=== PATIENT | female | born 1940 | race Caucasian/White ===

== ENCOUNTER 2019-12-12 08:33 | Outpatient (REF) | payer MEDICARE, SELFPAY ==
[2019-12-12 10:08] LABS: INTERNATIONAL NORM RATIO 1.1 (0.9-1.1); Prothrombin Time 13.2 SEC (10.8-13.0)
== END 2019-12-12 08:34 | disposition home or self-care (01) ==
LOC: HO.LABR 08:33
PROVIDERS: PCP Internal Medicine; Visit Provider Internal Medicine
DX: I48.92 Unspecified atrial flutter (principal); E66.9 Obesity, unspecified; M81.0 Age-related osteoporosis without current pathological fracture; I10 Essential (primary) hypertension; E11.65 Type 2 diabetes mellitus with hyperglycemia; E78.00 Pure hypercholesterolemia, unspecified; I49.5 Sick sinus syndrome; E03.9 Hypothyroidism, unspecified; K21.9 Gastro-esophageal reflux disease without esophagitis; Z95.0 Presence of cardiac pacemaker
CPT/HCPCS: 36415; 85610

== ENCOUNTER 2019-12-19 07:46 | Outpatient (REF) | payer MEDICARE, SELFPAY ==
[2019-12-19 08:52] LABS: INTERNATIONAL NORM RATIO 1.3 (0.9-1.1); Prothrombin Time 15.4 SEC (10.8-13.0)
== END 2019-12-19 07:47 | disposition home or self-care (01) ==
LOC: HO.LABR 07:46
PROVIDERS: PCP Internal Medicine; Visit Provider Internal Medicine
DX: M81.0 Age-related osteoporosis without current pathological fracture (principal); E66.9 Obesity, unspecified; I10 Essential (primary) hypertension; F41.9 Anxiety disorder, unspecified; E11.65 Type 2 diabetes mellitus with hyperglycemia; E78.00 Pure hypercholesterolemia, unspecified; I49.5 Sick sinus syndrome; E03.9 Hypothyroidism, unspecified; K21.9 Gastro-esophageal reflux disease without esophagitis; I48.92 Unspecified atrial flutter; Z95.0 Presence of cardiac pacemaker
CPT/HCPCS: 36415; 85610

== ENCOUNTER → 2019-12-20 09:07 | Outpatient (REF) | payer MEDICARE, SELFPAY ==
--- NOTE | 2019-12-20 09:30 | CA_ITS ---
Transthoracic Echocardiogram Patient (Last, First, Middle): Meredith Gomez T (Sophie) Gender: Female Date of : 1940 Age: 79 Procedure Date: 12/20/2019 Procedure Type: Transthoracic Echocardiogram Location: OP Height: 160.02 cm Weight: 78.93 kg BSA: 1.82 m2 Heart Rate: bpm BP: 140 / 60 mmHg Director Medical Economics: TANGELA Referring MD: Izzy Brandon WARP D[employer]ING [employer] TENDER-C Symptoms: 110. Hypertension, R00.1 Sinus bradycardia Study Quality: Fair ECG Rhythm: Sinus Conclusions: - The left ventricular systolic function is normal. The visually estimated ejection fraction is between 65-70%. - Evidence suggests grade II (moderate) diastolic dysfunction. - There is mild to moderate tricuspid valve regurgitation. - Mild pulmonary hypertension is present. Findings Left Ventricle Normal left ventricular cavity size. There is mildly increased left ventricular wall thickness. The left ventricular systolic function is normal. The visually estimated ejection fraction is between 65-70%. There is no evidence of regional wall motion abnormalities. E/E prime ratio is >15, consistent with elevated filling pressures. Evidence suggests grade II (moderate) diastolic dysfunction. Right Ventricle Normal right ventricular cavity size and systolic function. There is a pacemaker wire seen in the right ventricle. Atria The left atrium is normal in size. The right atrium is mildly dilated. Aortic Valve There is a normal trileaflet aortic valve. There is no aortic valve stenosis. There is trace (trivial) aortic valve regurgitation. Mitral Valve The mitral valve appears normal. There is trace mitral valve regurgitation. There is no mitral valve stenosis. Pulmonic Valve The pulmonic valve was not well visualized. Tricuspid Valve Normal tricuspid valve structure. There is mild to moderate tricuspid valve regurgitation. The right ventricular systolic pressure is 38 mmHg. Mild pulmonary hypertension is present. Great Vessels The aortic annulus, sinuses of valsalva, and asc aorta are normal in size. Venous The inferior vena cava is normal in size and collapses greater than 50% with inspiration. Pericardium/Pleural There is no evidence of pericardial effusion. Prior Study Comparison No significant change compared to prior study dated: 10/04/2018. Measurements 2D Linear Measurements IVSd: 1.36 0.6-0.9/0.6-1.0 cm LVIDd: 3.77 3.9-5.3/4.2-5.9 cm LVIDd Index: 2.07 2.4-3.2/2.2-3.1 cm/m2 LVIDs: 2.46 2.0-3.6 cm LVPWd: 1.01 0.7-1.1 cm Ao Root: 2.40 2.1-3.5 cm LA Diam: 3.20 2.7-3.8/3.0-4.0 cm LAIDs Index: 1.76 1.5-2.3 cm/m2 LV Mass: 185.01 67-162/88-224 g LV Mass Index: 101.65 43-95/49-115 g/m2 LVOT Diam: 1.90 3.0+(-)1.3 cm 2D Systolic Function EF 4C: 72.10 >55% Mitral Valve MV Pk E: 1.19 MV PK A: 0.47 MV Decel Time: 235.00 E/A: 2.50 E'Lateral: 8.80 E'Medial: 6.38 E/E' Med: 18.70 E/E' Lat: 13.50 PHT: 69.00 MVA PHT: 3.19 Decel Moore: 5.06 Aortic Valve AoV Pk Andriy: 1.45 AoV Pk Grad: 8.00 LVOT LVOT Pk Andriy: 1.07 LVOT Mn Andriy: 0.70 LVOT VTI: 0.25 LVOT Pk Grad: 5.00 LVOT Mn Grad: 2.00 LVOT Diam: 1.90 LVOT Area: 2.84 Diastolic Function MV Pk E: 1.19 MV Pk A: 0.47 E/A: 2.50 E'Medial: 6.38 E/E' Med: 18.70 E' Laterial: 8.80 E/E' Lat: 13.50 Tricuspid Valve TR Pk Andriy: 2.97 TR Pk Grad: 35.00 RA Press: 3.00 RVSP: 38.00 Great Vessels Aorta Ao Root-2D: 2.40 2.0-3.7 cm Ao Asc: 2.60 2.1-3.4 cm Updated in Other Vendor System with Status of Final Neptali Bell MD electronically signed on 12/22/2019 10:02:55 AM with status of Final
== END ==
LOC: HO.CARD 09:07
PROVIDERS: PCP Internal Medicine; Visit Provider Nurse Practitioner Family
DX: Z48.89 Encounter for other specified surgical aftercare (principal); I48.92 Unspecified atrial flutter; R00.1 Bradycardia, unspecified; I45.5 Other specified heart block; I10 Essential (primary) hypertension; Z95.0 Presence of cardiac pacemaker
CPT/HCPCS: 93306; 99212

== ENCOUNTER → 2019-12-24 10:07 | Outpatient (BNVA) | payer MEDICARE, SELFPAY | PROVIDERS: PCP Internal Medicine; Referring Provider Internal Medicine; Visit Provider Nurse Practitioner Family | DX: I48.92 Unspecified atrial flutter (principal); E66.9 Obesity, unspecified; R00.1 Bradycardia, unspecified; E78.5 Hyperlipidemia, unspecified; I10 Essential (primary) hypertension; Z79.899 Other long term (current) drug therapy; Z79.01 Long term (current) use of anticoagulants; Z95.0 Presence of cardiac pacemaker; Z68.32 Body mass index [BMI] 32.0-32.9, adult | CPT/HCPCS: 99214 ==

== ENCOUNTER 2019-12-27 08:20 | Outpatient (REF) | payer MEDICARE, SELFPAY ==
[2019-12-27 09:26] LABS: INTERNATIONAL NORM RATIO 1.3 (0.9-1.1); Prothrombin Time 15.8 SEC (10.8-13.0)
== END 2019-12-27 08:21 | disposition home or self-care (01) ==
LOC: HO.LABR 08:20
PROVIDERS: PCP Internal Medicine; Visit Provider Internal Medicine
DX: E66.9 Obesity, unspecified (principal); M81.0 Age-related osteoporosis without current pathological fracture; I10 Essential (primary) hypertension; F41.9 Anxiety disorder, unspecified; E11.65 Type 2 diabetes mellitus with hyperglycemia; E78.00 Pure hypercholesterolemia, unspecified; I49.5 Sick sinus syndrome; E03.9 Hypothyroidism, unspecified; K21.9 Gastro-esophageal reflux disease without esophagitis; I48.92 Unspecified atrial flutter
CPT/HCPCS: 36415; 85610

== ENCOUNTER 2020-01-01 08:22 | Outpatient (REF) | payer MEDICARE, SELFPAY ==
[2020-01-01 10:23] LABS: INTERNATIONAL NORM RATIO 1.3 (0.9-1.1); Prothrombin Time 15.7 SEC (10.8-13.0)
== END 2020-01-01 08:23 | disposition home or self-care (01) ==
LOC: HO.LABR 08:22
PROVIDERS: Nurse Practitioner Family; PCP Internal Medicine; Visit Provider Internal Medicine
DX: I48.92 Unspecified atrial flutter (principal); E66.9 Obesity, unspecified; M81.0 Age-related osteoporosis without current pathological fracture; I10 Essential (primary) hypertension; F41.9 Anxiety disorder, unspecified; E11.65 Type 2 diabetes mellitus with hyperglycemia; E78.00 Pure hypercholesterolemia, unspecified; I49.5 Sick sinus syndrome; E03.9 Hypothyroidism, unspecified; K21.9 Gastro-esophageal reflux disease without esophagitis; Z95.0 Presence of cardiac pacemaker
CPT/HCPCS: 36415; 85610

== ENCOUNTER → 2020-01-13 12:50 | Outpatient (BNVA) | payer MEDICARE, SELFPAY | PROVIDERS: PCP Internal Medicine; Referring Provider Internal Medicine; Visit Provider Nurse Practitioner Family | DX: I48.92 Unspecified atrial flutter (principal); E78.5 Hyperlipidemia, unspecified; I10 Essential (primary) hypertension; E66.9 Obesity, unspecified; Z68.31 Body mass index [BMI] 31.0-31.9, adult; Z86.79 Personal history of other diseases of the circulatory system; Z79.01 Long term (current) use of anticoagulants; Z79.899 Other long term (current) drug therapy; Z45.018 Encounter for adjustment and management of other part of cardiac pacemaker | CPT/HCPCS: 99212 ==

== ENCOUNTER 2020-01-28 09:01 | Outpatient (REF) | payer MEDICARE, SELFPAY ==
[2020-01-28 11:11] LABS: Free T4 (Free Thyroxine) 1.43 ng/dL (0.71-1.85); Thyroid Stimulating Hormone 1.39 uIU/mL (0.32-4.0)
[2020-02-02 04:52] LABS: Thyroglobulin Antibody <1 IU/mL (<=1); Thyroglobulin Level 2.6 ng/mL
== END 2020-01-28 09:02 | disposition home or self-care (01) ==
LOC: HO.LAB 09:01
PROVIDERS: PCP Internal Medicine; Visit Provider Internal Medicine Endocrinology, Diabetes & Metabolism
DX: C73 Malignant neoplasm of thyroid gland (principal)
CPT/HCPCS: 36415; 84432; 84439; 84443; 86800

== ENCOUNTER → 2020-01-31 10:31 | Outpatient (BNVA) | payer MEDICARE, SELFPAY | PROVIDERS: PCP Internal Medicine; Visit Provider Internal Medicine Endocrinology, Diabetes & Metabolism | DX: Z85.850 Personal history of malignant neoplasm of thyroid (principal); E89.0 Postprocedural hypothyroidism; E04.2 Nontoxic multinodular goiter; Z79.899 Other long term (current) drug therapy | CPT/HCPCS: 99212 ==

== ENCOUNTER 2020-04-01 09:50 | Outpatient (REF) | payer MEDICARE, SELFPAY ==
[2020-04-01 11:09] LABS: Anion Gap 12 (12-20); Blood Urea Nitrogen 15 mg/dL (9-16); Calcium 9.1 mg/dL (8.4-10.2); Carbon Dioxide 30 mmol/L (22-29); Chloride 99 mmol/L (96-108); Estimated Glomerular Filt Rate > 60; Phosphorus 3.2 mg/dL (2.7-4.5); Potassium 4.7 mmol/l (3.3-5.1); Sodium 136 mmol/L (135-145)
[2020-04-01 11:20] LABS: Renal w Reflex Lab Use Only Order verified
== END 2020-04-01 09:51 | disposition home or self-care (01) ==
LOC: HO.LAB 09:50
PROVIDERS: PCP Internal Medicine; Visit Provider Internal Medicine Nephrology
DX: I10 Essential (primary) hypertension (principal)
CPT/HCPCS: 36415; 80051; 82310; 82565; 84100; 84520

== ENCOUNTER 2020-04-15 | Outpatient (REF) | payer MEDICARE, SELFPAY | END 2020-04-15 00:01 | disposition home or self-care (01) | LOC: HO.VC | PROVIDERS: Visit Provider Internal Medicine | DX: Z23 Encounter for immunization (principal) | CPT/HCPCS: 0011A ==

== ENCOUNTER 2020-05-12 | Outpatient (REF) | payer MEDICARE, SELFPAY | END 2020-05-12 00:01 | disposition home or self-care (01) | LOC: HO.VC | PROVIDERS: Visit Provider Internal Medicine | DX: Z23 Encounter for immunization (principal) | CPT/HCPCS: 0012A ==

== ENCOUNTER 2020-06-16 08:26 | Outpatient (REF) | payer MEDICARE, SELFPAY ==
[2020-06-16 08:56] LABS: MANUAL DIFF FLAG NO
[2020-06-16 09:01] LABS: Basophils Absolute Auto 0.1 X10*3/uL (0.0-0.2); Basophils Percent Auto 0.6 % (0-2); Eosinophils Absolute Auto 0.1 X10*3/uL (0.0-0.4); Eosinophils Percent Auto 1.7 % (0-4); Hematocrit 39.5 % (37-47); Hemoglobin 12.8 g/dl (12.0-16.0); Imm Gran Abs Auto 0.05 X10*3/uL (0.00-0.03); Imm Gran Pct Auto 0.6 % (0.0-0.4); Lymphocytes Absolute Auto 2.4 X10*3/uL (1.2-4.9); Lymphocytes Percent Auto 28.8 % (20-40); Mean Corpuscular HGB Conc 32.4 g/dl (31.0-35.0); Mean Corpuscular Volume 92.5 fL (80-98); Mean Platelet Volume 8.9 fL (9.4-12.3); Monocytes Absolute Auto 0.6 X10*3/uL (0.1-1.2); Monocytes Percent Auto 7.5 % (2-11); Neutrophils Absolute Auto 5.1 X10*3/uL (2.0-8.3); Neutrophils Percent Auto 60.8 % (45-73); Platelet Count 375 X10*3/uL (160-400); Red Blood Count 4.27 X10*6/uL (4.20-5.50); Red Cell Distribution Width 13.5 % (11.0-16.0); White Blood Count 8.4 X10*3/uL (4.8-10.8)
[2020-06-16 09:08] LABS: Estimated Average Glucose 117 mg/dL; Hemoglobin A1c % 5.7 %
[2020-06-16 09:20] LABS: INTERNATIONAL NORM RATIO 1.2 (0.9-1.1); Prothrombin Time 14.1 SEC (10.8-13.0)
[2020-06-16 09:23] LABS: Alanine Aminotransferase 12 U/L (0-31); Albumin Level 4.1 g/dL (3.5-5.0); Alkaline Phosphatase 68 U/L (39-117); Anion Gap 10 (12-20); Aspartate Amino Transferase 13 U/L (5-31); Bilirubin Total 0.5 mg/dL (0.0-1.0); Blood Urea Nitrogen 19 mg/dL (9-16); Calcium 9.2 mg/dL (8.4-10.2); Carbon Dioxide 31 mmol/L (22-29); Chloride 100 mmol/L (96-108); Cholesterol 164 mg/dL; Estimated Glomerular Filt Rate > 60; Glucose Random 120 mg/dL (60-115); HDL Cholesterol 63 mg/dL; LDL Cholesterol Calculated 84 mg/dl; Potassium 5.1 mmol/L (3.3-5.1); Sodium 136 mmol/L (135-145); Total Protein 6.7 g/dL (6.5-8.0); Triglycerides 87 mg/dL
[2020-06-16 09:46] LABS: Free T4 (Free Thyroxine) 1.24 ng/dL (0.71-1.85); Thyroid Stimulating Hormone 1.51 uIU/mL (0.32-4.0); Vitamin D 25-OH Total 44.5 ng/mL (>30)
[2020-06-16 10:16] LABS: Folate 11.8 ng/mL (> or = 4.0); Vitamin B12 380 pg/mL (200-900)
== END 2020-06-16 08:27 | disposition home or self-care (01) ==
LOC: HO.LABR 08:26
PROVIDERS: PCP Internal Medicine; Visit Provider Internal Medicine
DX: E66.9 Obesity, unspecified (principal); M81.0 Age-related osteoporosis without current pathological fracture; I10 Essential (primary) hypertension; F41.9 Anxiety disorder, unspecified; E11.65 Type 2 diabetes mellitus with hyperglycemia; E78.00 Pure hypercholesterolemia, unspecified; I49.5 Sick sinus syndrome; Z95.0 Presence of cardiac pacemaker; E03.9 Hypothyroidism, unspecified; K21.9 Gastro-esophageal reflux disease without esophagitis; I48.92 Unspecified atrial flutter; E89.0 Postprocedural hypothyroidism
CPT/HCPCS: 36415; 80053; 80061; 82306; 82607; 82746; 83036; 84439; 84443; 85025; 85610

== ENCOUNTER 2020-07-08 10:43 | Outpatient (REF) | payer MEDICARE, SELFPAY ==
--- NOTE | ~2020-07-08 | MM_ITS ---
EXAMINATION: MM SCREENING DIGITAL BREAST TOMOSYNTHESIS, BILATERAL CLINICAL INFORMATION: Screening. Asymptomatic. The lifetime risk of breast cancer based on the Tyrer-Cuzick Model is 2%. COMPARISON: Outside mammography: 05/03/2019, 04/12/2018, 03/14/2017 ([facility]). TECHNIQUE: Digital breast tomosynthesis is performed in both the craniocaudal and mediolateral oblique views along with computer-aided detection (CAD). Synthesized 2D images are generated from the tomosynthesis. Additional right MLO view is provided. FINDINGS: There are scattered areas of fibroglandular density (ACR BI-RADS breast composition Category b). Breast tissue composition borders on predominantly fatty. There are stable background stromal and small fibronodular parenchymal densities similar to the outside studies. There is no developing density or interval mass or architectural abnormality. There are scattered punctate and vascular calcifications again seen. The axilla are unremarkable. No significant changes. MM/MM tomosynthesis screening BI IMPRESSION: No significant changes from prior outside exams. ASSESSMENT: BI-RADS 2: Benign RECOMMENDATION: Routine annual mammography screening. This patient's information was entered into a reminder system with a target due date for their next mammogram.
== END 2020-07-08 10:44 | disposition home or self-care (01) ==
LOC: HO.MAMMO 10:43
PROVIDERS: PCP Internal Medicine; Visit Provider Internal Medicine
DX: Z12.31 Encounter for screening mammogram for malignant neoplasm of breast (principal)
CPT/HCPCS: 77063; 77067

== ENCOUNTER → 2020-07-21 13:48 | Outpatient (BNVA) | payer MEDICARE, SELFPAY | PROVIDERS: PCP Internal Medicine; Referring Provider Internal Medicine; Visit Provider Internal Medicine Cardiovascular Disease | DX: Z45.018 Encounter for adjustment and management of other part of cardiac pacemaker (principal); I48.92 Unspecified atrial flutter; I10 Essential (primary) hypertension | CPT/HCPCS: 99212 ==

== ENCOUNTER 2020-07-27 13:31 | Outpatient (REF) | payer MEDICARE, SELFPAY ==
--- NOTE | ~2020-07-27 | US_ITS ---
EXAMINATION: US THYROID CLINICAL INFORMATION: Malignant neoplasm of thyroid gland. COMPARISON: Ultrasound soft tissue head/neck thyroid dated 09/19/2018 and 12/07/2016. TECHNIQUE: Linear transducer grayscale and color Doppler examination with attention to the region of the thyroid. FINDINGS: SIZE: Measurements of the solitary left thyroid lobe and nodules are given in sagittal, anteroposterior and transverse dimensions respectively. Right Thyroid Lobe: Surgically absent. Left Thyroid Lobe: 2.3 x 1.2 x 1.5 cm, volume 2.2 mL. Previously 2.6 x 1.1 x 1.5 cm, volume 2.2 mL. Parenchyma: The gland echotexture is homogeneous. Thyroid vascularity is normal. Isthmus: 0.33 cm in maximum AP dimension. Previously 0.60 cm. Estimated total number of nodules greater than or equal to 1 cm: 0. Customer Engineering Specialist nodules are described as follows: 1. Location: Left mid. Size: 0.31 x 0.26 x 0.31 cm, volume 0.13 mL. Previously 0.30 x 0.30 x 0.2 cm, volume 0.009 mL. Nodule characteristics: Composition: Cystic(0). ACR TI-RADS total points: 0 Previous: n/a ACR TI-RADS category: 1 Previous: n/a Significant change in size (>/= 20% in 2 dimensions and minimal increase of 2 mm or 50% or greater increase in volume): Change in features: Change in ACR TI-RADS risk category: n/a 2. Location: Left inferior. Size: 0.61 x 0.55 x 0.65 cm, volume 0.11 mL. Previously 0.40 x 0.50 x 0.70 cm, volume 0.07 mL. Nodule characteristics: Composition: Solid (2). Echogenicity: Hyperechoic (1). Shape: Not taller than wide (0). Margins: Smooth (0). Echogenic Foci: None (0). ACR TI-RADS total points: 3 Previous: n/a ACR TI-RADS category: 3 Previous: n/a Significant change in size (>/= 20% in 2 dimensions and minimal increase of 2 mm or 50% or greater increase in volume): Yes Change in features: No Change in ACR TI-RADS risk category: n/a NODES: No lymphadenopathy is seen in the tissue surrounding the thyroid gland. US/US thyroid IMPRESSION: Post right thyroidectomy. Interval increase in size in solid hyperechoic nodule in the left lobe. Newly appreciated small cystic nodule in the left lobe. ACR TI-RADS RECOMMENDATION REFERENCE: Ultrasound-guided fine-needle aspiration, followup ultrasound, no further follow up. * TR1 (0 point) and TR 2 (2 points): No FNA or follow up * TR3 (3 points): FNA if more than or equal to 2.5 cm in maximum dimension, followup ultrasound in 1, 3 and 5 years if 1.5 to 2.4 cm in maximum dimension. * TR4 (4-6 points): FNA if more than or equal to 1.5 cm in maximum dimension, followup ultrasound in 1, 2, 3 and 5 years if 1 to 1.4 cm in maximum dimension. * TR5 (more than or equal to 7 points): FNA if more than or equal to 1 cm in maximum dimension, followup ultrasound every year for 5 years if 0.5 to 0.9 cm in maximum dimension. * TR3, TR4 or TR5 nodules that are below the size threshold for follow up receive no follow up.
== END 2020-07-27 13:32 | disposition home or self-care (01) ==
LOC: HO.HMGCX 13:31
PROVIDERS: Visit Provider Internal Medicine Endocrinology, Diabetes & Metabolism
DX: C73 Malignant neoplasm of thyroid gland (principal); E04.2 Nontoxic multinodular goiter
CPT/HCPCS: 76536

== ENCOUNTER → 2020-07-31 10:23 | Outpatient (BNVA) | payer MEDICARE, SELFPAY | PROVIDERS: PCP Internal Medicine; Visit Provider Internal Medicine Endocrinology, Diabetes & Metabolism | DX: C73 Malignant neoplasm of thyroid gland (principal); E04.2 Nontoxic multinodular goiter; E89.0 Postprocedural hypothyroidism | CPT/HCPCS: 99212 ==

== ENCOUNTER → 2020-09-24 08:10 | Outpatient (REF) | payer MEDICARE, SELFPAY ==
--- NOTE | ~2020-09-24 | NM_ITS ---
Myocardial perfusion study Indication: Nonsustained ventricular tachycardia to evaluate for myocardial ischemia Technique: The patient was brought in for a Lexiscan perfusion study on 09/24/2020. Patient performed low-level exercise and was injected 0.4 mg of Lexiscan intravenously. Within a minute of injection, 25 mCi of sestamibi was given intravenously. Images were obtained using the SPECT gamma camera interlaced with the gating device. Images were obtained in supine position. Resting perfusion study was performed on 09/25/2020. Patient was administered 25 mCi of sestamibi intravenously at rest. Images were then obtained in supine position. Images obtained with and without CT attenuation. Total DLP 146 mGy-cm. Images were processed with the software and compared side to side in short axis, horizontal long axis and vertical long axis views. Findings: The stress perfusion study showed nonattenuated images show minimally reduced uptake in the apex of the LV myocardium. Attenuation corrected images show mildly reduced uptake in the apex of the LV myocardium.. The gated study shows normal LV systolic function with calculated LVEF of 70%. LV cavity is normal in size. The gated study shows normal systolic wall thickening and contraction of segments. Resting study shows no clear change in perfusion pattern on attenuation corrected images.. Gating at rest reveals normal systolic wall motion with ejection fraction at 66%. The findings are consistent with likely normal myocardial perfusion. NM/NM audra perf SPECT rest & str Impression: 1. Myocardial perfusion imaging study shows likely normal myocardial perfusion 2. Gated LVEF is 70% 3. Transient ischemic dilatation not present EKG is nondiagnostic for ischemia
--- NOTE | 2020-09-24 08:13 | CA_ITS ---
Acquisition Time: 2020-09-24 08:13:29 Total Exercise Time: 00:02:00 Test Indications: Screening for CAD Medications: FOSAMAX AMLODIPINE ELIQUIS ATORVASTATIN CITALOPRAM HYDRALAZINE LEVOTHYROXINE METOPROLOL LISINOPRIL Protocol: LEXISCAN Max HR: 061 BPM 43% of Pred: 140 BPM Max BP: 118/044 mmHG Max Work Load: 1.0 METS Pharmacological stress test using Lexiscan while sitting. Pt tolerated well, however given Aminophyline for sx of dizziness. Denies any anginal sx. EKG without arrhythmias, non-diagnostic for ischemia, nuclear images to follow. Normotensive response to test. Test reviewed with Dr. Choi. Referred By: Izzy Brandon Overread By: Salome Molina NP
== END ==
LOC: HO.CARD 08:10
PROVIDERS: Visit Provider Nurse Practitioner Family
DX: I47.2 Ventricular tachycardia (principal); Z88.1 Allergy status to other antibiotic agents
CPT/HCPCS: 78452; 93017; A9500; J0280; J2785

== ENCOUNTER 2020-09-30 07:52 | Outpatient (REF) | payer MEDICARE, SELFPAY ==
[2020-09-30 08:38] LABS: MANUAL DIFF FLAG NO
[2020-09-30 08:49] LABS: Basophils Absolute Auto 0.1 X10*3/uL (0.0-0.2); Basophils Percent Auto 0.7 % (0-2); Eosinophils Absolute Auto 0.1 X10*3/uL (0.0-0.4); Eosinophils Percent Auto 1.7 % (0-4); Hematocrit 38.5 % (37-47); Hemoglobin 12.7 g/dl (12.0-16.0); Imm Gran Abs Auto 0.02 X10*3/uL (0.00-0.03); Imm Gran Pct Auto 0.3 % (0.0-0.4); Lymphocytes Percent Auto 28.5 % (20-40); Monocytes Absolute Auto 0.6 X10*3/uL (0.1-1.2); Monocytes Percent Auto 8.7 % (2-11); Neutrophils Absolute Auto 4.2 X10*3/uL (2.0-8.3); Neutrophils Percent Auto 60.1 % (45-73); Platelet Count 360 X10*3/uL (160-400); Red Blood Count 4.23 X10*6/uL (4.20-5.50)
[2020-09-30 08:59] LABS: Estimated Average Glucose 117 mg/dL; Hemoglobin A1c % 5.7 %
[2020-09-30 09:15] LABS: Alanine Aminotransferase 10 U/L (0-31); Albumin Level 4.1 g/dL (3.5-5.0); Alkaline Phosphatase 73 U/L (39-117); Anion Gap 12 (12-20); Aspartate Amino Transferase 15 U/L (5-31); Bilirubin Total 0.7 mg/dL (0.0-1.0); Blood Urea Nitrogen 13 mg/dL (9-16); Calcium 9.1 mg/dL (8.4-10.2); Carbon Dioxide 26 mmol/L (22-29); Chloride 100 mmol/L (96-108); Estimated Glomerular Filt Rate > 60; Glucose Random 106 mg/dL (60-115); Sodium 133 mmol/L (135-145); Total Protein 6.7 g/dL (6.5-8.0)
[2020-09-30 09:33] LABS: Free T4 (Free Thyroxine) 1.28 ng/dL (0.71-1.85); Thyroid Stimulating Hormone 1.75 uIU/mL (0.32-4.0)
[2020-09-30 17:45] LABS: Folate 15.3 ng/mL (> or = 4.0); Vitamin B12 449 pg/mL (200-900)
[2020-10-04 04:07] LABS: Thyroglobulin Antibody <1 IU/mL (<=1); Thyroglobulin Level 3.2 ng/mL
== END 2020-09-30 07:53 | disposition home or self-care (01) ==
LOC: HO.LAB 07:52
PROVIDERS: Internal Medicine Endocrinology, Diabetes & Metabolism; PCP Internal Medicine; Visit Provider Internal Medicine
DX: I48.92 Unspecified atrial flutter (principal); E11.65 Type 2 diabetes mellitus with hyperglycemia; C73 Malignant neoplasm of thyroid gland; E04.2 Nontoxic multinodular goiter
CPT/HCPCS: 36415; 80053; 82607; 82746; 83036; 84432; 84439; 84443; 85025; 86800

== ENCOUNTER 2020-11-12 08:39 | Outpatient (REF) | payer MEDICARE, SELFPAY ==
--- NOTE | ~2020-11-12 | US_ITS ---
EXAMINATION: US ABDOMEN COMPLETE CLINICAL INFORMATION: Elevated LFTs. COMPARISON: Renal ultrasound 06/17/2012 and 01/19/2012. TECHNIQUE: Real-time imaging of the abdominal viscera. FINDINGS: PANCREAS: Normal. ABDOMINAL AORTA: The proximal, mid and distal segments are normal in caliber. There are mild atherosclerotic calcifications. INFERIOR VENA CAVA: Visualized portions are normal. LIVER: There is diffuse increased liver parenchymal echogenicity. No focal hepatic mass is seen. The liver is normal in size and contour. No biliary ductal dilatation. GALLBLADDER: Normal. The gallbladder is physiologically distended without evidence of stones, sludge, polyps, wall thickening or pericholecystic fluid. COMMON BILE DUCT: Normal in caliber measuring 0.4 cm in diameter. RIGHT KIDNEY: Normal. No hydronephrosis. No renal calculi or focal parenchymal lesions. The kidney measures 11.0 cm in maximum dimension. LEFT KIDNEY: Normal. No hydronephrosis. No renal calculi or focal parenchymal lesions. The kidney measures 10.9 cm in maximum dimension. SPLEEN: Normal. The spleen measures 8.2 cm in maximum dimension. FREE FLUID: None. US/US abdomen complete IMPRESSION: There is generalized increase in hepatic echotexture, consistent with fatty infiltration or hepatocellular disease. Please correlate clinically. No focal hepatic mass or intrahepatic biliary dilatation is seen.
== END 2020-11-12 08:40 | disposition home or self-care (01) ==
LOC: HO.HMGCX 08:39
PROVIDERS: PCP Internal Medicine; Visit Provider Internal Medicine
DX: R10.11 Right upper quadrant pain (principal); R79.89 Other specified abnormal findings of blood chemistry
CPT/HCPCS: 76700

== ENCOUNTER → 2020-12-10 09:51 | Outpatient (BNVA) | payer MEDICARE, SELFPAY | PROVIDERS: PCP Internal Medicine; Visit Provider Internal Medicine | DX: I48.92 Unspecified atrial flutter (principal); Z51.81 Encounter for therapeutic drug level monitoring; Z79.01 Long term (current) use of anticoagulants | CPT/HCPCS: 85610; 99202 ==

== ENCOUNTER → 2020-12-14 08:42 | Outpatient (BNVA) | payer MEDICARE, SELFPAY | PROVIDERS: PCP Internal Medicine; Visit Provider Internal Medicine | DX: I48.92 Unspecified atrial flutter (principal); Z51.81 Encounter for therapeutic drug level monitoring; Z79.01 Long term (current) use of anticoagulants | CPT/HCPCS: 85610; 99211 ==

== ENCOUNTER → 2020-12-18 09:03 | Outpatient (BNVA) | payer MEDICARE, SELFPAY | PROVIDERS: PCP Internal Medicine; Visit Provider Internal Medicine | DX: I48.92 Unspecified atrial flutter (principal); Z51.81 Encounter for therapeutic drug level monitoring; Z79.01 Long term (current) use of anticoagulants | CPT/HCPCS: 85610; 99211 ==

== ENCOUNTER → 2020-12-22 09:17 | Outpatient (BNVA) | payer MEDICARE, SELFPAY | PROVIDERS: PCP Internal Medicine; Visit Provider Internal Medicine | DX: I48.92 Unspecified atrial flutter (principal); Z51.81 Encounter for therapeutic drug level monitoring; Z79.01 Long term (current) use of anticoagulants | CPT/HCPCS: 85610; 99211 ==

== ENCOUNTER → 2020-12-28 13:02 | Outpatient (BNVA) | payer MEDICARE, SELFPAY | PROVIDERS: PCP Internal Medicine; Visit Provider Internal Medicine | DX: I48.92 Unspecified atrial flutter (principal); Z51.81 Encounter for therapeutic drug level monitoring; Z79.01 Long term (current) use of anticoagulants | CPT/HCPCS: 85610; 99211 ==

== ENCOUNTER → 2021-01-04 13:02 | Outpatient (BNVA) | payer MEDICARE, SELFPAY | PROVIDERS: PCP Internal Medicine; Visit Provider Internal Medicine | DX: I48.92 Unspecified atrial flutter (principal); Z51.81 Encounter for therapeutic drug level monitoring; Z79.01 Long term (current) use of anticoagulants | CPT/HCPCS: 85610; 99211 ==

== ENCOUNTER → 2021-01-14 09:32 | Outpatient (BNVA) | payer MEDICARE, SELFPAY | PROVIDERS: PCP Internal Medicine; Visit Provider Internal Medicine | DX: I48.92 Unspecified atrial flutter (principal); Z51.81 Encounter for therapeutic drug level monitoring; Z79.01 Long term (current) use of anticoagulants | CPT/HCPCS: 85610; 99211 ==

== ENCOUNTER → 2021-01-26 10:28 | Outpatient (BNVA) | payer MEDICARE, SELFPAY | PROVIDERS: PCP Internal Medicine; Referring Provider Internal Medicine; Visit Provider Internal Medicine Cardiovascular Disease | DX: Z45.018 Encounter for adjustment and management of other part of cardiac pacemaker (principal); I48.92 Unspecified atrial flutter; I10 Essential (primary) hypertension | CPT/HCPCS: 93005; 99212 ==

== ENCOUNTER → 2021-01-28 09:39 | Outpatient (BNVA) | payer MEDICARE, SELFPAY | PROVIDERS: PCP Internal Medicine; Visit Provider Internal Medicine | DX: I48.92 Unspecified atrial flutter (principal); Z51.81 Encounter for therapeutic drug level monitoring; Z79.01 Long term (current) use of anticoagulants | CPT/HCPCS: 85610; 99211 ==

== ENCOUNTER 2021-02-03 13:46 | Outpatient (REF) | payer MEDICARE, SELFPAY ==
--- NOTE | ~2021-02-03 | XR_ITS ---
EXAMINATION: XR THORACOLUMBAR SPINE CLINICAL INFORMATION: Pain COMPARISON: None TECHNIQUE: 3 views of the thoracic spine FINDINGS: Bone alignment is normal. No fracture or dislocation is seen. 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 Paraspinal soft tissues are unremarkable. Left subclavian dual chamber pacemaker and postsurgical changes to the right upper lobe are noted. XR/XR thoracic spine 2V IMPRESSION: Severe degenerative changes.
--- NOTE | ~2021-02-03 | XR_ITS ---
EXAMINATION: XR CHEST CLINICAL INFORMATION: Pain and dyspnea COMPARISON: Previous chest x-ray was recent November 2019 TECHNIQUE: 2 views of the chest were obtained. FINDINGS: The cardiac silhouette is slightly enlarged. There is a new left subclavian dual chamber pacemaker. Hilar and mediastinal contours are otherwise unremarkable. There are postsurgical changes to the right upper lobe with surgical trista and scarring. There is a 4 mm peripheral nodule at the left lung base that is stable. The lungs are otherwise clear. There is no pleural effusion or pneumothorax. There are degenerative changes of the spine. XR/XR chest 2V IMPRESSION: No evidence for acute disease in the chest.
== END 2021-02-03 13:47 | disposition home or self-care (01) ==
LOC: HO.XRAY 13:46
PROVIDERS: PCP Internal Medicine; Visit Provider Internal Medicine
DX: R49.0 Dysphonia (principal); M54.6 Pain in thoracic spine
CPT/HCPCS: 71046; 72070

== ENCOUNTER → 2021-02-11 10:23 | Outpatient (BNVA) | payer MEDICARE, SELFPAY | PROVIDERS: PCP Internal Medicine; Visit Provider Internal Medicine | DX: I48.92 Unspecified atrial flutter (principal); Z51.81 Encounter for therapeutic drug level monitoring; Z79.01 Long term (current) use of anticoagulants | CPT/HCPCS: 85610; 99211 ==

== ENCOUNTER → 2021-03-01 10:02 | Outpatient (BNVA) | payer MEDICARE, SELFPAY | PROVIDERS: PCP Internal Medicine; Visit Provider Internal Medicine | DX: I48.92 Unspecified atrial flutter (principal); Z51.81 Encounter for therapeutic drug level monitoring; Z79.01 Long term (current) use of anticoagulants | CPT/HCPCS: 85610; 99211 ==

== ENCOUNTER → 2021-03-11 08:47 | Outpatient (BNVA) | payer MEDICARE, SELFPAY | PROVIDERS: PCP Internal Medicine; Visit Provider Internal Medicine | CPT/HCPCS: Q3014 ==

== ENCOUNTER → 2021-03-22 13:01 | Outpatient (BNVA) | payer MEDICARE, SELFPAY | PROVIDERS: PCP Internal Medicine; Visit Provider Internal Medicine | DX: I48.92 Unspecified atrial flutter (principal); Z51.81 Encounter for therapeutic drug level monitoring; Z79.01 Long term (current) use of anticoagulants | CPT/HCPCS: 85610; 99211 ==

== ENCOUNTER → 2021-04-02 12:42 | Outpatient (REF) | payer MEDICARE, SELFPAY ==
--- NOTE | 2021-04-02 12:45 | CA_ITS ---
Transthoracic Echocardiogram Patient (Last, First, Middle): Meredith Gomez T (Sophie) Gender: Female Date of : 1940 Age: 81 Procedure Date: 04/02/2021 Procedure Type: Transthoracic Echocardiogram Location: OP Height: 127. cm Weight: 74.84 kg BSA: 1.51 m2 Heart Rate: bpm BP: 136 / 65 mmHg Procedure Analyst: ANNETTA Referring MD: Nikita Choi MD Symptoms: I48.92 - Unspecified atrial flutter Study Quality: Fair Conclusions: - Normal left ventricular size and systolic function. - E/E prime ratio is >15, consistent with elevated filling pressures. - Normal right ventricular cavity size and systolic function. - There is trace (trivial) aortic valve regurgitation. Findings Left Ventricle Normal left ventricular size and systolic function. There is mildly increased left ventricular wall thickness. The visually estimated ejection fraction is between 60-65%. There is no evidence of regional wall motion abnormalities. Abnormal diastolic function is noted. Spectral Doppler is indicative of a pseudonormal filling pattern. E/E prime ratio is >15, consistent with elevated filling pressures. Right Ventricle Normal right ventricular cavity size and systolic function. Atria The left atrium is mildly dilated. The right atrium is normal in size. Aortic Valve There is a normal trileaflet aortic valve. There is mild calcification of the aortic valve. There is mild thickening of the aortic valve. There is no aortic valve stenosis. There is trace (trivial) aortic valve regurgitation. Mitral Valve Normal mitral valve structure and function. There is no mitral valve regurgitation. There is no mitral valve stenosis. Pulmonic Valve The pulmonic valve is likely normal. Tricuspid Valve Normal tricuspid valve structure and function. There is trace tricuspid valve regurgitation. Tricuspid regurgitation envelope is inadequate for calculation of right ventricular systolic pressure. Normal right atrial pressure. Great Vessels All visible segments of the aorta are normal in size. The visualized portions of the pulmonary artery and branches are normal. Venous The inferior vena cava is normal in size and collapses greater than 50% with inspiration. Pericardium/Pleural There is no evidence of pericardial effusion. Prior Study Comparison No significant change compared to prior study dated: 12/20/2019. Measurements 2D Linear Measurements IVSd: 1.43 0.6-0.9/0.6-1.0 cm LVIDd: 3.70 3.9-5.3/4.2-5.9 cm LVIDd Index: 2.45 2.4-3.2/2.2-3.1 cm/m2 LVIDs: 2.40 2.0-3.6 cm LVPWd: 1.13 0.7-1.1 cm Ao Root: 3.20 2.1-3.5 cm LA Diam: 3.10 2.7-3.8/3.0-4.0 cm LAIDs Index: 2.05 1.5-2.3 cm/m2 LV Mass: 202.45 67-162/88-224 g LV Mass Index: 134.07 43-95/49-115 g/m2 LVOT Diam: 1.90 3.0+(-)1.3 cm 2D Systolic Function EF 4C: 65.80 >55% EF 2C: 68.60 >55% EF BiP: 67.20 >55% Mitral Valve MV Pk E: 1.07 MV PK A: 0.58 MV Decel Time: 250.00 E/A: 1.80 E'Lateral: 6.74 E'Medial: 5.11 E/E' Med: 20.90 E/E' Lat: 15.90 PHT: 73.00 MVA PHT: 3.01 Decel [place]: 4.28 Aortic Valve AoV Pk Andriy: 1.40 AoV Mn Andriy: 1.04 AoV VTI: 0.36 AoV Pk Grad: 8.00 Aov Mn Grad: 5.00 LANDON Cont.VTI: 1.85 LVOT LVOT Pk Andriy: 0.98 LVOT Mn Andriy: 0.67 LVOT VTI: 0.23 LVOT Pk Grad: 4.00 LVOT Mn Grad: 2.00 LVOT Diam: 1.90 LVOT Area: 2.84 Diastolic Function MV Pk E: 1.07 MV Pk A: 0.58 E/A: 1.80 E'Medial: 5.11 E/E' Med: 20.90 E' Laterial: 6.74 E/E' Lat: 15.90 Right Ventricle TAPSE (mm): 23.90 TVS' Andriy: 13.60 Tricuspid Valve TR Pk Andriy: 2.78 TR Pk Grad: 31.00 Great Vessels Aorta Ao Root-2D: 3.20 2.0-3.7 cm Ao Asc: 3.30 2.1-3.4 cm Updated in Other Vendor System with Status of Final Feliberto Sabillon MD electronically signed on 04/04/2021 9:22:47 PM with status of Final
== END ==
LOC: HO.CARD 12:42
PROVIDERS: PCP Internal Medicine; Visit Provider Internal Medicine Cardiovascular Disease
DX: I48.92 Unspecified atrial flutter (principal)
CPT/HCPCS: 93306

== ENCOUNTER 2021-04-05 09:04 | Outpatient (REF) | payer MEDICARE, SELFPAY ==
[2021-04-05 09:26] LABS: MANUAL DIFF FLAG NO
[2021-04-05 10:01] LABS: Basophils Percent Auto 0.5 % (0-2); Eosinophils Absolute Auto 0.1 X10*3/uL (0.0-0.4); Eosinophils Percent Auto 1.6 % (0-4); Hematocrit 40.1 % (37.0-47.0); Hemoglobin 13.5 g/dl (12.0-16.0); Imm Gran Abs Auto 0.03 X10*3/uL (0.00-0.03); Imm Gran Pct Auto 0.4 % (0.0-0.4); Lymphocytes Absolute Auto 2.2 X10*3/uL (1.2-4.9); Lymphocytes Percent Auto 29.3 % (20-40); Mean Corpuscular HGB Conc 33.7 g/dl (31.0-35.0); Mean Corpuscular Hemoglobin 31.5 pg (27.0-33.0); Mean Corpuscular Volume 93.5 fL (80.0-98.0); Monocytes Absolute Auto 0.6 X10*3/uL (0.1-1.2); Monocytes Percent Auto 7.9 % (2-11); Neutrophils Absolute Auto 4.5 x10*3/uL (2.0-8.3); Neutrophils Percent Auto 60.3 % (45-73); Platelet Count 296 X10*3/uL (160-400); Red Blood Count 4.29 X10*6/uL (4.20-5.50); Red Cell Distribution Width 13.6 % (11.0-16.0); White Blood Count 7.5 X10*3/uL (4.8-10.8)
[2021-04-05 10:26] LABS: Creatinine Urine 53.67 mg/dL; Microalbumin Urine < 5.0 mg/L
[2021-04-05 10:38] LABS: Alanine Aminotransferase 14 U/L (0-31); Alkaline Phosphatase 67 U/L (39-117); Anion Gap 10 (12-20); Aspartate Amino Transferase 16 U/L (5-31); Bilirubin Total 0.6 mg/dL (0.0-1.0); Blood Urea Nitrogen 13 mg/dL (9-16); Calcium 9.4 mg/dL (8.4-10.2); Carbon Dioxide 31 mmol/L (22-29); Chloride 98 mmol/L (96-108); Cholesterol 163 mg/dL; Estimated Glomerular Filt Rate > 60; Glucose Random 106 mg/dL (60-115); HDL Cholesterol 63 mg/dL; LDL Cholesterol Calculated 80 mg/dl; Potassium 5.1 mmol/L (3.3-5.1); Sodium 134 mmol/L (135-145); Total Protein 6.6 g/dL (6.5-8.0); Triglycerides 100 mg/dL
[2021-04-05 10:47] LABS: Free T4 (Free Thyroxine) 1.33 ng/dL (0.71-1.85); Thyroid Stimulating Hormone 1.28 uIU/mL (0.32-4.0); Vitamin D 25-OH Total 55.1 ng/mL (>30)
[2021-04-05 11:06] LABS: Folate 11.9 ng/mL (> or = 4.0); Vitamin B12 456 pg/mL (200-900)
[2021-04-07 06:51] LABS: Thyroglobulin 3.1 ng/mL; Thyroglobulin Antibodies <1 IU/mL (< or = 1)
== END 2021-04-05 09:05 | disposition home or self-care (01) ==
LOC: HO.LAB 09:04
PROVIDERS: Absent Provider Internal Medicine; PCP Internal Medicine; Visit Provider Internal Medicine
DX: C73 Malignant neoplasm of thyroid gland (principal); E04.2 Nontoxic multinodular goiter; E11.65 Type 2 diabetes mellitus with hyperglycemia; E78.00 Pure hypercholesterolemia, unspecified
CPT/HCPCS: 36415; 80053; 80061; 82043; 82306; 82607; 82746; 84432; 84439; 84443; 85025; 85610; 86800; 99211

== ENCOUNTER → 2021-04-21 08:56 | Outpatient (BNVA) | payer MEDICARE, SELFPAY | PROVIDERS: PCP Internal Medicine; Visit Provider Internal Medicine | DX: I48.92 Unspecified atrial flutter (principal); Z51.81 Encounter for therapeutic drug level monitoring; Z79.01 Long term (current) use of anticoagulants | CPT/HCPCS: 85610; 99211 ==

== ENCOUNTER → 2021-04-26 10:27 | Outpatient (BNVA) | payer MEDICARE, SELFPAY | PROVIDERS: PCP Internal Medicine; Visit Provider Internal Medicine | DX: C73 Malignant neoplasm of thyroid gland (principal); E04.2 Nontoxic multinodular goiter; E89.0 Postprocedural hypothyroidism | CPT/HCPCS: 99212 ==

== ENCOUNTER 2021-04-26 11:10 | Outpatient (REF) | payer MEDICARE, SELFPAY ==
[2021-04-26 14:20] LABS: Alanine Aminotransferase 12 U/L (0-31); Alkaline Phosphatase 65 U/L (39-117); Anion Gap 10 (12-20); Aspartate Amino Transferase 16 U/L (5-31); Bilirubin Total 0.5 mg/dL (0.0-1.0); Blood Urea Nitrogen 16 mg/dL (9-16); Calcium 9.6 mg/dL (8.4-10.2); Carbon Dioxide 31 mmol/L (22-29); Chloride 97 mmol/L (96-108); Estimated Glomerular Filt Rate > 60; Glucose Random 99 mg/dL (60-115); Phosphorus 3.6 mg/dL (2.7-4.5); Potassium 5.4 mmol/L (3.3-5.1); Sodium 133 mmol/L (135-145); Total Protein 6.7 g/dL (6.5-8.0)
[2021-04-26 14:43] LABS: Free T4 (Free Thyroxine) 1.31 ng/dL (0.71-1.85); Thyroid Stimulating Hormone 1.56 uIU/mL (0.32-4.0); Vitamin D 25-OH Total 54.8 ng/mL (>30)
[2021-04-27 12:07] LABS: Calcium (PTHI) 9.4 mg/dL (8.6-10.4); PTHI 26 pg/mL (14-64)
== END 2021-04-26 11:11 | disposition home or self-care (01) ==
LOC: HO.10HDL 11:10
PROVIDERS: Visit Provider Internal Medicine
DX: E04.2 Nontoxic multinodular goiter (principal); C73 Malignant neoplasm of thyroid gland
CPT/HCPCS: 36415; 80053; 82306; 83970; 84100; 84439; 84443

== ENCOUNTER 2021-04-27 09:24 | Outpatient (REF) | payer MEDICARE, SELFPAY ==
[2021-04-27 10:53] LABS: Creatinine Urine 55.91 mg/dL
[2021-04-27 11:00] LABS: Anion Gap 11 (12-20); Blood Urea Nitrogen 15 mg/dL (9-16); Calcium 9.7 mg/dL (8.4-10.2); Carbon Dioxide 29 mmol/L (22-29); Chloride 98 mmol/L (96-108); Estimated Glomerular Filt Rate > 60; Glucose Random 98 mg/dL (60-115); Potassium 5.2 mmol/L (3.3-5.1); Sodium 133 mmol/L (135-145)
[2021-04-27 11:11] LABS: Free T4 (Free Thyroxine) 1.51 ng/dL (0.71-1.85)
== END 2021-04-27 09:25 | disposition home or self-care (01) ==
LOC: HO.LAB 09:24
PROVIDERS: PCP Internal Medicine; Visit Provider Internal Medicine
DX: E11.65 Type 2 diabetes mellitus with hyperglycemia (principal); C73 Malignant neoplasm of thyroid gland
CPT/HCPCS: 36415; 80048; 84439

== ENCOUNTER 2021-05-05 08:48 | Outpatient (REF) | payer MEDICARE, SELFPAY ==
[2021-05-05 10:49] LABS: Anion Gap 14 (12-20); Blood Urea Nitrogen 11 mg/dL (9-16); Calcium 9.7 mg/dL (8.4-10.2); Carbon Dioxide 27 mmol/L (22-29); Chloride 98 mmol/L (96-108); Estimated Glomerular Filt Rate > 60; Glucose Random 106 mg/dL (60-115); Potassium 5.2 mmol/L (3.3-5.1); Sodium 134 mmol/L (135-145)
== END 2021-05-05 08:49 | disposition home or self-care (01) ==
LOC: HO.LAB 08:48
PROVIDERS: PCP Internal Medicine; Visit Provider Internal Medicine
DX: E87.5 Hyperkalemia (principal)
CPT/HCPCS: 36415; 80048

== ENCOUNTER 2021-05-17 10:31 | Outpatient (REF) | payer MEDICARE, SELFPAY ==
--- NOTE | ~2021-05-17 | CT_ITS ---
EXAMINATION: CT SOFT TISSUE NECK WITHOUT CONTRAST CLINICAL INFORMATION: Malignant neoplasm of thyroid gland. COMPARISON: Thyroid ultrasound 07/27/2020. TECHNIQUE: Helical imaging was performed in the axial plane with generation of coronal and sagittal reformatted images. This CT examination was performed using dose optimization techniques as appropriate, variously including the following: *Automated exposure control *Adjustment of mA and/or kV according to patient size (this includes techniques or standardized protocols for targeted exams where dose is matched to indication/reason for exam; i.e. extremities or head) *Use of iterative reconstruction technique DLP: 333 mGy-cm FINDINGS: There are are postoperative findings related to resection of the right lobe of the thyroid gland. The left lobe is unremarkable. No suspicious perithyroidal nodules are seen. No cystic or calcified or otherwise suspicious cervical lymph nodes are seen within the neck. The pharyngeal contours appear normal. There are bilateral palatine tonsilloliths. The parotid and submandibular glands appear normal. A punctate sialolith is seen along the left floor of mouth. No definite dilatation of the left Philipp's duct. The laryngeal contours appear normal with symmetric vocal folds. No enlarged upper mediastinal lymph nodes are seen. Postsurgical changes are seen within the right upper lobe. There is mosaic attenuation within the upper lungs. A left chest wall pacemaker is partially visualized. The intracranial contents are unremarkable. There are bilateral lens replacements. Multilevel degenerative changes are seen within the spine. Significant degenerative changes are seen at the left TMJ. CT/CT soft tissue neck wo con IMPRESSION: Postoperative findings of resection of the right lobe of the thyroid gland. No gross abnormal soft tissue seen within the thyroidectomy bed. No enlarged cervical chain lymph nodes are seen. Incidentally noted punctate sialolith along the left floor of mouth likely within the Philipp's duct. No evidence of sialoadenitis.
== END 2021-05-17 10:32 | disposition home or self-care (01) ==
LOC: HO.CT 10:31
PROVIDERS: PCP Internal Medicine; Visit Provider Internal Medicine
DX: C73 Malignant neoplasm of thyroid gland (principal)
CPT/HCPCS: 70490

== ENCOUNTER 2021-05-20 08:42 | Outpatient (REF) | payer MEDICARE, SELFPAY ==
--- NOTE | ~2021-05-20 | FL_ITS ---
EXAMINATION: FL BARIUM SWALLOW CLINICAL INFORMATION: Dysphagia COMPARISON: Chest radiograph 02/03/2021 TECHNIQUE: Barium swallow examination is performed using fluoroscopic evaluation in addition to multiple fluoroscopic spot views. The patient is imaged both upright and prone and using both thick and thin sulfate along with effervescent granules. Fluoroscopy time: 3.1 minutes DAP: 10.507 Gycm2 Images: 69 FINDINGS: Scarring again noted within the right upper lung zone. The course of the esophagus is normal. Primary peristalsis is normal. At the middle to distal third of the esophagus there are 3 broad-based pulsion diverticula along the right lateral aspect of the esophagus. The most distal is the largest and measures 1.9 cm in length. There is short segment smoothly marginated concentric narrowing of the distal esophagus just proximal to the gastroesophageal junction over a length of approximately 1.5 cm which impedes the passage of the barium tablet there are possible linear erosions at this level. The remaining mucosa of the esophagus is unremarkable. Gastroesophageal junction opens normally. No gastroesophageal reflux was visualized over the course of the study. 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 Further evaluation with endoscopy is recommended. Incidental note of pulsion diverticula at the mid to distal third of the esophagus.
== END 2021-05-20 08:43 | disposition home or self-care (01) ==
LOC: HO.XRAY 08:42
PROVIDERS: PCP Internal Medicine; Visit Provider Otolaryngology
DX: R13.10 Dysphagia, unspecified (principal)
CPT/HCPCS: 74220

== ENCOUNTER 2021-06-22 08:11 | Outpatient (REF) | payer MEDICARE, SELFPAY ==
[2021-06-22 09:36] LABS: Blood Urea Nitrogen 13 mg/dL (9-16); Estimated Glomerular Filt Rate > 60
== END 2021-06-22 08:12 | disposition home or self-care (01) ==
LOC: HO.LAB 08:11
PROVIDERS: PCP Internal Medicine; Visit Provider Internal Medicine Endocrinology, Diabetes & Metabolism
DX: E11.65 Type 2 diabetes mellitus with hyperglycemia (principal)
CPT/HCPCS: 36415; 82565; 84520

== ENCOUNTER 2021-06-30 10:05 | Outpatient (REF) | payer MEDICARE, SELFPAY ==
--- NOTE | ~2021-06-30 | CT_ITS ---
EXAMINATION: CT CHEST WITH CONTRAST CLINICAL INFORMATION: Malignant neoplasm of thyroid gland. COMPARISON: CT of the chest done on 10/04/2017. TECHNIQUE: Multidetector volumetric CT imaging of the chest was obtained after the administration of 65 mL of Omnipaque 350 intravenous contrast without immediate adverse reactions. Axial MIP volume rendering provided. Sagittal and coronal reformatted images were obtained. This CT examination was performed using dose optimization techniques as appropriate, variously including the following: *Automated exposure control *Adjustment of mA and/or kV according to patient size (this includes techniques or standardized protocols for targeted exams where dose is matched to indication/reason for exam; i.e. extremities or head) *Use of iterative reconstruction technique DLP: 170 mGy-cm FINDINGS: ROLLER GOLD LEAF: Dual lead left subclavian pacer device is present with intact hardware. Postsurgical scar related changes are noted at right suprahilar region. LUNGS: Linear pleuroparenchymal airspace disease and adjacent multiple radiopaque sutures are present at right upper lobe posterolaterally superiorly, similar to prior study dated 10/04/2017. A few tiny punctate 2 to 3 mm bilateral lower lobar lung nodules are present (110, 125 and 152:8), appear unchanged since prior study dated 10/04/2017. In addition, there is a calcified sub-5 mm presumed granuloma identified within the left upper lobe laterally anterior to the left major fissure (122:8), unchanged as well. The tracheobronchial tree is patent. MEDIASTINUM: Postsurgical changes of right lobe and isthmus resection, unchanged. There are no pathologically enlarged lymphadenopathy identified around the thyroid bed or in the supraclavicular region on either side. There are no pathologically enlarged mediastinal or hilar lymphadenopathy present. Diffuse atherosclerotic disease of the aorta and is branches including coronary arterial calcifications are present. Dual-lead left subclavian pacer device is present, appear intact. There is mild cardiomegaly present involving all 4 cardiac chambers. PLEURA: There is no pleural effusion. No pleural mass or thickening. AXILLA: No lymphadenopathy. UPPER ABDOMEN: Unremarkable OSSEOUS STRUCTURES: The anterior part of the manubrium is deformed, likely represent old posttraumatic change. Multilevel degenerative spondylosis is present. No suspicious focal lesion. CT/CT chest w con IMPRESSION: 1. Previously documented bilateral 2-3 mm noncalcified lower lobar lung nodules appear stable since most recent prior study dated 10/04/2017. Solitary calcified sub-5 mm presumed granuloma within the left upper lobe of the lung laterally also appear unchanged. 2. Postsurgical changes of right lobe and isthmus resection without any CT evidence of lymphadenopathy within the visualized lower neck and within the mediastinum. 3. Diffuse atherosclerotic disease of the aorta and is branches including coronary artery calcifications. 4. Mild cardiomegaly involving all 4 cardiac chambers. 5. Deformity of the manubrium, likely represent old healed fracture. Fleischner guidelines were followed.
[2021-06-30] MEDS: iohexoL 350 MG/ML 100 ML INFUS..BTL 65 ML IV (11:11)
== END 2021-06-30 10:06 | disposition home or self-care (01) ==
LOC: HO.CT 10:05
PROVIDERS: PCP Internal Medicine; Visit Provider Internal Medicine
DX: C73 Malignant neoplasm of thyroid gland (principal)
CPT/HCPCS: 71260; Q9967

== ENCOUNTER 2021-07-16 09:39 | Day surgery (SDC) | payer MEDICARE, SELFPAY ==
[2021-07-12 16:08] VITALS: BMI 29.4
--- NOTE | 2021-07-15 10:19 | HO.ANESPROP2 ---
Documented by User: Fabiana Beebe NP 07/15/21 10:26 HPI - Anesthesia Eval Consult details Narrative: 81yo F for Upper Endoscopy with Balloon Dilitation Eliquis for aflutter Pacer in situ (SSS) Optimized per renal PMFSH Active Problems Active Problems: All Active Problems (Updated 06/17/21 @ 21:09 by Leah Geronimo CNP) Moderate recurrent major depression (Acute) Hyperkalemia (Acute) Vitamin D deficiency (Acute) Thyroid cancer (Acute) Generalized anxiety disorder (Acute) Impacted cerumen of both ears (Acute) Thoracic back pain (Acute) Chronic hoarseness (Acute) Current use of anticoagulant therapy (Acute) RUQ abdominal pain (Acute) NSVT (nonsustained ventricular tachycardia) (Acute) Paroxysmal atrial flutter (Acute) Impacted cerumen of both ears (Acute) Flank pain (Acute) Dizziness (Acute) Type 2 diabetes mellitus with hyperglycemia (Acute) GERD (gastroesophageal reflux disease) (Acute) MGUS (monoclonal gammopathy of unknown significance) (Acute) Osteoarthritis (Acute) Post-surgical hypothyroidism (Acute) Non-toxic multinodular goiter (Acute) Follicular carcinoma of thyroid gland (Acute) SSS (sick sinus syndrome) (Acute) Hyperlipidemia (Acute) Hypertension (Acute) Pacemaker (Acute ~11/2019) Past Medical History Medical History Atrial flutter (~11/2019) Bradycardia Carpal tunnel syndrome DDD (degenerative disc disease) Follicular carcinoma of thyroid gland GERD (gastroesophageal reflux disease) Hyperlipidemia Hypertension Impaired glucose tolerance Medicare annual wellness visit, initial MGUS (monoclonal gammopathy of unknown significance) Non-toxic multinodular goiter Obesity Osteoarthritis Pacemaker (~11/2019) Paroxysmal atrial flutter Peptic ulcer disease Post-surgical hypothyroidism SSS (sick sinus syndrome) Thyroid cancer Thyroid nodule Type 2 diabetes mellitus with hyperglycemia Vitamin D deficiency Vitamin D deficiency Family History Family History Father No problems noted. Mother CVD (cardiovascular disease) Heart disease Brother CVD (cardiovascular disease) Sudden cardiac Surgical History Surgical History History of back surgery History of bilateral knee replacement Hx of appendectomy Hx of arthroscopy of right knee Hx of carpal tunnel repair Hx of colonoscopy Hx of knee surgery (~09/2012) Hx of partial thyroidectomy Pulmonary nodule Social History Social History Housing: House Are you a primary primary care pediatrician to a significant other at home: No ( with dementia last year) Do you presently have visiting nurse or other home services: No Alcohol intake: never Patient Tobacco Use Status: Never used Tobacco e-Cigarette/Vaping Use: Never Used Second Hand Smoke Exposure: No Use of substances other than those prescribed or required for medical reasons: No Have you been hit, kicked, punched, or otherwise hurt by someone within the past year? If so, by whom?: No Are you DNR?: No Advance Directives: No Advance Directives Information Provided: Yes Advance Directives on File: No Recently lost weight without trying: Yes How much weight loss: 2-13 pounds Nutrition Risks: Difficulty chewing and Surgical patient >75years Patient : No : No Poor oral hygiene: Yes (ill fitting upper denture and lower partial) service: No Current occupational status: retired Cognitive needs: No Hearing needs: No Vision needs: No Meds Allergies Allergy/AdvReac Type Severity Reaction Status Date / Time No Known Allergies Allergy Verified 07/16/21 10:36 Home Medications Medication Instructions Recorded Confirmed Last Taken Type alendronate 70 mg tablet (Fosamax) 70 mg PO QWEEK 12/20/19 07/12/21 Unknown History calcium carbonate 500 mg calcium 500 mg PO DAILY 12/20/19 07/12/21 Unknown History (1,250 mg) chewable tablet magnesium 250 mg tablet 250 mg PO DAILY 12/20/19 07/12/21 Unknown History omega-3 fatty acids 1,000 mg 1,000 mg PO DAILY 12/20/19 07/12/21 07/09/21 History capsule (Fish Oil Concentrate) spironolactone 25 mg tablet 25 mg PO DAILY 12/20/19 07/12/21 Unknown History lorazepam 1 mg tablet 1 mg PO BEDTIME PRN 12/10/20 07/12/21 Unknown History cholecalciferol (vitamin D3) 25 25 mcg PO DAILY 07/12/21 07/12/21 07/09/21 History mcg (1,000 unit) capsule (Vitamin D3) citalopram 20 mg tablet 10 mg PO DAILY 07/12/21 07/12/21 07/16/21 08:00 History omeprazole 20 mg capsule,delayed 20 mg PO DAILY 07/12/21 07/12/21 07/16/21 08:00 History release Exam Exam Date and Time: July 15, 2021 1019 Height,Weight and Vital Signs: Height 5 ft 3 in Weight 75.296 kg Pertinent Lab Results Pertinent Lab Results: Laboratory Tests 04/05/21 05/05/21 06/22/21 09:22 09:09 08:27 WBC 7.5 Hgb 13.5 Hct 40.1 Plt Count 296 Sodium 134 L Potassium 5.2 H Chloride 98 Carbon Dioxide 27 BUN 13 Creatinine 0.75 Narrative Narrative: Pacer Interr 05/2021 DDDR-60 AP 75% 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 - E/E prime ratio is >15, consistent with elevated filling ? ? ? pressures. ? - Normal right ventricular cavity size and systolic function.? ? - There is trace (trivial) aortic valve regurgitation. ? Findings Left Ventricle Normal left ventricular size and systolic function. There is mildly increased left ventricular wall thickness.? The visually estimated ejection fraction is between 60-65%.? There is no evidence of regional wall motion abnormalities. Abnormal diastolic function is noted.? Spectral Doppler is indicative of a pseudonormal filling pattern.? E/E prime ratio is >15, consistent with elevated filling pressures. NM audra perf SPECT rest & str 09/2020 Impression: ? 1.? Myocardial perfusion imaging study shows likely normal myocardial perfusion 2.? Gated LVEF is 70% 3. Transient ischemic dilatation not present ? 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 Last dose of eliquis 07/14/21 RUQ abdominal pain (Acute) NSVT (nonsustained ventricular tachycardia) (Acute) Paroxysmal atrial flutter (Acute) Impacted cerumen of both ears (Acute) Flank pain (Acute) Dizziness (Acute) Type 2 diabetes mellitus with hyperglycemia (Acute) GERD (gastroesophageal reflux disease) (Acute) MGUS (monoclonal gammopathy of unknown significance) (Acute) Osteoarthritis (Acute) Post-surgical hypothyroidism (Acute) Non-toxic multinodular goiter (Acute) Follicular carcinoma of thyroid gland (Acute) SSS (sick sinus syndrome) (Acute) Hyperlipidemia (Acute) Hypertension (Acute) Pacemaker (Acute ~11/2019). Checked regularly. Last check 06/03/21-OK. Occasional dizziness with standing up fast Past Medical History Medical History Atrial flutter (~11/2019) Bradycardia Carpal tunnel syndrome DDD (degenerative disc disease) Follicular carcinoma of thyroid gland GERD (gastroesophageal reflux disease) Hyperlipidemia Hypertension Impaired glucose tolerance Medicare annual wellness visit, initial MGUS (monoclonal gammopathy of unknown significance) Non-toxic multinodular goiter Obesity Osteoarthritis Pacemaker (~11/2019) Paroxysmal atrial flutter Peptic ulcer disease Post-surgical hypothyroidism SSS (sick sinus syndrome) Thyroid cancer Thyroid nodule Type 2 diabetes mellitus with hyperglycemia Vitamin D deficiency Vitamin D deficiency Family History Family History Father No problems noted. Mother CVD (cardiovascular disease) Heart disease Brother CVD (cardiovascular disease) Sudden cardiac Family history of problems with anesthesia: No Surgical History Surgical History History of back surgery History of bilateral knee replacement Hx of appendectomy Hx of arthroscopy of right knee Hx of carpal tunnel repair Hx of colonoscopy Hx of knee surgery (~09/2012) Hx of partial thyroidectomy Pulmonary nodule History of Problems with Anesthesia: No Social History Social History Housing: House Are you a primary primary care pediatrician to a significant other at home: No ( with dementia last year) Do you presently have visiting nurse or other home services: No Alcohol intake: never Patient Tobacco Use Status: Never used Tobacco e-Cigarette/Vaping Use: Never Used Second Hand Smoke Exposure: No Use of substances other than those prescribed or required for medical reasons: No Have you been hit, kicked, punched, or otherwise hurt by someone within the past year? If so, by whom?: No Are you DNR?: No Advance Directives: No Advance Directives Information Provided: Yes Advance Directives on File: No Recently lost weight without trying: Yes How much weight loss: 2-13 pounds Nutrition Risks: Difficulty chewing and Surgical patient >75years Patient : No : No Poor oral hygiene: Yes (ill fitting upper denture and lower partial) service: No Current occupational status: retired Cognitive needs: No Hearing needs: No Vision needs: No Meds Allergies Allergy/AdvReac Type Severity Reaction Status Date / Time No Known Allergies Allergy Verified 07/16/21 10:36 Home Medications Medication Instructions Recorded Confirmed Last Taken Type alendronate 70 mg tablet (Fosamax) 70 mg PO QWEEK 12/20/19 07/12/21 Unknown History calcium carbonate 500 mg calcium 500 mg PO DAILY 12/20/19 07/12/21 Unknown History (1,250 mg) chewable tablet magnesium 250 mg tablet 250 mg PO DAILY 12/20/19 07/12/21 Unknown History omega-3 fatty acids 1,000 mg 1,000 mg PO DAILY 12/20/19 07/12/21 07/09/21 History capsule (Fish Oil Concentrate) spironolactone 25 mg tablet 25 mg PO DAILY 12/20/19 07/12/21 Unknown History lorazepam 1 mg tablet 1 mg PO BEDTIME PRN 12/10/20 07/12/21 Unknown History cholecalciferol (vitamin D3) 25 25 mcg PO DAILY 07/12/21 07/12/21 07/09/21 History mcg (1,000 unit) capsule (Vitamin D3) citalopram 20 mg tablet 10 mg PO DAILY 07/12/21 07/12/21 07/16/21 08:00 History omeprazole 20 mg capsule,delayed 20 mg PO DAILY 07/12/21 07/12/21 07/16/21 08:00 History release Exam Height,Weight and Vital Signs: Height 5 ft 3 in Weight 75.296 kg Vital Signs Temp Pulse Resp BP Pulse Ox 07/16/21 10:37 98.0 F 60 18 159/57 H 97 Pertinent Lab Results Pertinent Lab Results: Laboratory Tests 04/05/21 05/05/21 06/22/21 09:22 09:09 08:27 WBC 7.5 Hgb 13.5 Hct 40.1 Plt Count 296 Sodium 134 L Potassium 5.2 H Chloride 98 Carbon Dioxide 27 BUN 13 Creatinine 0.75 Lab Results 07/16/21 07/16/21 Range/Units 10:42 11:05 PT 12.9 (9.9-13.0) SEC INR 1.1 (0.9-1.1) POC Glucose 126 H (60-115) mg/dL Airway Mallampati Class: II TM Dist: >3cm Neck ROM: Limited (A little limitation with turning to right side) Denture: Upper Partial: Lower Heart: RRR Lungs: CTAB Assessment and Plan Assessment Anesthesia Assessment: Anesthesia Plan Discussed Final Anesthetic Review Family History of Problems with Anesthesia: No History of Problems with Anesthesia: No NPO: Yes ASA Class: III Final Preanesthetic Review: No Changes in Pt Med Stat, Meds/Allgs Chart Reviewed, Consent Obtained/Reviewed and Anes Risks/Benef Reviewed Patient Risk: Intermediate Procedure Risk: Low Assessment/Block/Sedation in SS: Assess/Block/Sedation-SS Anesthetic Plan Anesthetic Plan: MAC: Disposition: Standard PACU
[2021-07-16 10:37] VITALS: BP 159/57; PULSE 60; RESP 18; TEMP 36.7; O2SAT 97
[2021-07-16] MEDS: Lactated Ringers 1,000 ML 50 ML IVCONT (10:38)
[2021-07-16 10:49] LABS: Glucose, Whole Blood 126 mg/dL (60-115)
[2021-07-16 11:17] LABS: INTERNATIONAL NORM RATIO 1.1 (0.9-1.1); Prothrombin Time 12.9 SEC (9.9-13.0)
--- NOTE | 2021-07-16 11:41 | MHC.SHP ---
Pre-Procedural Eval Section A Date of Service: 07/16/21 The patient is an INPATIENT: No Changes since office visit: No Cold of Flu in the past 2 weeks, No New Medical Problems, No Changes in Medication and No Patient answered all questions The History & Physical has been completed within 30 days and I have reviewed it.: Yes Section B Chief Complaint: esophageal obstruction Allergies: Allergies Allergy/AdvReac Type Severity Reaction Status Date / Time No Known Allergies Allergy Verified 07/16/21 10:36 Plan I have reviewed the history and physical and performed a pertinent physical examination on my patient. No changes have occurred unless specified.
--- NOTE | 2021-07-16 11:41 | MHC.SHP ---
Pre-Procedural Eval Section A Date of Service: 07/16/21 The patient is an INPATIENT: No The History & Physical has been completed within 30 days and I have reviewed it.: Yes Section B Chief Complaint: esophageal obstruction Allergies: Allergies Allergy/AdvReac Type Severity Reaction Status Date / Time No Known Allergies Allergy Verified 07/16/21 10:36 Plan I have reviewed the history and physical and performed a pertinent physical examination on my patient. No changes have occurred unless specified.
[2021-07-16 12:10] VITALS: BP 126/46; PULSE 66; RESP 14; TEMP 37; O2SAT 98
[2021-07-16 12:25] VITALS: BP 129/54; PULSE 60; RESP 16; TEMP 36.2; O2SAT 95
[2021-07-16 12:40] VITALS: BP 109/61; PULSE 60; RESP 16; O2SAT 99
--- NOTE | 2021-07-26 12:45 | OP_ITS ---
SURGEON: Melo Betts MD INDICATIONS: Abnormal upper GI series and dysphagia. PREOPERATIVE DIAGNOSIS: POSTOPERATIVE DIAGNOSIS: PROCEDURE PERFORMED: Upper endoscopy with balloon dilation and biopsy. ESTIMATED BLOOD LOSS: COMPLICATIONS: ANESTHESIA: ASSISTANTS: SPECIMENS: DESCRIPTION OF PROCEDURE: History and physical were performed. The risks and benefits of the procedure were explained to the patient. Informed consent was obtained. The patient was placed in the left lateral decubitus position. The Olympus video gastroscope was introduced into the esophagus, stomach, and duodenum. Examination was performed. The scope was removed. She tolerated the procedure well and was taken to recovery area in stable condition. FINDINGS: Esophagus: The esophagus showed no definite stricture. There was irregularity to the mucosa at the EG junction, but no esophagitis. The scope easily passed through the esophagus into the stomach. Stomach: The stomach showed no evidence of masses, ulcers, or polyps. Duodenum: The bulb and second portion were normal. The EG junction was dilated with a balloon inflated to 20 mm at the recommended pressure for 60 seconds. Biopsies were obtained from the EG junction. IMPRESSION: Dysphagia. RECOMMENDATION: Follow up the biopsy results. MD AILEEN Burger/PABLITO / [id number] MTDD
== END 2021-07-16 13:30 | disposition home or self-care (01) ==
PROVIDERS: Anesthesiology; PCP Internal Medicine; Visit Provider Internal Medicine Gastroenterology
PROC: (CPT 43249; principal; 2021-07-16 11:10)
DX: K22.2 Esophageal obstruction (principal); R49.0 Dysphonia; I10 Essential (primary) hypertension; E11.65 Type 2 diabetes mellitus with hyperglycemia; E78.5 Hyperlipidemia, unspecified; I48.92 Unspecified atrial flutter; I49.5 Sick sinus syndrome; Z95.0 Presence of cardiac pacemaker; E55.9 Vitamin D deficiency, unspecified; F41.1 Generalized anxiety disorder; Z85.850 Personal history of malignant neoplasm of thyroid; E89.0 Postprocedural hypothyroidism; Z80.0 Family history of malignant neoplasm of digestive organs; Z79.01 Long term (current) use of anticoagulants; Z79.899 Other long term (current) drug therapy; Z88.1 Allergy status to other antibiotic agents; Z96.653 Presence of artificial knee joint, bilateral
CPT/HCPCS: 43249; 43239; 36415; 82947; 85610; 88305; C1726

== ENCOUNTER → 2021-08-03 10:26 | Outpatient (BNVA) | payer MEDICARE, SELFPAY | PROVIDERS: PCP Internal Medicine; Referring Provider Internal Medicine; Visit Provider Internal Medicine Cardiovascular Disease | DX: I48.92 Unspecified atrial flutter (principal); I10 Essential (primary) hypertension; I47.2 Ventricular tachycardia; Z45.018 Encounter for adjustment and management of other part of cardiac pacemaker; Z79.01 Long term (current) use of anticoagulants; Z79.899 Other long term (current) drug therapy | CPT/HCPCS: 93280; 99212 ==

== ENCOUNTER → 2021-08-05 09:52 | Outpatient (BNVA) | payer MEDICARE, SELFPAY | PROVIDERS: PCP Internal Medicine; Visit Provider Internal Medicine | DX: C73 Malignant neoplasm of thyroid gland (principal); E04.2 Nontoxic multinodular goiter; E89.0 Postprocedural hypothyroidism | CPT/HCPCS: Q3014 ==

== ENCOUNTER 2021-08-20 13:52 | Outpatient (REF) | payer MEDICARE, SELFPAY ==
--- NOTE | ~2021-08-20 | US_ITS ---
EXAMINATION: US THYROID CLINICAL INFORMATION: Malignant neoplasm of thyroid gland. COMPARISON: Ultrasound soft tissue head/neck thyroid dated 07/27/2020 and 09/19/2018. TECHNIQUE: Linear transducer grayscale and color Doppler examination with attention to the region of the thyroid. FINDINGS: SIZE: Measurements of the solitary left thyroid lobe and nodules are given in sagittal, anteroposterior and transverse dimensions respectively. Right Thyroid Lobe: Surgically absent. Left Thyroid Lobe: 3.29 x 1.77 x 1.35 cm, volume 4.1 mL. Previously 2.3 x 1.2 x 1.5 cm, volume 2.2 mL. Parenchyma: The gland echotexture is homogeneous. Thyroid vascularity is normal. Isthmus: 0.33 cm in maximum AP dimension. Previously 0.33 cm. Estimated total number of nodules greater than or equal to 1 cm: 0. Handbook Writer nodules are described as follows: 1. Location: Left superior. Size: 0.47 x 0.9 x 0.35 cm, volume 0.25 mL. Previously: 0.31 x 0.26 x 0.31 cm, volume 0.13 mL. Nodule characteristics: Composition: Cystic(0). ACR TI-RADS total points: 0 Previous: 0 ACR TI-RADS category: 1 Previous: 1 Significant change in size (>/= 20% in 2 dimensions and minimal increase of 2 mm or 50% or greater increase in volume): Change in features: Change in ACR TI-RADS risk category: 2. Location: Left superior. Size: 0.6 x 0.52 x 0.49 cm, volume 0.079 mL. Previously: 0.61 x 0.55 x 0.65 cm, volume 0.11 mL. Nodule characteristics: Composition: Solid (2). Echogenicity: Hyperechoic (1). Shape: Not taller than wide (0). Margins: Smooth (0). Echogenic Foci: None (0). ACR TI-RADS total points: 3 Previous: 3 ACR TI-RADS category: 3 Previous: 3 Significant change in size (>/= 20% in 2 dimensions and minimal increase of 2 mm or 50% or greater increase in volume): Change in features: Change in ACR TI-RADS risk category: NODES: No lymphadenopathy is seen in the tissue surrounding the thyroid gland. US/US thyroid IMPRESSION: No appreciable change in small left thyroid nodules. Post right thyroidectomy.. ACR TI-RADS RECOMMENDATION REFERENCE: Ultrasound-guided fine-needle aspiration, followup ultrasound, no further follow up. * TR1 (0 point) and TR 2 (2 points): No FNA or follow up * TR3 (3 points): FNA if more than or equal to 2.5 cm in maximum dimension, followup ultrasound in 1, 3 and 5 years if 1.5 to 2.4 cm in maximum dimension. * TR4 (4-6 points): FNA if more than or equal to 1.5 cm in maximum dimension, followup ultrasound in 1, 2, 3 and 5 years if 1 to 1.4 cm in maximum dimension. * TR5 (more than or equal to 7 points): FNA if more than or equal to 1 cm in maximum dimension, followup ultrasound every year for 5 years if 0.5 to 0.9 cm in maximum dimension. * TR3, TR4 or TR5 nodules that are below the size threshold for follow up receive no follow up.
== END 2021-08-20 13:53 | disposition home or self-care (01) ==
LOC: HO.HMGCX 13:52
PROVIDERS: Visit Provider Internal Medicine
DX: C73 Malignant neoplasm of thyroid gland (principal); E04.2 Nontoxic multinodular goiter
CPT/HCPCS: 76536

== ENCOUNTER → 2021-09-29 14:45 | Outpatient (BNVA) | payer MEDICARE, SELFPAY | PROVIDERS: PCP Internal Medicine; Visit Provider Internal Medicine | DX: C73 Malignant neoplasm of thyroid gland (principal); E04.2 Nontoxic multinodular goiter; E89.0 Postprocedural hypothyroidism; Z79.899 Other long term (current) drug therapy | CPT/HCPCS: 99212 ==

== ENCOUNTER 2021-11-18 07:53 | Outpatient (REF) | payer MEDICARE, SELFPAY ==
[2021-11-18 09:49] LABS: Anion Gap 15 (12-20); Blood Urea Nitrogen 11 mg/dL (9-16); Calcium 9.4 mg/dL (8.4-10.2); Carbon Dioxide 30 mmol/L (22-29); Chloride 95 mmol/L (96-108); Estimated Glomerular Filt Rate > 60; Potassium 4.9 mmol/L (3.3-5.1); Sodium 135 mmol/L (135-145)
== END 2021-11-18 07:54 | disposition home or self-care (01) ==
LOC: HO.LAB 07:53
PROVIDERS: Absent Provider Internal Medicine; PCP Internal Medicine; Visit Provider Internal Medicine Nephrology
DX: I10 Essential (primary) hypertension (principal)
CPT/HCPCS: 36415; 80051; 82310; 82565; 84520

== ENCOUNTER 2021-12-09 08:01 | Outpatient (REF) | payer MEDICARE, SELFPAY ==
[2021-12-09 08:19] LABS: MANUAL DIFF FLAG NO
[2021-12-09 08:27] LABS: Basophils Absolute Auto 0.1 X10*3/uL (0.0-0.2); Basophils Percent Auto 0.7 % (0-2); Eosinophils Absolute Auto 0.2 X10*3/uL (0.0-0.4); Hemoglobin 12.6 g/dl (12.0-16.0); Imm Gran Abs Auto 0.02 X10*3/uL (0.00-0.03); Imm Gran Pct Auto 0.3 % (0.0-0.4); Lymphocytes Absolute Auto 2.2 X10*3/uL (1.2-4.9); Lymphocytes Percent Auto 28.9 % (20-40); Mean Corpuscular HGB Conc 33.2 g/dl (31.0-35.0); Mean Corpuscular Hemoglobin 29.3 pg (27.0-33.0); Mean Corpuscular Volume 88.4 fL (80.0-98.0); Mean Platelet Volume 8.3 fL (9.4-12.3); Monocytes Absolute Auto 0.7 X10*3/uL (0.1-1.2); Neutrophils Absolute Auto 4.5 x10*3/uL (2.0-8.3); Neutrophils Percent Auto 59.1 % (45-73); Platelet Count 308 X10*3/uL (160-400); Red Cell Distribution Width 13.3 % (11.0-16.0); White Blood Count 7.6 X10*3/uL (4.8-10.8)
[2021-12-09 09:31] LABS: Estimated Average Glucose 117 mg/dL; Hemoglobin A1c % 5.7 %
[2021-12-09 09:36] LABS: Alanine Aminotransferase 12 U/L (0-31); Albumin Level 4.2 g/dL (3.5-5.0); Alkaline Phosphatase 83 U/L (39-117); Anion Gap 17 (12-20); Aspartate Amino Transferase 17 U/L (5-31); Bilirubin Total 0.6 mg/dL (0.0-1.0); Blood Urea Nitrogen 12 mg/dL (9-16); Calcium 9.4 mg/dL (8.4-10.2); Carbon Dioxide 27 mmol/L (22-29); Chloride 93 mmol/L (96-108); Cholesterol 155 mg/dL; Estimated Glomerular Filt Rate > 60; Glucose Random 100 mg/dL (60-115); HDL Cholesterol 64 mg/dL; LDL Cholesterol Calculated 79 mg/dl; Sodium 132 mmol/L (135-145); Total Protein 6.8 g/dL (6.5-8.0); Triglycerides 63 mg/dL
[2021-12-09 09:47] LABS: Appearance Urine Clear; Color Urine Yellow; Glucose Urine UA Negative (Negative); Leukocyte Esterase Urine Trace (Negative); Nitrite Urine Negative (Negative); UMIC TRIGGER UA YES; Urine Blood Negative (Negative); Urine Ketones Negative (Negative); Urine Protein Negative (Neg-Trace)
[2021-12-09 09:50] LABS: Bacteria Urine None Seen (None Seen); Hyaline Casts Urine 0-2 /LPF (0-2); Squamous Epithelial Cell Urine 0-2 /HPF (0-2); WBC Urine 0-5 /HPF (0-5)
[2021-12-09 09:59] LABS: Free T4 (Free Thyroxine) 1.44 ng/dL (0.71-1.85); Thyroid Stimulating Hormone 2.21 uIU/mL (0.32-4.0); Vitamin D 25-OH Total 54.4 ng/mL (>30)
[2021-12-09 10:08] LABS: Folate 16.3 ng/mL (> or = 4.0); Vitamin B12 833 pg/mL (200-900)
== END 2021-12-09 08:02 | disposition home or self-care (01) ==
LOC: HO.LAB 08:01
PROVIDERS: PCP Internal Medicine; Visit Provider Internal Medicine
DX: C73 Malignant neoplasm of thyroid gland (principal); E87.5 Hyperkalemia; E78.00 Pure hypercholesterolemia, unspecified; E11.65 Type 2 diabetes mellitus with hyperglycemia; F33.1 Major depressive disorder, recurrent, moderate
CPT/HCPCS: 36415; 80053; 80061; 81001; 82306; 82607; 82746; 83036; 84439; 84443; 85025

== ENCOUNTER → 2022-02-07 10:52 | Outpatient (BNVA) | payer MEDICARE, SELFPAY | PROVIDERS: PCP Internal Medicine; Referring Provider Internal Medicine; Visit Provider Internal Medicine Cardiovascular Disease | DX: Z45.018 Encounter for adjustment and management of other part of cardiac pacemaker (principal); I48.92 Unspecified atrial flutter; I10 Essential (primary) hypertension | CPT/HCPCS: 93005; 93280; 99212 ==

== ENCOUNTER 2022-06-27 10:13 | Outpatient (REF) | payer MEDICARE, SELFPAY ==
--- NOTE | ~2022-06-27 | XR_ITS ---
EXAMINATION: XR CHEST CLINICAL INFORMATION: J40 - Bronchitis, not specified as acute or chronic. History malignant neoplasm thyroid. COMPARISON: Chest radiographs 02/03/2021, 12/06/2019; CT chest 06/30/2021 TECHNIQUE: 2 views of the chest were obtained. FINDINGS: There is a bipolar pacemaker with atrial and ventricular leads. The heart is normal in size. The vascularity is normal. There are postsurgical changes again seen right hemithorax with findings change trista and linear scarring mid zone. There is interval coarsening bronchovascular markings right infrahilar region. No lobar or segmental airspace consolidation or air bronchograms. The costophrenic sulci are clear. The hilar and mediastinal contours and bony structures are stable. XR/XR chest 2V IMPRESSION: -Postsurgical changes right hemithorax. Interval coarsening bronchovascular markings right infrahilar region since prior exam 2021. -No lobar or segmental airspace consolidation or air bronchograms. No effusion.
== END 2022-06-27 10:14 | disposition home or self-care (01) ==
LOC: HO.XRAY 10:13
PROVIDERS: PCP Internal Medicine; Visit Provider Physician Assistant
DX: J40 Bronchitis, not specified as acute or chronic (principal)
CPT/HCPCS: 71046

== ENCOUNTER 2022-06-30 09:30 | Outpatient (REF) | payer MEDICARE, SELFPAY ==
[2022-06-30 09:42] LABS: MANUAL DIFF FLAG NO
[2022-06-30 09:57] LABS: Basophils Absolute Auto 0.1 X10*3/uL (0.0-0.2); Basophils Percent Auto 0.6 % (0-2); Eosinophils Absolute Auto 0.3 X10*3/uL (0.0-0.4); Eosinophils Percent Auto 1.4 % (0-4); Hematocrit 43.2 % (37.0-47.0); Hemoglobin 14.5 g/dl (12.0-16.0); Imm Gran Abs Auto 0.67 X10*3/uL (0.00-0.03); Imm Gran Pct Auto 3.7 % (0.0-0.4); Lymphocytes Absolute Auto 4.4 X10*3/uL (1.2-4.9); Lymphocytes Percent Auto 24.3 % (20-40); Mean Corpuscular HGB Conc 33.6 g/dl (31.0-35.0); Mean Corpuscular Hemoglobin 29.7 pg (27.0-33.0); Mean Corpuscular Volume 88.3 fL (80.0-98.0); Mean Platelet Volume 8.3 fL (9.4-12.3); Monocytes Absolute Auto 1.4 X10*3/uL (0.1-1.2); Neutrophils Absolute Auto 11.1 x10*3/uL (2.0-8.3); Platelet Count 464 X10*3/uL (160-400); Red Blood Count 4.89 X10*6/uL (4.20-5.50); Red Cell Distribution Width 13.1 % (11.0-16.0)
[2022-06-30 10:50] LABS: Alanine Aminotransferase 14 U/L (0-31); Albumin Level 4.1 g/dL (3.5-5.0); Alkaline Phosphatase 87 U/L (39-117); Anion Gap 14 (12-20); Aspartate Amino Transferase 15 U/L (5-31); Bilirubin Total 0.8 mg/dL (0.0-1.0); Blood Urea Nitrogen 15 mg/dL (9-16); Calcium 9.8 mg/dL (8.4-10.2); Carbon Dioxide 31 mmol/L (22-29); Chloride 91 mmol/L (96-108); Estimated Glomerular Filt Rate 58; Glucose Random 103 mg/dL (60-115); Potassium 5.5 mmol/L (3.3-5.1); Sodium 130 mmol/L (135-145); Total Protein 6.7 g/dL (6.5-8.0)
[2022-06-30 11:11] LABS: Thyroid Stimulating Hormone 1.95 uIU/mL (0.32-4.0)
== END 2022-06-30 09:31 | disposition home or self-care (01) ==
LOC: HO.LAB 09:30
PROVIDERS: PCP Internal Medicine; Visit Provider Internal Medicine
DX: N39.3 Stress incontinence (female) (male) (principal); E03.9 Hypothyroidism, unspecified
CPT/HCPCS: 36415; 80053; 84443; 85025

== ENCOUNTER 2022-07-07 09:28 | Outpatient (REF) | payer MEDICARE, SELFPAY | END 2022-07-07 09:29 | disposition home or self-care (01) | LOC: HO.SH 09:28 | PROVIDERS: Visit Provider Internal Medicine | DX: H91.91 Unspecified hearing loss, right ear (principal) | CPT/HCPCS: 92557; 92567 ==

== ENCOUNTER 2022-07-18 10:11 | Outpatient (REF) | payer MEDICARE, SELFPAY ==
[2022-07-18 12:45] LABS: Hematocrit 38.3 % (37.0-47.0); Hemoglobin 12.7 g/dl (12.0-16.0); Mean Corpuscular HGB Conc 33.2 g/dl (31.0-35.0); Mean Corpuscular Hemoglobin 29.6 pg (27.0-33.0); Mean Corpuscular Volume 89.3 fL (80.0-98.0); Mean Platelet Volume 8.9 fL (9.4-12.3); Platelet Count 412 X10*3/uL (160-400); Red Blood Count 4.29 X10*6/uL (4.20-5.50); Red Cell Distribution Width 13.6 % (11.0-16.0)
[2022-07-18 13:14] LABS: Anion Gap 9 (12-20); Blood Urea Nitrogen 11 mg/dL (9-16); Calcium 9.6 mg/dL (8.4-10.2); Carbon Dioxide 32 mmol/L (22-29); Chloride 94 mmol/L (96-108); Estimated Glomerular Filt Rate > 60; Glucose Random 86 mg/dL (60-115); Potassium 5.1 mmol/L (3.3-5.1); Sodium 130 mmol/L (135-145)
== END 2022-07-18 10:12 | disposition home or self-care (01) ==
LOC: HO.LAB 10:11
PROVIDERS: PCP Internal Medicine; Referring Provider Internal Medicine; Visit Provider Internal Medicine Cardiovascular Disease
DX: I48.92 Unspecified atrial flutter (principal); I10 Essential (primary) hypertension; Z45.018 Encounter for adjustment and management of other part of cardiac pacemaker; Z79.899 Other long term (current) drug therapy
CPT/HCPCS: 36415; 80048; 85027; 93280; 99212

== ENCOUNTER 2022-07-25 08:11 | Outpatient (REF) | payer MEDICARE, SELFPAY ==
[2022-07-25 09:36] LABS: Anion Gap 11 (12-20); Blood Urea Nitrogen 6 mg/dL (9-16); Calcium 9.7 mg/dL (8.4-10.2); Carbon Dioxide 29 mmol/L (22-29); Chloride 93 mmol/L (96-108); Estimated Glomerular Filt Rate > 60; Glucose Random 109 mg/dL (60-115); Potassium 4.6 mmol/L (3.3-5.1); Sodium 128 mmol/L (135-145)
[2022-07-25 09:44] LABS: Free T4 (Free Thyroxine) 1.42 ng/dL (0.71-1.85)
[2022-07-25 09:55] LABS: Thyroid Stimulating Hormone 2.16 uIU/mL (0.32-4.0)
[2022-07-26 10:18] LABS: Thyroglobulin Antibodies <1 IU/mL (< or = 1)
[2022-07-29 06:09] LABS: Thyroglobulin Antibody <1 IU/mL (<=1); Thyroglobulin Level 6.6 ng/mL
== END 2022-07-25 08:12 | disposition home or self-care (01) ==
LOC: HO.LAB 08:11
PROVIDERS: Internal Medicine; PCP Physician Assistant; Visit Provider Physician Assistant
DX: C73 Malignant neoplasm of thyroid gland (principal); E87.5 Hyperkalemia
CPT/HCPCS: 36415; 80048; 84432; 84439; 84443; 86800

== ENCOUNTER 2022-08-04 11:16 | Outpatient (REF) | payer MEDICARE, SELFPAY ==
--- NOTE | ~2022-08-04 | US_ITS ---
EXAMINATION: US THYROID CLINICAL INFORMATION: Malignant neoplasm of thyroid gland, cervical lymph node mapping. COMPARISON: Ultrasound soft tissue head/neck thyroid dated 08/20/2021 and 07/27/2020. CT soft tissue neck 05/17/2021. TECHNIQUE: Linear transducer grayscale and color Doppler examination with attention to the region of the thyroid. FINDINGS: SIZE: Measurements of the solitary left thyroid lobe and nodules are given in sagittal, anteroposterior and transverse dimensions respectively. Right Thyroid Lobe: Surgically absent. Left Thyroid Lobe: 3.8 x 2.1 x 1.6 cm, volume 6.7 mL. Previously 3.3 x 1.8 x 1.4 cm, volume 4.1 mL. Parenchyma: The gland echotexture is homogeneous. Thyroid vascularity is normal. Isthmus: 0.5 cm in maximum AP dimension. Previously 0.3 cm. Estimated total number of nodules greater than or equal to 1 cm: 0. Roller Pneumatic nodules are described as follows: 1. Location: Left superior. Size: 0.4 x 0.3 x 0.3 cm, volume 0.02 mL. Previously: 0.5 x 0.3 x 0.4 cm, volume 0.03 mL. Nodule characteristics: Composition: Cystic(0). ACR TI-RADS total points: 0 Previous: 0 ACR TI-RADS category: 1 Previous: 1 Significant change in size (>/= 20% in 2 dimensions and minimal increase of 2 mm or 50% or greater increase in volume): No Change in features: No Change in ACR TI-RADS risk category: No 2. Location: Left inferior. Size: 0.6 x 0.6 x 0.6 cm, volume 0.12 mL. Previously: 0.6 x 0.5 x 0.5 cm, volume 0.11 mL. Nodule characteristics: Composition: Solid (2). Echogenicity: Hyperechoic (1). Shape: Not taller than wide (0). Margins: Smooth (0). Echogenic Foci: None (0). ACR TI-RADS total points: 3 Previous: 3 ACR TI-RADS category: 3 Previous: 3 Significant change in size (>/= 20% in 2 dimensions and minimal increase of 2 mm or 50% or greater increase in volume): No Change in features: No Change in ACR TI-RADS risk category: No NODES: At right cervical level II, 1.0 x 0.5 x 1.3 cm and 0.6 x 0.3 x 0.4 cm reniform lymph nodes are seen. At the right cervical level V A, a 0.7 x 0.3 x 0.7 cm reniform lymph node is seen. These show good corticomedullary differentiation and no focal cortical thickening. At the left cervical level IB, a 0.6 x 0.3 x 0.7 cm reniform lymph node is seen. At left cervical level IV, a 1.3 x 0.6 x 0.9 cm reniform lymph node is seen. These show good corticomedullary differentiation and no focal cortical thickening. US/US thyroid IMPRESSION: 1. Small left thyroid lobe nodules are noted, as detailed. 2. The right thyroid lobe is surgically absent. No abnormal mass or fluid collection is seen within the former right thyroid bed 3. There are bilateral cervical lymph nodes, one at right level II mildly enlarged. These should be managed on a clinical basis. If relevant to patient management, consider follow-up imaging in 3-6 months to ensure stability/regression. ACR TI-RADS RECOMMENDATION REFERENCE: Ultrasound-guided fine-needle aspiration, followup ultrasound, no further follow up. * TR1 (0 point) and TR2 (2 points): No FNA or follow up * TR3 (3 points): FNA if more than or equal to 2.5 cm in maximum dimension, followup ultrasound in 1, 3 and 5 years if 1.5 to 2.4 cm in maximum dimension. * TR4 (4-6 points): FNA if more than or equal to 1.5 cm in maximum dimension, followup ultrasound in 1, 2, 3 and 5 years if 1 to 1.4 cm in maximum dimension. * TR5 (more than or equal to 7 points): FNA if more than or equal to 1 cm in maximum dimension, followup ultrasound every year for 5 years if 0.5 to 0.9 cm in maximum dimension. * TR3, TR4 or TR5 nodules that are below the size threshold for follow up receive no follow up.
== END 2022-08-04 11:17 | disposition home or self-care (01) ==
LOC: HO.HMGCX 11:16
PROVIDERS: PCP Physician Assistant; Visit Provider Internal Medicine
DX: C73 Malignant neoplasm of thyroid gland (principal)
CPT/HCPCS: 76536

== ENCOUNTER 2022-08-17 14:26 | Outpatient (REF) | payer MEDICARE, SELFPAY ==
[2022-08-17 15:41] LABS: Anion Gap 13 (12-20); Blood Urea Nitrogen 10 mg/dL (9-16); Calcium 9.8 mg/dL (8.4-10.2); Carbon Dioxide 26 mmol/L (22-29); Chloride 96 mmol/L (96-108); Estimated Glomerular Filt Rate > 60; Glucose Random 100 mg/dL (60-115); Potassium 4.7 mmol/L (3.3-5.1); Sodium 130 mmol/L (135-145)
== END 2022-08-17 14:27 | disposition home or self-care (01) ==
LOC: HO.LAB 14:26
PROVIDERS: PCP Internal Medicine; Visit Provider Internal Medicine
DX: E87.1 Hypo-osmolality and hyponatremia (principal)
CPT/HCPCS: 36415; 80048

== ENCOUNTER 2022-08-29 15:14 | Outpatient (REF) | payer MEDICARE, SELFPAY ==
[2022-08-29 17:31] LABS: Free T4 (Free Thyroxine) 1.15 ng/dL (0.71-1.85); Thyroid Stimulating Hormone 1.87 uIU/mL (0.32-4.0)
[2022-09-01 04:28] LABS: Thyroglobulin Antibody <1 IU/mL (<=1); Thyroglobulin Level 3.9 ng/mL
== END 2022-08-29 15:15 | disposition home or self-care (01) ==
LOC: HO.LAB 15:14
PROVIDERS: PCP Internal Medicine; Visit Provider Internal Medicine
DX: C73 Malignant neoplasm of thyroid gland (principal); E04.2 Nontoxic multinodular goiter
CPT/HCPCS: 36415; 84432; 84439; 84443; 86800; 99212

== ENCOUNTER 2022-09-14 09:19 | Outpatient (REF) | payer MEDICARE, SELFPAY | END 2022-09-14 09:20 | disposition home or self-care (01) | LOC: HO.CT 09:19 | PROVIDERS: PCP Internal Medicine; Visit Provider Internal Medicine | DX: S09.90XA Unspecified injury of head, initial encounter (principal) | CPT/HCPCS: 70450 ==

== ENCOUNTER 2022-10-14 10:14 | Outpatient (REF) | payer MEDICARE, SELFPAY ==
--- NOTE | ~2022-10-14 | FL_ITS ---
EXAMINATION: XR BARIUM SWALLOW CLINICAL INFORMATION: Dysphagia. COMPARISON: None available. TECHNIQUE: Routine modified barium swallow was performed and lateral fluoroscopy with patient sitting in presence of a speech therapist. FINDINGS: Following oral administration of various consistencies of thin, thick and solid food by speech therapist under lateral fluoroscopy, there is normal propagation of food from the oral cavity through the pharynx into the esophagus. On oral administration of barium tablet as well there is normal propagation from oral cavity through the pharynx into the distal esophagus. No laryngeal penetration or aspiration is seen. FLUOROSCOPY TIME: 2.3 minutes. DOSE AREA PRODUCT: 3.589 uGy-m2 (microgray-meter squared). FL/FL barium swallow modified IMPRESSION: 1. Unremarkable modified barium swallow exam. 2. Correlate with speech therapy results.
--- NOTE | 2022-10-14 12:21 | MHC.SL.IMP ---
Date of Plan of Treatment: 10/14/22 Onset of Symptoms/Illness: 08/03/22 Date Treatment Started: 10/14/22 Admitting Diagnosis: Oropharyngeal Dysphagia Primary Speech & Language Diagnosis: R13.19 Other Dysphagia Secondary Speech & Language Diagnosis: Reason for Today's Visit: [id number] Modified Barium Swallow Study Comments: None. Pre-evaluation Dietary Consistencies: Chopped/Advanced (NDD3) Pre-evaluation Liquid Consistency: Thin Medical History: Orophayrngeal Dysphagia [facility] Fall Risk Assessment Score: Oral Motor Exam Facial Symmetry: Normal for Patient Symmetrical Facial Movement: Oral-Facial Facial Miscellaneous Observations: Is patient able to manage secretions?: Yes Is patient able to produce volitional cough?: Yes Food and Liquid Trials: Oral Impairment: Lip Closure: 1=Interlabial escape; no progression to anterior tip Oral Impairment: Tongue Control During Bolus Hold: 1=Escape to lateral buccal cavity/floor of mouth (FOM) Oral Impairment: Bolus Preparation/Mastication: 1=Slow prolonged chewing/mashing with complete re-collection Oral Impairment: Bolus Transport/Lingual Motion: 1= Delayed initiation of tongue motion Oral Impairment: Oral Residue: 2=Residue collection on oral structures Oral Impairment:Initiation of Pharyngeal Swallow: 2=Bolus head at posterior laryngeal surface of epiglottis Pharyngeal Impairment: Soft Palate Elevation: 0=No bolus between soft palate (SP)/pharyngeal wall (PW) Pharyngeal Impairment: Laryngeal Elevation: 1=Partial thyroid cartilage/arytenoids to epiglottic petiole movement Pharyngeal Impairment: Anterior Hyoid Excursion: 1=Partial anterior movement Pharyngeal Impairment: Epiglottic Movement: 1=Partial inversion Pharyngeal Impairment: Laryngeal Vestibular Closure:: 0=Complete: no air/contrast in laryngeal vestibule Pharyngeal Impairment: Pharyngeal Stripping Wave: 0=Present: complete Pharyngeal Impairment: Pharyngeal Contraction: Did not test Pharyngeal Impairment: Pharyngoesophageal Segment Openin=Partial distention/partial duration: partial obstruction of flow Pharyngeal Impairment: Tongue Base (TB) Retraction: 2=Narrow column of contrast/air between TB and posterior PW Pharyngeal Impairment: Pharyngeal Residue: 1=Trace residue within or on pharyngeal structures Pharyngeal Impairment: Esophageal Clearance Upright Position: Did not test Impressions and Recommendations Clinical Observations: Current (pre-evaluation) Intake/Diet: Pre-Study Functional Oral Intake Scale (FOIS): 6- Total oral intake with no special preparation, but must avoid specific foods or liquid items MBSImP ID: [id number] [facility] Results: Lip closure for intraoral bolus containment resulted in interlabial escape, without progression to the anterior lip. Tongue control during bolus hold allowed bolus escape to the lateral buccal cavity/floor of mouth. Bolus preparation and mastication resulted in slow, prolonged chewing/mashing but with complete re-collection. Bolus transport/lingual motion demonstrated delayed initiation of tongue motion. Oral residue was a collection on oral structures. Initiation of the pharyngeal swallow occurred as the bolus head was at the posterior laryngeal surface of the epiglottis. Soft palate elevation resulted in no bolus between the soft palate and the pharyngeal wall. Laryngeal elevation could not be assessed due to logistical reasons not related to physiologic impairment. Anterior hyoid excursion demonstrated partial anterior movement. Epiglottic movement could not be assessed due to logistical reasons not related to physiologic impairment. Laryngeal vestibular closure was complete, as indicated by no air or contrast within the laryngeal vestibule at the height of the swallow. Pharyngeal stripping wave was present and complete. Pharyngeal contraction could not be determined due to logistical reasons not related to physiologic impairment. Pharyngoesophageal segment opening demonstrated partial distension/partial duration, with partial obstruction of bolus flow. Tongue base retraction allowed a narrow column of contrast or air between the retracted tongue base and the posterior pharyngeal wall. Pharyngeal residue was a trace within or on pharyngeal structures. Esophageal clearance in the upright position could not be assessed due to logistical reasons not related to physiologic impairment. Oral Impairment Score: 7 Pharyngeal Impairment Score: 4 (absence of score, component 8component 10component 13) Esophageal Impairment Score: --- (absence of score, component 17) Laryngeal Penetration and Aspiration: Neither penetration nor aspiration was observed in today's study with Cookie, Pudding-thick, Thin. SUMMARY: Nicki?s demonstrated no penetration or aspiration during ?s study. Oral and pharyngeal residue was cleared with self-initiated secondary swallows. No contrast was present after the swallow. Oral preparation with Regular Solid, and Barium Pill (with Puree medium) were delayed. It is difficult to discern if this is physiological or psychological in nature from this study alone. Attending radiologist performed a scan of the distal esophagus with Regular Solids and with Barium pill showing no retention or retrograde flow of either trial. Liquid Intake Recommendation: Thin Liquid Intake Strategies: Small Sips Double Swallow Dietary Recommendations: Chopped/Advanced (NDD3) Medication Administration: Whole with Puree Please contact the pharmacy regarding appropriate crushable or liquid drug formulations that are available whenever modified delivery is recommended. Compensatory Strategies Recommended: Sitting Upright (90 deg) Small Bites and Sips Alternate Liquids/Solids Rate of Ingestion Change Supervision during eating and or drinking: Total Supervision (1:1) Recommended Treatments: Chewing Exercises Compens. Strategy Educat. Recommendation for Speech Therapy: Outpatient Speech Therapy PLAN: Intake Recommendations: Post-Study Functional Oral Intake Scale (FOIS): 6- Total oral intake with no special preparation, but must avoid specific foods or liquid items Diet: IDDSI Level 6 ? Soft & Bite-Sized Solids with Thin Liquids. After exit counseling with Pt and Niece present, it was determined that Sophie would benefit from further education and counseling on an outpatient basis to determine her safest, least restrictive diet and provide further resources for home use. It would be beneficial if her caregivers could also be present for these meetings. Referral requested for Swallow Evaluation from her PCP, Dr. Forrest CHAUHAN on 10/14/22. Speech and Hearing office will schedule upon receipt. Frequency/Duration: TBD Date Range for Service Requested: Timeline to reassess: PRN Special Ed Assistant Clinician/Clinical Fellow: No Supervisory Statement: N/A Speech Language Pathologist: Dipak Kwon M.A., CCC-AUTO DESIGN DETAILER
== END 2022-10-14 10:15 | disposition home or self-care (01) ==
LOC: HO.XRAY 10:14
PROVIDERS: PCP Internal Medicine; Visit Provider Internal Medicine
DX: R13.12 Dysphagia, oropharyngeal phase (principal)
CPT/HCPCS: 74230; 92611

== ENCOUNTER → 2022-10-14 10:15 | Outpatient (BNV) | payer MEDICARE, SELFPAY | PROVIDERS: PCP Internal Medicine; Visit Provider Radiology Diagnostic Radiology | DX: R13.10 Dysphagia, unspecified (principal) | CPT/HCPCS: 74230 ==

== ENCOUNTER 2022-11-07 13:59 | Outpatient (AMB) | payer MEDICARE, SELFPAY ==
[2022-11-07 14:07] VITALS: BP 148/82; PULSE 79; O2SAT 97; BMI 29.4
--- NOTE | 2022-11-07 14:07 | A.OFFPC_ITS ---
Vital Signs 11/07/22 14:07 Height 5 ft 3 in Weight 166 lb BMI 29.4 BP 148/82 H Blood Pressure Location Lt brachial Position Sitting Pulse 79 Pulse Source Pulse Oximeter Pulse Oximetry (%) 97 Oxygen Delivery Method Room Air Intake Visit Reasons: Fall and cut on head, dizziness Allergies No Known Allergies Allergy (Verified 11/07/22 14:07) Tobacco use date assessed: 08/17/22 Fall risk assessment: 2 + Falls in past year Last assessed Fall Risk: 11/07/22 Dental Screening Dental Screen Date: 11/07/22 Did you have a dental visit in the last 12 months?: Yes Did you have a dental problem in the last 6 months where you did not have access to dental care?: No Was dental information given to patient?: Patient has dentist HPI Fall and cut on head, dizziness HPI Details 82-year-old overweight female with Ruiz's esophagus generalized anxiety disorder atrial flutter on anticoagulation controlled diabetes mellitus GERD hypothyroidism postsurgical for follicular carcinoma thyroid gland hypercholesterolemia last seen in August 2022. Patient had fall and a CT scan of the brain was done blood work was requested also. Review of the notes had barium swallow done revealing negative results. Patient had mammogram done in [facility] September 2022 stable probably benign left breast microcalcifications left breast advised spot magnification CC and mL views in [address] scan done in September 29- PAtient has been falling a lot and he is with her today convincing to use the walker regularly to avoid falls. Patient had a recent fall had hematoma on the right shoulder and family saying that she is complaining about breathing deep with pain on the right chest. X-ray requested. Concern about the blood thinners but patient has a history of atrial flutter and so is on the blood thinner again has for recurrent falls. Advised to discussed with family on blood thinner management. And risk of strokes. Patient has a schedule with the ear nose and throat for fluid in the right ear [facility] Medical History (Updated 11/07/22 @ 14:46 by Forrest Garcia MD) Atrial flutter (~11/2019) Bradycardia Carpal tunnel syndrome DDD (degenerative disc disease) Dysphagia Follicular carcinoma of thyroid gland GERD (gastroesophageal reflux disease) Hyperlipidemia Hypertension Impaired glucose tolerance Medicare annual wellness visit, initial MGUS (monoclonal gammopathy of unknown significance) Non-toxic multinodular goiter Obesity Osteoarthritis Pacemaker (~11/2019) Paroxysmal atrial flutter Peptic ulcer disease Post-surgical hypothyroidism SSS (sick sinus syndrome) Thyroid cancer Thyroid nodule Type 2 diabetes mellitus with hyperglycemia Vitamin D deficiency Vitamin D deficiency Surgical History History of back surgery History of bilateral knee replacement Hx of appendectomy Hx of arthroscopy of right knee Hx of carpal tunnel repair Hx of colonoscopy Hx of endoscopy Hx of knee surgery (~09/2012) Hx of partial thyroidectomy Pulmonary nodule Family History Father No problems noted. Mother CVD (cardiovascular disease) Heart disease Brother CVD (cardiovascular disease) Sudden cardiac Social History Housing: House Are you a primary rn managed care to a significant other at home: No ( with dementia last year) Do you presently have visiting nurse or other home services: No Alcohol intake: never Patient Tobacco Use Status: Never used Tobacco e-Cigarette/Vaping Use: Never Used Second Hand Smoke Exposure: No service: No Current occupational status: retired Cognitive needs: No Hearing needs: No Vision needs: Yes Questionnaire PHQ-9 Over the last 2 weeks, how often have you been bothered by any of the following problems? 1. Little interest or pleasure in doing things: not at all 2. Feeling down, depressed, or hopeless: several days (pt states passed ) 3. Trouble falling or staying asleep, or sleeping too much: not at all 4. Feeling tired or having little energy: not at all 5. Poor appetite or overeating: not at all 6. Feeling bad about yourself - or that you are a failure or have let yourself or your family down: not at all 7. Trouble concentrating on things, such as reading the newspaper or watching t elevision: not at all 8. Moving or speaking so slowly that other people could have noticed. Or the opposite - being so fidgety or restless that you have been moving around a lot more than usual: not at all 9. Thoughts that you would be better off or of hurting yourself in some way: not at all Total score: 1 Depression Screening Interpretation: Negative Source: Developed by Drs. Gallo L. NereidaVannesa pride Kurt Kroenke and colleagues, with an educational yun from [employer]. Thrive Questionnaire Date Thrive assessed: 03/25/22 AUDIT C Alcohol Use Questionnaire (AUDIT-C) 1. How often do you have a drink containing alcohol?: Never 3. How often do you have six or more drinks on one occasion?: Never Total Score: 0 ALF-7 AMB Questionnaire ALF-7 Date ALF - 7 assessed: 03/25/22 Source: Developed by Drs. Gallo Padron, Demian Guallpa and colleagues, with an educational yun from [employer]. Physical exam (Primary Care) Vital Signs: Last Vital Signs Pulse 79 11/07/22 14:07 BP 148/82 H 11/07/22 14:07 Pulse Ox 97 11/07/22 14:07 Oxygen Delivery Method Room Air 11/07/22 14:07 BMI result Body Mass Index 29.4 Tobacco/Smoking Status: Tobacco use Status Tobacco use date assessed 08/17/22 11/07/22 14:08 Patient Tobacco Use Status Never used Tobacco 11/07/22 14:08 e-Cigarette/Vaping Use Never Used 11/07/22 14:08 PHQ-9: PHQ-9 Score PHQ-9: Total score 1 11/07/22 14:21 Depression Screening Interpretation: Negative Thrive Assessment: Date of Thrive Assessment Date Thrive assessed 03/25/22 11/07/22 14:08 Const General: alert; No acute distress Eyes Conjunctivae: conjunctivae normal Resp Auscultation: clear to auscultation bilaterally Cardio Rate: regular rate Rhythm: regular rhythm GI Inspection: Yes normal to inspection Extrem General: Yes normal to inspection and No edema Results AMB Hemoglobin A1c AMB Hemoglobin A1c 5.0 % Last Edit by Esther Beltre CMA on 11/07/22 14 :22 Results Reviewed Results Reviewed: Laboratory Last Values Hgb A1c (Clinic) 5.0 % (4.0-6.0) 11/07/22 14:08 Assessment and Plan Assessment & Plan (1) Hypertension: Code(s): I10 - Essential (primary) hypertension Qualifiers: Hypertension type: primary hypertension Qualified Code(s): I10 - Essential (primary) hypertension Plan: Continue with blood pressure medication. Decrease salt intake and exercise patient is on hydralazine 100 mg twice a day lisinopril 40 mg once a day spironolactone 25 mg once a day and metoprolol 25 mg once a day (2) Hyperlipidemia: Code(s): E78.5 - Hyperlipidemia, unspecified Qualifiers: Hyperlipidemia type: pure hypercholesterolemia Qualified Code(s): E78.00 - Pure hypercholesterolemia, unspecified Plan: Avoid fried foods, chicken skin, eggs, butter margarine, pastries and meat. Be it pork or beef they have a lot of cholesterol LDL goal of less than 100 and triglyceride of less than 150 patient is on atorvastatin 20 mg once a day (3) Follicular carcinoma of thyroid gland: Code(s): C73 - Malignant neoplasm of thyroid gland Plan: Patient follows up with endocrinology (4) Post-surgical hypothyroidism: Code(s): E89.0 - Postprocedural hypothyroidism Plan: Continue with thyroid medication patient follows up with endocrinology (5) SSS (sick sinus syndrome): Code(s): I49.5 - Sick sinus syndrome Plan: Patient follows up with Cardiology (6) MGUS (monoclonal gammopathy of unknown significance): Comment: IgG type July 2017 Dr. Bridges Code(s): D47.2 - Monoclonal gammopathy Plan: Patient follows up with hematology oncology (7) GERD (gastroesophageal reflux disease): Code(s): K21.9 - Gastro-esophageal reflux disease without esophagitis Qualifiers: Esophagitis presence: without esophagitis Qualified Code(s): K21.9 - Gastro-esophageal reflux disease without esophagitis Plan: Avoid the foods that causes that usually spicy foods, tomato products, juices, coffee, soda and foods that your sensitive to. After eating do not lie down, allow 3-4 hours before in lie down. And keep the head of bed above 30 degrees to avoid the acid from going up. (8) Type 2 diabetes mellitus with hyperglycemia: Comment: Fernie Lima Code(s): E11.65 - Type 2 diabetes mellitus with hyperglycemia Qualifiers: Diabetes mellitus watermelon inspector insulin use: without watermelon inspector use Qualified Code(s): E11.65 - Type 2 diabetes mellitus with hyperglycemia Plan: Decrease the amount of carbohydrate intake, pasta, bread, rice and potatoes are all sugar and that is aside from all the sweet stuff, remember that fruits are good but they are Sweet also. Hemoglobin A1c goal of less than 7.0 patient is diet controlled (9) Paroxysmal atrial flutter: Code(s): I48.92 - Unspecified atrial flutter Plan: Stable continue with anticoagulation (10) Generalized anxiety disorder: Code(s): F41.1 - Generalized anxiety disorder Plan: Continue with lorazepam as needed, fall precautions (11) Fall: Code(s): W19.XXXA - Unspecified fall, initial encounter Plan: Use of the walker emphasized (12) Right-sided chest pain: Code(s): R07.9 - Chest pain, unspecified Plan: Rib series requested Orders: Orders XR ribs RT min 3V w CXR1V Today R07.9 - Chest pain, unspecified AMB Hemoglobin A1c Today Z13.9 - Encounter for screening, unspecified Coding Level of Care Code Est Pt Level 4 (92486) Diagnoses Hypertension I10 Hypertension type: primary hypertension Hyperlipidemia E78.00 Hyperlipidemia type: pure hypercholesterolemia Follicular carcinoma of thyroid gland C73 Post-surgical hypothyroidism E89.0 SSS (sick sinus syndrome) I49.5 MGUS (monoclonal gammopathy of unknown significance) D47.2 GERD (gastroesophageal reflux disease) K21.9 Esophagitis presence: without esophagitis Type 2 diabetes mellitus with hyperglycemia E11.65 Diabetes mellitus fpc insulin use: without fpc use Paroxysmal atrial flutter I48.92 Generalized anxiety disorder F41.1 Fall W19.XXXA Right-sided chest pain R07.9
== END 2022-11-07 15:10 | disposition home or self-care (01) ==
PROVIDERS: PCP Internal Medicine; Visit Provider Internal Medicine
DX: E11.65 Type 2 diabetes mellitus with hyperglycemia (principal)
CPT/HCPCS: 83036; 99214

== ENCOUNTER 2022-11-08 12:18 | Outpatient (REF) | payer MEDICARE, SELFPAY ==
--- NOTE | ~2022-11-08 | XR_ITS ---
EXAMINATION: XR RIBS, RIGHT, with PA chest CLINICAL INFORMATION: Chest pain COMPARISON: 06/27/2022 TECHNIQUE: 3 views of the right ribs were obtained. Also, PA view of the chest is obtained. FINDINGS: Lungs are well expanded. Chronic linear opacity of scarring and small trista from right upper lung wedge resection. No acute pulmonary abnormality. No pneumothorax or pleural effusion. Cardiac silhouette has normal size and contour with dual-chamber pacemaker in place. There are small surgical clips within the lower neck. The right-sided ribs have an intact appearance. No evidence of an acute displaced rib fracture. The chondrocalcinosis of acromioclavicular, glenohumeral and sternoclavicular joints was more clearly seen on the chest CT of 06/30/2021. There are osteophytes at the degenerated acromioclavicular and glenohumeral joints of both shoulders. Foci of calcium deposition project over the region of the distal supraspinatus at the right shoulder. XR/XR ribs RT min 3V w CXR1V IMPRESSION: * No acute pulmonary disease. * No evidence of rib fracture. * The dual-chamber cardiac pacing leads are in stable, satisfactory position.
== END 2022-11-08 12:19 | disposition home or self-care (01) ==
LOC: HO.XRAY 12:18
PROVIDERS: PCP Internal Medicine; Visit Provider Internal Medicine
DX: R07.9 Chest pain, unspecified (principal)
CPT/HCPCS: 71101

== ENCOUNTER 2022-11-08 12:52 | Outpatient (RCR) | payer MEDICARE, SELFPAY | END 2023-03-08 15:57 | disposition home or self-care (01) | LOC: HO.SH 12:52 | PROVIDERS: Visit Provider Internal Medicine | DX: R13.10 Dysphagia, unspecified (principal) | CPT/HCPCS: 92526 ==

== ENCOUNTER 2022-11-24 08:48 | Outpatient (REF) | payer MEDICARE, SELFPAY ==
[2022-11-24 11:28] LABS: MANUAL DIFF FLAG NO
[2022-11-24 11:51] LABS: Basophils Absolute Auto 0.1 X10*3/uL (0.0-0.2); Basophils Percent Auto 0.8 % (0-2); Eosinophils Absolute Auto 0.1 X10*3/uL (0.0-0.4); Eosinophils Percent Auto 1.7 % (0-4); Hematocrit 39.2 % (37.0-47.0); Hemoglobin 13.3 g/dl (12.0-16.0); Imm Gran Abs Auto 0.02 X10*3/uL (0.00-0.03); Imm Gran Pct Auto 0.3 % (0.0-0.4); Lymphocytes Absolute Auto 1.6 X10*3/uL (1.2-4.9); Lymphocytes Percent Auto 27.7 % (20-40); Mean Corpuscular HGB Conc 33.9 g/dl (31.0-35.0); Mean Corpuscular Hemoglobin 30.3 pg (27.0-33.0); Mean Corpuscular Volume 89.3 fL (80.0-98.0); Mean Platelet Volume 8.9 fL (9.4-12.3); Monocytes Absolute Auto 0.6 X10*3/uL (0.1-1.2); Monocytes Percent Auto 10.3 % (2-11); Neutrophils Absolute Auto 3.5 x10*3/uL (2.0-8.3); Neutrophils Percent Auto 59.2 % (45-73); Platelet Count 384 X10*3/uL (160-400); Red Blood Count 4.39 X10*6/uL (4.20-5.50); Red Cell Distribution Width 13.1 % (11.0-16.0); White Blood Count 5.9 X10*3/uL (4.8-10.8)
[2022-11-24 12:15] LABS: Estimated Average Glucose 105 mg/dL; Hemoglobin A1c % 5.3 % (<6.0)
[2022-11-24 12:23] LABS: Alanine Aminotransferase 10 U/L (0-31); Albumin Level 4.3 g/dL (3.5-5.0); Alkaline Phosphatase 92 U/L (39-117); Anion Gap 11 (12-20); Aspartate Amino Transferase 17 U/L (5-31); Bilirubin Total 0.6 mg/dL (0.0-1.0); Blood Urea Nitrogen 9 mg/dL (9-16); Carbon Dioxide 29 mmol/L (22-29); Chloride 96 mmol/L (96-108); Cholesterol 150 mg/dL (<200); Estimated Glomerular Filt Rate > 60; Glucose Random 101 mg/dL (60-115); HDL Cholesterol 69 mg/dL (>40); LDL Cholesterol Calculated 69 mg/dL (<100); Potassium 5.2 mmol/L (3.3-5.1); Sodium 131 mmol/L (135-145); Total Protein 7.2 g/dL (6.5-8.0); Triglycerides 63 mg/dL (<150)
[2022-11-24 12:44] LABS: Free T4 (Free Thyroxine) 1.25 ng/dL (0.71-1.85)
[2022-11-24 12:48] LABS: Folate 14.4 ng/mL (> or = 4.0); Vitamin B12 667 pg/mL (200-900)
[2022-11-24 12:58] LABS: Creatinine Urine 41.55 mg/dL; Microalbumin Urine < 5.0 mg/L
== END 2022-11-24 08:49 | disposition home or self-care (01) ==
LOC: HO.HMGCLDS 08:48
PROVIDERS: PCP Internal Medicine; Visit Provider Internal Medicine
DX: E11.65 Type 2 diabetes mellitus with hyperglycemia (principal); E78.00 Pure hypercholesterolemia, unspecified
CPT/HCPCS: 36415; 80053; 80061; 82043; 82570; 82607; 82746; 83036; 84439; 84443; 85025

== ENCOUNTER 2022-11-29 13:56 | Outpatient (AMB) | payer MEDICARE, SELFPAY ==
[2022-11-29 13:58] VITALS: BP 146/62; PULSE 60; O2SAT 97; BMI 29.0
--- NOTE | 2022-11-29 13:58 | MHC.PC.OV ---
Vital Signs 11/29/22 13:58 Height 5 ft 3 in Weight 164 lb BMI 29.0 BP 146/62 H Blood Pressure Location Lt brachial Position Sitting Pulse 60 Pulse Source Pulse Oximeter Pulse Oximetry (%) 97 Oxygen Delivery Method Room Air Intake Visit Reasons: hyperlipidemia, DM, HTN Intake Note: Patient here for a follow up hyperlipidemia, dm, htn Advertising Operations Manager Required: No Accompanied by: niece Allergies No Known Allergies Allergy (Verified 11/29/22 13:59) Tobacco use date assessed: 08/17/22 Fall risk assessment: No Falls in past year Last assessed Fall Risk: 11/29/22 Dental Screening Dental Screen Date: 11/29/22 Did you have a dental visit in the last 12 months?: No Did you have a dental problem in the last 6 months where you did not have access to dental care?: No Was dental information given to patient?: Patient has dentist HPI hyperlipidemia, DM, HTN HPI Details 82-year-old overweight female with controlled diabetes mellitus hypercholesterolemia history of thyroid cancer presently hypothyroid sick sinus syndrome and has GERD paroxysmal atrial flutter/fibrillation and generalized anxiety disorder last seen in October 2022. Patient is here for follow-up.. Review of the notes patient was seen by the ear nose and throat in November 2022 with the mixed hearing loss consideration for eustachian tube dysfunction leading to middle ear infusion. Advised right-sided myringotomy tube [facility] Medical History (Updated 11/07/22 @ 14:46 by Forrest Garcia MD) Dysphagia Vitamin D deficiency Thyroid cancer Medicare annual wellness visit, initial Paroxysmal atrial flutter Type 2 diabetes mellitus with hyperglycemia GERD (gastroesophageal reflux disease) MGUS (monoclonal gammopathy of unknown significance) Osteoarthritis Vitamin D deficiency Post-surgical hypothyroidism Non-toxic multinodular goiter Follicular carcinoma of thyroid gland SSS (sick sinus syndrome) Atrial flutter (~11/2019) Carpal tunnel syndrome DDD (degenerative disc disease) Peptic ulcer disease Obesity Impaired glucose tolerance Hyperlipidemia Hypertension Bradycardia Thyroid nodule Pacemaker (~11/2019) Surgical History Hx of endoscopy History of bilateral knee replacement Hx of arthroscopy of right knee Pulmonary nodule Hx of partial thyroidectomy Hx of appendectomy Hx of carpal tunnel repair Hx of colonoscopy History of back surgery Hx of knee surgery (~09/2012) Family History Father No problems noted. Mother CVD (cardiovascular disease) Heart disease Brother CVD (cardiovascular disease) Sudden cardiac Social History Housing: House Are you a primary small animal caretaker to a significant other at home: No ( with dementia last year) Do you presently have visiting nurse or other home services: No Alcohol intake: never Patient Tobacco Use Status: Never used Tobacco e-Cigarette/Vaping Use: Never Used Second Hand Smoke Exposure: No service: No Current occupational status: retired Cognitive needs: No Hearing needs: No Vision needs: Yes Questionnaire Thrive Questionnaire Date Thrive assessed: 03/25/22 ALF-7 AMB Questionnaire ALF-7 Date ALF - 7 assessed: 03/25/22 Source: Developed by Drs. Gallo Padron, Vannesa Srinivasan, Demian Grady and colleagues, with an educational yun from [employer]. Physical exam (Primary Care) Vital Signs: Last Vital Signs Pulse 60 11/29/22 13:58 BP 146/62 H 11/29/22 13:58 Pulse Ox 97 11/29/22 13:58 Oxygen Delivery Method Room Air 11/29/22 13:58 BMI result Body Mass Index 29.0 Tobacco/Smoking Status: Tobacco use Status Tobacco use date assessed 08/17/22 11/29/22 14:01 Patient Tobacco Use Status Never used Tobacco 11/29/22 14:01 e-Cigarette/Vaping Use Never Used 11/29/22 14:01 Thrive Assessment: Date of Thrive Assessment Date Thrive assessed 03/25/22 11/29/22 14:01 Const General: alert; No acute distress HENMT Other: For with blue myringotomy tube in Eyes Conjunctivae: conjunctivae normal Resp Auscultation: clear to auscultation bilaterally Cardio Rate: regular rate Rhythm: regular rhythm GI Inspection: Yes normal to inspection Extrem General: Yes normal to inspection and No edema Assessment and Plan Assessment & Plan (1) Paroxysmal atrial flutter: Code(s): I48.92 - Unspecified atrial flutter Plan: Continue with anticoagulation with Eliquis (2) Type 2 diabetes mellitus with hyperglycemia: Comment: Fernie Lima Code(s): E11.65 - Type 2 diabetes mellitus with hyperglycemia Qualifiers: Diabetes mellitus fpc insulin use: without fpc use Qualified Code(s): E11.65 - Type 2 diabetes mellitus with hyperglycemia Plan: Decrease the amount of carbohydrate intake, pasta, bread, rice and potatoes are all sugar and that is aside from all the sweet stuff, remember that fruits are good but they are Sweet also. Patient is presently diet controlled (3) GERD (gastroesophageal reflux disease): Code(s): K21.9 - Gastro-esophageal reflux disease without esophagitis Qualifiers: Esophagitis presence: without esophagitis Qualified Code(s): K21.9 - Gastro-esophageal reflux disease without esophagitis Plan: Avoid the foods that causes that usually spicy foods, tomato products, juices, coffee, soda and foods that your sensitive to. After eating do not lie down, allow 3-4 hours before in lie down. And keep the head of bed above 30 degrees to avoid the acid from going up. (4) Hypertension: Code(s): I10 - Essential (primary) hypertension Qualifiers: Hypertension type: primary hypertension Qualified Code(s): I10 - Essential (primary) hypertension Plan: Continue with blood pressure medication. Decrease salt intake and exercise patient on lisinopril 40 mg once a day hydralazine 50 mg twice a day and been Toprol 25 mg once a day (5) Hyperlipidemia: Code(s): E78.5 - Hyperlipidemia, unspecified Qualifiers: Hyperlipidemia type: pure hypercholesterolemia Qualified Code(s): E78.00 - Pure hypercholesterolemia, unspecified Plan: Avoid fried foods, chicken skin, eggs, butter margarine, pastries and meat. Be it pork or beef they have a lot of cholesterol LDL goal of less than 70. Patient is on atorvastatin 20 mg once a day (6) Post-surgical hypothyroidism: Code(s): E89.0 - Postprocedural hypothyroidism Plan: Continue with thyroid medication 50 mcg once a day (7) Hearing loss in right ear: Code(s): H91.91 - Unspecified hearing loss, right ear Plan: Patient has met with the ear nose and throat and planned myringotomy tube Coding Level of Care Code Est Pt Level 4 (65988) Diagnoses Paroxysmal atrial flutter I48.92 Type 2 diabetes mellitus with hyperglycemia, without long-term current use of insulin E11.65 Diabetes mellitus fpc insulin use: without terminal gauger use Gastroesophageal reflux disease without esophagitis K21.9 Esophagitis presence: without esophagitis Primary hypertension I10 Hypertension type: primary hypertension Pure hypercholesterolemia E78.00 Hyperlipidemia type: pure hypercholesterolemia Post-surgical hypothyroidism E89.0 Hearing loss in right ear H91.91
== END 2022-11-29 14:28 | disposition home or self-care (01) ==
PROVIDERS: PCP Physician Assistant; Visit Provider Internal Medicine
DX: I48.92 Unspecified atrial flutter (principal); E11.65 Type 2 diabetes mellitus with hyperglycemia; K21.9 Gastro-esophageal reflux disease without esophagitis; I10 Essential (primary) hypertension; E78.00 Pure hypercholesterolemia, unspecified; E89.0 Postprocedural hypothyroidism; H91.91 Unspecified hearing loss, right ear
CPT/HCPCS: 99214

== ENCOUNTER → 2022-12-01 23:59 | Outpatient (BNV) | payer MEDICARE, SELFPAY ==
--- NOTE | 2022-12-05 10:40 | MHC.OFFVIS ---
Intake Intake Visit Reasons: Remote Device Check- [facility] Allergies No Known Allergies Allergy (Verified 11/29/22 13:59) [facility] Medical History (Updated 11/07/22 @ 14:46 by Forrest Garcia MD) Dysphagia Vitamin D deficiency Thyroid cancer Medicare annual wellness visit, initial Paroxysmal atrial flutter Type 2 diabetes mellitus with hyperglycemia GERD (gastroesophageal reflux disease) MGUS (monoclonal gammopathy of unknown significance) Osteoarthritis Vitamin D deficiency Post-surgical hypothyroidism Non-toxic multinodular goiter Follicular carcinoma of thyroid gland SSS (sick sinus syndrome) Atrial flutter (~11/2019) Carpal tunnel syndrome DDD (degenerative disc disease) Peptic ulcer disease Obesity Impaired glucose tolerance Hyperlipidemia Hypertension Bradycardia Thyroid nodule Pacemaker (~11/2019) Surgical History Hx of endoscopy History of bilateral knee replacement Hx of arthroscopy of right knee Pulmonary nodule Hx of partial thyroidectomy Hx of appendectomy Hx of carpal tunnel repair Hx of colonoscopy History of back surgery Hx of knee surgery (~09/2012) Family History Father No problems noted. Mother CVD (cardiovascular disease) Heart disease Brother CVD (cardiovascular disease) Sudden cardiac Social History Housing: House Are you a primary health care legal assistant to a significant other at home: No ( with dementia last year) Do you presently have visiting nurse or other home services: No Alcohol intake: never Patient Tobacco Use Status: Never used Tobacco e-Cigarette/Vaping Use: Never Used Second Hand Smoke Exposure: No service: No Current occupational status: retired Cognitive needs: No Hearing needs: No Vision needs: Yes Office Procedures Cardiac Device Check Cardiac Device Check Details: Remote pacemaker report generated 12/01/2022. Pacemaker function is adequate [id number] Cardiac Device Interrogation, pacemaker Procedure code (CPT) selection complete Coding Level of Care Code Procedure Only CPT Codes Cardiac Device Check - Cardiac Device 12: [id number] Cardiac Device Interrogation, pacemaker ([id number])
== END ==
PROVIDERS: PCP Internal Medicine; Visit Provider Internal Medicine Cardiovascular Disease
DX: I49.5 Sick sinus syndrome (principal); Z95.0 Presence of cardiac pacemaker
CPT/HCPCS: 93294

== ENCOUNTER 2023-01-03 07:49 | Outpatient (REF) | payer MEDICARE, SELFPAY ==
[2023-01-03 09:03] LABS: Anion Gap 13 (12-20); Blood Urea Nitrogen 12 mg/dL (9-16); Carbon Dioxide 29 mmol/L (22-29); Chloride 97 mmol/L (96-108); Estimated Glomerular Filt Rate > 60; Potassium 4.9 mmol/L (3.3-5.1); Sodium 134 mmol/L (135-145)
== END 2023-01-03 07:50 | disposition home or self-care (01) ==
LOC: HO.LAB 07:49
PROVIDERS: PCP Internal Medicine; Visit Provider Internal Medicine Nephrology
DX: I10 Essential (primary) hypertension (principal)
CPT/HCPCS: 36415; 80051; 82310; 82565; 84520

== ENCOUNTER 2023-01-13 11:50 | Outpatient (AMB) | payer MEDICARE, SELFPAY ==
--- NOTE | 2023-01-13 12:04 | HO.NEPHOV ---
Intake Vital Signs 01/13/23 12:05 Height 5 ft 3 in Weight 166 lb 4 oz BMI 29.4 BP 124/60 Blood Pressure Location Lt brachial Position Sitting Pulse 60 Pulse Source Pulse Oximeter Intake Visit Reasons: CKD - Confirmed Pierce And Shave Press Operator Required: No Accompanied by: Niece Allergies No Known Allergies Allergy (Verified 01/13/23 12:07) HPI HPI Comments History of Present Illness Details I had the privilege of seeing Ms Kwok in follow up for hypertension. Her niece was present throughout the patient encounter. She is known to have hypertension for a long time. She is on anticoagulation. She denies neuropathy, retinopathy, CAD, CVA, CHF, TEODORA , PAD or carotid stenosis. She has no H/O hepatitis but has H/O MGUS. He is on ACEI. She does not take NSAID's regularly. She denies any nausea, vomiting, diarrhea, SOB, edema, PND, orthopnea, hematuria, hearing deficits. She claims to be compliant with medications. She has no sinusitis, epistaxis, photosensitivity, bone pain, sore throat , hemoptysis, skin lesions or recent antibiotic intake. She denied any active complaints at the time of this office visit Assessment & Plan Assessment & Plan (1) Hyponatremia: Code(s): E87.1 - Hypo-osmolality and hyponatremia (2) Hypertension: Code(s): I10 - Essential (primary) hypertension Qualifiers: Hypertension type: primary hypertension Qualified Code(s): I10 - Essential (primary) hypertension Plan Serum sodium stable No weakness; Mentation at baseline Euvolemic; BP at goal; Renal function/ K OK No NSAID's; No medication changes made today All questions answered; F/U given; F/U labs ordered Time spent reviewing chart, encounter, documentation 34 minutes Orders: Orders Blood Urea Nitrogen 01/13/23 E87.1 - Hypo-osmolality and hyponatremia, I10 - Essential (primary) hypertension Electrolytes 01/13/23 E87.1 - Hypo-osmolality and hyponatremia, I10 - Essential (primary) hypertension Creatinine 01/13/23 E87.1 - Hypo-osmolality and hyponatremia, I10 - Essential (primary) hypertension Calcium 01/13/23 E87.1 - Hypo-osmolality and hyponatremia, I10 - Essential (primary) hypertension Coding Level of Care Code Est Pt Level 3 (41144) Diagnoses Hyponatremia E87.1 Primary hypertension I10 Hypertension type: primary hypertension [facility] Medical History (Updated 11/07/22 @ 14:46 by Forrest Garcia MD) Dysphagia Vitamin D deficiency Thyroid cancer Medicare annual wellness visit, initial Paroxysmal atrial flutter Type 2 diabetes mellitus with hyperglycemia GERD (gastroesophageal reflux disease) MGUS (monoclonal gammopathy of unknown significance) Osteoarthritis Vitamin D deficiency Post-surgical hypothyroidism Non-toxic multinodular goiter Follicular carcinoma of thyroid gland SSS (sick sinus syndrome) Atrial flutter (~11/2019) Carpal tunnel syndrome DDD (degenerative disc disease) Peptic ulcer disease Obesity Impaired glucose tolerance Hyperlipidemia Hypertension Bradycardia Thyroid nodule Pacemaker (~11/2019) Surgical History Hx of endoscopy History of bilateral knee replacement Hx of arthroscopy of right knee Pulmonary nodule Hx of partial thyroidectomy Hx of appendectomy Hx of carpal tunnel repair Hx of colonoscopy History of back surgery Hx of knee surgery (~09/2012) Family History Father No problems noted. Mother CVD (cardiovascular disease) Heart disease Brother CVD (cardiovascular disease) Sudden cardiac Social History Housing: House Are you a primary career coach to a significant other at home: No ( with dementia last year) Do you presently have visiting nurse or other home services: No Alcohol intake: never Patient Tobacco Use Status: Never used Tobacco e-Cigarette/Vaping Use: Never Used Second Hand Smoke Exposure: No service: No Current occupational status: retired Cognitive needs: No Hearing needs: No Vision needs: Yes
[2023-01-13 12:05] VITALS: BP 124/60; PULSE 60; BMI 29.4
== END 2023-01-13 13:18 | disposition home or self-care (01) ==
LOC: HO.HKA 11:50
PROVIDERS: PCP Internal Medicine; Visit Provider Internal Medicine Nephrology
DX: E87.1 Hypo-osmolality and hyponatremia (principal); I10 Essential (primary) hypertension
CPT/HCPCS: 99214

== ENCOUNTER → 2023-01-13 11:50 | Outpatient (BNVA) | payer MEDICARE, SELFPAY | PROVIDERS: PCP Internal Medicine; Visit Provider Internal Medicine Nephrology | DX: E87.1 Hypo-osmolality and hyponatremia (principal); I10 Essential (primary) hypertension | CPT/HCPCS: 99212 ==

== ENCOUNTER 2023-01-16 13:06 | Outpatient (AMB) | payer MEDICARE, SELFPAY ==
[2023-01-16 13:16] VITALS: BP 126/74; PULSE 60; BMI 28.9
--- NOTE | 2023-01-16 13:16 | A.OFFVIS_ITS ---
Intake Vital Signs 01/16/23 13:16 Height 5 ft 3 in Weight 163 lb 2.273 oz BMI 28.9 BP 126/74 Blood Pressure Location Lt brachial Position Sitting Pulse 60 Intake Visit Reasons: 6 month follow up with pacer check Office Mail Clerk: Office Mail Clerk Present Accompanied by: Family/Other Allergies No Known Allergies Allergy (Verified 01/13/23 12:07) Medication List - Last Reconciled 01/16/23 by Nikita Choi MD albuterol sulfate 90 mcg/actuation 0 mcg inhalation apixaban (Eliquis) 5 mg PO BID atorvastatin 20 mg PO DAILY citalopram 10 mg PO DAILY 90 days fluticasone propionate 50 mcg/actuation 1 spray intranasal DAILY hydralazine 50 mg PO BID levothyroxine 50 mcg PO DAILY 90 days lisinopril 40 mg PO DAILY 90 days lorazepam 1 mg PO BID PRN 90 days metoprolol succinate ER 25 mg PO DAILY omeprazole 20 mg PO DAILY spironolactone 25 mg PO DAILY HPI HPI Comments History of Present Illness Details Sophie comes for follow-up of her pacemaker in atrial flutter. Since I last saw her she had few falls with associated lightheadedness. Since then hydralazine was reduced to 50 mg b.i.d.. Since then she has not been lightheaded and has had no falls. She denies any prolonged palpitations. No shortness of breath, orthopnea, PND. No exertional chest pain. Since reduction in her medications she has recorded blood pressures at home and they have sometimes been systolic 160 range. Although these are not consistent. She is taking all her medications. Her niece who is now involved in her care has organized medications for her. She has no major bleeding issues or neurologic events. [facility] Medical History Dysphagia Vitamin D deficiency Thyroid cancer Medicare annual wellness visit, initial Paroxysmal atrial flutter Type 2 diabetes mellitus with hyperglycemia GERD (gastroesophageal reflux disease) MGUS (monoclonal gammopathy of unknown significance) Osteoarthritis Vitamin D deficiency Post-surgical hypothyroidism Non-toxic multinodular goiter Follicular carcinoma of thyroid gland SSS (sick sinus syndrome) Atrial flutter (~11/2019) Carpal tunnel syndrome DDD (degenerative disc disease) Peptic ulcer disease Obesity Impaired glucose tolerance Hyperlipidemia Hypertension Bradycardia Thyroid nodule Pacemaker (~11/2019) Surgical History Hx of endoscopy History of bilateral knee replacement Hx of arthroscopy of right knee Pulmonary nodule Hx of partial thyroidectomy Hx of appendectomy Hx of carpal tunnel repair Hx of colonoscopy History of back surgery Hx of knee surgery (~09/2012) Family History Father No problems noted. Mother CVD (cardiovascular disease) Heart disease Brother CVD (cardiovascular disease) Sudden cardiac Social History Housing: House Are you a primary career representative to a significant other at home: No ( with dementia last year) Do you presently have visiting nurse or other home services: No Alcohol intake: never Patient Tobacco Use Status: Never used Tobacco e-Cigarette/Vaping Use: Never Used Second Hand Smoke Exposure: No service: No Current occupational status: retired Cognitive needs: No Hearing needs: No Vision needs: Yes Review of Systems Const Denies chills, Denies fatigue, Denies fever(s), Denies frequent falls, Denies weakness, Denies weight gain and Denies weight loss ENT Denies dizziness Card Denies chest pain, Denies leg edema, Denies lightheadedness, Denies palpitations, Denies dyspnea, Denies dyspnea on exertion, Denies orthopnea and Denies other (loss of consciousness) Resp Denies cough, Denies dyspnea and Denies dyspnea on exertion GI Denies hematochezia and Denies change in stool character Musc Denies abnormal gait, Denies muscle weakness, Denies numbness, Denies radiating pain into limb and Denies tingling Neuro Denies abnormal gait, Denies dizziness, Denies frequent falls, Denies numbness, Denies tingling and Denies weakness Endo Denies fatigue and Denies palpitations Physical Exam Vital Signs: Last Vital Signs Pulse 60 01/16/23 13:16 BP 126/74 01/16/23 13:16 BMI result Body Mass Index 28.9 Const General: cooperative, comfortable, no acute distress, alert, awake and anxious Nutritional Appearance: overweight Orientation/consciousness: patient oriented x3 Limitations: no limitations Neck Neck: Yes trachea midline, Yes supple and Yes no JVD Resp Effort & Inspection: normal respiratory effort Auscultation: clear to auscultation bilaterally Cardio Jugular venous distension: no JVD Palpation: normal PMI Rate: regular rate Rhythm: regular rhythm Heart sounds: S1 normal heart sound present and S2 normal heart sound present GI Auscultation: normal bowel sounds Skin General skin exam: no rashes or lesions noted Neuro General: patient oriented x3 and no focal motor deficits Extrem General: Yes no clubbing, cyanosis or edema Psych Appearance: grossly normal Office Procedures Cardiac Device Check Cardiac Device Check Details: Dual-chamber [facility] pacemaker in place. Programmed in DDDR at 60 beats per minute. Atrial pacing 93% of the time. Atrial ventricular sensing is adequate. Atrial ventricular capture thresholds adequate. Pacing lead impedance is stable. Battery life is excellent at 10 years. No episodes of atrial fibrillation noted. Atrial pacing 93% of the time [id number] Cardiac Device Check, pacemaker dual lead Procedure code (CPT) selection complete EKG Details: EKG shows atrially paced, ventricularly sensed rhythm with nonspecific ST wave changes suggestive of repolarization abnormality [id number], Complete Assessment & Plan Assessment & Plan (1) Pacemaker: Onset Date: ~11/2019 Code(s): Z95.0 - Presence of cardiac pacemaker Plan: Patient with dual-chamber pacemaker working well for sick sinus syndrome. Patient is pacing 93% time in the atrium. Pacemaker is working well. Reprogrammed for adequate function. Will follow remotely in 3 months time. (2) Paroxysmal atrial flutter: Code(s): I48.92 - Unspecified atrial flutter Plan: Paroxysmal atrial flutter which has remained suppressed. She is doing well with her atrial flutter. No symptoms related to it. Continue metoprolol therapy. Continue full oral anticoagulation, currently on Eliquis 5 mg b.i.d.. Quarterly renal function test should be pursued. Avoidance of stimulants was discussed. (3) Labile blood pressure: Code(s): R09.89 - Other specified symptoms and signs involving the circulatory and res piratory systems Plan: Labile blood pressure with recent symptoms of falls and lightheadedness. This could be significant issues. Advised to monitor blood pressure at home maintain a log. Slowly adjust medications to achieve adequate blood pressure control. I would be okay with permissive hypertension up to systolic 150 in her case. Id as to avoid any significant low blood pressure and falls associated with it and injuries. Advised to maintain adequate hydration Will follow up in the clinic in 6 months time, sooner p.r.n.. Medications: Refilled apixaban (Eliquis) 5 mg PO BID 180 tabs 3RF Coding Level of Care Code Est Pt Level 4 (16801) Diagnoses Pacemaker Z95.0 Paroxysmal atrial flutter I48.92 Labile blood pressure R09.89 CPT Codes Cardiac Device Check - Cardiac Device 2: [id number] Cardiac Device Check, pacemaker dual lead ([id number]) EKG - CPT: 96539-[id number], Complete ([id number])
== END 2023-01-16 13:43 | disposition home or self-care (01) ==
PROVIDERS: Visit Provider Internal Medicine Cardiovascular Disease
DX: I48.92 Unspecified atrial flutter (principal); Z95.0 Presence of cardiac pacemaker; R09.89 Other specified symptoms and signs involving the circulatory and respiratory systems
CPT/HCPCS: 93280; 99214

== ENCOUNTER → 2023-01-16 13:06 | Outpatient (BNVA) | payer MEDICARE, SELFPAY | PROVIDERS: Visit Provider Internal Medicine Cardiovascular Disease | DX: I48.92 Unspecified atrial flutter (principal); R09.89 Other specified symptoms and signs involving the circulatory and respiratory systems; Z45.018 Encounter for adjustment and management of other part of cardiac pacemaker; Z79.899 Other long term (current) drug therapy | CPT/HCPCS: 93005; 93280; 99212 ==

== ENCOUNTER → 2023-03-02 23:59 | Outpatient (BNV) | payer MEDICARE, SELFPAY ==
--- NOTE | 2023-03-02 14:09 | A.OFFVIS_ITS ---
Intake Intake Visit Reasons: Remote Device Check- [facility] Allergies No Known Allergies Allergy (Verified 01/13/23 12:07) [facility] Medical History Dysphagia Vitamin D deficiency Thyroid cancer Medicare annual wellness visit, initial Paroxysmal atrial flutter Type 2 diabetes mellitus with hyperglycemia GERD (gastroesophageal reflux disease) MGUS (monoclonal gammopathy of unknown significance) Osteoarthritis Vitamin D deficiency Post-surgical hypothyroidism Non-toxic multinodular goiter Follicular carcinoma of thyroid gland SSS (sick sinus syndrome) Atrial flutter (~11/2019) Carpal tunnel syndrome DDD (degenerative disc disease) Peptic ulcer disease Obesity Impaired glucose tolerance Hyperlipidemia Hypertension Bradycardia Thyroid nodule Pacemaker (~11/2019) Surgical History Hx of endoscopy History of bilateral knee replacement Hx of arthroscopy of right knee Pulmonary nodule Hx of partial thyroidectomy Hx of appendectomy Hx of carpal tunnel repair Hx of colonoscopy History of back surgery Hx of knee surgery (~09/2012) Family History Father No problems noted. Mother CVD (cardiovascular disease) Heart disease Brother CVD (cardiovascular disease) Sudden cardiac Social History Housing: House Are you a primary care analyst to a significant other at home: No ( with dementia last year) Do you presently have visiting nurse or other home services: No Alcohol intake: never Patient Tobacco Use Status: Never used Tobacco e-Cigarette/Vaping Use: Never Used Second Hand Smoke Exposure: No service: No Current occupational status: retired Cognitive needs: No Hearing needs: No Vision needs: Yes Office Procedures Cardiac Device Check Cardiac Device Check Details: Remote pacemaker report generated 03/02/2023. Pacemaker function is adequate [id number] Cardiac Device Interrogation, pacemaker Procedure code (CPT) selection complete Assessment & Plan Assessment & Plan (1) Pacemaker: Onset Date: ~11/2019 Code(s): Z95.0 - Presence of cardiac pacemaker Plan: See above Coding Level of Care Code Procedure Only Diagnoses Pacemaker Z95.0 CPT Codes Cardiac Device Check - Cardiac Device 12: [id number] Cardiac Device In [facility], pacemaker ([id number])
== END ==
PROVIDERS: PCP Internal Medicine; Visit Provider Internal Medicine Cardiovascular Disease
DX: I49.5 Sick sinus syndrome (principal); Z95.0 Presence of cardiac pacemaker
CPT/HCPCS: 93294

== ENCOUNTER 2023-03-14 11:17 | Outpatient (REF) | payer MEDICARE, SELFPAY ==
[2023-03-14 13:55] LABS: Vitamin D 25-OH Total 53.1 ng/mL (>30)
[2023-03-14 14:26] LABS: Creatinine Urine 25.26 mg/dL
== END 2023-03-14 11:18 | disposition home or self-care (01) ==
LOC: HO.HMGCLDS 11:17
PROVIDERS: PCP Internal Medicine; Visit Provider Internal Medicine
DX: E11.65 Type 2 diabetes mellitus with hyperglycemia (principal)
CPT/HCPCS: 36415; 82306; 82570

== ENCOUNTER 2023-03-17 11:25 | Outpatient (AMB) | payer MEDICARE, SELFPAY ==
[2023-03-17 11:27] VITALS: BP 140/62; PULSE 61; O2SAT 97; BMI 28.9
--- NOTE | 2023-03-17 11:27 | MHC.PC.OV ---
Vital Signs 03/17/23 11:27 Height 5 ft 3 in Weight 163 lb 0.8 oz BMI 28.9 BP 140/62 H Blood Pressure Location Lt brachial Position Sitting Pulse 61 Pulse Source Pulse Oximeter Temp Source Skin Pulse Oximetry (%) 97 Oxygen Delivery Method Room Air Intake Visit Reasons: DM Allergies No Known Allergies Allergy (Verified 03/17/23 11:30) Tobacco use date assessed: 03/17/23 Fall risk assessment: No Falls in past year Last assessed Fall Risk: 03/17/23 HPI DM HPI Details 82-year-old overweight female with controlled diabetes mellitus atrial flutter GERD hypertension hypercholesterolemia history of thyroid cancer with postsurgical hypothyroidism coming in for follow-up. Last seen in November 2022. Patient continues to follow-up with cardiology pacer check has had falls due to lightheadedness since the hydralazine was introduced . Decreased does to 50 mg twice a day doing better. Patient also follows up with Nephrology for the chronic kidney disease [facility] Medical History Dysphagia Vitamin D deficiency Thyroid cancer Medicare annual wellness visit, initial Paroxysmal atrial flutter Type 2 diabetes mellitus with hyperglycemia GERD (gastroesophageal reflux disease) MGUS (monoclonal gammopathy of unknown significance) Osteoarthritis Vitamin D deficiency Post-surgical hypothyroidism Non-toxic multinodular goiter Follicular carcinoma of thyroid gland SSS (sick sinus syndrome) Atrial flutter (~11/2019) Carpal tunnel syndrome DDD (degenerative disc disease) Peptic ulcer disease Obesity Impaired glucose tolerance Hyperlipidemia Hypertension Bradycardia Thyroid nodule Pacemaker (~11/2019) Surgical History Hx of endoscopy History of bilateral knee replacement Hx of arthroscopy of right knee Pulmonary nodule Hx of partial thyroidectomy Hx of appendectomy Hx of carpal tunnel repair Hx of colonoscopy History of back surgery Hx of knee surgery (~09/2012) Family History Father No problems noted. Mother CVD (cardiovascular disease) Heart disease Brother CVD (cardiovascular disease) Sudden cardiac Social History Housing: House Are you a primary livestock caretaker to a significant other at home: No ( with dementia last year) Do you presently have visiting nurse or other home services: No Alcohol intake: never Patient Tobacco Use Status: Never used Tobacco e-Cigarette/Vaping Use: Never Used Second Hand Smoke Exposure: No service: No Current occupational status: retired Cognitive needs: No Hearing needs: No Vision needs: Yes Questionnaire PHQ-9 Over the last 2 weeks, how often have you been bothered by any of the following problems? 1. Little interest or pleasure in doing things: not at all 2. Feeling down, depressed, or hopeless: several days (pt states passed ) 3. Trouble falling or staying asleep, or sleeping too much: not at all 4. Feeling tired or having little energy: not at all 5. Poor appetite or overeating: not at all 6. Feeling bad about yourself - or that you are a failure or have let yourself or your family down: not at all 7. Trouble concentrating on things, such as reading the newspaper or watching television: not at all 8. Moving or speaking so slowly that other people could have noticed. Or the opposite - being so fidgety or restless that you have been moving around a lot more than usual: not at all 9. Thoughts that you would be better off or of hurting yourself in some way: not at all Total score: 1 Depression Screening Interpretation: Positive Depression Screening Follow-up: Existing condition and In treatment Depression Screening Done: Yes Source: Developed by Drs. Gallo Padron, Vannesa Srinivasan, Demian Grady and colleagues, with an educational yun from [employer]. Thrive Questionnaire Date Thrive assessed: 03/25/22 AUDIT C Alcohol Use Questionnaire (AUDIT-C) 1. How often do you have a drink containing alcohol?: Never 3. How often do you have six or more drinks on one occasion?: Never Total Score: 0 ALF-7 AMB Questionnaire ALF-7 Date ALF - 7 assessed: 03/17/23 Feeling nervous, anxious, or on edge: 0 = Not at all Not being able to stop or control worryin = Not at all Worrying too much about different things: 0 = Not at all Trouble relaxin = Not at all Being so restless that it is hard to sit still: 0 = Not at all Becoming easily annoyed or irritable: 0 = Not at all Feeling afraid as if something awful might happen: 0 = Not at all Total ALF-7 score (0-4 normal; 5-9 mild; 10-14 moderate; 15-21 severe): 0 Source: Developed by Drs. Gallo Padron, Vannesa Srinivasan, Demian Grady and colleagues, with an educational yun from [employer]. Physical exam (Primary Care) Vital Signs: Last Vital Signs Pulse 61 03/17/23 11:27 BP 140/62 H 03/17/23 11:27 Pulse Ox 97 03/17/23 11:27 Oxygen Delivery Method Room Air 03/17/23 11:27 BMI result Body Mass Index 28.9 Tobacco/Smoking Status: Tobacco use Status Tobacco use date assessed 03/17/23 03/17/23 11:32 Patient Tobacco Use Status Never used Tobacco 03/17/23 11:32 e-Cigarette/Vaping Use Never Used 03/17/23 11:32 PHQ-9: PHQ-9 Score PHQ-9: Total score 1 03/17/23 11:36 Depression Screening Interpretation: Positive Depression Screening Follow-up: Existing condition and In treatment Thrive Assessment: Date of Thrive Assessment Date Thrive assessed 03/25/22 03/17/23 11:32 Const General: alert; No acute distress Eyes Conjunctivae: conjunctivae normal Resp Auscultation: clear to auscultation bilaterally Cardio Rate: regular rate Rhythm: regular rhythm GI Inspection: Yes normal to inspection Extrem General: Yes normal to inspection and No edema Results AMB Hemoglobin A1c AMB Hemoglobin A1c 5.5 % Last Edit by SALOMÓN Ramey on 03/17/23 11:36 Results Reviewed Results Reviewed: Laboratory Last Values Hgb A1c (Clinic) 5.5 % (4.0-6.0) 03/17/23 10:16 Assessment and Plan Assessment & Plan (1) Type 2 diabetes mellitus with hyperglycemia: Comment: Fernie Lima Code(s): E11.65 - Type 2 diabetes mellitus with hyperglycemia Qualifiers: Diabetes mellitus watermelon harvesting supervisor insulin use: without watermelon harvesting supervisor use Qualified Code(s): E11.65 - Type 2 diabetes mellitus with hyperglycemia Plan: Decrease the amount of carbohydrate intake, pasta, bread, rice and potatoes are all sugar and that is aside from all the sweet stuff, remember that fruits are good but they are Sweet also. Hemoglobin A1c goal of less than 7.0 patient is on diet control (2) Hypertension: Code(s): I10 - Essential (primary) hypertension Qualifiers: Hypertension type: primary hypertension Qualified Code(s): I10 - Essential (primary) hypertension Plan: Continue with blood pressure medication. Decrease salt intake and exercise has labile blood pressure presently on hydralazine 50 twice a day lisinopril 40 mg once a day and metoprolol 25 mg once a day patient also has spironolactone 25 once a day (3) Hyperlipidemia: Code(s): E78.5 - Hyperlipidemia, unspecified Qualifiers: Hyperlipidemia type: pure hypercholesterolemia Qualified Code(s): E78.00 - Pure hypercholesterolemia, unspecified Plan: Avoid fried foods, chicken skin, eggs, butter margarine, pastries and meat. Be it pork or beef they have a lot of cholesterol LDL goal of less than 70 patient is on atorvastatin 20 mg once a day and blood work in November is at goal (4) SSS (sick sinus syndrome): Code(s): I49.5 - Sick sinus syndrome Plan: Pacemaker placed and monitored regularly cardiology (5) Post-surgical hypothyroidism: Code(s): E89.0 - Postprocedural hypothyroidism Plan: Continue with thyroid medication (6) GERD (gastroesophageal reflux disease): Code(s): K21.9 - Gastro-esophageal reflux disease without esophagitis Qualifiers: Esophagitis presence: without esophagitis Qualified Code(s): K21.9 - Gastro-esophageal reflux disease without esophagitis Plan: Avoid the foods that causes that usually spicy foods, tomato products, juices, coffee, soda and foods that your sensitive to. After eating do not lie down, allow 3-4 hours before in lie down. And keep the head of bed above 30 degrees to avoid the acid from going up. (7) Paroxysmal atrial flutter: Code(s): I48.92 - Unspecified atrial flutter Plan: Continue with anticoagulation with Eliquis and will continue to monitor for renal function (8) Ruiz's esophagus: Code(s): K22.70 - Ruiz's esophagus without dysplasia Plan: Avoid the foods that causes that usually spicy foods, tomato products, juices, coffee, soda and foods that your sensitive to. After eating do not lie down, allow 3-4 hours before in lie down. And keep the head of bed above 30 degrees to avoid the acid from going up. On omeprazole Orders: Orders AMB Hemoglobin A1c Today E11.65 - Type 2 diabetes mellitus with hyperglycemia Medications: Changed From citalopram 10 mg PO DAILY 90 days 90 tabs 3RF To citalopram 20 mg PO DAILY 90 days 90 tabs 3RF Coding Level of Care Code Est Pt Level 4 (28978) Diagnoses Type 2 diabetes mellitus with hyperglycemia, without long-term current use of insulin E11.65 Diabetes mellitus watermelon harvesting supervisor insulin use: without snf use Primary hypertension I10 Hypertension type: primary hypertension Pure hypercholesterolemia E78.00 Hyperlipidemia type: pure hypercholesterolemia SSS (sick sinus syndrome) I49.5 Post-surgical hypothyroidism E89.0 Gastroesophageal reflux disease without esophagitis K21.9 Esophagitis presence: without esophagitis Paroxysmal atrial flutter I48.92 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
== END 2023-03-17 12:07 | disposition home or self-care (01) ==
PROVIDERS: PCP Internal Medicine; Visit Provider Internal Medicine
DX: E11.65 Type 2 diabetes mellitus with hyperglycemia (principal); I10 Essential (primary) hypertension; I49.5 Sick sinus syndrome; I48.92 Unspecified atrial flutter; E78.00 Pure hypercholesterolemia, unspecified; E89.0 Postprocedural hypothyroidism; K21.9 Gastro-esophageal reflux disease without esophagitis; K22.70 Barrett's esophagus without dysplasia
CPT/HCPCS: 83036; 99214

== ENCOUNTER 2023-03-28 10:29 | Outpatient (AMB) | payer MEDICARE, SELFPAY ==
[2023-03-28 10:32] VITALS: BP 128/62; PULSE 70; BMI 29.7
--- NOTE | 2023-03-28 10:32 | A.OFFVIS_ITS ---
Intake Vital Signs 03/28/23 10:32 Height 5 ft 3 in Weight 167 lb 12.348 oz BMI 29.7 BP 128/62 Blood Pressure Location Lt brachial Position Sitting Pulse 70 Pulse Source Pulse Oximeter Intake Visit Reasons: f/u thyroid cancer-confirmed Intake Note: Patient present today for Thyroid cancer follow up visit. Medical Legal Investigator Required: No Accompanied by: Grand Child Allergies No Known Allergies Allergy (Verified 03/28/23 10:39) Medication List - Last Reconciled 03/28/23 by Gallo Crump MD albuterol sulfate 90 mcg/actuation 0 mcg inhalation apixaban (Eliquis) 5 mg PO BID atorvastatin 20 mg PO DAILY citalopram 20 mg PO DAILY 90 days fluticasone propionate 50 mcg/actuation 1 spray intranasal DAILY hydralazine 50 mg PO BID levothyroxine 50 mcg PO DAILY 90 days lisinopril 40 mg PO DAILY 90 days lorazepam 1 mg PO BID PRN 90 days metoprolol succinate ER 25 mg PO DAILY omeprazole 20 mg PO DAILY spironolactone 25 mg PO DAILY HPI HPI Comments History of Present Illness Details 83 YO Female who is seen in F/U for papillary thyroid cancer, 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 She underwent a R hemithyroidectomy 06/27/[address] Stern. 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 This was found to have two foci of angioinvasion, with perineural invasion, but no lymphatic invasion or extrathyroidal extension. Report did mention one foci of transcapsular invasion. This was diagnosed as cancer based on the 2 foci of angioinvasion and 1 area of trans-capsular invasion. Slides were sent [place] [facility] [place], and was read as papillary thyroid carcinoma, follicular variant, encapsulated, with tumor capsular invasion. Unfortunately there was some confusion, and she was told by her previous Production Team Advisor that this represented NIFT-P a benign lesion. She therefore did not undergo a completion thyroidectomy due to this. After her initial visit with me we discussed a completion thyroidectomy, and I did refer her to Dr. Stern. She discussed this extensively with Dr. Stern and was hesitant to have a completion thyroidectomy. She instead opted to check a CT of the lungs to assess for any concerning appearing nodules and also monitor TG levels. TG levels were very low, and her CT of the chest revealed just stable appearing nodules which were previously known. Decision was made to proceed with yearly surveillance. She remains on levothyroxine 50 mcg PO daily, and reports good compliance with this. She had an US of her neck and remaining L lobe in 08/2021 which was largely unchanged from prior. She reports feeling well and has no complaints today other than the occasional sensation of needing to clear her throat. CT Chest: 06/30/2021 FINDINGS: PUTTER IN: Dual lead left subclavian pacer device is present with intact hardware. Postsurgical scar related changes are noted at right suprahilar region. LUNGS: Linear pleuroparenchymal airspace disease and adjacent multiple radiopaque sutures are present at right upper lobe posterolaterally superiorly, similar to prior study dated 10/04/2017. A few tiny punctate 2 to 3 mm bilateral lower lobar lung nod ules are present (110, 125 and 152:8), appear unchanged since prior breanne dy dated 10/04/2017. In addition, there is a calcified sub-5 mm presumed granuloma identified within the left upper lobe laterally anterior to the left major fissure (122:8), unchanged as well. The tracheobronchial tree is patent. MEDIASTINUM: Postsurgical changes of right lobe and isthmus resection, unchanged. There are no pathologically enlarged lymphadenopathy identified around the thyroid bed or in the supraclavicular region on either side. There are no pathologically enlarged mediastinal or hilar lymphadenopathy present. Diffuse atherosclerotic disease of the aorta and is branches including coronary arterial calcifications are present. Dual-lead left subclavian pacer device is present, appear intact. There is mild cardiomegaly present involving all 4 cardiac chambers. PLEURA: There is no pleural effusion. No pleural mass or thickening.? AXILLA: No lymphadenopathy.? UPPER ABDOMEN: Unremarkable? OSSEOUS STRUCTURES: The anterior part of the manubrium is deformed, likely represent old posttraumatic change. Multilevel degenerative spondylosis is present. No suspicious focal lesion. CT/CT chest w con IMPRESSION: ? 1. Previously documented bilateral 2-3 m m noncalcified lower lobar lung nodules appear stable since most recent prior study dated 10/04/2017. Solitary calcified sub-5 mm presumed granuloma within the left upper lobe of the lung laterally also appear unchanged. 2. Postsurgical changes of right lobe an d isthmus resection without any CT evidence of lymphadenopathy within the visualized lower neck and within the mediastinum. 3. Diffuse atherosclerotic disease of th e aorta and is branches including coronary artery calcifications. 4. Mild cardiomegaly involving all 4 car diac chambers. 5. Deformity of the manubrium, likely re present old healed fracture. Thyroid US: 08/04/2022 Right Thyroid Lobe: Surgically absent. Left Thyroid Lobe: 3.8 x 2.1 x 1.6 cm, volume 6.7 mL. Previously 3.3 x 1.8 x 1.4 cm, volume 4.1 mL. Parenchyma: The gland echotexture is homogeneous. Thyroid vascularity is normal. Isthmus: 0.5 cm in maximum AP dimension. Previously 0.3 cm. Estimated total number of nodules greater than or equal to 1 cm: 0. Meat Boner nodules are described as follows: 1.? Location: Left superior. ?? ? Size: 0.4 x 0.3 x 0.3 cm, volume 0.02 mL. ?? ? Previously: 0.5 x 0.3 x 0.4 cm, volume 0.03 mL. ?? ? Nodule characteristics: ?? ? Composition: Cystic(0). ?? ? ACR TI-RADS total points: 0 Previous: 0 ?? ? ACR TI-RADS category: 1 Previous: 1 ? Significant change in size (>/= 20% in 2 dimensions and minimal increase of 2 mm or 50% or greater increase in volume): No ?? ? Change in features: No ?? ? Change in ACR TI-RADS risk category: No 2.? Location: Left inferior. ?? ? Size: 0.6 x 0.6 x 0.6 cm, volume 0.12 mL. ?? ? Previously: 0.6 x 0.5 x 0.5 cm, volume 0.11 mL. ?? ? Nodule characteristics: ?? ? Composition: Solid (2). ?? ? Echogenicity: Hyperechoic (1). ?? ? Shape: Not taller than wide (0). ?? ? Margins: Smooth (0). ?? ? Echogenic Foci: None (0).? ACR TI-RADS total points: 3 Previous: 3 ?? ? ACR TI-RADS category: 3 Previous: 3 ? Significant change in size (>/= 20% in 2 dimensions and minimal increase of 2 mm or 50% or greater increase in volume): No ?? ? Change in features: No ?? ? Change in ACR TI-RADS risk category: No NODES: At right cervical level II, 1.0 x 0.5 x 1.3 cm and 0.6 x 0.3 x 0.4 cm reniform lymph nodes are seen. At the right cervical level V A, a 0.7 x 0.3 x 0.7 cm reniform lymph node is seen. These show good corticomedullary differentiation and no focal cortical thickening. At the left cervical level IB, a 0.6 x 0.3 x 0.7 cm reniform lymph node is seen. At left cervical level IV, a 1.3 x 0.6 x 0.9 cm reniform lymph node is seen. These show good corticomedullary differentiation and no focal cortical thickening. Labs: Laboratory Tests 07/25/22 07/25/22 07/25/22 08:29 08:29 08:29 TSH 2.16 Free T4 1.42 Thyroglobulin 6.6 H [facility] Medical History Dysphagia Vitamin D deficiency Thyroid cancer Medicare annual wellness visit, initial Paroxysmal atrial flutter Type 2 diabetes mellitus with hyperglycemia GERD (gastroesophageal reflux disease) MGUS (monoclonal gammopathy of unknown significance) Osteoarthritis Vitamin D deficiency Post-surgical hypothyroidism Non-toxic multinodular goiter Follicular carcinoma of thyroid gland SSS (sick sinus syndrome) Atrial flutter (~11/2019) Carpal tunnel syndrome DDD (degenerative disc disease) Peptic ulcer disease Obesity Impaired glucose tolerance Hyperlipidemia Hypertension Bradycardia Thyroid nodule Pacemaker (~11/2019) Surgical History Hx of endoscopy History of bilateral knee replacement Hx of arthroscopy of right knee Pulmonary nodule Hx of partial thyroidectomy Hx of appendectomy Hx of carpal tunnel repair Hx of colonoscopy History of back surgery Hx of knee surgery (~09/2012) Family History Father No problems noted. Mother CVD (cardiovascular disease) Heart disease Brother CVD (cardiovascular disease) Sudden cardiac Social History Housing: House Are you a primary farm or ranch animal caretaker to a significant other at home: No ( with dementia last year) Do you presently have visiting nurse or other home services: No Alcohol intake: never Patient Tobacco Use Status: Never used Tobacco e-Cigarette/Vaping Use: Never Used Second Hand Smoke Exposure: No service: No Current occupational status: retired Cognitive needs: No Hearing needs: No Vision needs: Yes Physical Exam Vital Signs: Last Vital Signs Pulse 70 03/28/23 10:32 BP 128/62 03/28/23 10:32 BMI result Body Mass Index 29.7 Const Other: There is a healed scar status post right lobectomy. Left lobe was wrapped the presence of any palpable nodules . There is no cervical adenopathy Assessment & Plan Assessment & Plan (1) Follicular carcinoma of thyroid gland: Code(s): C73 - Malignant neoplasm of thyroid gland Plan: This 83-year-old white female with a history of 2.4 cm focus of papillary thyroid carcinoma, follicular variant, encapsulated, with tumor capsular invasion status post right hemithyroidectomy . Left lobe has subcentimeter nodules. She is currently on 50 mcg levothyroxine. She appears to be clinically euthyroid. Last TG level was stable neck ultrasound showed no changes Plan is to recheck TSH and free T4 along with Tg adjust levothyroxine. Will obtain repeat neck ultrasound in 1 year's time Coding Level of Care Code Est Pt Level 3 (02528) Diagnoses Follicular carcinoma of thyroid gland C73
== END 2023-03-28 11:23 | disposition home or self-care (01) ==
PROVIDERS: PCP Internal Medicine; Visit Provider Internal Medicine Endocrinology, Diabetes & Metabolism
DX: C73 Malignant neoplasm of thyroid gland (principal)
CPT/HCPCS: 99213

== ENCOUNTER → 2023-03-28 10:29 | Outpatient (BNVA) | payer MEDICARE, SELFPAY | PROVIDERS: PCP Internal Medicine; Visit Provider Internal Medicine Endocrinology, Diabetes & Metabolism | DX: C73 Malignant neoplasm of thyroid gland (principal); Z79.899 Other long term (current) drug therapy | CPT/HCPCS: 99212 ==

== ENCOUNTER 2023-04-11 10:55 | Outpatient (REF) | payer MEDICARE, SELFPAY ==
[2023-04-11 13:58] LABS: Anion Gap 9 (12-20); Blood Urea Nitrogen 12 mg/dL (9-16); Calcium 9.5 mg/dL (8.4-10.2); Carbon Dioxide 31 mmol/L (22-29); Chloride 95 mmol/L (96-108); Estimated Glomerular Filt Rate > 60; Potassium 4.5 mmol/L (3.3-5.1); Sodium 130 mmol/L (135-145)
[2023-04-11 14:14] LABS: Free T4 (Free Thyroxine) 1.22 ng/dL (0.71-1.85); Thyroid Stimulating Hormone 1.35 uIU/mL (0.32-4.0)
[2023-04-14 05:53] LABS: Thyroglobulin Antibody <1 IU/mL (<=1); Thyroglobulin Level 3.7 ng/mL
== END 2023-04-11 10:56 | disposition home or self-care (01) ==
LOC: HO.HMGCLDS 10:55
PROVIDERS: PCP Internal Medicine; Referring Provider Internal Medicine Nephrology; Visit Provider Internal Medicine Endocrinology, Diabetes & Metabolism
DX: C73 Malignant neoplasm of thyroid gland (principal); I10 Essential (primary) hypertension; E87.1 Hypo-osmolality and hyponatremia
CPT/HCPCS: 36415; 80051; 82310; 82565; 84432; 84439; 84443; 84520; 86800

== ENCOUNTER 2023-04-14 10:07 | Outpatient (AMB) | payer MEDICARE, SELFPAY ==
[2023-04-14 10:18] VITALS: BP 122/60; PULSE 60; O2SAT 98; BMI 29.1
--- NOTE | 2023-04-14 10:18 | HO.NEPHOV ---
HPI HPI Comments History of Present Illness Details I had the privilege of seeing Ms Kwok in follow up for hypertension. Her niece was present throughout the patient encounter. She is known to have hypertension for a long time. She is on anticoagulation. She denies neuropathy, retinopathy, CAD, CVA, CHF, TEODORA , PAD or carotid stenosis. She has no H/O hepatitis but has H/O MGUS. She is on ACEI. She does not take NSAID's regularly. She denies any nausea, vomiting, diarrhea, SOB, edema, PND, orthopnea, hematuria, hearing deficits. She claims to be compliant with medications. She has no sinusitis, epistaxis, photosensitivity, bone pain, sore throat , hemoptysis, skin lesions or recent antibiotic intake. She denied any active complaints at the time of this office visit [facility] Medical History Dysphagia Vitamin D deficiency Thyroid cancer Medicare annual wellness visit, initial Paroxysmal atrial flutter Type 2 diabetes mellitus with hyperglycemia GERD (gastroesophageal reflux disease) MGUS (monoclonal gammopathy of unknown significance) Osteoarthritis Vitamin D deficiency Post-surgical hypothyroidism Non-toxic multinodular goiter Follicular carcinoma of thyroid gland SSS (sick sinus syndrome) Atrial flutter (~11/2019) Carpal tunnel syndrome DDD (degenerative disc disease) Peptic ulcer disease Obesity Impaired glucose tolerance Hyperlipidemia Hypertension Bradycardia Thyroid nodule Pacemaker (~11/2019) Surgical History Hx of endoscopy History of bilateral knee replacement Hx of arthroscopy of right knee Pulmonary nodule Hx of partial thyroidectomy Hx of appendectomy Hx of carpal tunnel repair Hx of colonoscopy History of back surgery Hx of knee surgery (~09/2012) Family History Father No problems noted. Mother CVD (cardiovascular disease) Heart disease Brother CVD (cardiovascular disease) Sudden cardiac Social History Housing: House Are you a primary housekeeper child care to a significant other at home: No ( with dementia last year) Do you presently have visiting nurse or other home services: No Alcohol intake: never Patient Tobacco Use Status: Never used Tobacco e-Cigarette/Vaping Use: Never Used Second Hand Smoke Exposure: No service: No Current occupational status: retired Cognitive needs: No Hearing needs: No Vision needs: Yes Vital Signs 04/14/23 10:18 Height 5 ft 3 in Weight 164 lb 4 oz BMI 29.1 BP 122/60 Blood Pressure Location Rt brachial Position Sitting Pulse 60 Pulse Source Pulse Oximeter Pulse Oximetry (%) 98 Oxygen Delivery Method Room Air Physical Exam Vital Signs: Last Vital Signs Pulse 60 04/14/23 10:18 BP 122/60 04/14/23 10:18 Pulse Ox 98 04/14/23 10:18 Oxygen Delivery Method Room Air 04/14/23 10:18 BMI result Body Mass Index 29.1 Const General: comfortable and no acute distress Orientation/consciousness: patient oriented x3 HEENT Head: Yes normocephalic Mouth: Normal oral and palatal mucosa present Eyes EOM: EOMs intact bilaterally Neck Neck: Yes supple Resp Auscultation: clear to auscultation bilaterally Cardio Jugular venous distension: no JVD Rate: regular rate GI Palpation (GI): Soft to palpation Auscultation: normal bowel sounds General: Yes no CVA tenderness Back/Spine/Pelvis Back: no CVA tenderness Skin General skin exam: no rashes or lesions noted Neuro General: patient oriented x3 and moves all extremities Extrem General: Yes no pedal edema Assessment & Plan Assessment & Plan (1) Hyponatremia: Code(s): E87.1 - Hypo-osmolality and hyponatremia (2) Hypertension: Code(s): I10 - Essential (primary) hypertension Qualifiers: Hypertension type: primary hypertension Qualified Code(s): I10 - Essential (primary) hypertension Plan Serum sodium stable No weakness; Mentation at baseline Euvolemic; BP at goal; Renal function/ K OK No NSAID's; No new medications added today All questions answered; F/U given; F/U labs ordered Orders: Orders Blood Urea Nitrogen Today E87.1 - Hypo-osmolality and hyponatremia, I10 - Essential (primary) hypertension Creatinine Today E87.1 - Hypo-osmolality and hyponatremia, I10 - Essential (primary) hypertension Electrolytes Today E87.1 - Hypo-osmolality and hyponatremia, I10 - Essential (primary) hypertension Coding Level of Care Code Est Pt Level 3 (70388) Diagnoses Hyponatremia E87.1 Primary hypertension I10 Hypertension type: primary hypertension Results Reviewed Nephrology Results: Sodium 130 mmol/L (135-145) L 04/11/23 Potassium 4.5 mmol/L (3.3-5.1) 04/11/23 Chloride 95 mmol/L (96-108) L 04/11/23 Carbon Dioxide 31 mmol/L (22-29) H 04/11/23 BUN 12 mg/dL (9-16) 04/11/23 Creatinine 0.73 mg/dL (0.5-1.4) 04/11/23 Calcium 9.5 mg/dL (8.4-10.2) 04/11/23 Urine Creatinine 25.26 mg/dL 03/14/23
== END 2023-04-14 10:57 | disposition home or self-care (01) ==
PROVIDERS: PCP Internal Medicine; Visit Provider Internal Medicine Nephrology
DX: E87.1 Hypo-osmolality and hyponatremia (principal); I10 Essential (primary) hypertension
CPT/HCPCS: 99213

== ENCOUNTER → 2023-04-14 10:07 | Outpatient (BNVA) | payer MEDICARE, SELFPAY | PROVIDERS: PCP Internal Medicine; Visit Provider Internal Medicine Nephrology | DX: E78.1 Pure hyperglyceridemia (principal); I10 Essential (primary) hypertension | CPT/HCPCS: 99212 ==

== ENCOUNTER 2023-04-27 12:56 | Emergency (ER) | payer MEDICARE, SELFPAY ==
--- NOTE | ~2023-04-27 | CT_ITS ---
EXAMINATION: CT CERVICAL SPINE WITHOUT CONTRAST CLINICAL INFORMATION: History of fall on blood thinner. COMPARISON: CT neck from 05/17/2021. TECHNIQUE: Noncontrast multidetector CT imaging examination of the cervical spine is performed. Axial images and multiplanar reformatted images are reviewed. This CT examination was performed using dose optimization techniques as appropriate, variously including the following: *Automated exposure control *Adjustment of mA and/or kV according to patient size (this includes techniques or standardized protocols for targeted exams where dose is matched to indication/reason for exam; i.e. extremities or head) *Use of iterative reconstruction technique DLP: 955 mGy-cm FINDINGS: No acute abnormalities in the cervical spine compared to 05/17/2021. The craniocervical junction is normal. The dens is intact. There is chondrocalcinosis of the spine. Also, there is chronic mild calcium deposition (likely calcium pyrophosphate dihydrate crystal deposition) along the transverse ligament posterior to the dens. Chronic multilevel facet osteoarthritis and multilevel discovertebral degenerative changes are associated with loss of the lordotic curvature. The degenerative disc disease is chronically worst at C5-C6 and C6-C7. The posterior disc-osteophyte complexes cause mild spinal canal stenosis at C5-C6 and C6-C7. Findings include chronic mild grade 1 anterolisthesis at C2-C3, C3-C4, C4-C5 and C7-T1. No acute fractures in the anterior or posterior elements. No prevertebral edema or soft tissue hematoma. No acute abnormalities in the visualized lung apices. No pneumothorax. Surgical changes from partial thyroidectomy. CT/CT cervical spine wo IV con IMPRESSION: No acute traumatic pathology in the chronically degenerated cervical spine compared to 05/17/2021.
--- NOTE | ~2023-04-27 | CT_ITS ---
EXAMINATION: CT HEAD WITHOUT CONTRAST CLINICAL INFORMATION: History of fall on blood thinner. Poor historian. COMPARISON: Head CT from 09/14/2022. TECHNIQUE: Contiguous axial imaging was performed from the skull base to vertex without intravenous administration of contrast. This CT examination was performed using dose optimization techniques as appropriate, variously including the following: *Automated exposure control *Adjustment of mA and/or kV according to patient size (this includes techniques or standardized protocols for targeted exams where dose is matched to indication/reason for exam; i.e. extremities or head) *Use of iterative reconstruction technique DLP: 955 mGy-cm FINDINGS: Acute hyperdense subdural hemorrhage is present. The blood is tracking from [id number] along the falx and anteriorly measures up to 2.6 cm transverse. Also, small amount of hyperdense subdural blood overlies frontal lobes and left middle cranial fossa anterior left anterior temporal pole. There is trace amount of subarachnoid blood in sulci in the left parafalcine region as well. No intraparenchymal hemorrhage. There is no significant mass effect. No midline shift or other herniation pattern. The hong-white matter differentiation is maintained. No evidence of an acute major vascular territory infarction. No hydrocephalus. There is hyperostosis frontalis interna. No calvarial fracture. The paranasal sinuses are well aerated and without air-fluid levels. The mastoid air cells and middle ear cavities are clear. Chronic severe arthropathy with apparent old mechanical erosion of left mandibular condyle. Chondrocalcinosis of both TMJs and mild osteoarthrosis of the right TMJ. The orbits are unremarkable. CT/CT head/brain wo IV con IMPRESSION: There is acute hyperdense subdural hematoma along the falx. Also, small amount of subdural hemorrhage is seen over anterior frontal lobes and at the anterolateral left middle cranial fossa near the left temporal pole. The critical test result was discussed with Elena Sewell at 2:56 PM 9 04/27/2023 and it was ascertained that the content and the importance of the findings was understood at the time of the direct communication.
[2023-04-27 13:19] VITALS: BP 175/98; PULSE 65; O2SAT 98
--- NOTE | 2023-04-27 13:39 | ECG_ITS ---
Test Reason : FALL Blood Pressure : / mmHG Vent. Rate : 068 BPM Atrial Rate : 000 BPM P-R Int : 000 ms QRS Dur : 070 ms QT Int : 440 ms P-R-T Axes : 000 083 075 degrees QTc Int : 467 ms NSR with PACs ST & T wave abnormality, consider anterior ischemia Abnormal ECG When compared with ECG of 20-AUG-2018 15:27, Nonspecific T wave abnormality no longer evident in Inferior leads T wave inversion less evident in Anterolateral leads QT has lengthened Referred By: Elena Sewell Electronically Signed By:Feliberto Sabillon
--- NOTE | 2023-04-27 13:44 | ED_ITS ---
HPI - General Adult General Chief complaint: Fall Stated complaint: FALL,ON FLOOR UNTIL TODAY,+THIN,-LOC,-HS Time Seen by Provider: 04/27/23 13:05 Source: patient and EMS Mode of arrival: EMS Limitations: other History of Present Illness HPI narrative: patient comes to the emergency room by ambulance. According to EMS, the patient home around 20:00 after she returned from [employer]. according to EMS, the patient was found on the floor at 10 30 in the morning By her niece. Seems that patient was not able to get up. Unclear when patient fell. Patient complaining of a headache. Patient known to be on Eliquis for atrial flutter. Patient states that she does not remember anything, seems to Be confused. Patient complaining of a mild headache, no neck pain, no muscular skeletal pain. Related Data Home Medications Medication Instructions Recorded Confirmed spironolactone 25 mg tablet 25 mg PO DAILY 12/20/19 01/16/23 omeprazole 20 mg capsule,delayed 20 mg PO DAILY 07/12/21 01/16/23 release albuterol sulfate 90 mcg/actuation 0 mcg inhalation 06/22/22 01/16/23 aerosol inhaler fluticasone propionate 50 1 spray intranasal DAILY 06/22/22 01/16/23 mcg/actuation nasal spray,suspension Previous Rx's Medication Instructions Recorded atorvastatin 20 mg tablet 20 mg PO DAILY #90 tabs 06/22/22 levothyroxine 50 mcg tablet 50 mcg PO DAILY 90 days #90 tabs 10/03/22 hydralazine 50 mg tablet 50 mg PO BID #60 tabs 11/07/22 lorazepam 1 mg tablet 1 mg PO BID PRN Anxiety 90 days 03/04/23 #180 tabs citalopram 20 mg tablet 20 mg PO DAILY 90 days #90 tabs 03/17/23 apixaban 5 mg tablet (Eliquis) 5 mg PO BID 90 days #180 tabs 04/13/23 lisinopril 40 mg tablet 40 mg PO DAILY 90 days #90 tabs 04/24/23 metoprolol succinate 25 mg 25 mg PO DAILY #90 tabs 04/24/23 tablet,extended release 24 hr Allergies Allergy/AdvReac Type Severity Reaction Status Date / Time No Known Allergies Allergy Verified 04/14/23 10:23 Review of Systems 2 Review of Systems: Constitutional : No Weight loss, No Fever, No Chills, No Night Sweats, No Fatigue, No Malaise ENT/Mouth : No Hearing loss, No Ear Pain, No Nasal Congestion, No Sinus Pain, No Hoarseness, No sore throat, No Rhinorrhea, No Swallowing Difficulty Eyes: No Eye Pain, No Swelling, No Redness, No Foreign Body, No Discharge, No Vision Changes Cardiovascular : No Chest Pain, No SOB, No Dyspnea on Exertion, No Orthopnea, No Edema, No Palpitations Respiratory : No Cough, No Sputum, No Wheezing, No Smoke Exposure, No Dyspnea Gastrointestinal : No Nausea, No Vomiting, No Diarrhea, No Constipation, No abdominal Pain, No Hematochezia, No Melena Genitourinary : no irregular bleeding, No Dysuria, No Urinary Frequency, No Hematuria, No Urinary Incontinence, No Urgency, No Flank Pain, No Urinary Flow Changes, No Hesitancy Musculoskeletal : No joint pain, No Myalgias, No Joint Swelling Skin : No Skin Lesions, No rash Neuro : No Weakness, No Numbness, No Paresthesias, No Loss of Consciousness, No Dizziness, Complaining of mildHeadache Psych : No Anxiety/Panic, No Depression, No SI/HI/AH/VH, No Social Issues, Heme/Lymph: No Bruising, No Bleeding,No Lymphadenopathy Endocrine : No Polyuria, No Polydipsia, No Temperature Intolerance PMFSH Past Medical History Medical History Dysphagia Vitamin D deficiency Thyroid cancer Medicare annual wellness visit, initial Paroxysmal atrial flutter Type 2 diabetes mellitus with hyperglycemia GERD (gastroesophageal reflux disease) MGUS (monoclonal gammopathy of unknown significance) Osteoarthritis Vitamin D deficiency Post-surgical hypothyroidism Non-toxic multinodular goiter Follicular carcinoma of thyroid gland SSS (sick sinus syndrome) Atrial flutter (~11/2019) Carpal tunnel syndrome DDD (degenerative disc disease) Peptic ulcer disease Obesity Impaired glucose tolerance Hyperlipidemia Hypertension Bradycardia Thyroid nodule Pacemaker (~11/2019) Surgical History Hx of endoscopy History of bilateral knee replacement Hx of arthroscopy of right knee Pulmonary nodule Hx of partial thyroidectomy Hx of appendectomy Hx of carpal tunnel repair Hx of colonoscopy History of back surgery Hx of knee surgery (~09/2012) Family History Family History Father No problems noted. Mother CVD (cardiovascular disease) Heart disease Brother CVD (cardiovascular disease) Sudden cardiac Social History Social History Housing: House Are you a primary acute care surgeon to a significant other at home: No ( with dementia last year) Do you presently have visiting nurse or other home services: No Alcohol intake: never Patient Tobacco Use Status: Never used Tobacco Smoked in Last 30 Days: No e-Cigarette/Vaping Use: Never Used Second Hand Smoke Exposure: No Use of substances other than those prescribed or required for medical reasons: No service: No Current occupational status: retired Cognitive needs: No Hearing needs: No Vision needs: Yes Physical Exam ED Vital Signs: Vital Signs - 24 hr 04/27/23 13:49 04/27/23 14:35 Temperature 98.0 F Pulse Rate 63 65 Respiratory Rate 17 18 Blood Pressure 184/77 H 165/63 H Pulse Oximetry 94 Oxygen Delivery Method Room Air BMI result Body Mass Index 29.4 Const Other: Appearance: Alert. Oriented X3. No acute distress. Eyes: Pupils equal, round and reactive to light. ENT: Pharynx normal. Neck: Normal inspection. Neck supple. No lymph nodes noted. No crepitus CVS: Normal heart rate and rhythm. Pulses normal. Normal S1 and S2 Respiratory: No respiratory distress. Breath sounds normal. No Wheezing. No rales Abdomen: Soft and nontender. No rigidity. No distention. Skin: Skin warm and dry. Normal skin color. Normal skin turgor. no ecchymosis Extremities: No lower extremity edema. No Lacerations. No Rash Neuro: Oriented X 3. No motor deficit. No sensory deficit. Moving all extremities. No slurred speech. CN 2 through 12 grossly intact Psych: calm, cooperative, normal affect Course Course Course Narrative: - Patient's labs and CT scan pending. - Vitals stable, blood pressure 184/77, heart rate 63, oxygen saturation 94%, GCS 15 Medications Administered Generic Name Dose Route Start Last Admin Trade Name Freq PRN Reason Stop Dose Admin Sodium Chloride 1,000 mls @ 70 mls/hr 04/27/23 15:33 04/27/23 15:46 Ns IVCONT 04/28/23 05:50 70 mls/hr .[id number] ONE Administration Discontinued Medications Generic Name Dose Route Start Last Admin Trade Name Rosmery PRN Reason Stop Dose Admin Morphine Sulfate 1 mg 04/27/23 15:05 04/27/23 15:45 Morphine Sulfate 2 Mg/Ml Cartridge IVPUSH 04/27/23 15:06 1 mg ONCE ONE Administration Protocol Medical Decision Making Medical Decision Making MDM Narrative: - patient's family is here in the emergency room. - According to the patient's niece who is the patient's healthcare proxy, the in the morning when patient was found on the floor, patient told her niece that around 20:00 when she returned from [employer], patient was taking her shoes off and she fell forward and she was unable to get up. - By the time that the patient arrived in the emergency room, patient seemed more confused, did not know where she was or how she fell. According to the patient's family, patient at baseline is alert, oriented x3. patient complaining of a headache. Denies neck pain. - My interpretation of CT scan, subdural hematoma at the falx, does not seem to have a midline shift. My interpretation of CT scan of the neck: No obvious subluxation or fracture - I discussed the CT scan with radiology on-call, confirmed this is an acute subdural bleed at the falx and frontal lobe, there is trace right sub arachnoid bleed, no parenchymal bleed - at this time, other than the headache and confusion, patient is awake, GCS of 15, moves all extremities - per patient's healthcare proxy, patient is DNR DNI -Edith Diallo primary contact [phone] - my interpretation of labs, white blood cell count 16.3, likely reactive leukocytosis. Patient's sodium is 133, unclear if hyponatremia caused the patient to have a fall versus this being SIADH secondary to the brain bleed. CPK 2286, troponin 1471. Patient denies any chest pain, lightheadedness or shortness of breath. - My interpretation of EKG, atrial fibrillation, heart rate 68, ST segment depressions in V3 through V6, which were present in previous EKGs from August of 2018. No T-wave inversions - at this time, 16:00, patient awake, alert and oriented x3. States that the headache improved after 1 mg of IV morphine. Patient states that her last dose of Eliquis was yesterday morning, April 26. Patient states that after she got home, could not get up and did not take her evening medications. This morning, patient states that her daughter got her up from the floor, made her breakfast, took her pills including Eliquis but patient vomited - I discussed the patient with [facility] Neurosurgery on-call, at this time, we will not start Kcentra - patient remained stable, GCS 15, blood pressure 165/63, heart rate 65, respirations 18, oxygen saturation 94% on room air. Patient awake alert and talking, coherent - per neurology [facility], the images have bin uploaded to the Trauma been and neuro sciences bin Differential Diagnosis Differential Diagnoses: The differential diagnosis associated with the presentation includes ( subdural hematoma, epidural hematoma, contusion, concussion) Admission/Observation Consideration of admission/observation: Escalation of care including admission/observation considered Consult Healthcare Provider Management of the patient was discussed with: Computer Network Support Specialist Lab Data MDM Lab Attestation statement: I reviewed the patient's lab results. 04/27/23 14:36 04/27/23 14:36 Labs: Lab Results 04/27/23 Range/Units 14:36 WBC 16.3 H (4.8-10.8) X10*3/uL RBC 4.29 (4.20-5.50) X10*6/uL Hgb 13.1 (12.0-16.0) g/dl Hct 36.4 L (37.0-47.0) % MCV 84.8 (80.0-98.0) fL MCH 30.5 (27.0-33.0) pg MCHC 36.0 H (31.0-35.0) g/dl RDW 12.3 (11.0-16.0) % Plt Count 332 (160-400) X10*3/uL MPV 8.7 L (9.4-12.3) fL Immature Gran % (Auto) 0.6 H (0.0-0.4) % Neut % (Auto) 89.5 H (45-73) % Lymph % (Auto) 3.7 L (20-40) % [place] % (Auto) 5.9 (2-11) % Eos % (Auto) 0.2 (0-4) % Baso % (Auto) 0.1 (0-2) % Lymph # (Auto) 0.6 L (1.2-4.9) X10*3/uL [place] # (Auto) 1.0 (0.1-1.2) X10*3/uL Eos # (Auto) 0.0 (0.0-0.4) X10*3/uL Baso # (Auto) 0.0 (0.0-0.2) X10*3/uL Abs Immat Gran (auto) 0.09 H (0.00-0.03) X10*3/uL Absolute Neuts (auto) 14.6 H (2.0-8.3) x10*3/uL Absolute Nucleated RBC 0.000 (0.0-0.012) X10*3/uL Nucleated RBC % (auto) 0.0 (0.0-0.2) /100WBC Sodium 123 L (135-145) mmol/L Potassium 4.1 (3.3-5.1) mmol/L Chloride 90 L (96-108) mmol/L Carbon Dioxide 25 (22-29) mmol/L Anion Gap 12 (12-20) BUN 15 (9-16) mg/dL Creatinine 0.70 (0.5-1.4) mg/dL Estim Creat Clear Calc 59.2 Estimated GFR > 60 Random Glucose 147 H (60-115) mg/dL Calcium 9.5 (8.4-10.2) mg/dL Magnesium 1.8 (1.6-2.6) mg/dL Total Bilirubin 1.2 H (0.0-1.0) mg/dL Direct Bilirubin 0.5 (0.0-0.5) mg/dL AST 64 H (5-31) U/L ALT 20 (0-31) U/L Alkaline Phosphatase 91 (39-117) U/L Total Creatine Kinase 2286 H (26-140) U/L Troponin I High Sens 1471.1 H* (<3.5-17.0) ng/L Total Protein 7.5 (6.5-8.0) g/dL Albumin 4.4 (3.5-5.0) g/dL Ethyl Alcohol < 10 mg/dL COVID-19 (DAVIE) Negative (Negative) COVID-19 Clin Com See Note Influenza Type A (JAMES) Negative (Negative) Influenza Type B (JAMES) Negative (Negative) Influenza A & B Note See Note Blood Type O Positive Antibody Screen NEGATIVE Independent Interpretation I performed an independent interpretation of an: CT Scan Radiology Impression Discussion of test interpretation with radiology: I discussed test interpretation with the radiologist and I have reviewed the radiologist's reading. Radiologist Impression: FINDINGS: Acute hyperdense subdural hemorrhage is present. The blood is tracking from [id number] along the falx and anteriorly measures up to 2.6 cm transverse. Also, small amount of hyperdense subdural blood overlies frontal lobes and left middle cranial fossa anterior left anterior temporal pole. There is trace amount of subarachnoid blood in sulci in the left parafalcine region as well. No intraparenchymal hemorrhage. There is no significant mass effect. No midline shift or other herniation pattern. The hong-white matter differentiation is maintained. No evidence of an acute major vascular territory infarction. No hydrocephalus. There is hyperostosis frontalis interna. No calvarial fracture. The paranasal sinuses are well aerated and without air-fluid levels. The mastoid air cells and middle ear cavities are clear. Chronic severe arthropathy with apparent old mechanical erosion of left mandibular condyle. Chondrocalcinosis of both TMJs and mild osteoarthrosis of the right TMJ. The orbits are unremarkable. CT/CT head/brain wo IV con IMPRESSION: There is acute hyperdense subdural hematoma along the falx. Also, small amount of subdural hemorrhage is seen over anterior frontal lobes and at the anterolateral left middle cranial fossa near the left temporal pole. Critical Care Time Critical Care Time Critical Care Time: Yes Total Critical Care Time: 75 Attestation: I have personally provided critical care time. Time includes review of lab data, radiology results, discussion with consultants, and monitoring for potential decompensation. Intervention performed as documented. Discharge Plan Discharge Clinical Impression: Subdural hematoma, Acute hyponatremia, Elevated troponin, Rhabdomyolysis Patient Disposition: [facility] Transfer Details: [facility] ED to ED Prescriptions: No Action levothyroxine 50 mcg tablet 50 mcg PO DAILY 90 Days Qty: 90 11RF hydralazine 50 mg tablet 50 mg PO BID Qty: 60 3RF lorazepam 1 mg tablet 1 mg PO BID PRN (Reason: Anxiety) 90 Days Qty: 180 0RF Eliquis 5 mg tablet 5 mg PO BID 90 Days Qty: 180 3RF lisinopril 40 mg tablet 40 mg PO DAILY 90 Days Qty: 90 2RF metoprolol succinate 25 mg tablet extended release 24 hr 25 mg PO DAILY Qty: 90 3RF omeprazole 20 mg Capsule,Delayed Release(Dr/Ec) 20 mg PO DAILY albuterol sulfate 90 mcg/actuation HFA aerosol inhaler 0 mcg inhalation fluticasone propionate 50 mcg/actuation spray,suspension 1 spray intranasal DAILY atorvastatin 20 mg tablet 20 mg PO DAILY Qty: 90 2RF citalopram 20 mg tablet 20 mg PO DAILY 90 Days Qty: 90 3RF spironolactone 25 mg tablet 25 mg PO DAILY
[2023-04-27 13:49] VITALS: BP 184/77; PULSE 63; RESP 17; TEMP 36.7; O2SAT 94; BMI 29.4
--- NOTE | 2023-04-27 14:00 | PC.NURSE ---
PT SEEN BY DR. CALDWELL. PT AWARE OF PLAN OF CARE. PT IS AT CT SCAN.
[2023-04-27 14:35] VITALS: BP 165/63; PULSE 65; RESP 18
--- NOTE | 2023-04-27 14:41 | PC.NURSE ---
PT IS A/O X 4. PT TAKES ELIQUIS 5MG PO BID. PT IS A/O X 4. PT NIECE AND GRAND-NIECE IS AT BEDSIDE. PT/FAMILY AWARE OF PLAN OF CARE.
[2023-04-27 14:47] LABS: MANUAL DIFF FLAG NO
[2023-04-27 14:57] LABS: Basophils Percent Auto 0.1 % (0-2); Eosinophils Percent Auto 0.2 % (0-4); Hematocrit 36.4 % (37.0-47.0); Hemoglobin 13.1 g/dl (12.0-16.0); Imm Gran Abs Auto 0.09 X10*3/uL (0.00-0.03); Imm Gran Pct Auto 0.6 % (0.0-0.4); Lymphocytes Absolute Auto 0.6 X10*3/uL (1.2-4.9); Lymphocytes Percent Auto 3.7 % (20-40); Mean Corpuscular Hemoglobin 30.5 pg (27.0-33.0); Mean Corpuscular Volume 84.8 fL (80.0-98.0); Mean Platelet Volume 8.7 fL (9.4-12.3); Monocytes Percent Auto 5.9 % (2-11); Neutrophils Absolute Auto 14.6 x10*3/uL (2.0-8.3); Neutrophils Percent Auto 89.5 % (45-73); Platelet Count 332 X10*3/uL (160-400); Red Blood Count 4.29 X10*6/uL (4.20-5.50); Red Cell Distribution Width 12.3 % (11.0-16.0); White Blood Count 16.3 X10*3/uL (4.8-10.8)
[2023-04-27 15:05] LABS: Alanine Aminotransferase 20 U/L (0-31); Albumin Level 4.4 g/dL (3.5-5.0); Alkaline Phosphatase 91 U/L (39-117); Anion Gap 12 (12-20); Aspartate Amino Transferase 64 U/L (5-31); Bilirubin Direct 0.5 mg/dL (0.0-0.5); Bilirubin Total 1.2 mg/dL (0.0-1.0); Blood Urea Nitrogen 15 mg/dL (9-16); Calcium 9.5 mg/dL (8.4-10.2); Carbon Dioxide 25 mmol/L (22-29); Chloride 90 mmol/L (96-108); Creatinine Clr Calc Pharmacy 59.2; Estimated Glomerular Filt Rate > 60; Ethanol < 10 mg/dL; Glucose Random 147 mg/dL (60-115); Magnesium 1.8 mg/dL (1.6-2.6); Potassium 4.1 mmol/L (3.3-5.1); Sodium 123 mmol/L (135-145); Total Protein 7.5 g/dL (6.5-8.0)
[2023-04-27 15:07] LABS: COVID-19 Test Negative (Negative); IDNOW Serial# 08D9AD1C
[2023-04-27 15:10] LABS: IDNOW Serial# 152EDE1D; Influenza A Negative (Negative)
[2023-04-27 15:11] LABS: Influenza B2 Negative (Negative)
[2023-04-27 15:15] LABS: Troponin-I High Sensitivity 1471.1 ng/L (<3.5-17.0)
[2023-04-27] MEDS: Morphine Sulfate 2 MG/ML CARTRIDGE 1 MG IVPUSH (15:45)
[2023-04-27] MEDS: 0.9 % Sodium Chloride 1,000 ML 70 ML IVCONT (15:46)
== END 2023-04-27 16:59 | disposition short-term general hospital (02) ==
PROVIDERS: Emergency Provider Emergency Medicine; PCP Internal Medicine
DX: S06.5XAA Traumatic subdural hemorrhage with loss of consciousness status unknown, initial encounter (principal); W18.39XA Other fall on same level, initial encounter; E87.1 Hypo-osmolality and hyponatremia; M62.82 Rhabdomyolysis; R79.89 Other specified abnormal findings of blood chemistry; Z11.52 Encounter for screening for COVID-19; E11.9 Type 2 diabetes mellitus without complications; I10 Essential (primary) hypertension; E78.5 Hyperlipidemia, unspecified; I48.0 Paroxysmal atrial fibrillation; Z95.0 Presence of cardiac pacemaker; Z66 Do not resuscitate; Z79.01 Long term (current) use of anticoagulants; Z79.02 Long term (current) use of antithrombotics/antiplatelets; Z79.899 Other long term (current) drug therapy; Y93.89 Activity, other specified; Y92.019 Unspecified place in single-family (private) house as the place of occurrence of the external cause; Y99.9 Unspecified external cause status
CPT/HCPCS: 70450; 72125; 80048; 80076; 80307; 82550; 83735; 84484; 85025; 86850; 86900; 86901; 87502; 87635; 93005; 96374; 99285; J2270

== ENCOUNTER → 2023-04-27 13:39 | Outpatient (BNV) | payer MEDICARE, SELFPAY | PROVIDERS: Emergency Provider Emergency Medicine; PCP Internal Medicine; Visit Provider Internal Medicine Cardiovascular Disease | DX: I49.1 Atrial premature depolarization (principal); R94.31 Abnormal electrocardiogram [ECG] [EKG] | CPT/HCPCS: 93010 ==

== ENCOUNTER → 2023-06-06 23:59 | Outpatient (BNV) | payer MEDICARE, SELFPAY ==
--- NOTE | 2023-06-12 15:03 | A.OFFVIS_ITS ---
Intake Intake Visit Reasons: Remote Device Check- [facility] Allergies No Known Allergies Allergy (Verified 04/14/23 10:23) [facility] Medical History Dysphagia Vitamin D deficiency Thyroid cancer Medicare annual wellness visit, initial Paroxysmal atrial flutter Type 2 diabetes mellitus with hyperglycemia GERD (gastroesophageal reflux disease) MGUS (monoclonal gammopathy of unknown significance) Osteoarthritis Vitamin D deficiency Post-surgical hypothyroidism Non-toxic multinodular goiter Follicular carcinoma of thyroid gland SSS (sick sinus syndrome) Atrial flutter (~11/2019) Carpal tunnel syndrome DDD (degenerative disc disease) Peptic ulcer disease Obesity Impaired glucose tolerance Hyperlipidemia Hypertension Bradycardia Thyroid nodule Pacemaker (~11/2019) Surgical History Hx of endoscopy History of bilateral knee replacement Hx of arthroscopy of right knee Pulmonary nodule Hx of partial thyroidectomy Hx of appendectomy Hx of carpal tunnel repair Hx of colonoscopy History of back surgery Hx of knee surgery (~09/2012) Family History Father No problems noted. Mother CVD (cardiovascular disease) Heart disease Brother CVD (cardiovascular disease) Sudden cardiac Social History Housing: House Are you a primary patient care representative to a significant other at home: No ( with dementia last year) Do you presently have visiting nurse or other home services: No Alcohol intake: never Patient Tobacco Use Status: Never used Tobacco e-Cigarette/Vaping Use: Never Used Second Hand Smoke Exposure: No Advance Directives Date on File: 12/06/21 service: No Current occupational status: retired Cognitive needs: No Hearing needs: No Vision needs: Yes Office Procedures Cardiac Device Check Cardiac Device Check Details: Remote pacemaker report generated 06/06/2023. Pacemaker function is adequate. [id number] Cardiac Device Interrogation, pacemaker Procedure code (CPT) selection complete Assessment & Plan Assessment & Plan (1) Pacemaker: Onset Date: ~11/2019 Code(s): Z95.0 - Presence of cardiac pacemaker Plan: See above Coding Level of Care Code Procedure Only Diagnoses Pacemaker Z95.0 CPT Codes Cardiac Device Check - Cardiac Device 12: [id number] Cardiac Device Interrogation, pacemaker ([id number])
== END ==
PROVIDERS: PCP Internal Medicine; Visit Provider Internal Medicine Cardiovascular Disease
DX: Z95.0 Presence of cardiac pacemaker (principal)
CPT/HCPCS: 93294

== ENCOUNTER 2023-06-16 10:53 | Outpatient (AMB) | payer MEDICARE, SELFPAY ==
--- NOTE | 2023-06-16 11:08 | MHC.PC.OV ---
Vital Signs 06/16/23 11:09 Height 5 ft 3 in Weight 163 lb 9.328 oz BMI 29.0 BP 120/58 L Blood Pressure Location Lt brachial Position Sitting Pulse 60 Pulse Source Pulse Oximeter Pulse Oximetry (%) 97 Oxygen Delivery Method Room Air Intake Visit Reasons: Constance Lozoya, hemmorage,hematoma Intake Note: Patient is here for hospital discharge follow up. Patient was transferred from [facility] and admitted to [facility] L[facility] discharged on 06/09/23 Thread Grinder Tool Required: No Allergies No Known Allergies Allergy (Verified 06/16/23 11:09) Medication List - Last Reconciled 06/16/23 by Forrest Garcia MD albuterol sulfate 90 mcg/actuation 0 mcg inhalation amlodipine 10 mg PO DAILY atorvastatin 10 mg PO BEDTIME calcium carbonate-vitamin D3 500 mg-10 mcg (400 unit) (Oystercal-D) 1 tab PO DAILY coenzyme Q10 (Co Q-10) 50 mg PO DAILY divalproex (Depakote Sprinkles) 250 mg PO TID hydralazine 50 mg PO BID levothyroxine 50 mcg PO DAILY 90 days lisinopril 40 mg PO DAILY 90 days lorazepam 0.5 mg PO BEDTIME PRN magnesium oxide 250 mg PO DAILY metoprolol succinate ER 25 mg PO DAILY omeprazole 20 mg PO DAILY spironolactone 25 mg PO DAILY Tobacco use date assessed: 06/16/23 Fall risk assessment: 1 Fall in past year (04/26/2023 ) Last assessed Fall Risk: 06/16/23 Dental Screening Dental Screen Date: 11/29/22 HPI Constance Lozoya, hugojajatre,hematoma HPI Details 83-year-old overweight female with controlled diabetes mellitus hypertension hypercholesterolemia postsurgical hypothyroidism sick sinus syndrome GERD atrial flutter Barretts esophagus coming in for follow-up. Last seen in March 2023. Review of the notes patient had video EEG May 2023 question of seizures noted left epileptiform activity as well as excessive slowing nonspecific indicators of multifocal cerebral dysfunction and at risk for focal onset seizures under Dr. Rubalcava ER visit in 05/17/2023 traumatic subdural hemorrhage and subarachnoid hemorrhage recurrent falls came for aphasia, CVA noted CT head bilateral parafalcine and parietal subdural hematomas that have completely resolved placed on Depakote ER 750 mg once a day advised to stop Eliquis and aspirin advised to get watchman's device for AFib discontinue lorazepam. 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 07/02 Neurology [facility], [facility] Medical History Dysphagia Vitamin D deficiency Thyroid cancer Medicare annual wellness visit, initial Paroxysmal atrial flutter Type 2 diabetes mellitus with hyperglycemia GERD (gastroesophageal reflux disease) MGUS (monoclonal gammopathy of unknown significance) Osteoarthritis Vitamin D deficiency Post-surgical hypothyroidism Non-toxic multinodular goiter Follicular carcinoma of thyroid gland SSS (sick sinus syndrome) Atrial flutter (~11/2019) Carpal tunnel syndrome DDD (degenerative disc disease) Peptic ulcer disease Obesity Impaired glucose tolerance Hyperlipidemia Hypertension Bradycardia Thyroid nodule Pacemaker (~11/2019) Surgical History Hx of endoscopy History of bilateral knee replacement Hx of arthroscopy of right knee Pulmonary nodule Hx of partial thyroidectomy Hx of appendectomy Hx of carpal tunnel repair Hx of colonoscopy History of back surgery Hx of knee surgery (~09/2012) Family History Father No problems noted. Mother CVD (cardiovascular disease) Heart disease Brother CVD (cardiovascular disease) Sudden cardiac Social History Housing: House Are you a primary animal caregiver to a significant other at home: No ( with dementia last year) Do you presently have visiting nurse or other home services: No Alcohol intake: never Patient Tobacco Use Status: Never used Tobacco e-Cigarette/Vaping Use: Never Used Second Hand Smoke Exposure: No Advance Directives Date on File: 12/06/21 service: No Current occupational status: retired Cognitive needs: No Hearing needs: No Vision needs: Yes Questionnaire Thrive Questionnaire Date Thrive assessed: 03/25/22 AUDIT C Alcohol Use Questionnaire (AUDIT-C) 1. How often do you have a drink containing alcohol?: Never 3. How often do you have six or more drinks on one occasion?: Never Total Score: 0 ALF-7 AMB Questionnaire ALF-7 Date ALF - 7 assessed: 03/17/23 Source: Developed by DrsBryant Padron, Vannesa Srinivasan, Demian Grady and colleagues, with an educational yun from [employer]. Physical exam (Primary Care) Vital Signs: Last Vital Signs Pulse 60 06/16/23 11:09 BP 120/58 L 06/16/23 11:09 Pulse Ox 97 06/16/23 11:09 Oxygen Delivery Method Room Air 06/16/23 11:09 BMI result Body Mass Index 29.0 Tobacco/Smoking Status: Tobacco use Status Tobacco use date assessed 06/16/23 06/16/23 11:11 Patient Tobacco Use Status Never used Tobacco 06/16/23 11:09 e-Cigarette/Vaping Use Never Used 06/16/23 11:09 Thrive Assessment: Date of Thrive Assessment Date Thrive assessed 03/25/22 06/16/23 11:09 Const General: alert; No acute distress Eyes Conjunctivae: conjunctivae normal Resp Auscultation: clear to auscultation bilaterally Cardio Rate: regular rate Rhythm: regular rhythm GI Inspection: Yes normal to inspection Extrem General: Yes normal to inspection and No edema Assessment and Plan Assessment & Plan (1) Hyponatremia: Code(s): E87.1 - Hypo-osmolality and hyponatremia Plan: Patient is taking off the antidepressants and will continue to fluid restrict (2) Seizures: Code(s): R56.9 - Unspecified convulsions Plan: Patient is following up with Neurology has been placed on Depakote (3) Ruiz's esophagus: Code(s): K22.70 - Ruiz's esophagus without dysplasia Plan: Avoid the foods that causes that usually spicy foods, tomato products, juices, coffee, soda and foods that your sensitive to. After eating do not lie down, allow 3-4 hours before in lie down. And keep the head of bed above 30 degrees to avoid the acid from going up. (4) Moderate recurrent major depression: Code(s): F33.1 - Major depressive disorder, recurrent, moderate Plan: Advised to be taken of benzodiazepines and antidepressant (5) Paroxysmal atrial flutter: Code(s): I48.92 - Unspecified atrial flutter Plan: Due to the subarachnoid and subdural hemorrhage anticoagulation stopped and advised to be followed up by Cardiology for possible watchman's device (6) Post-surgical hypothyroidism: Code(s): E89.0 - Postprocedural hypothyroidism Plan: Continue to take the thyroid medication and follow-up with endocrinology (7) Follicular carcinoma of thyroid gland: Code(s): C73 - Malignant neoplasm of thyroid gland Plan: Patient is followed up by Endocrinology (8) SSS (sick sinus syndrome): Code(s): I49.5 - Sick sinus syndrome Plan: Scheduled pacemaker check (9) Hypertension: Code(s): I10 - Essential (primary) hypertension Qualifiers: Hypertension type: primary hypertension Qualified Code(s): I10 - Essential (primary) hypertension Plan: Continue with blood pressure medication. Decrease salt intake and exercise on hydralazine 50 mg twice a day metoprolol 25 mg once a day spironolactone 25 mg once a day amlodipine 10 mg once a day (10) Hyperlipidemia: Code(s): E78.5 - Hyperlipidemia, unspecified Qualifiers: Hyperlipidemia type: pure hypercholesterolemia Qualified Code(s): E78.00 - Pure hypercholesterolemia, unspecified Plan: Avoid fried foods, chicken skin, eggs, butter margarine, pastries and meat. Be it pork or beef they have a lot of cholesterol on atorvastatin 10 mg once a day Orders: Orders AMB Hemoglobin A1c Today E11.65 - Type 2 diabetes mellitus with hyperglycemia Valproate Today R56.9 - Unspecified convulsions Comprehensive Met. Panel Today R56.9 - Unspecified convulsions Complete Blood Count Auto Diff Today R56.9 - Unspecified convulsions Medications: New amlodipine 10 mg PO DAILY 90 tabs 1RF divalproex (Depakote Sprinkles) 250 mg (2 x 125 mg) PO TID 90 days 540 caps 0RF metoprolol tartrate 50 mg PO DAILY 90 tabs 1RF atorvastatin 10 mg PO BEDTIME 90 tabs 1RF omeprazole 20 mg PO DAILY 90 caps 2RF metoprolol tartrate 50 mg PO DAILY 90 tabs 1RF Discontinued metoprolol succinate ER Discontinued Reason: Doctor's Order 25 mg PO DAILY 90 tabs 3RF apixaban (Eliquis) Discontinued Reason: Doctor's Order 5 mg PO BID 90 days 180 tabs 3RF Coding Level of Care Code Est Pt Level 4 (67999) Diagnoses Hyponatremia E87.1 Seizures R56.9 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 Moderate recurrent major depression F33.1 Paroxysmal atrial flutter I48.92 Post-surgical hypothyroidism E89.0 Follicular carcinoma of thyroid gland C73 SSS (sick sinus syndrome) I49.5 Primary hypertension I10 Hypertension type: primary hypertension Pure hypercholesterolemia E78.00 Hyperlipidemia type: pure hypercholesterolemia
[2023-06-16 11:09] VITALS: BP 120/58; PULSE 60; O2SAT 97; BMI 29.0
== END 2023-06-16 12:17 | disposition home or self-care (01) ==
PROVIDERS: PCP Internal Medicine; Visit Provider Internal Medicine
DX: R56.9 Unspecified convulsions (principal); F33.1 Major depressive disorder, recurrent, moderate; I48.92 Unspecified atrial flutter; C73 Malignant neoplasm of thyroid gland; I49.5 Sick sinus syndrome; E87.1 Hypo-osmolality and hyponatremia; K22.70 Barrett's esophagus without dysplasia; E89.0 Postprocedural hypothyroidism; I10 Essential (primary) hypertension; E78.00 Pure hypercholesterolemia, unspecified
CPT/HCPCS: 99214

== ENCOUNTER 2023-07-13 11:11 | Outpatient (REF) | payer MEDICARE, SELFPAY ==
[2023-07-13 13:09] LABS: MANUAL DIFF FLAG NO
[2023-07-13 13:20] LABS: Basophils Percent Auto 0.3 % (0-2); Eosinophils Absolute Auto 0.1 X10*3/uL (0.0-0.4); Eosinophils Percent Auto 0.9 % (0-4); Hematocrit 35.1 % (37.0-47.0); Hemoglobin 12.4 g/dl (12.0-16.0); Imm Gran Abs Auto 0.15 X10*3/uL (0.00-0.03); Imm Gran Pct Auto 1.3 % (0.0-0.4); Lymphocytes Absolute Auto 2.4 X10*3/uL (1.2-4.9); Lymphocytes Percent Auto 21.2 % (20-40); Mean Corpuscular HGB Conc 35.3 g/dl (31.0-35.0); Mean Corpuscular Hemoglobin 30.8 pg (27.0-33.0); Mean Corpuscular Volume 87.3 fL (80.0-98.0); Mean Platelet Volume 9.6 fL (9.4-12.3); Monocytes Absolute Auto 1.1 X10*3/uL (0.1-1.2); Monocytes Percent Auto 9.5 % (2-11); Neutrophils Absolute Auto 7.5 x10*3/uL (2.0-8.3); Neutrophils Percent Auto 66.8 % (45-73); Platelet Count 384 X10*3/uL (160-400); Red Blood Count 4.02 X10*6/uL (4.20-5.50); Red Cell Distribution Width 13.2 % (11.0-16.0); White Blood Count 11.2 X10*3/uL (4.8-10.8)
[2023-07-13 13:57] LABS: Valproate 78.1 mcg/mL (50.0-100.0)
[2023-07-13 13:59] LABS: Alanine Aminotransferase 8 U/L (0-31); Albumin Level 3.7 g/dL (3.5-5.0); Alkaline Phosphatase 63 U/L (39-117); Anion Gap 15 (12-20); Aspartate Amino Transferase 14 U/L (5-31); Bilirubin Total 0.4 mg/dL (0.0-1.0); Blood Urea Nitrogen 13 mg/dL (9-16); Calcium 9.2 mg/dL (8.4-10.2); Carbon Dioxide 20 mmol/L (22-29); Chloride 91 mmol/L (96-108); Estimated Glomerular Filt Rate > 60; Glucose Random 107 mg/dL (60-115); Potassium 4.9 mmol/L (3.3-5.1); Sodium 121 mmol/L (135-145); Total Protein 6.6 g/dL (6.5-8.0)
== END 2023-07-13 11:12 | disposition home or self-care (01) ==
LOC: HO.HMGCLDS 11:11
PROVIDERS: Internal Medicine Nephrology; PCP Internal Medicine; Visit Provider Internal Medicine
DX: R56.9 Unspecified convulsions (principal); U07.1 COVID-19; Z79.899 Other long term (current) drug therapy
CPT/HCPCS: 36415; 80053; 80164; 85025

== ENCOUNTER 2023-07-18 10:37 | Outpatient (AMB) | payer MEDICARE, SELFPAY ==
[2023-07-18 10:38] VITALS: BP 124/78; PULSE 60; BMI 28.5
--- NOTE | 2023-07-18 10:38 | A.OFFVIS_ITS ---
Vital Signs 07/18/23 10:38 Height 5 ft 3 in Weight 160 lb 14.999 oz BMI 28.5 BP 124/78 Blood Pressure Location Lt brachial Position Sitting Pulse 60 Intake Visit Reasons: 6 mthf/up Intake Note: 6 month follow-up with ekg and [facility] check feeling ok Director Marketing Required: No B2B Outside Sales Representative: B2B Outside Sales Representative Present Accompanied by: niece Allergies No Known Allergies Allergy (Verified 06/16/23 11:09) Medication List - Last Reconciled 07/18/23 by Nikita Choi MD amlodipine 10 mg PO DAILY atorvastatin 10 mg PO BEDTIME calcium carbonate-vitamin D3 500 mg-10 mcg (400 unit) (Oystercal-D) 1 tab PO DAILY coenzyme Q10 (Co Q-10) 50 mg PO DAILY divalproex (Depakote Sprinkles) 250 mg (2 x 125 mg) PO TID 90 days hydralazine 50 mg PO BID levothyroxine 50 mcg PO DAILY 90 days lisinopril 40 mg PO DAILY 90 days lorazepam 0.5 mg PO BEDTIME PRN magnesium oxide 250 mg PO DAILY metoprolol tartrate 25 mg PO DAILY omeprazole 20 mg PO DAILY spironolactone 25 mg PO DAILY HPI Comments Details: Sophie comes for follow-up after multiple recent hospitalization to [facility]. She is accompanied by her grand niece who is very actively involved in her care and knows about her health condition. She said she would found Sophie on the floor on April 26 and at that time she was having some neurologic symptoms and started having vomiting and she got concerned and brought her to the emergency room at [facility] where she was found to have intracranial hemorrhage both subdural as well as subarachnoid. She subsequently was taken off Eliquis and treated conservatively. 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 She remains off Eliquis therapy. She continues to have poor balance and risk for fall however she is very hesitant and reluctant to use a walker. She then had a COVID infection and has had labile blood pressure at home. Last week she was having rapid heart rate with intermittent palpitations which we were able to check on pacer telemetry and as per the grand knees her blood pressure was very low. However since then today her heart rate is back in normal rhythm and her blood pressure is stabilized. She has significantly labile blood pressure which has been known from before. When she would low blood pressure in atrial fibrillation she was feeling weak. She had not had any syncopal episode. All her separate conditions complicate her risk of fall. Grand niece thinks that her intracranial hemorrhage or spontaneous as there was no clear externally injury after she would found her on the floor which she has had in the past. [facility] Medical History Dysphagia Vitamin D deficiency Thyroid cancer Medicare annual wellness visit, initial Paroxysmal atrial flutter Type 2 diabetes mellitus with hyperglycemia GERD (gastroesophageal reflux disease) MGUS (monoclonal gammopathy of unknown significance) Osteoarthritis Vitamin D deficiency Post-surgical hypothyroidism Non-toxic multinodular goiter Follicular carcinoma of thyroid gland SSS (sick sinus syndrome) Atrial flutter (~11/2019) Carpal tunnel syndrome DDD (degenerative disc disease) Peptic ulcer disease Obesity Impaired glucose tolerance Hyperlipidemia Hypertension Bradycardia Thyroid nodule Pacemaker (~11/2019) Surgical History Hx of endoscopy History of bilateral knee replacement Hx of arthroscopy of right knee Pulmonary nodule Hx of partial thyroidectomy Hx of appendectomy Hx of carpal tunnel repair Hx of colonoscopy History of back surgery Hx of knee surgery (~09/2012) Family History Father No problems noted. Mother CVD (cardiovascular disease) Heart disease Brother CVD (cardiovascular disease) Sudden cardiac Social History Housing: House Are you a primary day care aide to a significant other at home: No ( with dementia last year) Do you presently have visiting nurse or other home services: No Alcohol intake: never Patient Tobacco Use Status: Never used Tobacco e-Cigarette/Vaping Use: Never Used Second Hand Smoke Exposure: No Advance Directives Date on File: 12/06/21 service: No Current occupational status: retired Cognitive needs: No Hearing needs: No Vision needs: Yes Review of Systems Const Denies chills, Denies fatigue, Denies fever(s), Denies frequent falls, Denies weakness, Denies weight gain and Denies weight loss ENT Denies dizziness Card Denies chest pain, Denies leg edema, Denies lightheadedness, Denies palpitations, Denies dyspnea, Denies dyspnea on exertion, Denies orthopnea and Denies other (loss of consciousness) Resp Denies cough, Denies dyspnea and Denies dyspnea on exertion GI Denies hematochezia and Denies change in stool character Musc Denies abnormal gait, Denies muscle weakness, Denies numbness, Denies radiating pain into limb and Denies tingling Neuro Denies abnormal gait, Denies dizziness, Denies frequent falls, Denies numbness, Denies tingling and Denies weakness Endo Denies fatigue and Denies palpitations Physical Exam Vital Signs: Last Vital Signs Pulse 60 07/18/23 10:38 BP 124/78 07/18/23 10:38 BMI result Body Mass Index 28.5 Const General: cooperative, comfortable, no acute distress, alert, awake and anxious Nutritional Appearance: other (Frail elderly woman) Orientation/consciousness: patient oriented x3 Limitations: wheelchair Neck Neck: Yes trachea midline, Yes supple and Yes no JVD Resp Effort & Inspection: normal respiratory effort Auscultation: clear to auscultation bilaterally Cardio Jugular venous distension: no JVD Palpation: normal PMI Rate: regular rate Rhythm: regular rhythm Heart sounds: S1 normal heart sound present and S2 normal heart sound present GI Auscultation: normal bowel sounds Skin General skin exam: no rashes or lesions noted Neuro General: patient oriented x3 and no focal motor deficits Extrem General: Yes no clubbing, cyanosis or edema Psych Appearance: grossly normal Office Procedures Cardiac Device Check Cardiac Device Check Details: Dual-chamber [facility] pacemaker in place programmed in DDDR at 60 beats per minute. Episodes of atrial fibrillation noted last week consistent with fast heart rate noted by extended providers. Total burden of about 6.9%. Atrial capture thresholds adequate and in our capture mode. Ventricular pacing thresholds excellent. Atrial ventricular sensing is adequate. Pacing lead impedance is stable. Battery life is up to 6 and half years [id number] Cardiac Device Check, pacemaker dual lead Procedure code (CPT) selection complete Assessment & Plan Assessment & Plan (1) Labile blood pressure: Code(s): R09.89 - Other specified symptoms and signs involving the circulatory and respiratory systems Category: Medical Plan: Significantly labile blood pressure which is not a new problem for her but has had multiple reasons for it. She does not drink adequate amount of water. Encouraged to do so however this comes at risk she says with increased urination which has implication of probably increase fall risk. This is a difficult clinical situation. Currently with current blood pressure regimen a blood pressure is well optimized. A blood pressure today is well optimized. Advised to continue monitor blood pressure aggressively at home and maintain a log. When her blood pressure is low she is advised to not do much walking activity as this may increase her fall risk. Continue current complex regimen. She also has hypertension with atrial fibrillation will therefore try to control her rhythm so she does not have AFib related hypotension. Orthostatic precautions were discussed. (2) Pacemaker: Onset Date: ~11/2019 Code(s): Z95.0 - Presence of cardiac pacemaker Category: Medical Plan: Cardiac pacemaker in-situ, working well. Reprogrammed for adequate functioning. Will follow remotely but follow up in the clinic in 6 weeks time. (3) Paroxysmal atrial flutter: Code(s): I48.92 - Unspecified atrial flutter Category: Medical Plan: Paroxysmal atrial flutter with recent increased burden related to possible acute medical illness but she has had likelihood of having recurrent atrial flutter with concomitant drop in blood pressure as noted as well as symptoms of weakness which increase the risk of fall. At this point time will start on antiarrhythmic drug therapy with amiodarone 400 mg b.i.d. loading for 2 weeks followed by 200 mg daily. Need for this was discussed with granddaughter in detail to prevent recurrent atrial flutter and hospitalization and/fall and/hypotension. She understands agrees. Follow up in the clinic in 6 weeks with EKG and pacer check. She is currently on Eliquis therapy given her intracranial hemorrhage. This appears to be possibly spontaneous and therefore she would not be a good candidate for long-term oral anticoagulation therapy. Alternatives with Watchman device was discussed in details. Grand niece wants to discuss with the mother and patient in her [place] language and get back to me. Will follow up in the clinic in 6 weeks time. Greater than 40 minutes was spent in managing his complex care. Medications: New amiodarone 400 mg PO BID 28 tabs 0RF 14 days Nikita Choi MD amiodarone 200 mg PO DAILY 30 tabs 1RF Nikita Choi MD Changed From metoprolol tartrate 50 mg PO DAILY 90 tabs 1RF To metoprolol tartrate 25 mg PO DAILY Forrest Garcia MD Coding Level of Care Code Est Pt Level 5 (10538) Diagnoses Labile blood pressure R09.89 Pacemaker Z95.0 Paroxysmal atrial flutter I48.92 CPT Codes Cardiac Device Check - Cardiac Device 2: [id number] Cardiac Device Check, pacemaker dual lead ([id number])
== END 2023-07-18 11:31 | disposition home or self-care (01) ==
PROVIDERS: PCP Internal Medicine; Visit Provider Internal Medicine Cardiovascular Disease
DX: R03.0 Elevated blood-pressure reading, without diagnosis of hypertension (principal); I48.92 Unspecified atrial flutter; I48.91 Unspecified atrial fibrillation; Z95.0 Presence of cardiac pacemaker
CPT/HCPCS: 93010; 93280; 99215

== ENCOUNTER → 2023-07-18 10:37 | Outpatient (BNVA) | payer MEDICARE, SELFPAY | PROVIDERS: PCP Internal Medicine; Visit Provider Internal Medicine Cardiovascular Disease | DX: R09.89 Other specified symptoms and signs involving the circulatory and respiratory systems (principal); I48.92 Unspecified atrial flutter; Z79.899 Other long term (current) drug therapy; Z45.018 Encounter for adjustment and management of other part of cardiac pacemaker | CPT/HCPCS: 93005; 93280; 99212 ==

== ENCOUNTER 2023-08-16 10:32 | Outpatient (REF) | payer MEDICARE, SELFPAY ==
[2023-08-16 14:41] LABS: Blood Urea Nitrogen 14 mg/dL (9-16); Estimated Glomerular Filt Rate > 60
[2023-08-16 15:20] LABS: Anion Gap 16 (12-20); Carbon Dioxide 21 mmol/L (22-29); Chloride 88 mmol/L (96-108); Potassium 4.8 mmol/L (3.3-5.1)
[2023-08-17 07:13] LABS: Sodium 120 mmol/L (135-145)
== END 2023-08-16 10:33 | disposition home or self-care (01) ==
LOC: HO.HMGCLDS 10:32
PROVIDERS: PCP Internal Medicine; Referring Provider Internal Medicine Nephrology; Visit Provider Internal Medicine
DX: Z13.89 Encounter for screening for other disorder (principal)
CPT/HCPCS: 36415; 80051; 82565; 84520

== ENCOUNTER 2023-08-16 18:17 | Inpatient (IN) | payer MEDICARE, SELFPAY ==
--- NOTE | ~2023-08-16 | CT_ITS ---
EXAMINATION: CT HEAD WITHOUT CONTRAST CLINICAL INFORMATION: Poor coordination COMPARISON: CT head from 04/27/2023 TECHNIQUE: Contiguous axial imaging was performed from the skull base to vertex without intravenous administration of contrast. This CT examination was performed using dose optimization techniques as appropriate, variously including the following: *Automated exposure control *Adjustment of mA and/or kV according to patient size (this includes techniques or standardized protocols for targeted exams where dose is matched to indication/reason for exam; i.e. extremities or head) *Use of iterative reconstruction technique DLP: 659 mGy-cm FINDINGS: Resolution of previously identified subdural hemorrhage. There is no evidence of acute intracranial hemorrhage or territorial infarction. Chronic white matter small vessel ischemic changes. Cerebral atrophy with commensurate ventricular changes. No abnormal mass effect or midline shift is seen. [place] to white matter differentiation is well preserved. No extra-axial fluid collections are identified. The ventricles are normal in size. There is no abnormal attenuation within the brain parenchyma. Hyperostosis frontalis interna. The osseous structures and soft tissues are normal. The mastoid air cells and visualized portions of the paranasal sinuses are well aerated. CT/CT head/brain wo IV con IMPRESSION: 1. No acute intracranial pathology. 2. Chronic white matter small vessel ischemic changes.
[2023-08-16 18:19] VITALS: BP 121/67; PULSE 60; RESP 19; TEMP 36.6; O2SAT 98; BMI 29.9
--- NOTE | 2023-08-16 18:19 | ED.GENADULT ---
HPI - General Adult General Chief complaint: Recheck/Abnormal Lab/Rx Stated complaint: ref by interventional tech for critically low sodium Time Seen by Provider: 08/16/23 19:23 Source: patient, family (Patient's daughter) and RN notes reviewed Mode of arrival: ambulatory Limitations: no limitations History of Present Illness ED Provider: Shalini HPI narrative: 83-year-old female with past medical history significant for hyponatremia, previous subdural hematoma, GERD, Ruiz's esophagus, anxiety, a flutter not anticoagulated, diabetes, monoclonal gammopathy of unknown significance, hypothyroidism, sick sinus syndrome, hypertension, pacemaker implantation presents for evaluation of low sodium Patient was due to have a routine follow-up with Nephrology on Monday. She had screening labs done today and was found to have a sodium of 120 so she was referred to the ER by Dr. Allen Per the patient's daughter, the patient has been doing quite well at home, however she has noticed the patient has had decreased and coordination over the last 3 weeks The patient at baseline is able to ambulate independently with a walker Over last 3 weeks she has needed progressively more assistance while ambulating Otherwise, the patient did have 3 episodes of diarrhea last week She has not had any fevers, chills. The patient does not complain of any pain 2 days ago her rubber goods supervisor, Dr. Choi stopped her amiodarone due to palpitations There been no other recent medication changes The patient is on spironolactone as her only diuretic Per the patient's daughter, the patient drinks slightly more than 1 L of fluids daily Related Data Home Medications ?Medication ?Instructions ?Recorded ?Confirmed calcium carbonate 500 mg-vitamin 1 tab PO DAILY 06/16/23 07/18/23 D3 10 mcg (400 unit) tablet (Oystercal-D) coenzyme Q10 50 mg capsule (Co 50 mg PO DAILY 06/16/23 07/18/23 Q-10) lorazepam 0.5 mg tablet 0.5 mg PO BEDTIME PRN 06/16/23 07/18/23 magnesium oxide 250 mg PO DAILY 06/16/23 07/18/23 metoprolol tartrate 50 mg tablet 25 mg PO DAILY 07/18/23 07/18/23 Previous Rx's ?Medication ?Instructions ?Recorded hydralazine 50 mg tablet 50 mg PO BID #60 tabs 11/07/22 lisinopril 40 mg tablet 40 mg PO DAILY 90 days #90 tabs 04/24/23 amlodipine 10 mg tablet 10 mg PO DAILY #90 tabs 06/16/23 atorvastatin 10 mg tablet 10 mg PO BEDTIME #90 tabs 06/16/23 divalproex 125 mg capsule,delayed 250 mg (2 x 125 mg) PO TID 90 days 06/16/23 release sprinkle (Depakote #540 caps Sprinkles) omeprazole 20 mg capsule,delayed 20 mg PO DAILY #90 caps 06/16/23 release levothyroxine 50 mcg tablet 50 mcg PO DAILY 90 days #90 tabs 06/19/23 spironolactone 25 mg tablet 25 mg PO DAILY #90 tabs 07/17/23 amiodarone 200 mg tablet 200 mg PO DAILY 90 days #90 tabs 08/11/23 Allergies Allergy/AdvReac Type Severity Reaction Status Date / Time No Known Allergies Allergy Verified 08/16/23 18:22 Review of Systems Constitutional: Constitutional: Denies chills, Denies fever(s) and Denies headache(s) ENT: Reports dizziness and Denies headache(s) Cardiovascular: Cardiovascular: Denies chest pain Respiratory: Respiratory: Denies cough Gastrointestinal: Gastrointestinal: Denies abdominal pain, Reports diarrhea, Reports loose stools and Denies vomiting Genitourinary: Genitourinary: Denies dysuria Musculoskeletal: Musculoskeletal: Reports abnormal gait and Denies back pain Integumentary/Breasts: Skin/Breast: Denies rash Neurologic: Denies Neuro-related abnormal movements, Denies Abnormal speech present, Reports abnormal gait, Reports dizziness, Denies headache(s), Reports lack of coordination, Denies focal weakness and Denies seizure-like activity [facility] Past Medical History Medical History Dysphagia Vitamin D deficiency Thyroid cancer Medicare annual wellness visit, initial Paroxysmal atrial flutter Type 2 diabetes mellitus with hyperglycemia GERD (gastroesophageal reflux disease) MGUS (monoclonal gammopathy of unknown significance) Osteoarthritis Vitamin D deficiency Post-surgical hypothyroidism Non-toxic multinodular goiter Follicular carcinoma of thyroid gland SSS (sick sinus syndrome) Atrial flutter (~11/2019) Carpal tunnel syndrome DDD (degenerative disc disease) Peptic ulcer disease Obesity Impaired glucose tolerance Hyperlipidemia Hypertension Bradycardia Thyroid nodule Pacemaker (~11/2019) Surgical History Hx of endoscopy History of bilateral knee replacement Hx of arthroscopy of right knee Pulmonary nodule Hx of partial thyroidectomy Hx of appendectomy Hx of carpal tunnel repair Hx of colonoscopy History of back surgery Hx of knee surgery (~09/2012) Family History Family History Father No problems noted. Mother CVD (cardiovascular disease) Heart disease Brother CVD (cardiovascular disease) Sudden cardiac Social History Social History Housing: House Are you a primary career technical supervisor to a significant other at home: No ( with dementia last year) Do you presently have visiting nurse or other home services: No Alcohol intake: never Patient Tobacco Use Status: Never used Tobacco Smoked in Last 30 Days: No e-Cigarette/Vaping Use: Never Used Second Hand Smoke Exposure: No Use of substances other than those prescribed or required for medical reasons: No Advance Directives: Yes Advance Directives on File: Yes Advance Directives Date on File: 12/06/21 service: No Current occupational status: retired Cognitive needs: No Hearing needs: No Vision needs: Yes Physical Exam ED Vital Signs: Vital Signs - 24 hr 08/16/23 18:19 08/16/23 19:34 08/16/23 20:18 Temperature 98 F 97.8 F 98.4 F Pulse Rate 60 60 62 Respiratory Rate 19 18 16 Blood Pressure 121/67 125/52 L 122/55 L Pulse Oximetry 98 97 98 Oxygen Delivery Method Room Air Room Air Room Air 08/16/23 21:39 08/16/23 23:28 Temperature 97.4 F 97.6 F Pulse Rate 58 61 Respiratory Rate 16 16 Blood Pressure 124/44 L 130/56 L Pulse Oximetry 97 97 Oxygen Delivery Method Room Air Room Air BMI result Body Mass Index 29.9 Const General: healthy appearing, comfortable, no acute distress, alert and awake Nutritional Appearance: well nourished Orientation/consciousness: patient oriented x3 HENMT Head: Yes normocephalic and Yes atraumatic Eyes Eyelids: Yes eyelids normal Conjunctivae: conjunctivae normal Sclerae: sclerae normal Corneas: corneas normal Pupils: Equal, round and reactive pupils present EOM: EOMs intact bilaterally Neck Neck: Yes full ROM Resp Effort & Inspection: normal respiratory effort, able to speak in complete sentences, no audible wheezes and not labored Auscultation: clear to auscultation bilaterally Cardio Rate: regular rate Rhythm: regular rhythm GI Inspection: No distended Palpation (GI): Soft to palpation, not firm, nontender, no guarding and not rigid Skin General skin exam: no rashes or lesions noted and elasticity normal Neuro General: patient oriented x3 Cranial nerves: Yes CN's II-XII intact bilaterally, Yes Equal, round and reactive pupils present and Yes Bilaterally intact EOM present Cognition (Neuro): normal cognition Speech: No Abnormal speech present Coordination: No [id number] test normal (Patient had some difficulty with [id number] testing) Extrem Other: Moving all extremities well without any obvious deformities Course Course Course Narrative: This is a rapid medical exam performed by Ana Lilia Damon NP: Additional HPI, ROS, PE not included below will be deferred to primary provider. Patient is an 83-year-old female presenting to ED with daughter who reports patient had labs done with Dr. Allen this am, then received call later today that she had a critically low Na. Daughter reports unsteady gait, diarrhea past 3 days. Daughter states ongoing issues since stroke earlier this year. States has recently been tachycardic around 120s at rest. Plan: labs, UA Reevaluation(s) Reevaluation #1: Of note, the patient's last outpatient labs were on July 13, 2023. Her sodium at that time was 121 Time: 21:56 Reevaluation #2: Repeat sodium 120. I did touch base with Dr. Lynn again and he recommends continuing fluids as is at 60 cc/hour and rechecking sodium and 3 hours Time: 00:25 Medications Administered Generic Name Dose Route Start Last Admin Trade Name Freq PRN Reason Stop Dose Admin Sodium Chloride 1,000 mls @ 60 mls/hr 08/16/23 20:45 08/16/23 21:12 Ns IVCONT 60 mls/hr .[id number] [place]TON Administration Procedures Procedure Narrative Procedure Narrative: I was asked to assist with IV guidance. Using an ultrasound I placed a 20 gauge peripheral IV in the left upper arm. There was good blood return and the line flushed well. There were no complications Medical Decision Making Medical Decision Making [facility] Narrative: 83-year-old female with past medical history as documented above presents for evaluation of hyponatremia. Repeat labs in the ER today show a sodium of 118. She does appear to have a degree of chronicity to this. It is unclear the exact cause. 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 She is on spironolactone and had 3 episodes of diarrhea last week. Plan for urine creatinine, urine sodium, urine osmolality, and serum osmolality. I discussed with Nephrology, Dr. Quispe who recommends normal saline at 60 cc/hour and repeating chemistries 2 hours after this. Patient has no other focal neuro deficits. CT scan the brain does not show any acute intracranial pathology Differential Diagnosis Differential Diagnoses: The differential diagnosis associated with the presentation includes Hyponatremia SIADH Hypovolemia Dehydration Renal failure Admission/Observation Consideration of admission/observation: Escalation of care including admission/observation considered Patient will require admission for correction of sodium Lab Data [facility] Lab Attestation statement: I reviewed the patient's lab results. No leukocytosis or significant anemia. The patient's hematocrit is slightly low at 33.7 but her hemoglobin is normal at 12.1. MCV within normal limits. There is no left shift. Patient's sodium is critically low at 118, chloride is low at 85. Otherwise electrolytes and renal function within normal limits. 08/16/23 18:36 08/16/23 23:39 Labs: Lab Results 08/16/23 08/16/23 08/16/23 Range/Units 18:36 21:23 23:39 WBC 7.6 (4.8-10.8) X10*3/uL RBC 3.90 L (4.20-5.50) X10*6/uL Hgb 12.1 (12.0-16.0) g/dl Hct 33.7 L (37.0-47.0) % MCV 86.4 (80.0-98.0) fL MCH 31.0 (27.0-33.0) pg MCHC 35.9 H (31.0-35.0) g/dl RDW 14.0 (11.0-16.0) % Plt Count 289 (160-400) X10*3/uL MPV 8.8 L (9.4-12.3) fL Immature Gran % (Auto) 1.2 H (0.0-0.4) % Neut % (Auto) 55.3 (45-73) % Lymph % (Auto) 33.3 (20-40) % [place] % (Auto) 8.7 (2-11) % Eos % (Auto) 0.8 (0-4) % Baso % (Auto) 0.7 (0-2) % Lymph # (Auto) 2.5 (1.2-4.9) X10*3/uL [place] # (Auto) 0.7 (0.1-1.2) X10*3/uL Eos # (Auto) 0.1 (0.0-0.4) X10*3/uL Baso # (Auto) 0.1 (0.0-0.2) X10*3/uL Abs Immat Gran (auto) 0.09 H (0.00-0.03) X10*3/uL Absolute Neuts (auto) 4.2 (2.0-8.3) x10*3/uL Absolute Nucleated RBC 0.000 (0.0-0.012) X10*3/uL Nucleated RBC % (auto) 0.0 (0.0-0.2) /100WBC Sodium 118 L* 120 L* (135-145) mmol/L Potassium 5.1 4.7 (3.3-5.1) mmol/L Chloride 85 L 89 L (96-108) mmol/L Carbon Dioxide 24 22 (22-29) mmol/L Anion Gap 14 14 (12-20) BUN 15 13 (9-16) mg/dL Creatinine 0.86 0.77 (0.5-1.4) mg/dL Estim Creat Clear Calc 44.8 50.1 Estimated GFR > 60 > 60 Random Glucose 109 89 (60-115) mg/dL Osmolality 249 L (281-305) mosm/kg Calcium 9.1 8.7 (8.4-10.2) mg/dL Magnesium 1.7 (1.6-2.6) mg/dL Total Bilirubin 0.4 (0.0-1.0) mg/dL AST 13 (5-31) U/L ALT 8 (0-31) U/L Alkaline Phosphatase 55 (39-117) U/L Total Protein 6.5 (6.5-8.0) g/dL Albumin 3.9 (3.5-5.0) g/dL Urine Color Yellow Urine Appearance Clear Urine pH 7.5 (5.0-9.0) Ur Specific [place] 1.010 (1.005-1.025) Urine Protein Negative (Neg-Trace) mg/dL Urine Glucose (UA) Negative (Negative) mg/dL Urine Ketones Negative (Negative) mg/dL Urine Blood Negative (Negative) Urine Nitrite Negative (Negative) Ur Leukocyte Esterase Trace H (Negative) Urine RBC 0-2 (0-2) /HPF Urine WBC 0-5 (0-5) /HPF Ur Squamous Epith Cells 0-2 (0-2) /HPF Urine Bacteria None Seen (None Seen) Hyaline Casts 0-2 (0-2) /LPF Urine Osmolality 303 L (373-1093) mosm/kg Ur Random Sodium 52.0 mmol/L Urine Creatinine 51.08 mg/dL Discharge Plan Discharge Clinical Impression: Hyponatremia Prescriptions: No Action hydralazine 50 mg tablet 50 mg PO BID Qty: 60 3RF lisinopril 40 mg tablet 40 mg PO DAILY 90 Days Qty: 90 2RF levothyroxine 50 mcg tablet 50 mcg PO DAILY 90 Days Qty: 90 3RF spironolactone 25 mg tablet 25 mg PO DAILY Qty: 90 0RF amiodarone 200 mg tablet 200 mg PO DAILY 90 Days Qty: 90 1RF lorazepam 0.5 mg tablet 0.5 mg PO BEDTIME PRN calcium carbonate-vitamin D3 [Oystercal-D] 500 mg-10 mcg (400 unit) tablet 1 tab PO DAILY coenzyme Q10 [Co Q-10] 50 mg capsule 50 mg PO DAILY magnesium oxide 250 mg magnesium tablet 250 mg PO DAILY amlodipine 10 mg tablet 10 mg PO DAILY Qty: 90 1RF divalproex [Depakote Sprinkles] 125 mg capsule, delayed rel sprinkle 250 mg PO TID 90 Days Qty: 540 0RF atorvastatin 10 mg tablet 10 mg PO BEDTIME Qty: 90 1RF omeprazole 20 mg capsule,delayed release(DR/EC) 20 mg PO DAILY Qty: 90 2RF metoprolol tartrate 50 mg tablet 25 mg PO DAILY Print Language: Nepalese
--- NOTE | 2023-08-16 18:21 | ECG_ITS ---
Test Reason : ABNORMAL LABS Blood Pressure : / mmHG Vent. Rate : 068 BPM Atrial Rate : 068 BPM P-R Int : 236 ms QRS Dur : 084 ms QT Int : 404 ms P-R-T Axes : 090 081 051 degrees QTc Int : 429 ms Atrial-paced rhythm with prolonged AV conduction ST & T wave abnormality, consider anterior ischemia Abnormal ECG When compared with ECG of 27-APR-2023 14:10, Previous ECG has undetermined rhythm, needs review Nonspecific T wave abnormality now evident in Inferior leads T wave inversion more evident in Anterior leads Referred By: Yenny Damon Electronically Signed By:KATHERINE VILLEDA MD
[2023-08-16 18:40] LABS: MANUAL DIFF FLAG NO
[2023-08-16 18:41] LABS: Basophils Absolute Auto 0.1 X10*3/uL (0.0-0.2); Basophils Percent Auto 0.7 % (0-2); Eosinophils Absolute Auto 0.1 X10*3/uL (0.0-0.4); Eosinophils Percent Auto 0.8 % (0-4); Hematocrit 33.7 % (37.0-47.0); Hemoglobin 12.1 g/dl (12.0-16.0); Imm Gran Abs Auto 0.09 X10*3/uL (0.00-0.03); Imm Gran Pct Auto 1.2 % (0.0-0.4); Lymphocytes Absolute Auto 2.5 X10*3/uL (1.2-4.9); Lymphocytes Percent Auto 33.3 % (20-40); Mean Corpuscular HGB Conc 35.9 g/dl (31.0-35.0); Mean Corpuscular Volume 86.4 fL (80.0-98.0); Mean Platelet Volume 8.8 fL (9.4-12.3); Monocytes Absolute Auto 0.7 X10*3/uL (0.1-1.2); Monocytes Percent Auto 8.7 % (2-11); Neutrophils Absolute Auto 4.2 x10*3/uL (2.0-8.3); Neutrophils Percent Auto 55.3 % (45-73); Platelet Count 289 X10*3/uL (160-400); White Blood Count 7.6 X10*3/uL (4.8-10.8)
--- NOTE | 2023-08-16 18:56 | MHC.EDTECH ---
This pct just assumed care of Patient ,ekg taken and was read by Provider ,blood drawn and sent to lab ,Patient was change into hospital attire .Patient neice at bed side .
--- NOTE | 2023-08-16 19:21 | PC.NURSE ---
critical lab: sodium 118
[2023-08-16 19:22] LABS: Alanine Aminotransferase 8 U/L (0-31); Albumin Level 3.9 g/dL (3.5-5.0); Alkaline Phosphatase 55 U/L (39-117); Anion Gap 14 (12-20); Aspartate Amino Transferase 13 U/L (5-31); Bilirubin Total 0.4 mg/dL (0.0-1.0); Blood Urea Nitrogen 15 mg/dL (9-16); Calcium 9.1 mg/dL (8.4-10.2); Carbon Dioxide 24 mmol/L (22-29); Chloride 85 mmol/L (96-108); Creatinine Clr Calc Pharmacy 44.8; Estimated Glomerular Filt Rate > 60; Glucose Random 109 mg/dL (60-115); Magnesium 1.7 mg/dL (1.6-2.6); Potassium 5.1 mmol/L (3.3-5.1); Sodium 118 mmol/L (135-145); Total Protein 6.5 g/dL (6.5-8.0)
[2023-08-16 19:34] VITALS: BP 125/52; PULSE 60; RESP 18; TEMP 36.6; O2SAT 97
[2023-08-16 20:18] VITALS: BP 122/55; PULSE 62; RESP 16; TEMP 36.9; O2SAT 98
[2023-08-16] MEDS: 0.9 % Sodium Chloride 1,000 ML 60 ML IVCONT (21:12)
[2023-08-16 21:39] VITALS: BP 124/44; PULSE 58; RESP 16; TEMP 36.3; O2SAT 97
[2023-08-16 21:41] LABS: Appearance Urine Clear; Color Urine Yellow; Glucose Urine UA Negative (Negative); Leukocyte Esterase Urine Trace (Negative); Nitrite Urine Negative (Negative); PH 7.5 (5.0-9.0); UMIC TRIGGER UACC YES; Urine Blood Negative (Negative); Urine Ketones Negative (Negative); Urine Protein Negative (Neg-Trace)
[2023-08-16 21:54] LABS: Bacteria Urine None Seen (None Seen); Hyaline Casts Urine 0-2 /LPF (0-2); RBC Urine 0-2 /HPF (0-2); Squamous Epithelial Cell Urine 0-2 /HPF (0-2); WBC Urine 0-5 /HPF (0-5)
[2023-08-16 21:55] LABS: Creatinine Urine 51.08 mg/dL
[2023-08-16 22:12] LABS: Osmolality Urine 303 mosm/kg (373-1093)
[2023-08-16 23:28] VITALS: BP 130/56; PULSE 61; RESP 16; TEMP 36.4; O2SAT 97
--- NOTE | 2023-08-16 23:41 | MHC.EDTECH ---
Patient repeated labs drawn and sent to lab ,0000 rounding and vitals taken ,Patient awake ,snacked offer ,patient refused ,Patient niece went home ,Call hopson within Pt reach .
[2023-08-16 23:55] LABS: Osmolality, Serum 249 mosm/kg (281-305)
[2023-08-17 00:06] LABS: Anion Gap 14 (12-20); Blood Urea Nitrogen 13 mg/dL (9-16); Calcium 8.7 mg/dL (8.4-10.2); Carbon Dioxide 22 mmol/L (22-29); Chloride 89 mmol/L (96-108); Creatinine Clr Calc Pharmacy 50.1; Estimated Glomerular Filt Rate > 60; Glucose Random 89 mg/dL (60-115); Potassium 4.7 mmol/L (3.3-5.1); Sodium 120 mmol/L (135-145)
--- NOTE | 2023-08-17 00:33 | MHC.EDTECH ---
Patient was assisted unto bedside commode ,void and was assisted back to bed ,Patient had sips of [place] abdullahi to drink .
[2023-08-17 01:53] VITALS: BP 128/51; PULSE 60; RESP 16; TEMP 36.7; O2SAT 98
--- NOTE | 2023-08-17 02:03 | MHC.EDTECH ---
repeated bmp drawn and sent to lab ,vitals taken .warm blanket given .
[2023-08-17 02:20] LABS: Anion Gap 13 (12-20); Blood Urea Nitrogen 12 mg/dL (9-16); Calcium 9.1 mg/dL (8.4-10.2); Carbon Dioxide 23 mmol/L (22-29); Chloride 91 mmol/L (96-108); Creatinine Clr Calc Pharmacy 52.1; Estimated Glomerular Filt Rate > 60; Glucose Random 86 mg/dL (60-115); Potassium 4.6 mmol/L (3.3-5.1); Sodium 122 mmol/L (135-145)
--- NOTE | 2023-08-17 02:30 | PM.IMHP ---
History of Present Illness Date of Service: 08/17/23 Chief Complaint: Abnormal labs This is a 83-year-old female with pertinent history of mood disorder, hypothyroidism, hypertension, gastroesophageal reflux disease, atrial flutter not on anticoagulation, monoclonal gammopathy of unknown significance, sick sinus syndrome who presents to the emergency department for evaluation of abnormal labs. Patient is a poor historian but knows that she is in the hospital for low-sodium. Patient was scheduled for outpatient follow-up with Nephrology. Patient had labs done today and was found to have a sodium of 120 and was sent to the ER. Patient has no complaints at the time of my evaluation. As per ER provider, the daughter was present earlier at bedside and said that patient was getting progressively weaker and had intermittent diarrhea last week. Patient denies chest discomfort, fever, chills, shortness of breath, abdominal pain. In the emergency department, initial sodium 118 with repeat sodium 120. Nephrology was consulted and patient was deemed okay to be admitted on medicine floor. Review of Systems Constitutional: Constitutional: Reports fatigue and Reports weakness Cardiovascular: Cardiovascular: Reports no additional cardiovascular complaints Respiratory: Respiratory: Reports no additional respiratory complaints Gastrointestinal: Gastrointestinal: Reports no additional gastrointestinal complaints Genitourinary: Genitourinary: Reports no additional female genitourinary complaints Neurologic: Reports weakness Endocrine: Endocrine: Reports fatigue [facility] Medical History Dysphagia Vitamin D deficiency Thyroid cancer Medicare annual wellness visit, initial Paroxysmal atrial flutter Type 2 diabetes mellitus with hyperglycemia GERD (gastroesophageal reflux disease) MGUS (monoclonal gammopathy of unknown significance) Osteoarthritis Vitamin D deficiency Post-surgical hypothyroidism Non-toxic multinodular goiter Follicular carcinoma of thyroid gland SSS (sick sinus syndrome) Atrial flutter (~11/2019) Carpal tunnel syndrome DDD (degenerative disc disease) Peptic ulcer disease Obesity Impaired glucose tolerance Hyperlipidemia Hypertension Bradycardia Thyroid nodule Pacemaker (~11/2019) Family History Father No problems noted. Mother CVD (cardiovascular disease) Heart disease Brother CVD (cardiovascular disease) Sudden cardiac Surgical History Hx of endoscopy History of bilateral knee replacement Hx of arthroscopy of right knee Pulmonary nodule Hx of partial thyroidectomy Hx of appendectomy Hx of carpal tunnel repair Hx of colonoscopy History of back surgery Hx of knee surgery (~09/2012) Social History Housing: House Are you a primary career discovery teacher to a significant other at home: No ( with dementia last year) Do you presently have visiting nurse or other home services: No Alcohol intake: never Patient Tobacco Use Status: Never used Tobacco Smoked in Last 30 Days: No e-Cigarette/Vaping Use: Never Used Second Hand Smoke Exposure: No Use of substances other than those prescribed or required for medical reasons: No Advance Directives: Yes Advance Directives on File: Yes Advance Directives Date on File: 12/06/21 service: No Current occupational status: retired Cognitive needs: No Hearing needs: No Vision needs: Yes Meds Allergies Allergy/AdvReac Type Severity Reaction Status Date / Time No Known Allergies Allergy Verified 08/16/23 18:22 Active Medications: Current Medications Sodium Chloride (Ns) 1,000 mls @ 60 mls/hr IVCONT .[id number] [place] Last Admin: 08/16/23 21:12 Dose: 60 mls/hr Home Medications ?Medication ?Instructions ?Recorded ?Confirmed ?Last Taken ?Type calcium carbonate 500 mg-vitamin 1 tab PO DAILY 06/16/23 07/18/23 Unknown History D3 10 mcg (400 unit) tablet (Oystercal-D) coenzyme Q10 50 mg capsule (Co 50 mg PO DAILY 06/16/23 07/18/23 Unknown History Q-10) lorazepam 0.5 mg tablet 0.5 mg PO BEDTIME PRN 06/16/23 07/18/23 Unknown History magnesium oxide 250 mg PO DAILY 06/16/23 07/18/23 Unknown History metoprolol tartrate 50 mg tablet 25 mg PO DAILY 07/18/23 07/18/23 Unknown History Physical Exam Vital Signs and Narrative: Vital Signs: Last Vital Signs Temp 98.0 F 08/17/23 01:53 Pulse 60 08/17/23 01:53 Resp 16 08/17/23 01:53 BP 128/51 L 08/17/23 01:53 Pulse Ox 98 08/17/23 01:53 O2 Del Method Room Air 08/17/23 01:53 BMI result Body Mass Index 29.9 Elderly female lying in bed in no distress Neck supple, no JVD Regular rate and rhythm, S1-S2 heard Regular breath sounds bilaterally, no wheezing or crackles appreciated Abdomen soft nontender, no guarding, no rigidity Patient is awake, alert and oriented to self and place ; no focal motor deficit Psych: Normal mood No pedal edema Results Labs 08/16/23 18:36 08/17/23 01:59 Labs: Laboratory Results - last 24 hr 08/16/23 08/16/23 08/16/23 18:36 21:23 23:39 MCV 86.4 MCH 31.0 MCHC 35.9 H RDW 14.0 Plt Count 289 MPV 8.8 L Immature Gran % (Auto) 1.2 H Neut % (Auto) 55.3 Lymph % (Auto) 33.3 [place] % (Auto) 8.7 Eos % (Auto) 0.8 Baso % (Auto) 0.7 Lymph # (Auto) 2.5 [place] # (Auto) 0.7 Eos # (Auto) 0.1 Baso # (Auto) 0.1 Abs Immat Gran (auto) 0.09 H Absolute Neuts (auto) 4.2 Absolute Nucleated RBC 0.000 Nucleated RBC % (auto) 0.0 Anion Gap 14 14 Estim Creat Clear Calc 44.8 50.1 Estimated GFR > 60 > 60 Random Glucose 109 89 Osmolality 249 L Calcium 9.1 8.7 Magnesium 1.7 Total Bilirubin 0.4 AST 13 ALT 8 Alkaline Phosphatase 55 Total Protein 6.5 Albumin 3.9 Urine Color Yellow Urine Appearance Clear Urine pH 7.5 Ur Specific [place] 1.010 Urine Protein Negative Urine Glucose (UA) Negative Urine Ketones Negative Urine Blood Negative Urine Nitrite Negative Ur Leukocyte Esterase Trace H Urine RBC 0-2 Urine WBC 0-5 Ur Squamous Epith Cells 0-2 Urine Bacteria None Seen Hyaline Casts 0-2 Urine Osmolality 303 L Ur Random Sodium 52.0 Urine Creatinine 51.08 08/17/23 01:59 MCV MCH MCHC RDW Plt Count MPV Immature Gran % (Auto) Neut % (Auto) Lymph % (Auto) [place] % (Auto) Eos % (Auto) Baso % (Auto) Lymph # (Auto) [place] # (Auto) Eos # (Auto) Baso # (Auto) Abs Immat Gran (auto) Absolute Neuts (auto) Absolute Nucleated RBC Nucleated RBC % (auto) Anion Gap 13 Estim Creat Clear Calc 52.1 Estimated GFR > 60 Random Glucose 86 Osmolality Calcium 9.1 Magnesium Total Bilirubin AST ALT Alkaline Phosphatase Total Protein Albumin Urine Color Urine Appearance Urine pH Ur Specific [place] Urine Protein Urine Glucose (UA) Urine Ketones Urine Blood Urine Nitrite Ur Leukocyte Esterase Urine RBC Urine WBC Ur Squamous Epith Cells Urine Bacteria Hyaline Casts Urine Osmolality Ur Random Sodium Urine Creatinine Imaging Radiologist's Impressions: Impressions Head CT 08/16/23 20:18 IMPRESSION: 1. No acute intracranial pathology. 2. Chronic white matter small vessel ischemic changes. Assessment and Plan (1) Hyponatremia: Status: Acute Plan This is a 83-year-old female with pertinent history of mood disorder, hypothyroidism, hypertension, gastroesophageal reflux disease, atrial flutter not on anticoagulation, monoclonal gammopathy of unknown significance, sick sinus syndrome who presents to the emergency department for evaluation of abnormal labs. #. Hyponatremia due to SIADH: Sodium levels 118>120>122. Nephrology was consulted from the ER, appreciate assistance. Will place fluid restrictions. Patient possibly on multiple medications that can cause SIADH: SSRI, PPI, amiodarone and valproate. Patient does not remember her medications. Will wait for pharmacy med reconciliation. Obtaining TSH. Closely monitor serum sodium #. Hypothyroidism: On Synthroid #. Atrial flutter status post pacemaker: Previously on anticoagulation #. Hypertension: Continue home antihypertensives Med rec pending DVT prophylaxis: Lovenox Full code. Discussed with patient at bedside Admit as inpatient and will require two night minimum hospital stay for close monitoring of serum sodium (as above), which is not possible in a lesser acute setting. Specialist consult pending Quality Stroke Does the patient have a stroke diagnosis?: No VTE Prior VTE?: No VTE Risk Level:: Medical - moderate - high VTE Device Contraindication: Treatment Not Indicated VTE Drug Contraindication: N/A - Med Ordered
[2023-08-17 03:40] VITALS: BP 114/60; PULSE 60; RESP 16; TEMP 36.5; O2SAT 97
--- NOTE | 2023-08-17 03:41 | MHC.EDTECH ---
Patient awake ,rang to use bedside commode ,was assisted ,void care given back in bed ,vitals taken ,call [facility] within patient reach .
--- NOTE | 2023-08-17 04:48 | PC.NURSE ---
pt resting comfortably throughout the night. breathing even and unlabored, no apparent distress. call hopson w/in reach
[2023-08-17 05:11] LABS: MANUAL DIFF FLAG NO
[2023-08-17 05:13] LABS: Basophils Percent Auto 0.5 % (0-2); Eosinophils Absolute Auto 0.1 X10*3/uL (0.0-0.4); Eosinophils Percent Auto 1.1 % (0-4); Hematocrit 34.6 % (37.0-47.0); Hemoglobin 12.6 g/dl (12.0-16.0); Imm Gran Abs Auto 0.06 X10*3/uL (0.00-0.03); Imm Gran Pct Auto 0.7 % (0.0-0.4); Lymphocytes Absolute Auto 2.7 X10*3/uL (1.2-4.9); Lymphocytes Percent Auto 33.1 % (20-40); Mean Corpuscular HGB Conc 36.4 g/dl (31.0-35.0); Mean Corpuscular Volume 85.2 fL (80.0-98.0); Mean Platelet Volume 9.2 fL (9.4-12.3); Neutrophils Absolute Auto 4.3 x10*3/uL (2.0-8.3); Neutrophils Percent Auto 52.6 % (45-73); Platelet Count 285 X10*3/uL (160-400); Red Blood Count 4.06 X10*6/uL (4.20-5.50); Red Cell Distribution Width 13.8 % (11.0-16.0); White Blood Count 8.1 X10*3/uL (4.8-10.8)
[2023-08-17 05:33] LABS: Anion Gap 12 (12-20); Blood Urea Nitrogen 11 mg/dL (9-16); Calcium 9.2 mg/dL (8.4-10.2); Carbon Dioxide 25 mmol/L (22-29); Chloride 91 mmol/L (96-108); Creatinine Clr Calc Pharmacy 52.8; Estimated Glomerular Filt Rate > 60; Glucose Random 91 mg/dL (60-115); Potassium 4.6 mmol/L (3.3-5.1); Sodium 123 mmol/L (135-145)
[2023-08-17 05:51] LABS: Thyroid Stimulating Hormone 3.39 uIU/mL (0.32-4.0)
[2023-08-17 06:15] VITALS: BP 157/57; PULSE 65; RESP 16; TEMP 37.2; O2SAT 97
[2023-08-17 07:16] VITALS: BP 163/88; PULSE 60; RESP 12; TEMP 36; O2SAT 97
--- NOTE | 2023-08-17 08:42 | P.PNIM_ITS ---
Subjective Subjective Date of Service: 08/17/23 Interval History: weakness Physical Exam 2 Vital Signs: Vital Signs: Last Vital Signs Temp 96.8 F 08/17/23 07:16 Pulse 60 08/17/23 07:16 Resp 12 08/17/23 07:16 BP 163/88 H 08/17/23 07:16 Pulse Ox 97 08/17/23 07:16 O2 Del Method Room Air 08/17/23 07:16 BMI result Body Mass Index 29.9 General: AO X 3, no acute distress Resp: CTA bilateral, no accessory muscles used CVS: S1,S2,RRR GI: soft, non tender, non distended Neuro: motor grossly intact, alert Psych: appropriate affect, appropriate insight Objective Data Active Medications Acetaminophen (Acetaminophen 325 Mg Tablet) 650 mg PO Q6H PRN PRN Reason: Pain, Mild (Pain Scale 1-3) Enoxaparin Sodium (Enoxaparin Sodium 40 Mg/0.4 Ml Syringe) 40 mg SUBCUT Q24H [facility] Sodium Chloride (Ns) 1,000 mls @ 60 mls/hr IVCONT .[id number] [facility] Last Admin: 08/16/23 21:12 Dose: 60 mls/hr Documented By: DIOR Melatonin (Melatonin 3 Mg Tablet) 6 mg PO BEDTIME PRN PRN Reason: Insomnia Ondansetron HCl (Ondansetron Hcl 4 Mg/2 Ml Vial) 4 mg IVPUSH Q8H PRN PRN Reason: Nausea and Vomiting Sodium Chloride (0.9 % Sodium Chloride Flush 3 Ml Syringe) 3 ml IVFLUSH QSHIFT [facility] Last Admin: 08/17/23 07:23 Dose: Not Given Documented By: DMITRY Non-Admin Reason: IV Running Labs 08/17/23 04:33 08/17/23 04:33 Labs: Laboratory Results - last 24 hr 08/16/23 08/16/23 08/16/23 18:36 21:23 23:39 MCV 86.4 MCH 31.0 MCHC 35.9 H RDW 14.0 Plt Count 289 MPV 8.8 L Immature Gran % (Auto) 1.2 H Neut % (Auto) 55.3 Lymph % (Auto) 33.3 Person % (Auto) 8.7 Eos % (Auto) 0.8 Baso % (Auto) 0.7 Lymph # (Auto) 2.5 Person # (Auto) 0.7 Eos # (Auto) 0.1 Baso # (Auto) 0.1 Abs Immat Gran (auto) 0.09 H Absolute Neuts (auto) 4.2 Absolute Nucleated RBC 0.000 Nucleated RBC % (auto) 0.0 Anion Gap 14 14 Estim Creat Clear Calc 44.8 50.1 Estimated GFR > 60 > 60 Random Glucose 109 89 Osmolality 249 L Calcium 9.1 8.7 Magnesium 1.7 Total Bilirubin 0.4 AST 13 ALT 8 Alkaline Phosphatase 55 Total Protein 6.5 Albumin 3.9 TSH Urine Color Yellow Urine Appearance Clear Urine pH 7.5 Ur Specific [place] 1.010 Urine Protein Negative Urine Glucose (UA) Negative Urine Ketones Negative Urine Blood Negative Urine Nitrite Negative Ur Leukocyte Esterase Trace H Urine RBC 0-2 Urine WBC 0-5 Ur Squamous Epith Cells 0-2 Urine Bacteria None Seen Hyaline Casts 0-2 Urine Osmolality 303 L Ur Random Sodium 52.0 Urine Creatinine 51.08 08/17/23 08/17/23 01:59 04:33 MCV 85.2 MCH 31.0 MCHC 36.4 H RDW 13.8 Plt Count 285 MPV 9.2 L Immature Gran % (Auto) 0.7 H Neut % (Auto) 52.6 Lymph % (Auto) 33.1 Person % (Auto) 12.0 H Eos % (Auto) 1.1 Baso % (Auto) 0.5 Lymph # (Auto) 2.7 Person # (Auto) 1.0 Eos # (Auto) 0.1 Baso # (Auto) 0.0 Abs Immat Gran (auto) 0.06 H Absolute Neuts (auto) 4.3 Absolute Nucleated RBC 0.000 Nucleated RBC % (auto) 0.0 Anion Gap 13 12 Estim Creat Clear Calc 52.1 52.8 Estimated GFR > 60 > 60 Random Glucose 86 91 Osmolality Calcium 9.1 9.2 Magnesium Total Bilirubin AST ALT Alkaline Phosphatase Total Protein Albumin TSH 3.39 Urine Color Urine Appearance Urine pH Ur Specific [place] Urine Protein Urine Glucose (UA) Urine Ketones Urine Blood Urine Nitrite Ur Leukocyte Esterase Urine RBC Urine WBC Ur Squamous Epith Cells Urine Bacteria Hyaline Casts Urine Osmolality Ur Random Sodium Urine Creatinine Assessment and Plan (1) Hyponatremia: Status: Acute Plan 83F PMH SDH, chronic hyponatremia, hypothryoid, htn, gerd, paroxysmal aflutter, MGUS presented with hyponatremia and weakness acute on chronic hyponatremia 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 (?depakote) and solute deficiency improving at appropriate rate ns, nephro eval, monitor bmp, fluid restrict paroxysmal aflutter amio not on AC due to SDH HTN amlodipine, hydralazine, lisinopril dvt prophyalxis - lovenox full code reason for continued hospitalization:hyponatremia Quality Stroke Does the patient have a stroke diagnosis?: No VTE Prior VTE?: No VTE Risk Level:: Medical - moderate - high VTE Device Contraindication: Treatment Not Indicated VTE Drug Contraindication: N/A - Med Ordered
[2023-08-17] MEDS: Enoxaparin Sodium 40 MG/0.4 ML SYRINGE SUBCUT (09:24)
--- NOTE | 2023-08-17 10:28 | PM.CNNEP ---
History of Present Illness Reason for Consult Consult date: 08/17/23 Chief Complaint Chief complaint: abnormal labs History of Present Illness Narrative: 83-year-old female with pertinent history of mood disorder, hypothyroidism, hypertension, gastroesophageal reflux disease, atrial flutter not on anticoagulation, monoclonal gammopathy of unknown significance, sick sinus syndrome who presents to the emergency department for evaluation of abnormal labs. Patient is a poor historian but knows that she is in the hospital for low-sodium. She was sent to the ER because of hyponatremia She sees my associate Dr. Hastings. She is history of chronic hyponatremia. She was in [facility] and she was given urea powder. It is unclear if he has been taking urea at this time. Prior to his admission serum sodium was 118. She was started on IV normal saline sodium has gradually increased to 123. Rate of correction has been acceptable. [facility] Past Medical History Medical History Dysphagia Vitamin D deficiency Thyroid cancer Medicare annual wellness visit, initial Paroxysmal atrial flutter Type 2 diabetes mellitus with hyperglycemia GERD (gastroesophageal reflux disease) MGUS (monoclonal gammopathy of unknown significance) Osteoarthritis Vitamin D deficiency Post-surgical hypothyroidism Non-toxic multinodular goiter Follicular carcinoma of thyroid gland SSS (sick sinus syndrome) Atrial flutter (~11/2019) Carpal tunnel syndrome DDD (degenerative disc disease) Peptic ulcer disease Obesity Impaired glucose tolerance Hyperlipidemia Hypertension Bradycardia Thyroid nodule Pacemaker (~11/2019) Family History Family History Father No problems noted. Mother CVD (cardiovascular disease) Heart disease Brother CVD (cardiovascular disease) Sudden cardiac Surgical History Surgical History Hx of endoscopy History of bilateral knee replacement Hx of arthroscopy of right knee Pulmonary nodule Hx of partial thyroidectomy Hx of appendectomy Hx of carpal tunnel repair Hx of colonoscopy History of back surgery Hx of knee surgery (~09/2012) Social History Social History Household Members: Other Household Members Other:: niece Housing: House Are you a primary reproductive healthcare assistant to a significant other at home: No ( with dementia last year) Do you presently have visiting nurse or other home services: Yes Alcohol intake: never Patient Tobacco Use Status: Never used Tobacco e-Cigarette/Vaping Use: Never Used Second Hand Smoke Exposure: No Advance Directives Date on File: 12/06/21 service: No Current occupational status: retired Cognitive needs: No Hearing needs: No Vision needs: Yes Meds Allergies Allergy/AdvReac Type Severity Reaction Status Date / Time No Known Allergies Allergy Verified 08/16/23 18:22 Active Medications: Current Medications Acetaminophen (Acetaminophen 325 Mg Tablet) 650 mg PO Q6H PRN PRN Reason: Pain, Mild (Pain Scale 1-3) Enoxaparin Sodium (Enoxaparin Sodium 40 Mg/0.4 Ml Syringe) 40 mg SUBCUT Q24H [facility] Last Admin: 08/17/23 09:24 Dose: 40 mg Sodium Chloride (Ns) 1,000 mls @ 60 mls/hr IVCONT .[id number] [facility] Last Admin: 08/16/23 21:12 Dose: 60 mls/hr Melatonin (Melatonin 3 Mg Tablet) 6 mg PO BEDTIME PRN PRN Reason: Insomnia Ondansetron HCl (Ondansetron Hcl 4 Mg/2 Ml Vial) 4 mg IVPUSH Q8H PRN PRN Reason: Nausea and Vomiting Sodium Chloride (0.9 % Sodium Chloride Flush 3 Ml Syringe) 3 ml IVFLUSH QSHIFT [facility] Last Admin: 08/17/23 07:23 Dose: Not Given Home Medications ?Medication ?Instructions ?Recorded ?Confirmed ?Last Taken ?Type calcium carbonate 500 mg-vitamin 1 tab PO DAILY 06/16/23 07/18/23 Unknown History D3 10 mcg (400 unit) tablet (Oystercal-D) coenzyme Q10 50 mg capsule (Co 50 mg PO DAILY 06/16/23 07/18/23 Unknown History Q-10) lorazepam 0.5 mg tablet 0.5 mg PO BEDTIME PRN Anxiety 06/16/23 07/18/23 Unknown History magnesium oxide 250 mg PO DAILY 06/16/23 07/18/23 Unknown History metoprolol tartrate 50 mg tablet 25 mg PO DAILY 07/18/23 07/18/23 Unknown History apixaban 5 mg tablet (Eliquis) 5 mg PO BID 08/17/23 08/17/23 Unknown History omeprazole 20 mg capsule,delayed 20 mg PO DAILY@0630 08/17/23 Unknown History release Physical Exam Vital Signs: Last Vital Signs Temp 96.8 F 08/17/23 07:16 Pulse 60 08/17/23 07:16 Resp 12 08/17/23 07:16 BP 163/88 H 08/17/23 07:16 Pulse Ox 97 08/17/23 07:16 O2 Del Method Room Air 08/17/23 07:16 BMI result Body Mass Index 29.9 Const General: ill appearing Neck Neck: Yes supple Resp Auscultation: clear to auscultation bilaterally Cardio Palpation: no palpable S3 Heart sounds: no rubs GI Palpation (GI): Soft to palpation Auscultation: normal bowel sounds Neuro Motor exam (neuro): no asterixis Results Lab Results 08/17/23 04:33 08/17/23 04:33 Lab results: Chemistry 08/16/23 08/16/23 08/17/23 18:36 23:39 01:59 Sodium 118 L* 120 L* 122 L Potassium 5.1 4.7 4.6 Carbon Dioxide 24 22 23 BUN 15 13 12 Creatinine 0.86 0.77 0.74 Calcium 9.1 8.7 9.1 08/17/23 04:33 Sodium 123 L Potassium 4.6 Carbon Dioxide 25 BUN 11 Creatinine 0.73 Calcium 9.2 Hematology 08/16/23 08/17/23 18:36 04:33 WBC 7.6 8.1 Hgb 12.1 12.6 Plt Count 289 285 Urinalysis 08/16/23 21:23 Urine Color Yellow Urine Appearance Clear Urine pH 7.5 Ur Specific [place] 1.010 Urine Protein Negative Urine Glucose (UA) Negative Urine Ketones Negative Urine Blood Negative Urine Nitrite Negative Ur Leukocyte Esterase Trace H Urine RBC 0-2 Urine WBC 0-5 Ur Squamous Epith Cells 0-2 Hyaline Casts 0-2 Urine Studies 08/16/23 21:23 Urine Osmolality 303 L Urine Creatinine 51.08 Assessment and Plan (1) Hyponatremia: Status: Acute Plan Elderly woman with chronic hyponatremia presents with acute worsening of serum sodium. Based on the available data it appears she has hypotonic hyponatremia due to non osmotic ADH release. Contributing factors for ADH release would include subdural hematoma and use of Depakote. TSH is normal. At this time the goal is to correct serum sodium at a rate of 0.5-1 millimole per L/hr and not exceed more than 10 millimoles in 24 hours. Currently the rate of correction is acceptable. I will keep her on normal saline at 50 cc/hour x1 L and reassess serum sodium every 4-6 hours. Limit oral free water intake to 1 L per 24 hours. Given the history of chronic hyponatremia she will benefit from urea powder. I would recommend starting with 15 g p.o. b.i.d. She will follow along with the team. Procedures Date of Service Date of Service: 08/17/23
[2023-08-17 10:41] LABS: Sodium 123 mmol/L (135-145)
--- NOTE | 2023-08-17 12:00 | PHA.MEDREC ---
Addendum entered by Saida Pichardo RPh 08/17/23 12:17: REVIEWED BY [facility] Original Note: Pharmacy Consult ? Medication Reconciliation Pharmacy has completed the medication reconciliation. Confirmed med list with patients daughter. she stated patient is no longer on Amiodarone 200mg daily since 08-14-[address] gr. She also stated Eliquis was discontinued per md due to fall. Lorazepam discontinued because it caused dizziness.
[2023-08-17] MEDS: 0.9 % Sodium Chloride 1,000 ML 60 ML IVCONT (12:32)
[2023-08-17] MEDS: Divalproex Sodium Sprinkles 125 MG CAP.DR.SPR 250 MG PO ×2 (15:06→20:13)
[2023-08-17] MEDS: 0.9 % Sodium Chloride Flush 3 ML SYRINGE IVFLUSH (15:09)
[2023-08-17 15:17] VITALS: BP 143/74; PULSE 60; RESP 16; TEMP 36.2; O2SAT 97
[2023-08-17 18:28] LABS: Sodium 127 mmol/L (135-145)
[2023-08-17 19:17] VITALS: BP 158/65; PULSE 61; RESP 18; TEMP 36.2; O2SAT 98
[2023-08-17] MEDS: Melatonin 3 MG TABLET 6 MG PO (20:13)
[2023-08-17] MEDS: hydrALAZINE HCl 50 MG TABLET PO (20:13)
[2023-08-17] MEDS: Atorvastatin Calcium 10 MG TABLET PO (20:13)
[2023-08-17] MEDS: Acetaminophen 325 MG TABLET 650 MG PO (20:13)
[2023-08-18] VITALS (7 sets, daily range): BP systolic 138–160; BP diastolic 65–74; PULSE 60–74; RESP 16–20; TEMP 36–36.2; O2SAT 97–98
[2023-08-18] MEDS: 0.9 % Sodium Chloride 1,000 ML 60 ML IVCONT (04:45)
[2023-08-18 05:26] LABS: Hematocrit 34.7 % (37.0-47.0); Hemoglobin 12.4 g/dl (12.0-16.0); Mean Corpuscular HGB Conc 35.7 g/dl (31.0-35.0); Mean Corpuscular Hemoglobin 31.4 pg (27.0-33.0); Mean Corpuscular Volume 87.8 fL (80.0-98.0); Platelet Count 268 X10*3/uL (160-400); Red Blood Count 3.95 X10*6/uL (4.20-5.50); Red Cell Distribution Width 14.4 % (11.0-16.0); White Blood Count 6.5 X10*3/uL (4.8-10.8)
[2023-08-18] MEDS: Levothyroxine Sodium 50 MCG TABLET PO (05:52)
[2023-08-18] MEDS: Omeprazole 20 MG CAPSULE.DR PO (05:52)
[2023-08-18 05:54] LABS: Anion Gap 13 (12-20); Blood Urea Nitrogen 7 mg/dL (9-16); Calcium 9.3 mg/dL (8.4-10.2); Carbon Dioxide 23 mmol/L (22-29); Chloride 97 mmol/L (96-108); Creatinine Clr Calc Pharmacy 55.8; Estimated Glomerular Filt Rate > 60; Glucose Fasting 91 mg/dL (60-99); Potassium 4.9 mmol/L (3.3-5.1); Sodium 128 mmol/L (135-145)
[2023-08-18] MEDS: Enoxaparin Sodium 40 MG/0.4 ML SYRINGE SUBCUT (07:47)
[2023-08-18] MEDS: Urea 15 GM POWDER PO ×2 (07:47→20:16)
[2023-08-18] MEDS: Calcium + Vitamin D 250 MG TABLET PO (07:47)
[2023-08-18] MEDS: Spironolactone 25 MG TABLET PO (07:47)
[2023-08-18] MEDS: amLODIPine Besylate 10 MG TABLET PO (07:47)
[2023-08-18] MEDS: Divalproex Sodium Sprinkles 125 MG CAP.DR.SPR 250 MG PO ×3 (07:48→20:18)
[2023-08-18] MEDS: hydrALAZINE HCl 50 MG TABLET PO ×2 (07:48→20:17)
[2023-08-18] MEDS: lisinopriL 40 MG TABLET PO (07:48)
[2023-08-18] MEDS: Metoprolol Tartrate 25 MG TABLET PO (07:48)
[2023-08-18] MEDS: Magnesium Oxide 400 MG TABLET 200 MG PO (07:50)
--- NOTE | 2023-08-18 09:22 | P.PNIM_ITS ---
Subjective Subjective Date of Service: 08/18/23 Interval History: weakness Physical Exam 2 Vital Signs: Vital Signs: Last Vital Signs Temp 96.8 F 08/18/23 07:15 Pulse 60 08/18/23 07:48 Resp 16 08/18/23 07:15 BP 160/66 H 08/18/23 07:48 Pulse Ox 97 08/18/23 07:15 O2 Del Method Room Air 08/18/23 07:15 BMI result Body Mass Index 29.9 Const: General: ill appearing Neck: Neck: Yes supple Resp: Auscultation: clear to auscultation bilaterally Cardio: Palpation: no palpable S3 Heart sounds: no rubs GI: Palpation (GI): Soft to palpation Auscultation: normal bowel sounds Neuro: Motor exam (neuro): no asterixis Objective Data Active Medications Acetaminophen (Acetaminophen 325 Mg Tablet) 650 mg PO Q6H PRN PRN Reason: Pain, Mild (Pain Scale 1-3) Last Admin: 08/17/23 20:13 Dose: 650 mg Documented By: JASPER Amlodipine Besylate (Amlodipine Besylate 10 Mg Tablet) 10 mg PO DAILY [facility]; Protocol Last Admin: 08/18/23 07:47 Dose: 10 mg Documented By: DMITRY Atorvastatin Calcium (Atorvastatin Calcium 10 Mg Tablet) 10 mg PO BEDTIME [facility] Last Admin: 08/17/23 20:13 Dose: 10 mg Documented By: JASPER Calcium Carbonate/Cholecalciferol (Calcium + Vitamin D 250 Mg Tablet) 250 mg PO DAILY [facility] Last Admin: 08/18/23 07:47 Dose: 250 mg Documented By: DMITRY Divalproex Sodium (Divalproex Sodium Sprinkles 125 Mg ) 250 mg PO TID [facility] Last Admin: 08/18/23 07:48 Dose: 250 mg Documented By: DMITRY Enoxaparin Sodium (Enoxaparin Sodium 40 Mg/0.4 Ml Syringe) 40 mg SUBCUT Q24H [facility] Last Admin: 08/18/23 07:47 Dose: 40 mg Documented By: DMITRY Hydralazine HCl (Hydralazine Hcl 50 Mg Tablet) 50 mg PO BID [facility]; Protocol Last Admin: 08/18/23 07:48 Dose: 50 mg Documented By: DMITRY Sodium Chloride (Ns) 1,000 mls @ 60 mls/hr IVCONT .[id number] [facility] Last Admin: 08/18/23 04:45 Dose: 60 mls/hr Documented By: JASPER Levothyroxine Sodium (Levothyroxine Sodium 50 Mcg Tablet) 50 mcg PO DAILY@0600 [facility] Last Admin: 08/18/23 05:52 Dose: 50 mcg Documented By: JASPER Lisinopril (Lisinopril 40 Mg Tablet) 40 mg PO DAILY [facility]; Protocol Last Admin: 08/18/23 07:48 Dose: 40 mg Documented By: DMITRY Magnesium Oxide (Magnesium Oxide 400 Mg Tablet) 200 mg PO DAILY [facility] Last Admin: 08/18/23 07:50 Dose: 200 mg Documented By: DMITRY Melatonin (Melatonin 3 Mg Tablet) 6 mg PO BEDTIME PRN PRN Reason: Insomnia Last Admin: 08/17/23 20:13 Dose: 6 mg Documented By: JASPER Metoprolol Tartrate (Metoprolol Tartrate 25 Mg Tablet) 25 mg PO DAILY [facility]; Protocol Last Admin: 08/18/23 07:48 Dose: 25 mg Documented By: DMITRY Omeprazole (Omeprazole 20 Mg Capsule.Dr) 20 mg PO DAILY@0630 [facility] Last Admin: 08/18/23 05:52 Dose: 20 mg Documented By: JASPER Ondansetron HCl (Ondansetron Hcl 4 Mg/2 Ml Vial) 4 mg IVPUSH Q8H PRN PRN Reason: Nausea and Vomiting Sodium Chloride (0.9 % Sodium Chloride Flush 3 Ml Syringe) 3 ml IVFLUSH QSHIFT [facility] Last Admin: 08/18/23 06:59 Dose: Not Given Documented By: DMITRY Non-Admin Reason: IV Running Spironolactone (Spironolactone 25 Mg Tablet) 25 mg PO DAILY [facility]; Protocol Last Admin: 08/18/23 07:47 Dose: 25 mg Documented By: DMITRY Urea (Urea 15 Gm Powder) 15 gm PO Q12H [facility] Last Admin: 08/18/23 07:47 Dose: 15 gm Documented By: DMITRY Labs 08/18/23 05:23 08/18/23 05:23 Labs: Laboratory Results - last 24 hr 08/18/23 05:23 MCV 87.8 MCH 31.4 MCHC 35.7 H RDW 14.4 Plt Count 268 MPV 9.0 L Absolute Nucleated RBC 0.000 Nucleated RBC % (auto) 0.0 Anion Gap 13 Estim Creat Clear Calc 55.8 Estimated GFR > 60 Fasting Glucose 91 Calcium 9.3 Assessment and Plan (1) Hyponatremia: Status: Acute Plan 83F PMH SDH, chronic hyponatremia, hypothryoid, htn, gerd, paroxysmal aflutter, MGUS presented with hyponatremia and weakness acute on chronic hyponatremia 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 (?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) and solute deficiency improving at appropriate rate s/p 2 days of NS at 60cc/hr, nephro following, monitor bmp, fluid restrict, restarting urea paroxysmal aflutter amio not on AC due to SDH HTN amlodipine, hydralazine, lisinopril dvt prophyalxis - lovenox full code reason for continued hospitalization:hyponatremia Quality Stroke Does the patient have a stroke diagnosis?: No VTE Prior VTE?: No VTE Risk Level:: Medical - moderate - high VTE Device Contraindication: Treatment Not Indicated VTE Drug Contraindication: N/A - Med Ordered
--- NOTE | 2023-08-18 11:44 | P.PNNP_ITS ---
Subjective Subjective Date of Service: 08/18/23 Interval history: Still feel weak but better; Asking when she can go home Physical Exam 2 Vital Signs: Vital Signs: Last Vital Signs Temp 96.8 F 08/18/23 07:15 Pulse 60 08/18/23 07:48 Resp 16 08/18/23 07:15 BP 160/66 H 08/18/23 07:48 Pulse Ox 97 08/18/23 07:15 O2 Del Method Room Air 08/18/23 07:15 BMI result Body Mass Index 29.9 Const: General: no acute distress Neck: Neck: Yes supple Resp: Auscultation: diminished lung sounds Cardio: Rate: regular rate GI: Palpation (GI): Soft to palpation Neuro: General: moves all extremities Objective Data Labs 08/18/23 05:23 08/18/23 05:23 Labs: Laboratory Results - last 24 hr 08/17/23 08/18/23 18:17 05:23 WBC 6.5 RBC 3.95 L Hgb 12.4 Hct 34.7 L MCV 87.8 MCH 31.4 MCHC 35.7 H RDW 14.4 Plt Count 268 MPV 9.0 L Absolute Nucleated RBC 0.000 Nucleated RBC % (auto) 0.0 Sodium 127 L 128 L Potassium 4.9 Chloride 97 Carbon Dioxide 23 Anion Gap 13 BUN 7 L Creatinine 0.69 Estim Creat Clear Calc 55.8 Estimated GFR > 60 Fasting Glucose 91 Calcium 9.3 Procedures Date of Service Date of Service: 08/18/23 Assessment & Plan Assessment and plan (1) Hyponatremia: Status: Acute (2) Hypertension: Status: Acute Plan Hyponatremia due to excess ADH Serum sodium better; Subjectively weakness better D/Guero NS; C/W PO Urea 15 Gm bid Continue current anti hypertensive medications for now Needs electrolytes repeated and F/U with me in 2 weeks when D/Guero Progress Note: Quality Stroke Does the patient have a stroke diagnosis?: No
[2023-08-18] MEDS: 0.9 % Sodium Chloride Flush 3 ML SYRINGE IVFLUSH ×2 (14:41→20:25)
[2023-08-18] MEDS: Atorvastatin Calcium 10 MG TABLET PO (20:15)
[2023-08-19 03:15] VITALS: BP 158/70; PULSE 63; RESP 18; TEMP 36.2; O2SAT 98
[2023-08-19] MEDS: Levothyroxine Sodium 50 MCG TABLET PO (05:57)
[2023-08-19] MEDS: Omeprazole 20 MG CAPSULE.DR PO (05:57)
[2023-08-19 06:05] LABS: Anion Gap 15 (12-20); Blood Urea Nitrogen 24 mg/dL (9-16); Calcium 9.6 mg/dL (8.4-10.2); Carbon Dioxide 21 mmol/L (22-29); Chloride 94 mmol/L (96-108); Creatinine Clr Calc Pharmacy 52.8; Estimated Glomerular Filt Rate > 60; Glucose Fasting 83 mg/dL (60-99); Potassium 5.4 mmol/L (3.3-5.1); Sodium 125 mmol/L (135-145)
[2023-08-19 08:00] VITALS: BP 150/67; PULSE 57; RESP 18; TEMP 36.7; O2SAT 97
[2023-08-19] MEDS: Enoxaparin Sodium 40 MG/0.4 ML SYRINGE SUBCUT (08:28)
[2023-08-19] MEDS: amLODIPine Besylate 10 MG TABLET PO (08:28)
[2023-08-19] MEDS: Metoprolol Tartrate 25 MG TABLET PO (08:28)
[2023-08-19] MEDS: Magnesium Oxide 400 MG TABLET 200 MG PO (08:28)
[2023-08-19] MEDS: hydrALAZINE HCl 50 MG TABLET PO ×2 (08:28→19:59)
[2023-08-19] MEDS: lisinopriL 40 MG TABLET PO (08:28)
[2023-08-19] MEDS: Urea 15 GM POWDER 30 GM PO ×2 (08:28→20:02)
[2023-08-19] MEDS: Divalproex Sodium Sprinkles 125 MG CAP.DR.SPR 250 MG PO ×3 (08:28→19:59)
[2023-08-19] MEDS: Spironolactone 25 MG TABLET PO (08:28)
[2023-08-19] MEDS: 0.9 % Sodium Chloride Flush 3 ML SYRINGE IVFLUSH ×3 (08:29→20:02)
[2023-08-19] MEDS: Calcium + Vitamin D 250 MG TABLET PO (08:29)
[2023-08-19 09:36] LABS: Cortisol Random 13.7 ug/dL
--- NOTE | 2023-08-19 10:16 | HO.PM.IMPN ---
Subjective Subjective Date of Service: 08/19/23 Interval History: eager to go home Physical Exam Vital Signs: Vital Signs: Last Vital Signs Temp 98.1 F 08/19/23 08:00 Pulse 57 08/19/23 08:00 Resp 18 08/19/23 08:00 BP 150/67 H 08/19/23 08:00 Pulse Ox 97 08/19/23 08:00 O2 Del Method Room Air 08/19/23 08:00 BMI result Body Mass Index 29.9 Const: General: no acute distress Neck: Neck: Yes supple Resp: Auscultation: diminished lung sounds Cardio: Rate: regular rate GI: Palpation (GI): Soft to palpation Neuro: General: moves all extremities Objective Data Active Medications Acetaminophen (Acetaminophen 325 Mg Tablet) 650 mg PO Q6H PRN PRN Reason: Pain, Mild (Pain Scale 1-3) Last Admin: 08/17/23 20:13 Dose: 650 mg Documented By: JASPER Amlodipine Besylate (Amlodipine Besylate 10 Mg Tablet) 10 mg PO DAILY [facility]; Protocol Last Admin: 08/19/23 08:28 Dose: 10 mg Documented By: LEOPOLDO Atorvastatin Calcium (Atorvastatin Calcium 10 Mg Tablet) 10 mg PO BEDTIME [facility] Last Admin: 08/18/23 20:15 Dose: 10 mg Documented By: PRAKASH Calcium Carbonate/Cholecalciferol (Calcium + Vitamin D 250 Mg Tablet) 250 mg PO DAILY [facility] Last Admin: 08/19/23 08:29 Dose: 250 mg Documented By: LEOPOLDO Divalproex Sodium (Divalproex Sodium Sprinkles 125 Mg ) 250 mg PO TID [facility] Last Admin: 08/19/23 08:28 Dose: 250 mg Documented By: LEOPOLDO Enoxaparin Sodium (Enoxaparin Sodium 40 Mg/0.4 Ml Syringe) 40 mg SUBCUT Q24H [facility] Last Admin: 08/19/23 08:28 Dose: 40 mg Documented By: LEOPOLDO Hydralazine HCl (Hydralazine Hcl 50 Mg Tablet) 50 mg PO BID [facility]; Protocol Last Admin: 08/19/23 08:28 Dose: 50 mg Documented By: LEOPOLDO Levothyroxine Sodium (Levothyroxine Sodium 50 Mcg Tablet) 50 mcg PO DAILY@0600 [facility] Last Admin: 08/19/23 05:57 Dose: 50 mcg Documented By: PRAKASH Lisinopril (Lisinopril 40 Mg Tablet) 40 mg PO DAILY [facility]; Protocol Last Admin: 08/19/23 08:28 Dose: 40 mg Documented By: LEOPOLDO Magnesium Oxide (Magnesium Oxide 400 Mg Tablet) 200 mg PO DAILY [facility] Last Admin: 08/19/23 08:28 Dose: 200 mg Documented By: LEOPOLDO Melatonin (Melatonin 3 Mg Tablet) 6 mg PO BEDTIME PRN PRN Reason: Insomnia Last Admin: 08/17/23 20:13 Dose: 6 mg Documented By: JASPER Metoprolol Tartrate (Metoprolol Tartrate 25 Mg Tablet) 25 mg PO DAILY [facility]; Protocol Last Admin: 08/19/23 08:28 Dose: 25 mg Documented By: LEOPOLDO Omeprazole (Omeprazole 20 Mg Capsule.Dr) 20 mg PO DAILY@0630 [facility] Last Admin: 08/19/23 05:57 Dose: 20 mg Documented By: PRAKASH Ondansetron HCl (Ondansetron Hcl 4 Mg/2 Ml Vial) 4 mg IVPUSH Q8H PRN PRN Reason: Nausea and Vomiting Sodium Chloride (0.9 % Sodium Chloride Flush 3 Ml Syringe) 3 ml IVFLUSH QSHIFT [facility] Last Admin: 08/19/23 08:29 Dose: 3 ml Documented By: LEOPOLDO Spironolactone (Spironolactone 25 Mg Tablet) 25 mg PO DAILY [facility]; Protocol Last Admin: 08/19/23 08:28 Dose: 25 mg Documented By: LEOPOLDO Urea (Urea 15 Gm Powder) 30 gm PO Q12H [facility] Last Admin: 08/19/23 08:28 Dose: 30 gm Documented By: LEOPOLDO Labs 08/18/23 05:23 08/19/23 05:26 Labs: Laboratory Results - last 24 hr 08/19/23 05:26 Anion Gap 15 Estim Creat Clear Calc 52.8 Estimated GFR > 60 Fasting Glucose 83 Calcium 9.6 Random Cortisol 13.7 Assessment and Plan (1) Hyponatremia: Status: Acute Plan 83F PMH SDH, chronic hyponatremia, hypothryoid, htn, gerd, paroxysmal aflutter, MGUS presented with hyponatremia and weakness acute on chronic hyponatremia 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 (?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) and solute deficiency initial appropriate improvemnt, now decreased to 125 today s/p 2 days of NS at 60cc/hr, nephro following, monitor bmp, fluid restrict, urea increased to 30 bid, check cortisol mild hyperkalemia monitor closely (on lisinopril and aldactone) paroxysmal aflutter amio not on AC due to SDH HTN amlodipine, hydralazine, lisinopril, aldactone dvt prophyalxis - lovenox full code reason for continued hospitalization:hyponatremia Quality Stroke Does the patient have a stroke diagnosis?: No VTE Prior VTE?: No VTE Risk Level:: Medical - moderate - high VTE Device Contraindication: Treatment Not Indicated VTE Drug Contraindication: N/A - Med Ordered
[2023-08-19 14:47] VITALS: BP 123/56; PULSE 60; RESP 16; TEMP 36.1; O2SAT 98
[2023-08-19] MEDS: Acetaminophen 325 MG TABLET 650 MG PO ×2 (15:06→21:20)
[2023-08-19] MEDS: Atorvastatin Calcium 10 MG TABLET PO (19:58)
[2023-08-19 19:59] VITALS: BP 132/58
[2023-08-19 20:00] VITALS: BP 131/58; PULSE 65; RESP 18; TEMP 36.2; O2SAT 97
[2023-08-19] MEDS: Melatonin 3 MG TABLET 6 MG PO (21:23)
[2023-08-20] VITALS (7 sets, daily range): BP systolic 113–124; BP diastolic 56–59; PULSE 60–68; RESP 13–18; TEMP 36–36.7; O2SAT 97–99
[2023-08-20] MEDS: Omeprazole 20 MG CAPSULE.DR PO (05:33)
[2023-08-20] MEDS: Levothyroxine Sodium 50 MCG TABLET PO (05:33)
[2023-08-20 06:39] LABS: Hematocrit 33.7 % (37.0-47.0); Hemoglobin 11.8 g/dl (12.0-16.0); Mean Corpuscular Hemoglobin 30.6 pg (27.0-33.0); Mean Corpuscular Volume 87.5 fL (80.0-98.0); Mean Platelet Volume 9.4 fL (9.4-12.3); Platelet Count 292 X10*3/uL (160-400); Red Blood Count 3.85 X10*6/uL (4.20-5.50); Red Cell Distribution Width 14.6 % (11.0-16.0); White Blood Count 6.7 X10*3/uL (4.8-10.8)
[2023-08-20 07:05] LABS: Anion Gap 14 (12-20); Blood Urea Nitrogen 58 mg/dL (9-16); Calcium 9.4 mg/dL (8.4-10.2); Carbon Dioxide 26 mmol/L (22-29); Chloride 91 mmol/L (96-108); Creatinine Clr Calc Pharmacy 47.6; Estimated Glomerular Filt Rate > 60; Glucose Fasting 85 mg/dL (60-99); Potassium 4.6 mmol/L (3.3-5.1); Sodium 126 mmol/L (135-145)
[2023-08-20] MEDS: 0.9 % Sodium Chloride Flush 3 ML SYRINGE IVFLUSH ×3 (07:57→20:41)
[2023-08-20] MEDS: Enoxaparin Sodium 40 MG/0.4 ML SYRINGE SUBCUT (07:58)
[2023-08-20] MEDS: Urea 15 GM POWDER 30 GM PO ×2 (07:58→20:34)
[2023-08-20] MEDS: Metoprolol Tartrate 25 MG TABLET PO (07:59)
[2023-08-20] MEDS: hydrALAZINE HCl 50 MG TABLET PO ×2 (07:59→20:34)
[2023-08-20] MEDS: Calcium + Vitamin D 250 MG TABLET PO (07:59)
[2023-08-20] MEDS: Magnesium Oxide 400 MG TABLET 200 MG PO (07:59)
[2023-08-20] MEDS: lisinopriL 40 MG TABLET PO (07:59)
[2023-08-20] MEDS: amLODIPine Besylate 10 MG TABLET PO (07:59)
[2023-08-20] MEDS: Divalproex Sodium Sprinkles 125 MG CAP.DR.SPR 250 MG PO ×3 (07:59→20:33)
[2023-08-20] MEDS: Spironolactone 25 MG TABLET PO (08:00)
--- NOTE | 2023-08-20 08:37 | HO.PM.IMPN ---
Subjective Subjective Date of Service: 08/20/23 Interval History: eager to go home Physical Exam Vital Signs: Vital Signs: Last Vital Signs Temp 96.8 F 08/20/23 07:48 Pulse 60 08/20/23 07:59 Resp 17 08/20/23 07:48 BP 119/58 L 08/20/23 08:00 Pulse Ox 97 08/20/23 07:48 O2 Del Method Room Air 08/20/23 07:48 BMI result Body Mass Index 29.9 Const: General: no acute distress Neck: Neck: Yes supple Resp: Auscultation: diminished lung sounds Cardio: Rate: regular rate GI: Palpation (GI): Soft to palpation Neuro: General: moves all extremities Objective Data Active Medications Acetaminophen (Acetaminophen 325 Mg Tablet) 650 mg PO Q6H PRN PRN Reason: Pain, Mild (Pain Scale 1-3) Last Admin: 08/19/23 21:20 Dose: 650 mg Documented By: DAVID Amlodipine Besylate (Amlodipine Besylate 10 Mg Tablet) 10 mg PO DAILY [facility]; Protocol Last Admin: 08/20/23 07:59 Dose: 10 mg Documented By: MEERA Atorvastatin Calcium (Atorvastatin Calcium 10 Mg Tablet) 10 mg PO BEDTIME [facility] Last Admin: 08/19/23 19:58 Dose: 10 mg Documented By: DAVID Calcium Carbonate/Cholecalciferol (Calcium + Vitamin D 250 Mg Tablet) 250 mg PO DAILY [facility] Last Admin: 08/20/23 07:59 Dose: 250 mg Documented By: MEERA Divalproex Sodium (Divalproex Sodium Sprinkles 125 Mg ) 250 mg PO TID [facility] Last Admin: 08/20/23 07:59 Dose: 250 mg Documented By: MEERA Enoxaparin Sodium (Enoxaparin Sodium 40 Mg/0.4 Ml Syringe) 40 mg SUBCUT Q24H [facility] Last Admin: 08/20/23 07:58 Dose: 40 mg Documented By: MEEAR Hydralazine HCl (Hydralazine Hcl 50 Mg Tablet) 50 mg PO BID [facility]; Protocol Last Admin: 08/20/23 07:59 Dose: 50 mg Documented By: MEERA Levothyroxine Sodium (Levothyroxine Sodium 50 Mcg Tablet) 50 mcg PO DAILY@0600 [facility] Last Admin: 08/20/23 05:33 Dose: 50 mcg Documented By: DAVID Lisinopril (Lisinopril 40 Mg Tablet) 40 mg PO DAILY [facility]; Protocol Last Admin: 08/20/23 07:59 Dose: 40 mg Documented By: MEERA Magnesium Oxide (Magnesium Oxide 400 Mg Tablet) 200 mg PO DAILY [facility] Last Admin: 08/20/23 07:59 Dose: 200 mg Documented By: MEERA Melatonin (Melatonin 3 Mg Tablet) 6 mg PO BEDTIME PRN PRN Reason: Insomnia Last Admin: 08/19/23 21:23 Dose: 6 mg Documented By: DAVID Metoprolol Tartrate (Metoprolol Tartrate 25 Mg Tablet) 25 mg PO DAILY [facility]; Protocol Last Admin: 08/20/23 07:59 Dose: 25 mg Documented By: MEERA Omeprazole (Omeprazole 20 Mg Capsule.Dr) 20 mg PO DAILY@0630 [facility] Last Admin: 08/20/23 05:33 Dose: 20 mg Documented By: DAVID Ondansetron HCl (Ondansetron Hcl 4 Mg/2 Ml Vial) 4 mg IVPUSH Q8H PRN PRN Reason: Nausea and Vomiting Sodium Chloride (0.9 % Sodium Chloride Flush 3 Ml Syringe) 3 ml IVFLUSH QSHIFT [facility] Last Admin: 08/20/23 07:57 Dose: 3 ml Documented By: MEERA Sodium Chloride (Sodium Chloride Tab 1 Gm Tablet) 1 gm PO TID [facility] Spironolactone (Spironolactone 25 Mg Tablet) 25 mg PO DAILY [facility]; Protocol Last Admin: 08/20/23 08:00 Dose: 25 mg Documented By: MEERA Urea (Urea 15 Gm Powder) 30 gm PO Q12H [facility] Last Admin: 08/20/23 07:58 Dose: 30 gm Documented By: MEERA Labs 08/20/23 05:54 08/20/23 05:54 Labs: Laboratory Results - last 24 hr 08/19/23 08/20/23 05:26 05:54 MCV 87.5 MCH 30.6 MCHC 35.0 RDW 14.6 Plt Count 292 MPV 9.4 Absolute Nucleated RBC 0.000 Nucleated RBC % (auto) 0.0 Anion Gap 14 Estim Creat Clear Calc 47.6 Estimated GFR > 60 Fasting Glucose 85 Calcium 9.4 Random Cortisol 13.7 Assessment and Plan (1) Hyponatremia: Status: Acute Plan 83F PMH SDH, chronic hyponatremia, hypothryoid, htn, gerd, paroxysmal aflutter, MGUS presented with hyponatremia and weakness acute on chronic hyponatremia 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 (?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) and solute deficiency initial appropriate improvemnt, now stuck in mid to high 120s continue urea while inpatient (can dc on discharge) start NaCl 1gm tid, monitor bmp mild hyperkalemia resolved paroxysmal aflutter amio not on AC due to SDH HTN amlodipine, hydralazine, lisinopril, aldactone dvt prophyalxis - lovenox full code reason for continued hospitalization:hyponatremia Quality Stroke Does the patient have a stroke diagnosis?: No VTE Prior VTE?: No VTE Risk Level:: Medical - moderate - high VTE Device Contraindication: Treatment Not Indicated VTE Drug Contraindication: N/A - Med Ordered
[2023-08-20] MEDS: Sodium Chloride Tab 1 GM TABLET PO ×3 (09:47→20:33)
[2023-08-20] MEDS: Atorvastatin Calcium 10 MG TABLET PO (20:33)
[2023-08-21 03:09] VITALS: BP 142/64; PULSE 60; RESP 18; TEMP 36.3; O2SAT 97
[2023-08-21] MEDS: Acetaminophen 325 MG TABLET 650 MG PO (03:12)
[2023-08-21] MEDS: Omeprazole 20 MG CAPSULE.DR PO (05:45)
[2023-08-21] MEDS: Levothyroxine Sodium 50 MCG TABLET PO (05:45)
[2023-08-21 07:10] VITALS: BP 114/55; PULSE 59; RESP 17; TEMP 36.9; O2SAT 97
[2023-08-21 08:08] VITALS: BP 129/59
[2023-08-21] MEDS: Spironolactone 25 MG TABLET PO (08:08)
[2023-08-21] MEDS: hydrALAZINE HCl 50 MG TABLET PO (08:08)
[2023-08-21 08:09] VITALS: BP 129/59; PULSE 61
[2023-08-21] MEDS: Metoprolol Tartrate 25 MG TABLET PO (08:09)
[2023-08-21] MEDS: Sodium Chloride Tab 1 GM TABLET PO ×2 (08:09→14:33)
[2023-08-21] MEDS: Magnesium Oxide 400 MG TABLET 200 MG PO (08:09)
[2023-08-21] MEDS: Calcium + Vitamin D 250 MG TABLET PO (08:09)
[2023-08-21] MEDS: amLODIPine Besylate 10 MG TABLET PO (08:09)
[2023-08-21 08:10] VITALS: BP 129/59
[2023-08-21] MEDS: lisinopriL 40 MG TABLET PO (08:10)
[2023-08-21] MEDS: 0.9 % Sodium Chloride Flush 3 ML SYRINGE IVFLUSH (08:10)
[2023-08-21] MEDS: Urea 15 GM POWDER 30 GM PO (08:10)
[2023-08-21] MEDS: Divalproex Sodium Sprinkles 125 MG CAP.DR.SPR 250 MG PO ×2 (08:10→14:33)
[2023-08-21 08:19] LABS: Anion Gap 14 (12-20); Blood Urea Nitrogen 72 mg/dL (9-16); Calcium 9.6 mg/dL (8.4-10.2); Carbon Dioxide 27 mmol/L (22-29); Chloride 94 mmol/L (96-108); Creatinine Clr Calc Pharmacy 44.3; Estimated Glomerular Filt Rate > 60; Glucose Fasting 84 mg/dL (60-99); Potassium 4.9 mmol/L (3.3-5.1); Sodium 130 mmol/L (135-145)
[2023-08-21] MEDS: Enoxaparin Sodium 40 MG/0.4 ML SYRINGE SUBCUT (08:23)
--- NOTE | 2023-08-21 09:01 | P.DS_ITS ---
DS: Providers Provider Date of Service: 08/21/23 Date of admission: 08/17/23 02:34 Primary care physician: Forrest Garcia MD Consults: 08/17/23 02:28 Consult to Nephrology Routine Consulting Provider: [facility] Reason for consultation: hyponatremia DS: Diagnosis Discharge Diagnosis (1) Hyponatremia: Status: Acute DS: Summary Hospital Course Hospital Course: from initial hpi: 83-year-old female with pertinent history of mood disorder, hypothyroidism, hypertension, gastroesophageal reflux disease, atrial flutter not on anticoagulation, monoclonal gammopathy of unknown significance, sick sinus syndrome who presents to the emergency department for evaluation of abnormal labs. Patient is a poor historian but knows that she is in the hospital for low-sodium. Patient was scheduled for outpatient follow-up with Nephrology. Patient had labs done today and was found to have a sodium of 120 and was sent to the ER. Patient has no complaints at the time of my evaluation. As per ER provider, the daughter was present earlier at bedside and said that patient was getting progressively weaker and had intermittent diarrhea last week. Patient denies chest discomfort, fever, chills, shortness of breath, abdominal pain. In the emergency department, initial sodium 118 with repeat sodium 120. Nephrology was consulted and patient was deemed okay to be admitted on medicine floor. 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 She was given normal saline and sodium improved at an appropriate rate, then held out in the mid to high 120s for several days just on urea powder, after adding salt tablets sodium improved to 130. Patient will be discharged off urea but on salt tablets and should follow up with Nephrology as outpatient. Patient had transient mild hyper kalemia which resolved. For paroxysmal atrial fibrillation was continue amiodarone, she has not on anticoagulation due to recent subdural hematoma. For hypertension was continued on amlodipine, hydralazine, lisinopril, Aldactone. Patient is feeling better will be discharged home. Time Attestation Discharge Coordination Time (in mins): 32 Quality: Safe Use of Opioids Does Pt have an Active Cancer Diagnosis on the Problem List?: No Quality: Stroke Does the patient have a stroke diagnosis?: No Physical Exam Vital Signs: Vital Signs: Last Vital Signs Temp 98.4 F 08/21/23 07:10 Pulse 61 08/21/23 08:09 Resp 17 08/21/23 07:10 BP 129/59 L 08/21/23 08:10 Pulse Ox 97 08/21/23 07:10 O2 Del Method Room Air 08/21/23 07:10 BMI result Body Mass Index 29.9 General: AO X 3, no acute distress Resp: CTA bilateral, no accessory muscles used CVS: S1,S2,RRR GI: soft, non tender, non distended Neuro: motor grossly intact, alert Psych: appropriate affect, appropriate insight DS: Data Data Completed and Pending Labs on day of discharge: Laboratory Results - last 24 hr 08/21/23 07:43 Sodium 130 L Potassium 4.9 Chloride 94 L Carbon Dioxide 27 Anion Gap 14 BUN 72 H Creatinine 0.87 Estim Creat Clear Calc 44.3 Estimated GFR > 60 Fasting Glucose 84 Calcium 9.6 Discharge Plan Discharge Anticipated Discharge Date/Time: 08/21/23 08:34 Patient Disposition: Home, Self-Care Discharge Diagnosis: hyponatremia Referrals: Juan F Hastings MD [Physician] - 1 Week Po,Forrest Wagoner MD [Primary Care Provider] - 1 Week Discharge Medications: New sodium chloride 1,000 mg Tablet,Soluble 1,000 mg PO TID Qty: 270 0RF Continued hydralazine 50 mg tablet 50 mg PO BID Qty: 60 3RF lisinopril 40 mg tablet 40 mg PO DAILY 90 Days Qty: 90 2RF spironolactone 25 mg tablet 25 mg PO DAILY Qty: 90 0RF omeprazole 20 mg capsule,delayed release(DR/EC) 20 mg PO DAILY@0630 levothyroxine 50 mcg tablet 50 mcg PO DAILY@0600 calcium carbonate-vitamin D3 [Oystercal-D] 500 mg-10 mcg (400 unit) tablet 1 tab PO DAILY coenzyme Q10 [Co Q-10] 50 mg capsule 50 mg PO DAILY magnesium oxide 250 mg magnesium tablet 250 mg PO DAILY amlodipine 10 mg tablet 10 mg PO DAILY Qty: 90 1RF divalproex [Depakote Sprinkles] 125 mg capsule, delayed rel sprinkle 250 mg PO TID 90 Days Qty: 540 0RF atorvastatin 10 mg tablet 10 mg PO BEDTIME Qty: 90 1RF metoprolol tartrate 50 mg tablet 25 mg PO DAILY Discharge Orders: Discharge Order (Routine); Ordered 08/21/23 Ordered By: Jed Licea Diet: fluid restrict Activity on Discharge: As tolerated Stand Alone Forms: Patient Portal Discharge page Print Language: Italian Care Plan Goals: manage low sodium Health Concerns: low sodium Plan of Treatment: continue salt tablets and follow up Assessment: see above
--- NOTE | 2023-08-21 09:11 | MHC.CM.PN ---
pt dcd today withresumption of servies thru [facility]
--- NOTE | 2023-08-21 13:07 | P.PNNP_ITS ---
Subjective Subjective Date of Service: 08/22/23 Interval history: eager to go home Physical Exam 2 Vital Signs: Vital Signs: Last Vital Signs Temp 98.4 F 08/21/23 07:10 Pulse 61 08/21/23 08:09 Resp 17 08/21/23 07:10 BP 129/59 L 08/21/23 08:10 Pulse Ox 97 08/21/23 07:10 O2 Del Method Room Air 08/21/23 07:10 BMI result Body Mass Index 29.9 Objective Data Labs 08/20/23 05:54 08/21/23 07:43 Labs: Laboratory Results - last 24 hr 08/21/23 07:43 Sodium 130 L Potassium 4.9 Chloride 94 L Carbon Dioxide 27 Anion Gap 14 BUN 72 H Creatinine 0.87 Estim Creat Clear Calc 44.3 Estimated GFR > 60 Fasting Glucose 84 Calcium 9.6 Procedures Date of Service Date of Service: 08/22/23 Assessment & Plan Assessment and plan (1) Hyponatremia: Status: Acute (2) Hypertension: Status: Acute Plan Hyponatremia due to excess ADH Serum sodium better; Subjectively weakness better D/Guero NS; C/W PO Urea 15 Gm bid Continue current anti hypertensive medications for now Needs electrolytes repeated and F/U with me in 2 weeks when D/Guero Time Spent With Patient Time: Total time managing care of this patient today ____ minutes. Progress Note: Quality Stroke Does the patient have a stroke diagnosis?: No
== END 2023-08-21 15:13 | disposition home health service (06) | DRG 644 ==
LOC: HO.ED 21:56 → HO.EDOVER 08-17 02:34 → HO.S3 08-17 05:49
PROVIDERS: Physician Assistant; Registered Nurse Emergency; Admitting Provider Student in an Organized Health Care Education/Training Program; Emergency Provider Emergency Medicine Emergency Medical Services; PCP Internal Medicine; Visit Provider Internal Medicine
DX: E22.2 Syndrome of inappropriate secretion of antidiuretic hormone (principal); I48.92 Unspecified atrial flutter; I10 Essential (primary) hypertension; F39 Unspecified mood [affective] disorder; E87.5 Hyperkalemia; I49.5 Sick sinus syndrome; Z95.0 Presence of cardiac pacemaker; Z79.890 Hormone replacement therapy; Z79.899 Other long term (current) drug therapy
CPT/HCPCS: 36415; 70450; 80048; 80051; 80053; 81001; 82533; 82565; 82570; 83735; 83930; 83935; 84295; 84300; 84443; 84520; 85025; 85027; 93005; 99285; J1650

== ENCOUNTER → 2023-08-16 18:21 | Outpatient (BNV) | payer MEDICARE, SELFPAY | PROVIDERS: Admitting Provider Student in an Organized Health Care Education/Training Program; Emergency Provider Emergency Medicine Emergency Medical Services; PCP Internal Medicine; Visit Provider Internal Medicine Cardiovascular Disease | DX: R94.31 Abnormal electrocardiogram [ECG] [EKG] (principal) | CPT/HCPCS: 93010 ==

== ENCOUNTER → 2023-08-17 02:34 | Outpatient (BNV) | payer MEDICARE, SELFPAY | PROVIDERS: Admitting Provider Student in an Organized Health Care Education/Training Program; Emergency Provider Emergency Medicine Emergency Medical Services; PCP Internal Medicine; Visit Provider Student in an Organized Health Care Education/Training Program | DX: E87.1 Hypo-osmolality and hyponatremia (principal) | CPT/HCPCS: 99223; 99232; 99239; 99499 ==

== ENCOUNTER → 2023-08-17 02:34 | Outpatient (BNV) | payer MEDICARE, SELFPAY | PROVIDERS: Admitting Provider Student in an Organized Health Care Education/Training Program; Emergency Provider Emergency Medicine Emergency Medical Services; PCP Internal Medicine; Visit Provider Internal Medicine Nephrology | DX: E87.1 Hypo-osmolality and hyponatremia (principal); I10 Essential (primary) hypertension | CPT/HCPCS: 99223; 99231; 99232 ==

== ENCOUNTER → 2023-08-31 23:59 | Outpatient (BNV) | payer MEDICARE, SELFPAY ==
--- NOTE | 2023-09-04 13:17 | MHC.OFFVIS ---
Intake Visit Reasons: Remote Device Check- [facility] Allergies No Known Allergies Allergy (Verified 08/16/23 18:22) [facility] Medical History Dysphagia Vitamin D deficiency Thyroid cancer Medicare annual wellness visit, initial Paroxysmal atrial flutter Type 2 diabetes mellitus with hyperglycemia GERD (gastroesophageal reflux disease) MGUS (monoclonal gammopathy of unknown significance) Osteoarthritis Vitamin D deficiency Post-surgical hypothyroidism Non-toxic multinodular goiter Follicular carcinoma of thyroid gland SSS (sick sinus syndrome) Atrial flutter (~11/2019) Carpal tunnel syndrome DDD (degenerative disc disease) Peptic ulcer disease Obesity Impaired glucose tolerance Hyperlipidemia Hypertension Bradycardia Thyroid nodule Pacemaker (~11/2019) Surgical History Hx of endoscopy History of bilateral knee replacement Hx of arthroscopy of right knee Pulmonary nodule Hx of partial thyroidectomy Hx of appendectomy Hx of carpal tunnel repair Hx of colonoscopy History of back surgery Hx of knee surgery (~09/2012) Family History Father No problems noted. Mother CVD (cardiovascular disease) Heart disease Brother CVD (cardiovascular disease) Sudden cardiac Social History Household Members: Other Household Members Other:: niece Housing: House Are you a primary customer care agent to a significant other at home: No ( with dementia last year) Do you presently have visiting nurse or other home services: Yes Alcohol intake: never Patient Tobacco Use Status: Never used Tobacco e-Cigarette/Vaping Use: Never Used Second Hand Smoke Exposure: No Advance Directives Date on File: 12/06/21 service: No Current occupational status: retired Cognitive needs: No Hearing needs: No Vision needs: Yes Office Procedures Cardiac Device Check Cardiac Device Check Details: Remote pacemaker report generated 09/02/2023. Pacemaker function is adequate. Intermittent episodes of atrial fibrillation noted with burden of 1.1% [id number] Cardiac Device Interrogation, pacemaker Procedure code (CPT) selection complete Assessment & Plan Assessment & Plan (1) Pacemaker: Onset Date: ~11/2019 Code(s): Z95.0 - Presence of cardiac pacemaker Category: Medical Plan: See above Coding Level of Care Code Procedure Only Diagnoses Pacemaker Z95.0 CPT Codes Cardiac Device Check - Cardiac Device 12: [id number] Cardiac Device Interrogation, pacemaker ([id number])
== END ==
PROVIDERS: PCP Internal Medicine; Visit Provider Internal Medicine Cardiovascular Disease
DX: I48.91 Unspecified atrial fibrillation (principal); Z95.0 Presence of cardiac pacemaker
CPT/HCPCS: 93294

== ENCOUNTER 2023-10-10 10:39 | Outpatient (AMB) | payer MEDICARE, SELFPAY ==
[2023-10-10 10:50] VITALS: BP 118/60; PULSE 60; BMI 28.1
--- NOTE | 2023-10-10 10:50 | MHC.OFFVIS ---
Vital Signs 10/10/23 10:50 Height 5 ft 3 in Weight 158 lb 11.725 oz BMI 28.1 BP 118/60 Blood Pressure Location Lt brachial Position Sitting Pulse 60 Intake Visit Reasons: 6 wk f/up Intake Note: 6 week follow-up [facility] check feeling ok Top Lifter Required: No Airplane Pilot: Airplane Pilot Present Accompanied by: Family/Other Allergies No Known Allergies Allergy (Verified 08/16/23 18:22) Medication List - Last Reconciled 10/10/23 by Nikita Choi MD amlodipine 10 mg PO DAILY atorvastatin 10 mg PO BEDTIME calcium carbonate-vitamin D3 500 mg-10 mcg (400 unit) (Oystercal-D) 1 tab PO DAILY coenzyme Q10 (Co Q-10) 50 mg PO DAILY divalproex (Depakote Sprinkles) 250 mg (2 x 125 mg) PO TID 90 days hydralazine 50 mg PO BID levothyroxine 50 mcg PO DAILY@0600 lisinopril 40 mg PO DAILY 90 days magnesium oxide 250 mg PO DAILY metoprolol tartrate 25 mg PO DAILY omeprazole 20 mg PO DAILY@0630 sodium chloride 1,000 mg PO TID spironolactone 25 mg PO DAILY HPI Comments Details: Sophie comes for follow-up. She was again admitted with hyponatremia treated in the hospital and currently on sodium tear blood. Her blood pressures been stable. As per the granddaughter she has also not had March more episodes of atrial fibrillation now. She comes for pacemaker check and blood pressure check. She denies any other cardiac symptoms. Denies any lightheadedness, syncope. No bleeding issues or neurologic events. She does have some memory issues. [facility] Medical History Dysphagia Vitamin D deficiency Thyroid cancer Medicare annual wellness visit, initial Paroxysmal atrial flutter Type 2 diabetes mellitus with hyperglycemia GERD (gastroesophageal reflux disease) MGUS (monoclonal gammopathy of unknown significance) Osteoarthritis Vitamin D deficiency Post-surgical hypothyroidism Non-toxic multinodular goiter Follicular carcinoma of thyroid gland SSS (sick sinus syndrome) Atrial flutter (~11/2019) Carpal tunnel syndrome DDD (degenerative disc disease) Peptic ulcer disease Obesity Impaired glucose tolerance Hyperlipidemia Hypertension Bradycardia Thyroid nodule Pacemaker (~11/2019) Surgical History Hx of endoscopy History of bilateral knee replacement Hx of arthroscopy of right knee Pulmonary nodule Hx of partial thyroidectomy Hx of appendectomy Hx of carpal tunnel repair Hx of colonoscopy History of back surgery Hx of knee surgery (~09/2012) Family History Father No problems noted. Mother CVD (cardiovascular disease) Heart disease Brother CVD (cardiovascular disease) Sudden cardiac Social History Household Members: Other Household Members Other:: niece Housing: House Are you a primary director of medicare to a significant other at home: No ( with dementia last year) Do you presently have visiting nurse or other home services: Yes Alcohol intake: never Patient Tobacco Use Status: Never used Tobacco e-Cigarette/Vaping Use: Never Used Second Hand Smoke Exposure: No Advance Directives Date on File: 12/06/21 service: No Current occupational status: retired Cognitive needs: No Hearing needs: No Vision needs: Yes Review of Systems Const Denies chills, Denies fatigue, Denies fever(s), Denies frequent falls, Denies weakness, Denies weight gain and Denies weight loss ENT Denies dizziness Card Denies chest pain, Denies leg edema, Denies lightheadedness, Denies palpitations, Denies dyspnea, Denies dyspnea on exertion, Denies orthopnea and Denies other (loss of consciousness) Resp Denies cough, Denies dyspnea and Denies dyspnea on exertion GI Denies hematochezia and Denies change in stool character Musc Denies abnormal gait, Denies muscle weakness, Denies numbness, Denies radiating pain into limb and Denies tingling Neuro Denies abnormal gait, Denies dizziness, Denies frequent falls, Denies numbness, Denies tingling and Denies weakness Endo Denies fatigue and Denies palpitations Physical Exam Vital Signs: Last Vital Signs Pulse 60 10/10/23 10:50 BP 118/60 10/10/23 10:50 BMI result Body Mass Index 28.1 Const General: cooperative, comfortable, no acute distress, alert, awake and anxious Nutritional Appearance: other (Frail elderly woman) Orientation/consciousness: patient oriented x3 Limitations: wheelchair Neck Neck: Yes trachea midline, Yes supple and Yes no JVD Resp Effort & Inspection: normal respiratory effort Auscultation: clear to auscultation bilaterally Cardio Jugular venous distension: no JVD Palpation: normal PMI Rate: regular rate Rhythm: regular rhythm Heart sounds: S1 normal heart sound present and S2 normal heart sound present GI Auscultation: normal bowel sounds Skin General skin exam: no rashes or lesions noted Neuro General: patient oriented x3 and no focal motor deficits Extrem General: Yes no clubbing, cyanosis or edema Psych Appearance: grossly normal Office Procedures Cardiac Device Check Cardiac Device Check Details: Dual-chamber [facility] pacemaker in place. Programmed in DDDR at 60 beats per minute. Atrial pacing 99% of time. Minimal ventricular pacing. Minimal burden of atrial fibrillation noted. Atrial capture thresholds are adequate and in auto capture mode. Ventricular pacing thresholds adequate and reprogrammed to enhance battery life. Atrial ventricular sensing is adequate. Pacing lead impedance is stable. Battery life is at 6.6 years [id number] Cardiac Device Check, pacemaker dual lead Procedure code (CPT) selection complete Assessment & Plan Assessment & Plan (1) Paroxysmal atrial flutter: Code(s): I48.92 - Unspecified atrial flutter Category: Medical Plan: Paroxysmal atrial flutter now have remained suppressed since improvement in her overall medical situation. Most likely related to reduce stress. Continue current therapy with blood pressure control. She is currently on oral anticoagulation and patient's granddaughter says she does not want any further oral anticoagulation therapy. We discussed about Watchman device and patient declines this and does not want any interventions. Risk of stroke was discussed. (2) Labile blood pressure: Code(s): R09.89 - Other specified symptoms and signs involving the circulatory and respiratory systems Category: Medical Plan: Significantly labile blood pressure although well controlled at this point time current therapy. Goal of therapy was discussed and control blood pressure was advised. Continue monitor blood pressure at home maintain a log. Low-salt diet was discussed. (3) Pacemaker: Onset Date: ~11/2019 Code(s): Z95.0 - Presence of cardiac pacemaker Category: Medical Plan: Cardiac pacemaker in-situ, working well. Reprogrammed for adequate functioning. Follow-up remotely in 3 months. Follow up in the clinic in 6 months time. Follow up in the clinic in 6 months time, sooner p.r.n.. Thank you for allowing me to partake in her care Orders: Orders Basic Metabolic Panel Today E87.1 - Hypo-osmolality and hyponatremia Valproate Today E87.1 - Hypo-osmolality and hyponatremia Complete Blood Count no Diff Today E87.1 - Hypo-osmolality and hyponatremia Magnesium Today E87.1 - Hypo-osmolality and hyponatremia, I50.30 - Unspecified diastolic (congestive) heart failure Liver Panel Today E87.1 - Hypo-osmolality and hyponatremia Coding Level of Care Code Est Pt Level 4 (81967) Diagnoses Paroxysmal atrial flutter I48.92 Labile blood pressure R09.89 Pacemaker Z95.0 CPT Codes Cardiac Device Check - Cardiac Device 2: [id number] Cardiac Device Check, pacemaker dual lead ([id number])
== END 2023-10-10 11:21 | disposition home or self-care (01) ==
PROVIDERS: PCP Internal Medicine; Visit Provider Internal Medicine Cardiovascular Disease
DX: I48.92 Unspecified atrial flutter (principal); R09.89 Other specified symptoms and signs involving the circulatory and respiratory systems; Z95.0 Presence of cardiac pacemaker
CPT/HCPCS: 93280; 99214

== ENCOUNTER 2023-10-10 10:39 | Outpatient (REF) | payer MEDICARE, SELFPAY ==
[2023-10-10 12:30] LABS: Hematocrit 38.5 % (37.0-47.0); Hemoglobin 13.6 g/dl (12.0-16.0); Mean Corpuscular HGB Conc 35.3 g/dl (31.0-35.0); Mean Corpuscular Hemoglobin 31.7 pg (27.0-33.0); Mean Corpuscular Volume 89.7 fL (80.0-98.0); Mean Platelet Volume 9.3 fL (9.4-12.3); Platelet Count 334 X10*3/uL (160-400); Red Blood Count 4.29 X10*6/uL (4.20-5.50); Red Cell Distribution Width 14.1 % (11.0-16.0); White Blood Count 6.9 X10*3/uL (4.8-10.8)
[2023-10-10 13:04] LABS: Alanine Aminotransferase 6 U/L (0-31); Albumin Level 4.7 g/dL (3.5-5.0); Alkaline Phosphatase 67 U/L (39-117); Anion Gap 13 (12-20); Aspartate Amino Transferase 15 U/L (5-31); Bilirubin Direct 0.1 mg/dL (0.0-0.5); Bilirubin Total 0.4 mg/dL (0.0-1.0); Blood Urea Nitrogen 11 mg/dL (9-16); Carbon Dioxide 26 mmol/L (22-29); Chloride 90 mmol/L (96-108); Estimated Glomerular Filt Rate > 60; Glucose Random 92 mg/dL (60-115); Magnesium 2.1 mg/dL (1.6-2.6); Potassium 4.8 mmol/L (3.3-5.1); Sodium 124 mmol/L (135-145); Valproate 83.5 mcg/mL (50.0-100.0)
== END 2023-10-10 10:40 | disposition home or self-care (01) ==
LOC: HO.LAB 10:39
PROVIDERS: PCP Internal Medicine; Visit Provider Internal Medicine Cardiovascular Disease
DX: E87.1 Hypo-osmolality and hyponatremia (principal); I50.30 Unspecified diastolic (congestive) heart failure; I48.92 Unspecified atrial flutter; R09.89 Other specified symptoms and signs involving the circulatory and respiratory systems; Z95.0 Presence of cardiac pacemaker
CPT/HCPCS: 36415; 80048; 80076; 80164; 83735; 85027; 93280; 99212

== ENCOUNTER 2023-10-19 09:56 | Outpatient (AMB) | payer MEDICARE, SELFPAY ==
[2023-10-19 10:04] VITALS: BP 114/50; PULSE 61; O2SAT 98
--- NOTE | 2023-10-19 10:04 | HO.NEPHOV ---
Vital Signs 10/19/23 10:04 Height 5 ft 3 in BP 114/50 L Blood Pressure Location Lt brachial Position Sitting Pulse 61 Pulse Source Pulse Oximeter Pulse Oximetry (%) 98 Oxygen Delivery Method Room Air Intake Visit Reasons: follow up/ Conf w/niece Media Coordinator Required: No Accompanied by: Grand Child Allergies No Known Allergies Allergy (Verified 10/19/23 10:06) HPI Comments Details: I had the privilege of seeing Ms Kwok in follow up for hypertension and hyponatremia. Her niece was present throughout the patient encounter. She is known to have hypertension for a long time. She is on anticoagulation. She denies neuropathy, retinopathy, CAD, CVA, CHF, TEODORA , PAD or carotid stenosis. She has no H/O hepatitis but has H/O MGUS. She is on ACEI. She does not take NSAID's regularly. She denies any nausea, vomiting, diarrhea, SOB, edema, PND, orthopnea, hematuria, hearing deficits. She claims to be compliant with medications. She has no sinusitis, epistaxis, photosensitivity, bone pain, sore throat , hemoptysis, skin lesions or recent antibiotic intake. Her sodium level went down to 124 when she took some extra fluid by mouth. She denied any active complaints at the time of this office visit [facility] Medical History Dysphagia Vitamin D deficiency Thyroid cancer Medicare annual wellness visit, initial Paroxysmal atrial flutter Type 2 diabetes mellitus with hyperglycemia GERD (gastroesophageal reflux disease) MGUS (monoclonal gammopathy of unknown significance) Osteoarthritis Vitamin D deficiency Post-surgical hypothyroidism Non-toxic multinodular goiter Follicular carcinoma of thyroid gland SSS (sick sinus syndrome) Atrial flutter (~11/2019) Carpal tunnel syndrome DDD (degenerative disc disease) Peptic ulcer disease Obesity Impaired glucose tolerance Hyperlipidemia Hypertension Bradycardia Thyroid nodule Pacemaker (~11/2019) Surgical History Hx of endoscopy History of bilateral knee replacement Hx of arthroscopy of right knee Pulmonary nodule Hx of partial thyroidectomy Hx of appendectomy Hx of carpal tunnel repair Hx of colonoscopy History of back surgery Hx of knee surgery (~09/2012) Family History Father No problems noted. Mother CVD (cardiovascular disease) Heart disease Brother CVD (cardiovascular disease) Sudden cardiac Social History Household Members: Other Household Members Other:: niece Housing: House Are you a primary physician primary care sports medicine to a significant other at home: No ( with dementia last year) Do you presently have visiting nurse or other home services: Yes Alcohol intake: never Patient Tobacco Use Status: Never used Tobacco e-Cigarette/Vaping Use: Never Used Second Hand Smoke Exposure: No Advance Directives Date on File: 12/06/21 service: No Current occupational status: retired Cognitive needs: No Hearing needs: No Vision needs: Yes Review of Systems Const All systems reviewed & are unremarkable except as noted in HPI and below Physical Exam Vital Signs: Last Vital Signs Pulse 61 10/19/23 10:04 BP 114/50 L 10/19/23 10:04 Pulse Ox 98 10/19/23 10:04 Oxygen Delivery Method Room Air 10/19/23 10:04 Const General: comfortable and no acute distress Orientation/consciousness: patient oriented x3 HEENT Head: Yes normocephalic Mouth: Normal oral and palatal mucosa present Eyes EOM: EOMs intact bilaterally Neck Neck: Yes supple Resp Auscultation: clear to auscultation bilaterally Cardio Jugular venous distension: no JVD Rate: regular rate GI Palpation (GI): Soft to palpation Auscultation: normal bowel sounds General: Yes no CVA tenderness Back/Spine/Pelvis Back: no CVA tenderness Skin General skin exam: no rashes or lesions noted Neuro General: patient oriented x3 and moves all extremities Extrem General: Yes no pedal edema Results Reviewed Nephrology Results: Hgb 13.6 g/dl (12.0-16.0) 10/10/23 WBC 6.9 X10*3/uL (4.8-10.8) 10/10/23 Plt Count 334 X10*3/uL (160-400) 10/10/23 Sodium 124 mmol/L (135-145) L 10/10/23 Potassium 4.8 mmol/L (3.3-5.1) 10/10/23 Chloride 90 mmol/L (96-108) L 10/10/23 Carbon Dioxide 26 mmol/L (22-29) 10/10/23 BUN 11 mg/dL (9-16) 10/10/23 Creatinine 0.80 mg/dL (0.5-1.4) 10/10/23 Calcium 10.0 mg/dL (8.4-10.2) 10/10/23 Urine Protein Negative mg/dL (Neg-Trace) 08/16/23 Urine Creatinine 51.08 mg/dL 08/16/23 Assessment & Plan Assessment & Plan (1) Hyponatremia: Code(s): E87.1 - Hypo-osmolality and hyponatremia Category: Medical (2) Labile blood pressure: Code(s): R09.89 - Other specified symptoms and signs involving the circulatory and respiratory systems Category: Medical Plan Hyponatremia due to excess ADH Serum sodium low ; No weakness/ mentation changes C/W PO NaCl. Fluid restriction 40-48 oz/24 hours Blood work ordered; If Na low in that will need to add PO Urea Continue current anti hypertensive medications for now Labs ordered for 2 weeks and in 2 M; Follow up in 2 M Orders: Orders Electrolytes 10 Days E87.1 - Hypo-osmolality and hyponatremia, R09.89 - Other specified symptoms and signs involving the circulatory and respiratory systems Blood Urea Nitrogen 2 Months E87.1 - Hypo-osmolality and hyponatremia Creatinine 10 Days E87.1 - Hypo-osmolality and hyponatremia, R09.89 - Other specified symptoms and signs involving the circulatory and respiratory systems Blood Urea Nitrogen 10 Days E87.1 - Hypo-osmolality and hyponatremia, R09.89 - Other specified symptoms and signs involving the circulatory and respiratory systems Creatinine 2 Months E87.1 - Hypo-osmolality and hyponatremia Electrolytes 2 Months E87.1 - Hypo-osmolality and hyponatremia Coding Level of Care Code Est Pt Level 4 (64829) Diagnoses Hyponatremia E87.1 Labile blood pressure R09.89
== END 2023-10-19 10:37 | disposition home or self-care (01) ==
PROVIDERS: PCP Internal Medicine; Visit Provider Internal Medicine Nephrology
DX: E87.1 Hypo-osmolality and hyponatremia (principal); R09.89 Other specified symptoms and signs involving the circulatory and respiratory systems
CPT/HCPCS: 99214

== ENCOUNTER → 2023-10-19 09:56 | Outpatient (BNVA) | payer MEDICARE, SELFPAY | PROVIDERS: PCP Internal Medicine; Visit Provider Internal Medicine Nephrology | DX: E87.1 Hypo-osmolality and hyponatremia (principal); R09.89 Other specified symptoms and signs involving the circulatory and respiratory systems; Z79.01 Long term (current) use of anticoagulants | CPT/HCPCS: 99212 ==

== ENCOUNTER 2023-10-25 12:22 | Outpatient (REF) | payer MEDICARE, SELFPAY ==
[2023-10-25 13:56] LABS: Hemoglobin 12.7 g/dl (12.0-16.0); Mean Corpuscular Volume 89.9 fL (80.0-98.0); Neutrophils Percent Auto 74.3 % (45-73); PLT CLUMP 1; Red Cell Distribution Width 13.6 % (11.0-16.0); SCAN SMEAR FLAG 1
[2023-10-25 13:58] LABS: Basophils Percent Auto 0.4 % (0-2); Eosinophils Absolute Auto 0.1 X10*3/uL (0.0-0.4); Eosinophils Percent Auto 1.2 % (0-4); Hematocrit 35.5 % (37.0-47.0); Imm Gran Abs Auto 0.09 X10*3/uL (0.00-0.03); Imm Gran Pct Auto 0.9 % (0.0-0.4); Lymphocytes Absolute Auto 1.5 X10*3/uL (1.2-4.9); Lymphocytes Percent Auto 15.2 % (20-40); MANUAL DIFF FLAG SCAN; Mean Corpuscular HGB Conc 35.8 g/dl (31.0-35.0); Mean Corpuscular Hemoglobin 32.2 pg (27.0-33.0); Monocytes Absolute Auto 0.8 X10*3/uL (0.1-1.2); Neutrophils Absolute Auto 7.4 x10*3/uL (2.0-8.3); Red Blood Count 3.95 X10*6/uL (4.20-5.50)
[2023-10-25 14:15] LABS: Alanine Aminotransferase 6 U/L (0-31); Alkaline Phosphatase 64 U/L (39-117); Anion Gap 15 (12-20); Aspartate Amino Transferase 15 U/L (5-31); Bilirubin Total 0.3 mg/dL (0.0-1.0); Blood Urea Nitrogen 14 mg/dL (9-16); Calcium 9.5 mg/dL (8.4-10.2); Carbon Dioxide 20 mmol/L (22-29); Chloride 97 mmol/L (96-108); Estimated Glomerular Filt Rate > 60; Glucose Random 95 mg/dL (60-115); Potassium 4.6 mmol/L (3.3-5.1); Sodium 127 mmol/L (135-145)
[2023-10-25 14:34] LABS: Free T4 (Free Thyroxine) 1.36 ng/dL (0.71-1.85); Thyroid Stimulating Hormone 1.02 uIU/mL (0.32-4.0)
[2023-10-25 14:47] LABS: Mean Platelet Volume 9.7 fL (9.4-12.3); White Blood Count 10.1 X10*3/uL (4.8-10.8)
[2023-10-25 14:48] LABS: Platelet Count 358 X10*3/uL (160-400); SLIDE REVIEW VERIFIED
== END 2023-10-25 12:23 | disposition home or self-care (01) ==
LOC: HO.HMGCLDS 12:22
PROVIDERS: PCP Internal Medicine
DX: Z00.00 Encounter for general adult medical examination without abnormal findings (principal)
CPT/HCPCS: 36415; 80053; 84439; 84443; 85025

== ENCOUNTER 2023-10-30 10:36 | Outpatient (AMB) | payer MEDICARE, SELFPAY ==
[2023-10-30 10:48] VITALS: BP 120/64; PULSE 59; O2SAT 97; BMI 28.3
--- NOTE | 2023-10-30 10:48 | MHC.PC.OV ---
Vital Signs 10/30/23 10:48 Height 5 ft 3 in Weight 160 lb 0.889 oz BMI 28.3 BP 120/64 Blood Pressure Location Lt brachial Position Sitting Pulse 59 Pulse Source Pulse Oximeter Pulse Oximetry (%) 97 Oxygen Delivery Method Room Air Intake Visit Reasons: 3 Month F/U Diesel Truck Mechanic Required: No Accompanied by: Daughter Allergies No Known Allergies Allergy (Verified 10/30/23 10:48) Tobacco use date assessed: 10/30/23 Fall risk assessment: 2 + Falls in past year Last assessed Fall Risk: 10/30/23 Dental Screening Dental Screen Date: 10/30/23 Did you have a dental visit in the last 12 months?: Yes Did you have a dental problem in the last 6 months where you did not have access to dental care?: No Was dental information given to patient?: Patient has dentist HPI 3 Month F/U HPI Details 83-year-old overweight female with multiple medical problems hypertension hypercholesterolemia sick sinus syndrome MGUS GERD diabetes mellitus atrial flutter generalized anxiety disorder Barretts esophagus seizures and hyponatremia last seen in June 2023. Patient's colonoscopy was last done in October 2017 having tubular adenoma, mammogram March 2022. Review of the notes in October 24 concerns about hyponatremia patient did see Nephrology and was advised fluid restriction. Concerns though on calling in October 24 as the patient was having diarrhea. Patient also follows up with Cardiology atrial flutter suppressed continue with anticoagulation option of getting a watchman's device but declined. Blood pressure labile but well controlled at this point continue with monitoring of the cardiac pacemaker. 08/31/2023 hospitalization in the hospital for the hyponatremia for the blood pressure on amlodipine hydralazine lisinopril and Aldactone. Also noted in July had recurrent falls recent traumatic subdural hematoma and subarachnoid hemorrhage had aphasia stroke and transient mental status change placed on Depakote 750 mg once a day ER advised to be not on Ativan. [facility] Medical History Dysphagia Vitamin D deficiency Thyroid cancer Medicare annual wellness visit, initial Paroxysmal atrial flutter Type 2 diabetes mellitus with hyperglycemia GERD (gastroesophageal reflux disease) MGUS (monoclonal gammopathy of unknown significance) Osteoarthritis Vitamin D deficiency Post-surgical hypothyroidism Non-toxic multinodular goiter Follicular carcinoma of thyroid gland SSS (sick sinus syndrome) Atrial flutter (~11/2019) Carpal tunnel syndrome DDD (degenerative disc disease) Peptic ulcer disease Obesity Impaired glucose tolerance Hyperlipidemia Hypertension Bradycardia Thyroid nodule Pacemaker (~11/2019) Surgical History Hx of endoscopy History of bilateral knee replacement Hx of arthroscopy of right knee Pulmonary nodule Hx of partial thyroidectomy Hx of appendectomy Hx of carpal tunnel repair Hx of colonoscopy History of back surgery Hx of knee surgery (~09/2012) Family History Father No problems noted. Mother CVD (cardiovascular disease) Heart disease Brother CVD (cardiovascular disease) Sudden cardiac Social History Household Members: Other Household Members Other:: niece Housing: House Are you a primary manager respiratory care to a significant other at home: No ( with dementia last year) Do you presently have visiting nurse or other home services: Yes Alcohol intake: never Patient Tobacco Use Status: Never used Tobacco e-Cigarette/Vaping Use: Never Used Second Hand Smoke Exposure: No Advance Directives Date on File: 12/06/21 service: No Current occupational status: retired Cognitive needs: No Hearing needs: No Vision needs: Yes Questionnaire PHQ-9 Over the last 2 weeks, how often have you been bothered by any of the following problems? 1. Little interest or pleasure in doing things: not at all 2. Feeling down, depressed, or hopeless: several days (pt states passed ) 3. Trouble falling or staying asleep, or sleeping too much: not at all 4. Feeling tired or having little energy: not at all 5. Poor appetite or overeating: not at all 6. Feeling bad about yourself - or that you are a failure or have let yourself or your family down: not at all 7. Trouble concentrating on things, such as reading the newspaper or watching television: not at all 8. Moving or speaking so slowly that other people could have noticed. Or the opposite - being so fidgety or restless that you have been moving around a lot more than usual: not at all 9. Thoughts that you would be better off or of hurting yourself in some way: not at all Total score: 1 Depression Screening Interpretation: Positive Depression Screening Follow-up: Existing condition and In treatment Depression Screening Done: Yes Source: Developed by Drs. Gallo Padron, Vannesa Srinivasan, Demian Grady and colleagues, with an educational yun from [employer]. Thrive Questionnaire Date Thrive assessed: 10/30/23 I am a: Patient What is your living situation today?: I have a steady place to live Within the past 12 months, did the food you bought not last and you didn't have the money to get more?: Never true Within the past 12 months, did you worry whether your food would run out before you got money to buy more?: Never true Do you have trouble paying for medicines?: No Do you have trouble getting transportation to medical appointments?: No Do you have trouble paying your heating and electricity bill?: No Do you have trouble taking care of your child, family member or friend?: No Do you have trouble with day-to-day activities such as bathing, preparing meals, shopping, managing finances, etc.?: No Are you currently unemployed and looking for a job?: No Are you interested in more education?: No Please select the resources that you would like help with: None Currently or been in a relationship where the following occur: No concerns reported THRIVE Score: 0 AUDIT C Alcohol Use Questionnaire (AUDIT-C) 1. How often do you have a drink containing alcohol?: Never 3. How often do you have six or more drinks on one occasion?: Never Total Score: 0 ALF-7 AMB Questionnaire ALF-7 Date ALF - 7 assessed: 10/30/23 Feeling nervous, anxious, or on edge: 0 = Not at all Not being able to stop or control worryin = Not at all Worrying too much about different things: 0 = Not at all Trouble relaxin = Not at all Being so restless that it is hard to sit still: 0 = Not at all Becoming easily annoyed or irritable: 0 = Not at all Feeling afraid as if something awful might happen: 0 = Not at all Total ALF-7 score (0-4 normal; 5-9 mild; 10-14 moderate; 15-21 severe): 0 Source: Developed by Vannesa Palacios Kurt Kroenke and colleagues, with an educational yun from [employer]. Physical exam (Primary Care) Vital Signs: Last Vital Signs Pulse 59 10/30/23 10:48 BP 120/64 10/30/23 10:48 Pulse Ox 97 10/30/23 10:48 Oxygen Delivery Method Room Air 10/30/23 10:48 BMI result Body Mass Index 28.3 Tobacco/Smoking Status: Tobacco use Status Tobacco use date assessed 10/30/23 10/30/23 10:50 Patient Tobacco Use Status Never used Tobacco 10/30/23 10:50 e-Cigarette/Vaping Use Never Used 10/30/23 10:50 PHQ-9: PHQ-9 Score PHQ-9: Total score 1 10/30/23 11:04 Depression Screening Interpretation: Positive Depression Screening Follow-up: Existing condition and In treatment Thrive Assessment: Date of Thrive Assessment Date Thrive assessed 10/30/23 10/30/23 10:50 Currently or been in a relationship where the following occur: No concerns reported Const General: alert; No acute distress Eyes Conjunctivae: conjunctivae normal Resp Auscultation: clear to auscultation bilaterally Cardio Rate: regular rate Rhythm: regular rhythm GI Inspection: Yes normal to inspection Extrem General: Yes normal to inspection and No edema Assessment and Plan Assessment & Plan (1) Hyponatremia: Code(s): E87.1 - Hypo-osmolality and hyponatremia Plan: Continuing to monitor and advised fluid restriction and continue to follow-up with Nephrology (2) Labile blood pressure: Code(s): R09.89 - Other specified symptoms and signs involving the circulatory and respiratory systems Plan: Blood pressure presently controlled on spironolactone 25 mg once a day metoprolol 25 mg once a day lisinopril 40 mg once a day hydralazine 50 mg twice a day and amlodipine 10 mg once a day (3) Type 2 diabetes mellitus with hyperglycemia: Comment: Fernie Lima Code(s): E11.65 - Type 2 diabetes mellitus with hyperglycemia Qualifiers: Diabetes mellitus local company intermodal truck driver insulin use: without mcfp use Qualified Code(s): E11.65 - Type 2 diabetes mellitus with hyperglycemia Plan: Decrease the amount of carbohydrate intake, pasta, bread, rice and potatoes are all sugar and that is aside from all the sweet stuff, remember that fruits are good but they are Sweet also. Diet controlled (4) GERD (gastroesophageal reflux disease): Code(s): K21.9 - Gastro-esophageal reflux disease without esophagitis Qualifiers: Esophagitis presence: without esophagitis Qualified Code(s): K21.9 - Gastro-esophageal reflux disease without esophagitis Plan: Avoid the foods that causes that usually spicy foods, tomato products, juices, coffee, soda and foods that your sensitive to. After eating do not lie down, allow 3-4 hours before in lie down. And keep the head of bed above 30 degrees to avoid the acid from going up. (5) Post-surgical hypothyroidism: Code(s): E89.0 - Postprocedural hypothyroidism Plan: Continue with thyroid medication and continuing to do blood work. (6) Hyperlipidemia: Code(s): E78.5 - Hyperlipidemia, unspecified Qualifiers: Hyperlipidemia type: pure hypercholesterolemia Qualified Code(s): E78.00 - Pure hypercholesterolemia, unspecified Plan: Avoid fried foods, chicken skin, eggs, butter margarine, pastries and meat. Be it pork or beef they have a lot of cholesterol on atorvastatin 10 mg once a day (7) Paroxysmal atrial flutter: Code(s): I48.92 - Unspecified atrial flutter Plan: Patient follows up with Cardiology and has recommended the watchman's device due to problems with anticoagulation. AWARE of risk of strokes decline anticoaguation, decline watchmans device Coding Level of Care Code Est Pt Level 4 (95439) Diagnoses Hyponatremia E87.1 Labile blood pressure R09.89 Type 2 diabetes mellitus with hyperglycemia, without long-term current use of insulin E11.65 Diabetes mellitus local company intermodal truck driver insulin use: without mcfp use Gastroesophageal reflux disease without esophagitis K21.9 Esophagitis presence: without esophagitis Post-surgical hypothyroidism E89.0 Pure hypercholesterolemia E78.00 Hyperlipidemia type: pure hypercholesterolemia Paroxysmal atrial flutter I48.92
== END 2023-10-30 11:47 | disposition home or self-care (01) ==
PROVIDERS: PCP Internal Medicine; Visit Provider Internal Medicine
DX: E11.65 Type 2 diabetes mellitus with hyperglycemia (principal); I48.92 Unspecified atrial flutter; E87.1 Hypo-osmolality and hyponatremia; R09.89 Other specified symptoms and signs involving the circulatory and respiratory systems; K21.9 Gastro-esophageal reflux disease without esophagitis; E89.0 Postprocedural hypothyroidism; E78.00 Pure hypercholesterolemia, unspecified
CPT/HCPCS: 99214

== ENCOUNTER → 2023-11-30 23:59 | Outpatient (BNV) | payer MEDICARE, SELFPAY ==
--- NOTE | 2023-11-30 15:29 | MHC.OFFVIS ---
Intake Visit Reasons: Remote device check- [facility] Allergies No Known Allergies Allergy (Verified 10/30/23 10:48) [facility] Medical History Dysphagia Vitamin D deficiency Thyroid cancer Medicare annual wellness visit, initial Paroxysmal atrial flutter Type 2 diabetes mellitus with hyperglycemia GERD (gastroesophageal reflux disease) MGUS (monoclonal gammopathy of unknown significance) Osteoarthritis Vitamin D deficiency Post-surgical hypothyroidism Non-toxic multinodular goiter Follicular carcinoma of thyroid gland SSS (sick sinus syndrome) Atrial flutter (~11/2019) Carpal tunnel syndrome DDD (degenerative disc disease) Peptic ulcer disease Obesity Impaired glucose tolerance Hyperlipidemia Hypertension Bradycardia Thyroid nodule Pacemaker (~11/2019) Surgical History Hx of endoscopy History of bilateral knee replacement Hx of arthroscopy of right knee Pulmonary nodule Hx of partial thyroidectomy Hx of appendectomy Hx of carpal tunnel repair Hx of colonoscopy History of back surgery Hx of knee surgery (~09/2012) Family History Father No problems noted. Mother CVD (cardiovascular disease) Heart disease Brother CVD (cardiovascular disease) Sudden cardiac Social History Household Members: Other Household Members Other:: niece Housing: House Are you a primary healthcare interpreter to a significant other at home: No ( with dementia last year) Do you presently have visiting nurse or other home services: Yes Alcohol intake: never Patient Tobacco Use Status: Never used Tobacco e-Cigarette/Vaping Use: Never Used Second Hand Smoke Exposure: No Advance Directives Date on File: 12/06/21 service: No Current occupational status: retired Cognitive needs: No Hearing needs: No Vision needs: Yes Office Procedures Cardiac Device Check Cardiac Device Check Details: Remote pacemaker report generated 11/30/2023. Pacemaker function is adequate [id number] Cardiac Device Interrogation, pacemaker Procedure code (CPT) selection complete Assessment & Plan Assessment & Plan (1) Pacemaker: Onset Date: ~11/2019 Code(s): Z95.0 - Presence of cardiac pacemaker Category: Medical Plan: See above Coding Level of Care Code Procedure Only Diagnoses Pacemaker Z95.0 CPT Codes Cardiac Device Check - Cardiac Device 12: [id number] Cardiac Device Interrogation, pacemaker ([id number])
== END ==
PROVIDERS: PCP Internal Medicine; Visit Provider Internal Medicine Cardiovascular Disease
DX: Z45.018 Encounter for adjustment and management of other part of cardiac pacemaker (principal)
CPT/HCPCS: 93294

== ENCOUNTER 2023-12-27 11:02 | Outpatient (REF) | payer MEDICARE, SELFPAY ==
[2023-12-27 14:22] LABS: Anion Gap 14 (12-20); Blood Urea Nitrogen 13 mg/dL (9-16); Carbon Dioxide 22 mmol/L (22-29); Chloride 97 mmol/L (96-108); Estimated Glomerular Filt Rate > 60; Potassium 4.8 mmol/L (3.3-5.1); Sodium 128 mmol/L (135-145)
== END 2023-12-27 11:03 | disposition home or self-care (01) ==
LOC: HO.HMGCLDS 11:02
PROVIDERS: PCP Internal Medicine; Visit Provider Internal Medicine Nephrology
DX: E87.1 Hypo-osmolality and hyponatremia (principal)
CPT/HCPCS: 36415; 80051; 82565; 84520

== ENCOUNTER 2024-01-18 11:02 | Outpatient (AMB) | payer MEDICARE, SELFPAY ==
--- NOTE | 2024-01-18 11:29 | HO.NEPHOV ---
Vital Signs 01/18/24 11:31 Height 5 ft 3 in Weight 160 lb BMI 28.3 BP 110/60 Blood Pressure Location Lt brachial Position Sitting Pulse 60 Pulse Source Pulse Oximeter Pulse Oximetry (%) 97 Oxygen Delivery Method Room Air Intake Visit Reasons: 3 mon follow up-[facility] Eligibility Services Representative Required: No Accompanied by: Grand Child Allergies No Known Allergies Allergy (Verified 01/18/24 11:31) HPI Comments Details: Ms Kwok was seen in follow up for hypertension and hyponatremia. Her niece was present throughout the patient encounter. She is known to have hypertension for a long time. She is on anticoagulation. She denies neuropathy, retinopathy, CAD, CVA, CHF, TEODORA , PAD or carotid stenosis. She has no H/O hepatitis but has H/O MGUS. She is on ACEI. She does not take NSAID's regularly. She denies any nausea, vomiting, diarrhea, SOB, edema, PND, orthopnea, hematuria, hearing deficits. She claims to be compliant with medications. She has no sinusitis, epistaxis, photosensitivity, bone pain, sore throat , hemoptysis, skin lesions or recent antibiotic intake. She denied any active complaints at the time of this office visit [facility] Medical History Dysphagia Vitamin D deficiency Thyroid cancer Medicare annual wellness visit, initial Paroxysmal atrial flutter Type 2 diabetes mellitus with hyperglycemia GERD (gastroesophageal reflux disease) MGUS (monoclonal gammopathy of unknown significance) Osteoarthritis Vitamin D deficiency Post-surgical hypothyroidism Non-toxic multinodular goiter Follicular carcinoma of thyroid gland SSS (sick sinus syndrome) Atrial flutter (~11/2019) Carpal tunnel syndrome DDD (degenerative disc disease) Peptic ulcer disease Obesity Impaired glucose tolerance Hyperlipidemia Hypertension Bradycardia Thyroid nodule Pacemaker (~11/2019) Surgical History Hx of endoscopy History of bilateral knee replacement Hx of arthroscopy of right knee Pulmonary nodule Hx of partial thyroidectomy Hx of appendectomy Hx of carpal tunnel repair Hx of colonoscopy History of back surgery Hx of knee surgery (~09/2012) Family History Father No problems noted. Mother CVD (cardiovascular disease) Heart disease Brother CVD (cardiovascular disease) Sudden cardiac Social History Household Members: Other Household Members Other:: niece Housing: House Are you a primary child care education coordinator to a significant other at home: No ( with dementia last year) Do you presently have visiting nurse or other home services: Yes Alcohol intake: never Patient Tobacco Use Status: Never used Tobacco e-Cigarette/Vaping Use: Never Used Second Hand Smoke Exposure: No Advance Directives Date on File: 12/06/21 service: No Current occupational status: retired Cognitive needs: No Hearing needs: No Vision needs: Yes Review of Systems Const All systems reviewed & are unremarkable except as noted in HPI and below Physical Exam Vital Signs: Last Vital Signs Pulse 60 01/18/24 11:31 BP 110/60 01/18/24 11:31 Pulse Ox 97 01/18/24 11:31 Oxygen Delivery Method Room Air 01/18/24 11:31 BMI result Body Mass Index 28.3 Const General: comfortable and no acute distress Orientation/consciousness: patient oriented x3 HEENT Head: Yes normocephalic Mouth: Normal oral and palatal mucosa present Eyes EOM: EOMs intact bilaterally Neck Neck: Yes supple Resp Auscultation: clear to auscultation bilaterally Cardio Jugular venous distension: no JVD Rate: regular rate GI Palpation (GI): Soft to palpation Auscultation: normal bowel sounds General: Yes no CVA tenderness Back/Spine/Pelvis Back: no CVA tenderness Skin General skin exam: no rashes or lesions noted Neuro General: patient oriented x3 and moves all extremities Extrem General: Yes no pedal edema Results Reviewed Nephrology Results: Hgb 12.7 g/dl (12.0-16.0) 10/25/23 WBC 10.1 X10*3/uL (4.8-10.8) 10/25/23 Plt Count 358 X10*3/uL (160-400) 10/25/23 Sodium 128 mmol/L (135-145) L 12/27/23 Potassium 4.8 mmol/L (3.3-5.1) 12/27/23 Chloride 97 mmol/L (96-108) 12/27/23 Carbon Dioxide 22 mmol/L (22-29) 12/27/23 BUN 13 mg/dL (9-16) 12/27/23 Creatinine 0.77 mg/dL (0.5-1.4) 12/27/23 Calcium 9.5 mg/dL (8.4-10.2) 10/25/23 Assessment & Plan Assessment & Plan (1) Hyponatremia: Code(s): E87.1 - Hypo-osmolality and hyponatremia Category: Medical (2) Hypertension: Code(s): I10 - Essential (primary) hypertension Category: Medical Qualifiers: Hypertension type: primary hypertension Qualified Code(s): I10 - Essential (primary) hypertension Plan Hyponatremia due to excess ADH Serum sodium better ; No weakness/ mentation changes C/W PO NaCl. Fluid restriction 40-48 oz/24 hours Blood work ordered; If Na gets lower in that will need to add PO Urea Continue current anti hypertensive medications for now Follow up in 6 M Orders: Orders Creatinine 6 Months E87.1 - Hypo-osmolality and hyponatremia Blood Urea Nitrogen 6 Months E87.1 - Hypo-osmolality and hyponatremia Electrolytes 6 Months E87.1 - Hypo-osmolality and hyponatremia Coding Level of Care Code Est Pt Level 4 (69709) Diagnoses Hyponatremia E87.1 Primary hypertension I10 Hypertension type: primary hypertension
[2024-01-18 11:31] VITALS: BP 110/60; PULSE 60; O2SAT 97; BMI 28.3
== END 2024-01-18 11:55 | disposition home or self-care (01) ==
LOC: HO.HKAS 11:03
PROVIDERS: PCP Internal Medicine; Visit Provider Internal Medicine Nephrology
DX: E87.1 Hypo-osmolality and hyponatremia (principal); I10 Essential (primary) hypertension
CPT/HCPCS: 99214

== ENCOUNTER → 2024-01-18 11:02 | Outpatient (BNVA) | payer MEDICARE, SELFPAY | PROVIDERS: PCP Internal Medicine; Visit Provider Internal Medicine Nephrology | DX: I10 Essential (primary) hypertension (principal); E87.1 Hypo-osmolality and hyponatremia; Z79.01 Long term (current) use of anticoagulants | CPT/HCPCS: 99212 ==

== ENCOUNTER → 2024-02-29 23:59 | Outpatient (BNV) | payer MEDICARE, SELFPAY ==
--- NOTE | 2024-03-07 10:16 | MHC.OFFVIS ---
Intake Visit Reasons: Remote device check- [facility] Allergies No Known Allergies Allergy (Verified 01/18/24 11:31) [facility] Medical History Dysphagia Vitamin D deficiency Thyroid cancer Medicare annual wellness visit, initial Paroxysmal atrial flutter Type 2 diabetes mellitus with hyperglycemia GERD (gastroesophageal reflux disease) MGUS (monoclonal gammopathy of unknown significance) Osteoarthritis Vitamin D deficiency Post-surgical hypothyroidism Non-toxic multinodular goiter Follicular carcinoma of thyroid gland SSS (sick sinus syndrome) Atrial flutter (~11/2019) Carpal tunnel syndrome DDD (degenerative disc disease) Peptic ulcer disease Obesity Impaired glucose tolerance Hyperlipidemia Hypertension Bradycardia Thyroid nodule Pacemaker (~11/2019) Surgical History Hx of endoscopy History of bilateral knee replacement Hx of arthroscopy of right knee Pulmonary nodule Hx of partial thyroidectomy Hx of appendectomy Hx of carpal tunnel repair Hx of colonoscopy History of back surgery Hx of knee surgery (~09/2012) Family History Father No problems noted. Mother CVD (cardiovascular disease) Heart disease Brother CVD (cardiovascular disease) Sudden cardiac Social History Household Members: Other Household Members Other:: niece Housing: House Are you a primary residential child care counselor to a significant other at home: No ( with dementia last year) Do you presently have visiting nurse or other home services: Yes Alcohol intake: never Patient Tobacco Use Status: Never used Tobacco e-Cigarette/Vaping Use: Never Used Second Hand Smoke Exposure: No Advance Directives Date on File: 12/06/21 service: No Current occupational status: retired Cognitive needs: No Hearing needs: No Vision needs: Yes Office Procedures Cardiac Device Check Cardiac Device Check Details: Remote pacemaker report generated 02/29/2024. Pacemaker function is adequate. Intermittent episodes of atrial fibrillation, total burden of 1.9% [id number] Cardiac Device Interrogation, pacemaker Procedure code (CPT) selection complete Assessment & Plan Assessment & Plan (1) Pacemaker: Onset Date: ~11/2019 Code(s): Z95.0 - Presence of cardiac pacemaker Category: Medical Plan: See above Coding Level of Care Code Procedure Only Diagnoses Pacemaker Z95.0 CPT Codes Cardiac Device Check - Cardiac Device 12: [id number] Cardiac Device Interrogation, pacemaker ([id number])
== END ==
PROVIDERS: PCP Internal Medicine; Visit Provider Internal Medicine Cardiovascular Disease
DX: I48.91 Unspecified atrial fibrillation (principal); Z95.0 Presence of cardiac pacemaker
CPT/HCPCS: 93294

== ENCOUNTER 2024-04-11 10:48 | Outpatient (AMB) | payer MEDICARE, SELFPAY ==
--- NOTE | 2024-04-11 11:16 | MHC.OFFVIS ---
Vital Signs 04/11/24 11:17 Height 5 ft 3 in Weight 158 lb 11.725 oz BMI 28.1 BP 140/84 H Blood Pressure Location Lt brachial Position Sitting Pulse 78 Intake Visit Reasons: 6 mth f/up Intake Note: 6 month follow-up with [facility] check Special Investigation Unit Investigator Required: No Fast Food Fry Cook: Fast Food Fry Cook Present Accompanied by: niece Allergies No Known Allergies Allergy (Verified 01/18/24 11:31) Medication List - Last Reconciled 04/11/24 by Nikita Choi MD amlodipine 10 mg PO DAILY atorvastatin 10 mg PO BEDTIME calcium carbonate-vitamin D3 500 mg-10 mcg (400 unit) (Oystercal-D) 1 tab PO DAILY coenzyme Q10 (Co Q-10) 50 mg PO DAILY divalproex (Depakote Sprinkles) 250 mg (2 x 125 mg) PO TID 90 days hydralazine 50 mg PO BID levothyroxine 50 mcg PO DAILY@0600 lisinopril 40 mg PO DAILY 90 days magnesium oxide 250 mg PO DAILY metoprolol tartrate 25 mg (1/2 x 50 mg) PO DAILY omeprazole 20 mg PO DAILY@0630 sodium chloride 1,000 mg PO TID spironolactone 25 mg PO DAILY HPI Comments Details: Sophie comes for follow-up. She was accompanied by a niece. As per the niece she has a lot of cognitive issue and memory issues mostly short-term memory. She was also at a fall risk and comes in a wheelchair. Patient says she is inclined to want to walk and be independent although as per the need she had a fall about 2 weeks ago. She is currently not on any oral anticoagulation. She was noted in the pacer telemetry to have recurrent episodes of atrial fibrillation although she denies any cardiac symptoms. He was no symptoms of palpitations. There was no worsening symptoms of heart failure with no orthopnea, PND, leg edema. No concerning chest pain syndrome. [facility] Medical History (Updated 04/11/24 @ 12:06 by Nikita Choi MD) Atrial flutter (~11/2019) Dysphagia Vitamin D deficiency Thyroid cancer Medicare annual wellness visit, initial Paroxysmal atrial flutter Type 2 diabetes mellitus with hyperglycemia GERD (gastroesophageal reflux disease) MGUS (monoclonal gammopathy of unknown significance) Osteoarthritis Vitamin D deficiency Post-surgical hypothyroidism Non-toxic multinodular goiter Follicular carcinoma of thyroid gland SSS (sick sinus syndrome) Carpal tunnel syndrome DDD (degenerative disc disease) Peptic ulcer disease Obesity Impaired glucose tolerance Hyperlipidemia Hypertension Bradycardia Thyroid nodule Pacemaker (~11/2019) Surgical History Hx of endoscopy History of bilateral knee replacement Hx of arthroscopy of right knee Pulmonary nodule Hx of partial thyroidectomy Hx of appendectomy Hx of carpal tunnel repair Hx of colonoscopy History of back surgery Hx of knee surgery (~09/2012) Family History Father No problems noted. Mother CVD (cardiovascular disease) Heart disease Brother CVD (cardiovascular disease) Sudden cardiac Social History Household Members: Other Household Members Other:: niece Housing: House Are you a primary healthcare consultant to a significant other at home: No ( with dementia last year) Do you presently have visiting nurse or other home services: Yes Alcohol intake: never Patient Tobacco Use Status: Never used Tobacco e-Cigarette/Vaping Use: Never Used Second Hand Smoke Exposure: No Advance Directives Date on File: 12/06/21 service: No Current occupational status: retired Cognitive needs: No Hearing needs: No Vision needs: Yes Review of Systems Const Denies chills, Denies fatigue, Denies fever(s), Denies frequent falls, Denies weakness, Denies weight gain and Denies weight loss ENT Denies dizziness Card Denies chest pain, Denies leg edema, Denies lightheadedness, Denies palpitations, Denies dyspnea, Denies dyspnea on exertion, Denies orthopnea and Denies other (loss of consciousness) Resp Denies cough, Denies dyspnea and Denies dyspnea on exertion GI Denies hematochezia and Denies change in stool character Musc Denies abnormal gait, Denies muscle weakness, Denies numbness, Denies radiating pain into limb and Denies tingling Neuro Denies abnormal gait, Denies dizziness, Denies frequent falls, Denies numbness, Denies tingling and Denies weakness Endo Denies fatigue and Denies palpitations Physical Exam Vital Signs: Last Vital Signs Pulse 78 04/11/24 11:17 BP 140/84 H 04/11/24 11:17 BMI result Body Mass Index 28.1 Const General: cooperative, comfortable, no acute distress, alert, awake and anxious Nutritional Appearance: other (Frail elderly woman) Orientation/consciousness: patient oriented x3 Limitations: wheelchair Neck Neck: Yes trachea midline, Yes supple and Yes no JVD Resp Effort & Inspection: normal respiratory effort Auscultation: clear to auscultation bilaterally Cardio Jugular venous distension: no JVD Palpation: normal PMI Rate: regular rate Rhythm: regular rhythm Heart sounds: S1 normal heart sound present and S2 normal heart sound present GI Auscultation: normal bowel sounds Skin General skin exam: no rashes or lesions noted Neuro General: patient oriented x3 and no focal motor deficits Extrem General: Yes no clubbing, cyanosis or edema Psych Appearance: grossly normal Office Procedures Cardiac Device Check Cardiac Device Check Details: Dual-chamber [facility] pacemaker noted. Patient noted to be in persistent atrial flutter and the mode was changed from DDDR to DDIR. This led to immediate. Of ventricular pacing. Ventricular sensing is adequate. Ventricular pacing thresholds adequate. Pacing lead impedance is stable. Battery life is at about 6 years [id number] Cardiac Device Check, pacemaker dual lead Procedure code (CPT) selection complete Assessment & Plan Assessment & Plan (1) Labile blood pressure: Code(s): R09.89 - Other specified symptoms and signs involving the circulatory and respiratory systems Category: Medical Plan: Significantly labile blood pressure in the past, adequately control at this point time current therapy. Continue current therapy. Low-salt diet was discussed. Stress mitigation strategies was discussed. Orthostatic precautions were discussed. Advised to maintain adequate hydration. No change in therapy at this point time. (2) Atrial flutter: Onset Date: ~11/2019 Code(s): I48.92 - Unspecified atrial flutter Category: Medical Qualifiers: Atrial flutter type: typical Qualified Code(s): I48.3 - Typical atrial flutter Plan: Persistent atrial flutter without any obvious symptoms at current point in time. Continue monitor by pacer telemetry although patient was having asymptomatic episodes and is currently asymptomatic with persistent atrial flutter. No cardiac decompensation. Continue rate control approach. Has declined oral anticoagulation therapy and risk of stroke was discussed (3) Pacemaker: Onset Date: ~11/2019 Code(s): Z95.0 - Presence of cardiac pacemaker Category: Medical Plan: Cardiac pacemaker in-situ for sick sinus syndrome. Pacemaker was reprogrammed for adequate functioning. Will follow remotely in 3 months. Follow up in the clinic in 6 months time and eventually will pursue annual follow-up. Thank you for allowing me to partake in her care Coding Level of Care Code Est Pt Level 4 (16924) Complex EM visit Add On G2211 Diagnoses Labile blood pressure R09.89 Typical atrial flutter I48.3 Atrial flutter type: typical Pacemaker Z95.0 CPT Codes Cardiac Device Check - Cardiac Device 2: [id number] Cardiac Device Check, pacemaker dual lead ([id number])
[2024-04-11 11:17] VITALS: BP 140/84; PULSE 78; BMI 28.1
--- OUTSIDE RECORDS SUMMARY | 2024-04-11 14:32 | XMS_ITS | Patient Health Record ---
Author Organization [facility] Address [address] [place] [id number] Care Team Providers Care Tube Room Cashier Name Role Phone Forrest Garcia MD Primary Care Provider Melo Hare Jr [phone] ALLERGIES No Known Allergies REASON FOR REFERRAL No Information MEDICATIONS Medication SIG (Take, Route, Frequency, Duration) Notes Start Date End Date Status Citalopram Hydrobromide 10 MG/5ML 5 ml Orally Once a day for 30 day(s) Active Spironolactone 25 MG 1 tablet Orally for 30 day(s) Active CoQ-10 400 MG as directed Orally Active Metoprolol Succinate 25 MG 1 capsule Ora lly Once a day for 30 day(s) Active Fish Oil 1000 MG 1 capsule Orally Onc e a day for 30 day(s) Active Lisinopril 40 MG 1 tablet Orally Once a day for 30 day(s) Active Atorvastatin Calcium 20 MG 1 tablet Oral ly Once a day for 30 day(s) Active Magnesium Oxide 400 MG 1 tablet as neede d Orally Once a day for 30 day(s) Active Eliquis 5 MG as directed Orally Active Omeprazole 20 MG TAKE 1 CAPSULE BY [facility] EVERY DAY for 90 Active Alendronate-Cholecalciferol 70-2800 MG-UNIT 1 tablet 30 minutes before the first food, beverage or medicine of the day with plain water Orally for 30 day(s) Active Levothyroxine Sodium 50 MCG 1 tablet in the morning on an empty stomach Orally Once a day for 30 day(s) Active Magnesium Carbonate 250 MG/GM as directed Orally Active LORazepam 1 MG 1 tablet at bedtime as needed Orally Once a day Active Vitamin D-3 25 MCG (1000 UT) 1 capsule O rally Once a day for 30 day(s) Active hydrALAZINE HCl 100 MG 1 tablet with jessy d Orally Twice a day for 30 day(s) Active Calcium 1200 4534-8447 MG-UNIT 1 tablet Orally Once a day for 30 day(s) Active IMMUNIZATIONS Vaccine Route Administration Date Status Comme nts Influenza Unknown 01/27/2021 Administered Influenza Unknown 01/12/2022 Administered SOCIAL HISTORY Tobacco Use: Social History Observation Description Date Details (start date - stop date) Never Smoker NA - NA Sex Assigned At : Social History Observation Description Sex Assigned At Unknown Tobacco Use/Smoking Question Answer Notes Patient is a nonsmoker Alcohol Screen Question Answer Notes Did you have a drink containing alcohol in the p ast year? 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) Active confirmed 540888902 Problem Constipation, unspecified constipation type (K59.00) Active confirmed 92141864 Problem Oropharyngeal dysphagia (R13.12) Active confirmed 10571698 PLAN OF TREATMENT Pending Test Test Name Order Date XR BARIUM SWALLOW, MODIFIED VIDEO 2022 Future Test Test Name Order Date UPPER GI ENDOSCOPY BALLOOON DILATION OF ESOPH 06/17/2021 Insurance Providers Payer Name Payer Address Payer Phone Subscriber Number Group Number Insured Name Patient Relationship to Insured Coverage Start Date Coverage End Date MEDICARE OF [place] [address] [place] [address] [phone] [id number] MITCHELL MUSA (FRANCINE) Self - patient is the insured MEDEX ATTN CLAIMS [address] [place] [phone] [id number] MITCHELL MUSA) Self - patient is the insured MEDICAL (GENERAL) HISTORY Medical History History ICD Code Hypertension Hyperlipidemia Atrial fibrillation/sick sinus syndrome Thyroid cancer status post partial thyro idectomy Anxiety Osteoarthritis Colon polyps, colonoscopy , tubular adenomas, followup optional based on age Dysphagia, EGD 08/01, balloon dilation of the EGJ to 20 mm, biopsy showing Ruiz's esophagus without dysplasia Surgical History Surgery Date(Month/Year) pacemaker knee replacement carpal tunnel back operations x 2
--- OUTSIDE RECORDS SUMMARY | 2024-04-11 14:32 | XMS_ITS | Clinical Summary ---
Author Organization [facility] Address [address] [place] [address] Phone Care Team Providers Care Mobile Application Engineer Name Role Phone Forrest Garcia MD Primary Care Provider Allergies Active Allergy Reactions Criticality Noted Date Comments Amoxicillin Other (see comments) 10/15/2020 Medications omega-3 (FISH OIL) 1000 MG capsule Take 1 capsule by mouth 1 (one) time each day Active Magnesium 500 MG tablet Take 1 tablet by mouth 1 (one) time each day Active atorvastatin (LIPITOR) 20 MG tablet Take 1 tablet by mouth 1 (one) time each day Active levothyroxine (SYNTHROID, LEVOTHROID) 50 MCG tablet Take 1 tablet by mouth 1 (one) time each day 07/30/2020 Active alendronate (FOSAMAX) 70 MG tablet Take 1 tablet by mouth 1 (one) time per week 08/31/2020 Active Eliquis 5 MG tablet Take 1 tablet by mouth 2 (two) times a day 10/05/2020 Active lisinopril 20 MG tablet Take 1 tablet by mouth 1 (one) time each day 09/28/2020 Active hydrALAZINE 100 MG tablet Take 100 mg by mouth 1 (one) time each day in the morning 1 tab at night 10/05/2020 Active metoprolol succinate XL (TOPROL XL) 25 MG 24 hr tablet Take 1 tablet by mouth 1 (one) time each day 09/26/2020 Active LORazepam (ATIVAN) 1 MG tablet Take 1 mg by mouth at night if needed for anxiety Active citalopram (CeleXA) 10 MG tablet Take 10 mg by mouth 1 (one) time each day Active omeprazole (PriLOSEC) [address] capsule Take 20 mg by mouth 1 (one) time each day Every day for 30 days 06/17/2021 Active spironolactone (ALDACTONE) 25 MG tablet TAKE 1 TABLET BY MOUTH EVERY DAY 90 tablet 3 09/21/2022 Active Active Problems Problem Noted Date Diagnosed Date 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/24/2021 Hypertensive disorder 07/08/2021 Lung mass 07/08/2021 Benign essential hypertension 10/15/2020 Resolved Problems Problem Noted Date Diagnosed Date Resolved Date Degeneration of lumbar intervertebral disc 07/08/2021 07/08/2021 Depressive disorder 07/08/2021 07/09/19 Hyperlipidemia 07/08/2021 07/08/2021 Peptic ulcer 07/08/2021 07/08/2021 Thyroid nodule 07/08/2021 07/08/2021 Immunizations Name Administration Dates Next Due Pneumococcal Conjugate 13-Valent 03/18/2017 Pneumococcal Polysaccharide 04/13/2010 Family History Medical History Relation Comments Hypertension Mother Heart disease Sibling Relation Status Comments Father Mother Sibling Social History Tobacco Use Types Packs/Day Years Used Date Smoking Tobacco: Never Smokeless Tobacco: Never Tobacco Cessation:Counseling Given: Not Answered Alcohol Use Standard Drinks/Week Comments No 0 (1 standard drink = 0.6 oz pur e alcohol) Comments Unknown Sex and Gender Information Value Date Recorded Sex Assigned at Not on file Legal Sex Female 5:01 PM EST Gender Identity Not on file Sexual Orientation Not on file Last Filed Vital Signs Vital Sign Reading Time Taken Comments Blood Pressure 128/58 07/06/2022 1:22 PM EDT Pulse 59 07/06/2022 1:22 PM EDT Temperature - - Respiratory Rate - - Oxygen Saturation 97% 10/16/2020 1:39 PM EDT Inhaled Oxygen Concentration - - Weight 75.3 kg (166 lb) 07/06/2022 1:22 PM EDT Height 160 cm (5' 3 ) 08/28/2019 12:00 PM EDT Body Mass Index 29.41 08/28/2019 12:00 PM EDT Plan of Treatment Health Maintenance Due Date Last Done Comments Influenza Vaccine (#1) 2023 , 01/09/2019, 01/01/2018, Additional history exists Pneumococcal Vaccine: 65+ Years Completed 01/31/2018, 03/18/2017, 04/13/2010 Hepatitis B Vaccine Aged Out No longe r eligible based on patient's age to complete this topic Insurance MEDICARE [facility] MEDICARE [facility] Care Teams Mobile Application Engineer Relationship Specialty Start Date End Date Forrest Garcia MD [facility] [address] [place], [place] PCP - General 03/23/20
--- OUTSIDE RECORDS SUMMARY | 2024-04-11 14:33 | XMS_ITS | Data Portability ---
Author Organization [facility] K[facility], [address] Address [address] [place] [address] Care Team Providers Care Care Navigator Name Role Phone [facility] Primary Care Provider Assessment No assessment recorded. Plan of Treatment Reminders Order Date Submit Date Provider Last Modified By Organization Details Last Modified Time Details Appointments None recorded. Lab rapid SARS CoV 2 Ag, QL IA, respirator y specimen 2022 023 [id number], [address] [place] [address], [phone], 3 15:23:03 rapid flu (A+B) 2022 023 [facility] [id number] [place] [address], [address] [place] [address], [phone], 3 15:19:52 Referral None recorded. Procedures None recorded. Surgeries None recorded. Imaging XR, chest, 2 view 2022 023 [email or web address] [facility], [address] [place] [address], [address], 3 15:24:05 Medication Orders neomycin-p olymyxin-h ydrocort 3.5 mg-10,000 unit/mL-1 % ear drops,susp 2022 023 xuan [facility] #[id number], [address] [facility], [place], [address], 3 14:11:32 Allergy Relief (fluticaso ne) 50 mcg/actuat ion nasal spray,susp ension 2022 023 [facility] [address] [place] [address], [address], 3 12:28:20 albuterol sulfate 2.5 mg/3 mL (0.083 %) solution for nebulizati on 2022 023 [address] [facility] [address], [address] [place] [address], [place], [address], 3 15:19:22 ipratropiu m bromide 0.02 % solution for inhalation 2022 023 [address] [facility] [address], [address] [place] [address], [place], [address], 3 15:19:22 prednisone 20 mg tablet 2022 023 [address] [facility] [address] [address], [address] [place] [address], [place], [address], 3 15:23:00 albuterol sulfate HFA 90 mcg/actuat ion aerosol inhaler 2022 023 [facility] [address] [place] [address], [place], [address], 3 15:19:56 Allergy Relief (fluticaso ne) 50 mcg/actuat ion nasal spray,susp ension 2022 023 [facility] [address] [place] [address], [address], 3 15:19:56 Patient TargetsNo targets recorded. Patient Instructions Encounter Date Encounter Id Patient Instructions Last Modified By Organization Details Last Modified Time 06/02/2022 [id number] hearing loss: ca re instructions [facility] Not available 06/02/2022 12:27:30 Sinusitis is an infection of the lining of the sinus cavities in your head. Sinusitis often follows a cold. It causes pain and pressure in your head and face. In most cases, sinusitis gets better on its own in 1 to 2 weeks. But some mild symptoms may last for several weeks. Sometimes antibiotics are needed. if you are having problems. It's also a good idea to know your test results and keep a list of the medicines you take. How can you care for yourself at home? Take an siwc-zfk-cnrtheh pain medicine. Avoid Ibuprofen, Aleve and Aspirin if . If the doctor prescribed antibiotics, take them as directed. Do not stop taking them just because you feel better. You need to take the full course of antibiotics. Be careful when taking inpb-fvd-phsuhhq cold or influenza (flu) medicines and Tylenol at the same time. Many of these medicines have acetaminophen, which is Tylenol. Read the labels to make sure that you are not taking more than the recommended dose. Too much acetaminophen (Tylenol) can be harmful. Breathe warm, moist air from a steamy shower, a hot bath, or a sink filled with hot water. Avoid cold, dry air. Using a humidifier in your home may help. Follow the directions for cleaning the machine. Use saline (saltwater) nasal washes. This can help keep your nasal passages open and wash out mucus and bacteria. You can buy saline nose drops at a grocery store or drugstore. Or you can make your own at home by adding 1 teaspoon (5 millilitres) of salt and 1 teaspoon (5 millilitres) of baking soda to 2 cups (500 mL) of distilled water. If you make your own, fill a bulb syringe with the solution, insert the tip into your nostril, and squeeze gently. Blow your nose. Put a hot, wet towel or a warm gel pack on your face 3 or 4 times a day for 5 to 10 minutes each time. Try a decongestant nasal spray like oxymetazoline (Drixoral). Do not use it for more than 3 days in a row. Using it for more than 3 days can make your congestion worse. Not available 06/02/2022 12:28:17 Water in the ear , from swimming or bathing, makes the ear canal prone to infection. Hot and humid weather also predisposes to infection. Symptoms of otitis externa include: ear pain, fullness or itching in the ear, ear drainage, and temporary loss of hearing. These symptoms are similar to those caused by otitis media (middle ear infection). To differentiate between external ear infection and middle ear infection, the provider looks in the ear with an instrument called an otoscope. It is important to distinguish between the two infections, as they are treated differently: External otitis is treated with drops in the ear canal, while middle ear infection is sometimes treated with an antibiotic by mouth. MEASURES YOU SHOULD TAKE TO HELP TREAT EXTERNAL EAR INFECTION: 1. Use the ear drops regularly, as directed on the prescription. 2. The cox to treatment is getting the drops down into the canal and keeping the medicine there. To accomplish this: Lie on your side, with the unaffected ear down. Put three to four drops in the infected ear canal, then gently pull the outer ear back and forth several times, working the medicine deeper into the ear canal. Remain still, duvn-uwg-masq-down for about 15 minutes. 3. Keep the ear as dry as possible. Swimming should be postponed until the infection has cleared. Try to avoid getting water in the ear when bathing. If water does get in the ear, the canal can be gently dried with a hair blow dryer. Use the low heat setting, and keep the blow dryer about six inches from the ear. 4. Obbv-xzo-gyaglap pain medications can relieve discomfort associated with external otitis. Acetaminophen (Tylenol), ibuprofen, or naproxen can be taken, depending on individual preference. 5. Return to the [facility] [place] 2[facility] in about one week. The provider can check to make sure the infection has cleared, continue the medicine if needed, okay a return to swimming, etc. 6. To prevent repeated episodes of otitis externa, try to keep the ear canal dry. Gentle swabbing with Q-tips (never deep into the canal), along with a hair blow dryer (low heat), can be used to dry the ear canal if it gets wet. 7. Should you develop severe pain, fever, severe headache, or stiff neck, see your personal/referral doctor or go to the closest emergency department promptly. Otitis externa does not normally cause these symptoms; another problem, requiring different treatment, could be present Not available 06/02/2022 12:27:24 06/19/2022 [id number] peak flow* [email or web address] Not available 11/2022 15:19:22 If you test positive for COVID-19, stay home for at least 5 days and isolate from others in your home. You are likely most infectious during these first 5 days. Wear a high-quality mask if you must be around others at home and in public. Do not go places where you are unable to wear a mask. For travel guidance, see [facility] s Travel webpage. Do not travel. Stay home and separate from others as much as possible. Use a separate bathroom, if possible. Take steps to improve ventilation at home, if possible. Don? t share personal household items, like cups, towels, and utensils. Monitor your symptoms. If you have an emergency warning sign (like trouble breathing), seek emergency medical care immediately. If you had symptoms and: Your symptoms are improving You may end isolation after day 5 if: You are fever-free for 24 hours (without the use of fever-reducing medication). Your symptoms are not improving Continue to isolate until: You are fever-free for 24 hours (without the use of fever-reducing medication). Your symptoms are improving. Regardless of when you end isolation Until at least day 11: Avoid being around people who are more likely to get very sick from COVID-19. Remember to wear a high-quality mask when indoors around others at home and in public. Do not go places where you are unable to wear a mask until you are able to discontinue masking (see below). For travel guidance, see [facility]? s Travel webpage. Not available 06/19/2022 15:18:58 Patient instruct ed on worsening signs and symptoms that would require further evaluation by ED or PCP such as fever of 101.0 or greater, congestion accompanied with coughing, vomiting, diarrhea, abdominal pain, decreased oral intake, lethargy, or other new symptom(s) experienced not discussed during this visit. Use humidifier and ensure good hydration. If you experience new concerning symptoms, shortness of breath, respiratory distress, or chest pain go to the ER. Use the medications prescribed. May use Decongestants if tolerated and no history of elevated blood pressure or Diabetes. Use saline nasal saline and Flonase daily for1 week. You may use tylenol for pain/fever. Do not take prednisone with Ibuprofen. Get some extra rest. When should you call for help? Call anytime you think you may need emergency care. For example, call if: You have severe trouble breathing. Call your doctor now or seek immediate medical care if: You have new or worse trouble breathing. You cough up dark brown or bloody mucus (sputum). You have a new or higher fever. You have a new rash. Watch closely for changes in your health, and be sure to contact your doctor if: You cough more deeply or more often, especially if you notice more mucus or a change in the color of your mucus. You are not getting better as expected. Not available 06/19/2022 14:28:27 Reason for Referral None Reported. Results Created Date Observation Date Name Description Value Unit Range Abnormal Flag Note LastModifiedBy Organization Detail LastModifiedTime 06/20/1906/19/2022 rapid SARS CoV 2 Ag, QL IA, respi rator y speci men Unknown Analyte Normal =Negat alex Not Available [address], [address], 06/19/2022 15:08:16 06/20/19 23 06/19/2022 rapid SARS CoV 2 Ag, QL IA, respi rator y speci men Unknown Analyte negati ve Not Available [address] [place] [address], [phone], 06/19/2022 15:08:16 06/20/19 23 06/19/2022 rapid flu (A+B) Unknown Analyte Normal = Negati ve Not Available [address] [place] [address], [phone], 06/19/2022 15:08:22 06/20/19 23 06/19/2022 rapid flu (A+B) Unknown Analyte negati ve Not Available [address] [place] [address], [phone], 06/19/2022 15:08:22 06/20/19 23 06/19/2022 rapid flu (A+B) Unknown Analyte Normal = Negati ve Not Available 2099pancho mustafa [address] [place], [address], 06/19/2022 15:08:22 06/20/19 23 06/19/2022 rapid flu (A+B) Unknown Analyte negati ve Not Available 2099pancho [address] [place], [address], 06/19/2022 15:08:22 06/20/19 23 06/19/2022 peak flow* Pre (L/min) 80 Not Available Formerly named [facility] narendra [address] [place], [address], 06/19/2022 14:26:50 06/20/19 23 06/19/2022 peak flow* Post (L/min) 150 Not Available [address], [address], 06/19/2022 14:26:50 06/20/19 23 06/19/2022 peak flow* Pulse 60 Not Available [address], [address], 06/19/2022 14:26:50 06/20/19 23 06/19/2022 peak flow* Oxygen Saturation 96 Not Available [address] [place] [address], [phone], 06/19/2022 14:26:50 06/20/19 23 06/19/2022 XR, chest , 2 view No observ ation record ed. [facility] [address] [facility] [place], [address], 06/19/2022 16:02:44 06/21/19 23 XR, chest , 2 view No observ ation record ed. [email or web address] Not Available 2022 09:50:44 Result Notes None recorded. 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 QUANG DEPINTO null, PA - [facility] 3 11:45:16 Hypertensi ve disorder 44203076 Active 2022 QUANG DEPINTO null, PA - [facility] 3 11:45:25 Hyperchole sterolemia 19489522 Active 2022 QUANG DEPINTO null, PA - [facility] 3 11:45:31 Gastroesop hageal reflux disease 826069621 Active 2022 QUANG DEPINTO null, PA - [facility] 3 11:45:36 Ruiz's esophagus 696140296 Active 2022 QUANG DEPINTO null, PA - [facility] 3 11:45:40 Anxiety 34753207 Active 2022 QUANG DEPINTO null, PA - [facility] 3 11:45:46 Depressive disorder 83596374 Active 2022 QUANG DEPINTO null, PA - [facility] 3 11:45:51 Problem Notes None recorded. Procedures Surgical History Date Name Laterality Status Provider Name and Address Organization Details Recorded Time Cerumen Removal by Irrigation completed Catarino Alanis NP [address] [place], [address], PA - [facility] 06/02/2022 12:26:36 cardiac pacemaker procedure completed QUANG DEPINTO PA - [facility] 06/02/2022 11:46:25 procedure on back completed QUANG DEPINTO PA - [facility] 06/02/2022 11:46:31 replacement of bilateral knee joints completed QUANG DEPINTO PA - [facility] 06/02/2022 11:46:37 Imaging Results Imaging Date Name Status LastModified by Organiz ation Details LastModified Time 06/19/2022 XR, chest, 2 view completed [email or web address] [address] [facility] [place], [address], 06/19/2022 16:02:44 06/20/2022 XR, chest, 2 view completed [email or web address] Information not available 06/20/2022 09:50:44 Procedure Notes None recorded. Medical Equipment None Reported. Allergies No known drug allergies Medications Name Sig Start Date Stop Date Status Note LastModified by Organization Details LastModified Time amoxicillin 500 mg capsule START THE DAY PRIOR TO THE APPOINTME NT ------- TAKE 1 CAPSULE BY MOUTH 3 TIMES DAILY 06/02 completed Not Available Not Available Not Available atorvastati n 20 mg tablet TAKE 1 TABLET (20MG) BY MOUTH DAILY. active Not Available Not Available No t Available albuterol sulfate 2.5 mg/3 mL (0.083 %) solution for nebulizatio n Inhale 2.5 mg every day by nebulizat ion route as directed for 1 day. 2022 active Not Available Not Available Not Avai lable citalopram 10 mg tablet TAKE 1 TAB (10 MG) ORALLY DAILY FOR 90 DAYS active Not Available Not Available No t Available prednisone 20 mg tablet Take 2 tablets every day by oral route in the morning for 4 days. 2022 active Not Available Not Available Not Avai lable alendronate 70 mg tablet TAKE 1 TABLET BY MOUTH ONCE A WEEK active Not Available Not Available No t Available amlodipine 5 mg tablet TAKE 1 TABLET BY MOUTH TWICE A DAY active Not Available Not Available No t Available spironolact one 25 mg tablet TAKE 1 TABLET BY MOUTH EVERY DAY active Not Available Not Available No t Available citalopram 20 mg tablet TAKE 1/2 TABLET (10MG) BY MOUTH EVERY DAY active Not Available Not Available No t Available levothyroxi ne 50 mcg tablet TAKE 1 TABLET BY MOUTH EVERY DAY active Not Available Not Available No t Available hydralazine 100 mg tablet TAKE 1 TABLET BY MOUTH TWICE A DAY active Not Available Not Available No t Available omeprazole 20 mg capsule,del ayed release TAKE 1 CAPSULE BY MOUTH EVERY DAY active Not Available Not Available No t Available metoprolol succinate ER 25 mg tablet,exte nded release 24 hr TAKE 1 TABLET BY MOUTH DAILY active Not Available Not Available No t Available lorazepam 1 mg tablet TAKE 1 TABLET BY MOUTH TWICE DAILY NEEEDED FOR ANXIETY active Not Available Not Available No t Available albuterol sulfate HFA 90 mcg/actuati on aerosol inhaler Inhale 2 puffs every 4-6 hours by inhalatio n route as needed for 10 days. 2022 active Not Available Not Available Not Avai lable lisinopril 40 mg tablet TAKE 1 TABLET (40 MG) BY MOUTH DAILY 90 DAYS active Not Available Not Available No t Available fluticasone propionate 50 mcg/actuati on nasal spray,suspe nsion SPRAY 1 SPRAY BY INTRANASA L ROUTE EVERY DAY DIRECTED FOR 30 DAYS active Not Available Not Available No t Available ipratropium bromide 0.02 % solution for inhalation Inhale 0.5 mg every day by inhalatio n route as directed for 1 day. 2022 active Not Available Not Available Not Avai lable neomycin-po lymyxin-hyd rocort 3.5 mg-10,000 unit/mL-1 % ear drops,susp INSTILL 4 DROPS INTO AFFECTED EAR(S) 3 TIMES A DAY 06/19 completed Not Available Not Available Not Available magnesium active Not Available Not Michelle ilable Not Available Vitamin D3 active Not Available Not Av ailable Not Available B12 active Not Available Not Availa ble Not Available Eliquis 5 mg tablet TAKE 1 TABLET BY MOUTH TWICE A DAY active Not Available Not Available No t Available Vitals Date Recorded Body height Provider Name an d Address Organization Details Last Updated DateTime 06/02/2022 160.02 cm QUANG DEPINTO PA - [facility] 0 06/02/2022 11:42:57 Date Recorded Body mass index (BMI) Body weight Provider Name and Address Organization Details Last Updated DateTime 06/02/2022 29.2 kg/m2 88917.74 g QUANG DEPINTO PA - [facility] 06/02/2022 11:43:02 Date Recorded Pain severity - 0-10 verbal numeric rating [Score] - Reported Provider Name and Address Organization Details Last Updated DateTime 06/02/2022 0 QUANG DEPINTO PA - [facility] 0 06/02/2022 11:43:03 Date Recorded Respiratory rate Provider Name a nd Address Organization Details Last Updated DateTime 06/02/2022 18 /min QUANG DEPINTO PA - [facility] 0 06/02/2022 11:48:22 Date Recorded Body temperature Provider Name a nd Address Organization Details Last Updated DateTime 06/02/2022 97.3 [degF] QUANG KATZO PA - [facility] 06/02/2022 11:48:56 Date Recorded Oxygen saturation Oxygen saturation in Arterial blood by Pulse oximetry Provider Name and Address Organization Details Last Updated DateTime 06/02/2022 97 % 97 % QUANG DEPINTO PA - [facility] 06/02/2022 11:48:58 Date Recorded Heart rate Provider Name an d Address Organization Details Last Updated DateTime 06/02/2022 60 /min QUANG PEOPLESINTO PA - [facility] 0 06/02/2022 11:49:02 Date Recorded Body height Provider Name an d Address Organization Details Last Updated DateTime 06/19/2022 160.02 cm Philly Garcia PA - [facility] 06/19/2022 14:12:41 Date Recorded Body mass index (BMI) Body weight Provider Name and Address Organization Details Last Updated DateTime 06/19/2022 29.2 kg/m2 08738.74 g Philly Garcia PA - [facility] 06/19/2022 14:12:46 Date Recorded Pain severity - 0-10 verbal numeric rating [Score] - Reported Provider Name and Address Organization Details Last Updated DateTime 06/19/2022 0 Philly Garcia PA - [facility] 06/19/2022 14:13:15 Date Recorded Respiratory rate Provider Name a nd Address Organization Details Last Updated DateTime 06/19/2022 18 /min Philly Garcia PA - [facility] 06/19/2022 14:14:19 Date Recorded Oxygen saturation Oxygen saturation in Arterial blood by Pulse oximetry Provider Name and Address Organization Details Last Updated DateTime 06/19/2022 96 % 96 % Philly Garcia PA - [facility] 06/19/2022 14:14:36 Date Recorded Heart rate Provider Name an d Address Organization Details Last Updated DateTime 06/19/2022 60 /min Philly Garcia PA - [facility] 06/19/2022 14:14:39 Date Recorded Body temperature Provider Name a nd Address Organization Details Last Updated DateTime 06/19/2022 99.1 [degF] Philly Radha PA - [facility] 06/19/2022 14:15:59 Date Recorded Systolic blood pressure Diastolic blood pressure Provider Name and Address Organization Details Last Updated DateTime 06/02/2022 146 mm[Hg] 74 mm[Hg] QUANG BENOIT PA - [facility] 06/02/2022 11:48:17 Date Recorded Systolic blood pressure Diastolic blood pressure Provider Name and Address Organization Details Last Updated DateTime 06/19/2022 134 mm[Hg] 70 mm[Hg] Philly Radha PA - [facility] 06/19/2022 14:14:29 Social History Question Answer Notes LastModified by Organizat ion Details LastModified Time Tobacco Smoking Status Never Smoker QUANG baer PA - [facility] 06/02/2022 11:46:12 What Is Your Level Of Alcohol Consumption? None Information not available 06/02/2022 Have You Had Direct Contact, Or Contact During Intimacy, With Monkeypox Rash, Scabs, Or Body Fluids From A Person With Monkeypox? No Information not available 06/02/2022 Do You Use Any Illicit Or Recreational Drugs? No Information not available 06/02/2022 Have You Recently Traveled Abroad? No Information not available 06/02/2022 Do You Or Have You Ever Used Any Other Forms Of Tobacco Or Nicotine? No Information not available 06/02/2022 Sex: Unknown Functional Status None recorded. Mental Status None recorded. Family History Relationship Description Onset Age of this Age Resolved Age Notes LastModified by Organization Details LastModified Time Father No current problems or disability Not available 06/02 11:45:59 Mother No current problems or disability Not available 06/02 11:45:59 Medical History No medical history recorded. Gynecological HistoryNo gynecological history recorded. Obstetrics History GPAL:G 0 P 0 0 0 0 Immunizations Vaccine Type Date Status Note Provider Nam e and Address Organization Details Recorded Time Influenza, high-dose, quadrivalent, PF 2 completed QUANG DEPINTO null, PA - [facility] 06/02/2022 11:43:09 Influenza, high-dose, quadrivalent, PF 0 completed QUANG DEPINTO null, PA - [facility] 06/02/2022 11:43:10 Influenza, adjuvanted, quadrivalent, PF 1 completed QUANG DEPINTO null, PA - [facility] 06/02/2022 11:43:10 COVID-19, mRNA, LNP-S, PF, 100 mcg/0.5mL dose or 50 mcg/0.25mL dose 1 completed QUANG DEPINTO null, PA - [facility] 06/02/2022 11:43:10 COVID-19, mRNA, LNP-S, PF, 100 mcg/0.5mL dose or 50 mcg/0.25mL dose 1 completed QUANG DEPINTO null, PA - [facility] 06/02/2022 11:43:10 COVID-19, mRNA, LNP-S, PF, 100 mcg/0.5mL dose or 50 mcg/0.25mL dose 1 completed QUANG DEPINTO null, PA - [facility] 06/02/2022 11:43:10 pneumococcal polysaccharide PPV23 8 completed QUANG DEPINTO null, PA - [facility] 06/02/2022 11:43:10 Influenza, high-dose, trivalent, PF 7 completed QUANG DEPINTO null, PA - [facility] 06/02/2022 11:43:10 Influenza, high-dose, trivalent, PF 4 completed QUANG DEPINTO null, PA - [facility] 06/02/2022 11:43:10 Influenza, high-dose, trivalent, PF 6 completed QUANG DEPINTO null, PA - [facility] 06/02/2022 11:43:10 Influenza, high-dose, trivalent, PF 8 completed QUANG DEPINTO null, PA - [facility] 06/02/2022 11:43:10 Influenza, high-dose, trivalent, PF 9 completed QUANG DEPINTO null, PA - [facility] 06/02/2022 11:43:10 Influenza, split virus, trivalent, preservative 1 completed QUAGN DEPINTO null, PA - [facility] 06/02/2022 11:43:10 Influenza, split virus, trivalent, preservative 3 completed QUANG DEPINTO null, PA - [facility] 06/02/2022 11:43:10 Influenza, split virus, trivalent, preservative 0 completed QUANG DEPINTO null, PA - [facility] 06/02/2022 11:43:10 Influenza, split virus, trivalent, PF 5 completed QUANG DEPINTO null, PA - [facility] 06/02/2022 11:43:10 Td (adult), 2 Lf tetanus toxoid, preservative free, adsorbed 2 completed QUANG DEPINTO null, PA - [facility] 06/02/2022 11:43:10 Past Encounters Encounter ID Performer Location Encounter Start Date Encounter Closed Date Diagnosis/Indication Diagnosis SNOMED-CT Code Diagnosis ICD10 Code Diagnosis Note [id number] [facility] [address] [place] [phone] 05/20/2015 10:31:08 05/20/2015 10:55:00 [id number] [facility] [address] [place] [address] 03/10/2018 14:05:27 03/10/2018 16:18:15 [id number] [facility] [address] [place] [address] 10/26/2016 10:50:18 10/26/2016 11:24:40 [id number] [facility] [address] [place] [address] 01/25/2015 14:33:52 01/25/2015 15:33:11 [id number] [address] [place] [address] 04/29/2020 13:56:25 04/29/2020 15:29:26 [id number] Catarino AlanisANGEL [address] [place] [address] 06/02/2022 10:47:32 06/02/2022 12:35:23 Acute otitis externa of right ear [id number] H60.501 Acute sinusitis 66675894 J01.90 [id number] Catarino Alanis NP [address] [place] [address] 06/19/2022 13:48:54 06/19/2022 15:24:05 Acute bronchitis [id number] J20.9 Exposure t o SARS-CoV-2 [id number] Z20.822 Health Concerns Section Related Observation LastModified by Organization Detai ls LastModified Time None Recorded Concern Status LastModified by Organization Details LastModified Time None Recorded Advance Directives Directive None Recorded Payers Encounter Date Sequence Insurance Name Policy Number Policy Pop Covered Member ID Pop Member ID Guarantor Name 04/29/2020 2 [place] [id number] Jose Awa Portillo Szmyd [id number] Wladyslawa Szmyd 06/02/2022 1 [place] Pietersradha Nath Szmyd [id number] Wladyslawa Szmyd 06/02/2022 2 [place] [id number] Sinandyslawa T Szmyd [id number] Wladyslawa Szmyd 06/19/2022 1 [place] Carmenadyslawa Portillo Szmyd [id number] Wladyslawa Szmyd 06/19/2022 2 [place] [id number] Wlaydyslawa T Szmyd [id number] Wladyslawa Szmyd Notes Date Note Type Note Provider Name and Address Organization Details Recorded Time 3 text/html Ear problem UCReported bypatient.source of patient informationInformation obtained from patient; Patient arrived at Urgent Care ambulatory; learning styles: auditory Location:bilateral Quality:decreased hearing;ringing in the ears (tinnitus) Severity:mild Duration:7 days Context:no sick contacts; no recent swimming/water in ear; no recent air travel Modifying Factors:does not hurt to lie on, or pull on ear; does not hurt to chew Associated Symptoms:discharge from the [place], [address], [place] - [facility] 06/02/2022 12:28:46 3 text/html Sinus Complaints UCReported bypatient.Location:sinus pain;facial pain;sinus pressure Associated Symptoms:no fever; no nausea or vomiting; no sore throat; no ear fullness; no nasal itching; no eye itching; no dizziness;difficulty breathing;Post nasal drip;nasal passage blockage;cough Onset/Timing:worse in am; worse in pm Quality:minimal discomfort;worsening; clear Duration:frequent Severity:moderate Context:no recent upper respiratory infection; no recent sick contacts; not worse with seasonal allergen exposure;worse with environmental exposure Risk Factors:no current smoking or tobacco use; no history of nasal trauma Alleviating factors:oral steroids Aggravating factors:worse during an upper respiratory infection (a cold); worse with excess fatigue Prior Treatmentoral decongestant [place], [address], [place] - [facility] 06/19/2022 15:24:23 OBGyn Episode No OBEpisode recorded.
--- OUTSIDE RECORDS SUMMARY | 2024-04-11 14:33 | XMS_ITS ---
Author Organization [facility] Address [address] [place] [address] Phone Care Team Providers Care Design Leader Name Role Phone Unavailable Unavailable Unavailable Allergies, Adverse Reactions, Alerts Adverse reactions excluded/not available Problems Problems excluded/not available
== END 2024-04-11 11:35 | disposition home or self-care (01) ==
PROVIDERS: PCP Internal Medicine; Visit Provider Internal Medicine Cardiovascular Disease
DX: R09.89 Other specified symptoms and signs involving the circulatory and respiratory systems (principal); I48.3 Typical atrial flutter; Z95.0 Presence of cardiac pacemaker
CPT/HCPCS: 93280; 99214; G2211

== ENCOUNTER → 2024-04-11 10:48 | Outpatient (BNVA) | payer MEDICARE, SELFPAY | PROVIDERS: PCP Internal Medicine; Visit Provider Internal Medicine Cardiovascular Disease | DX: R09.89 Other specified symptoms and signs involving the circulatory and respiratory systems (principal); I48.3 Typical atrial flutter; Z95.0 Presence of cardiac pacemaker | CPT/HCPCS: 93280; 99212 ==

== ENCOUNTER → 2024-06-01 23:59 | Outpatient (BNV) | payer MEDICARE, SELFPAY ==
--- NOTE | 2024-06-08 13:44 | A.OFFVIS_ITS ---
Intake Visit Reasons: Remote device check- [facility] Allergies No Known Allergies Allergy (Verified 01/18/24 11:31) [facility] Medical History (Updated 04/11/24 @ 12:06 by Nikita Choi MD) Atrial flutter (~11/2019) Dysphagia Vitamin D deficiency Thyroid cancer Medicare annual wellness visit, initial Paroxysmal atrial flutter Type 2 diabetes mellitus with hyperglycemia GERD (gastroesophageal reflux disease) MGUS (monoclonal gammopathy of unknown significance) Osteoarthritis Vitamin D deficiency Post-surgical hypothyroidism Non-toxic multinodular goiter Follicular carcinoma of thyroid gland SSS (sick sinus syndrome) Carpal tunnel syndrome DDD (degenerative disc disease) Peptic ulcer disease Obesity Impaired glucose tolerance Hyperlipidemia Hypertension Bradycardia Thyroid nodule Pacemaker (~11/2019) Surgical History Hx of endoscopy History of bilateral knee replacement Hx of arthroscopy of right knee Pulmonary nodule Hx of partial thyroidectomy Hx of appendectomy Hx of carpal tunnel repair Hx of colonoscopy History of back surgery Hx of knee surgery (~09/2012) Family History Father No problems noted. Mother CVD (cardiovascular disease) Heart disease Brother CVD (cardiovascular disease) Sudden cardiac Social History Household Members: Other Household Members Other:: niece Housing: House Are you a primary resident care aid to a significant other at home: No ( with dementia last year) Do you presently have visiting nurse or other home services: Yes Alcohol intake: never Patient Tobacco Use Status: Never used Tobacco e-Cigarette/Vaping Use: Never Used Second Hand Smoke Exposure: No Advance Directives Date on File: 12/06/21 service: No Current occupational status: retired Cognitive needs: No Hearing needs: No Vision needs: Yes Office Procedures Cardiac Device Check Cardiac Device Check Details: Remote pacemaker report generated 06/01/2024. Pacemaker function is adequate. [place] of atrial fibrillation at 33% [id number] Cardiac Device Interrogation, pacemaker Procedure code (CPT) selection complete Assessment & Plan Assessment & Plan (1) Pacemaker: Onset Date: ~11/2019 Code(s): Z95.0 - Presence of cardiac pacemaker Category: Medical Plan: See above Coding Level of Care Code Procedure Only Diagnoses Pacemaker Z95.0 CPT Codes Cardiac Device Check - Cardiac Device 12: [id number] Cardiac Device Interrogation, pacemaker ([id number])
== END ==
PROVIDERS: PCP Internal Medicine; Visit Provider Internal Medicine Cardiovascular Disease
DX: I48.91 Unspecified atrial fibrillation (principal); Z95.0 Presence of cardiac pacemaker
CPT/HCPCS: 93294

== ENCOUNTER 2024-06-18 10:43 | Outpatient (AMB) | payer MEDICARE, SELFPAY ==
--- NOTE | 2024-06-18 11:04 | HO.NEPHOV ---
Vital Signs 06/18/24 11:06 Height 5 ft 3 in BP 102/70 Blood Pressure Location Rt brachial Position Sitting Pulse 60 Pulse Source Pulse Oximeter Pulse Oximetry (%) 95 Oxygen Delivery Method Room Air Intake Visit Reasons: 6mo Follow Up-[facility] Outboard Motor Assembler Required: No Accompanied by: Grand Child Allergies No Known Allergies Allergy (Verified 01/18/24 11:31) HPI Comments Details: Ms Kwok was seen in follow up for hypertension and hyponatremia. Her niece was present throughout the patient encounter. She is known to have hypertension for a long time. She is on anticoagulation. She denies neuropathy, retinopathy, CAD, CVA, CHF, TEODORA , PAD or carotid stenosis. She has no H/O hepatitis but has H/O MGUS. She is on ACEI. She does not take NSAID's regularly. She denies any nausea, vomiting, diarrhea, SOB, edema, PND, orthopnea, hematuria, hearing deficits. She claims to be compliant with medications. She has no sinusitis, epistaxis, photosensitivity, bone pain, sore throat , hemoptysis, skin lesions or recent antibiotic intake. She denied any active complaints at the time of this office visit [facility], [facility] Medical History (Updated 06/18/24 @ 11:27 by Juan F Hastings MD) Atrial flutter (~11/2019) Dysphagia Vitamin D deficiency Thyroid cancer Medicare annual wellness visit, initial Paroxysmal atrial flutter Type 2 diabetes mellitus with hyperglycemia GERD (gastroesophageal reflux disease) MGUS (monoclonal gammopathy of unknown significance) Osteoarthritis Vitamin D deficiency Post-surgical hypothyroidism Non-toxic multinodular goiter Follicular carcinoma of thyroid gland SSS (sick sinus syndrome) Carpal tunnel syndrome DDD (degenerative disc disease) Peptic ulcer disease Obesity Impaired glucose tolerance Hyperlipidemia Hypertension Bradycardia Thyroid nodule Pacemaker (~11/2019) Surgical History Hx of endoscopy History of bilateral knee replacement Hx of arthroscopy of right knee Pulmonary nodule Hx of partial thyroidectomy Hx of appendectomy Hx of carpal tunnel repair Hx of colonoscopy History of back surgery Hx of knee surgery (~09/2012) Family History Father No problems noted. Mother CVD (cardiovascular disease) Heart disease Brother CVD (cardiovascular disease) Sudden cardiac Social History Household Members: Other Household Members Other:: niece Housing: House Are you a primary personal care aide to a significant other at home: No ( with dementia last year) Do you presently have visiting nurse or other home services: Yes Alcohol intake: never Patient Tobacco Use Status: Never used Tobacco e-Cigarette/Vaping Use: Never Used Second Hand Smoke Exposure: No Advance Directives Date on File: 12/06/21 service: No Current occupational status: retired Cognitive needs: No Hearing needs: No Vision needs: Yes Review of Systems Const All systems reviewed & are unremarkable except as noted in HPI and below Physical Exam Vital Signs: Last Vital Signs Pulse 60 06/18/24 11:06 BP 102/70 06/18/24 11:06 Pulse Ox 95 06/18/24 11:06 Oxygen Delivery Method Room Air 06/18/24 11:06 Const General: comfortable and no acute distress Orientation/consciousness: patient oriented x3 HEENT Head: Yes normocephalic Mouth: Normal oral and palatal mucosa present Eyes EOM: EOMs intact bilaterally Neck Neck: Yes supple Resp Auscultation: clear to auscultation bilaterally Cardio Jugular venous distension: no JVD Rate: regular rate GI Palpation (GI): Soft to palpation Auscultation: normal bowel sounds General: Yes no CVA tenderness Back/Spine/Pelvis Back: no CVA tenderness Skin General skin exam: no rashes or lesions noted Neuro General: patient oriented x3 and moves all extremities Extrem General: Yes no pedal edema Results Reviewed Nephrology Results: Hgb 12.7 g/dl (12.0-16.0) 10/25/23 WBC 10.1 X10*3/uL (4.8-10.8) 10/25/23 Plt Count 358 X10*3/uL (160-400) 10/25/23 Sodium 128 mmol/L (135-145) L 12/27/23 Potassium 4.8 mmol/L (3.3-5.1) 12/27/23 Chloride 97 mmol/L (96-108) 12/27/23 Carbon Dioxide 22 mmol/L (22-29) 12/27/23 BUN 13 mg/dL (9-16) 12/27/23 Creatinine 0.77 mg/dL (0.5-1.4) 12/27/23 Calcium 9.5 mg/dL (8.4-10.2) 10/25/23 Assessment & Plan Assessment & Plan (1) Hypothyroidism: Code(s): E03.9 - Hypothyroidism, unspecified Category: Medical Qualifiers: Hypothyroidism type: other Qualified Code(s): E03.8 - Other specified hypothyroidism (2) Hyponatremia: Code(s): E87.1 - Hypo-osmolality and hyponatremia Category: Medical (3) Labile blood pressure: Code(s): R09.89 - Other specified symptoms and signs involving the circulatory and respiratory systems Category: Medical Plan Hyponatremia due to excess ADH Serum sodium better/stable ; No weakness/ mentation changes C/W PO NaCl. Fluid restriction 40-48 oz/24 hours Blood work ordered; If Na gets lower in that will need to add PO Urea Continue current anti hypertensive medications for now Follow up in 6 M Orders: Orders TSH reflex Free T4 Today E03.9 - Hypothyroidism, unspecified Creatinine 8 Months E03.8 - Other specified hypothyroidism, E87.1 - Hypo-osmolality and hyponatremia, R09.89 - Other specified symptoms and signs involving the circulatory and respiratory systems Blood Urea Nitrogen 8 Months E03.8 - Other specified hypothyroidism, E87.1 - Hypo-osmolality and hyponatremia, R09.89 - Other specified symptoms and signs involving the circulatory and respiratory systems Electrolytes 8 Months E03.8 - Other specified hypothyroidism, E87.1 - Hypo-osmolality and hyponatremia, R09.89 - Other specified symptoms and signs involving the circulatory and respiratory systems Medications: New levothyroxine 50 mcg PO DAILY@0600 90 tabs 4RF Coding Level of Care Code Est Pt Level 4 (76238) Diagnoses Other specified hypothyroidism E03.8 Hypothyroidism type: other Hyponatremia E87.1 Labile blood pressure R09.89
[2024-06-18 11:06] VITALS: BP 102/70; PULSE 60; O2SAT 95
--- OUTSIDE RECORDS SUMMARY | 2024-06-18 12:52 | XMS_ITS | Patient Health Record ---
Author Organization [facility] Address [address] [place] [address] Care Team Providers Care Calendar Control Clerk Blood Bank Name Role Phone Forrest Garcia MD Primary Care Provider Melo Hare Jr Allergies No Known Allergies Reason For Referral No Information Medications Medication SIG (Take, Route, Frequency, Duration) Notes [...] Omeprazole 20 MG TAKE 1 CAPSULE BY [facility] EVERY DAY for 90 Active Alendronate-Cholecalciferol 70-2800 [...] day for 30 day(s) Active Calcium 1200 0224-5283 MG-UNIT 1 tablet Orally Once a day for 30 day(s) Active Immunizations Vaccine Route Administration Date Status Comme nts Influenza Unknown 01/27/2021 Administered Influenza Unknown 01/12/2022 Administered Social History Tobacco Use: Social History Observation Description Date Details (start date - stop date) Never Smoker NA - NA Tobacco Use/Smoking Question Answer Notes Patient is a nonsmoker Alcohol Screen Question Answer Notes Did you have a drink containing alcohol in the p ast year? 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 Problem 679694524 Gastroesophageal reflux disease without esophagitis (K21.9) Active confirmed Problem 51138118 Esophageal stric ture (K22.2) Active confirmed Problem 37463186 Oropharyngeal dysphagia (R13.12) Active confirmed Problem 82697714 Constipation, unspecified constipation type (K59.00) Active confirmed Plan Of Treatment Pending Test Test Name Order Date XR BARIUM SWALLOW, MODIFIED VIDEO 2022 Future Test Test Name Order Date UPPER GI ENDOSCOPY BALLOOON DILATION OF ESOPH 06/17/2021 Insurance Providers Payer Name Payer Address Payer Phone Subscriber Number Group Number Insured Name Patient Relationship to Insured Coverage Start Date Coverage End Date MEDICARE OF [place] [address] [place] [address] [id number] MITCHELL MUSA (FRANCINE) Self - patient is the insured MEDEX ATTN CLAIMS [address] [place] [phone] [id number] MITCHELL MUSA (FRANCINE) Self - patient is the insured Medical (General) History Medical History History ICD Code Hypertension Hyperlipidemia [...]
--- OUTSIDE RECORDS SUMMARY | 2024-06-18 12:52 | XMS_ITS | Clinical Summary ---
Author Organization [facility] Address [address] [place] [address] Phone Care Team Providers Care Personal Driver Name Role Phone Forrest Garcia MD Primary Care Provider [phone] Allergies Active Allergy Reactions Criticality Noted Date [...] Due Date Last Done Comments Influenza Vaccine (Season Ended) 2024 12/24/2020, 01/09/2019, 01/01/2018, Additional history exists Pneumococcal Vaccine: 65+ Years Completed 01/31/2018, 03/18/2017, 04/13/2010 Hepatitis B Vaccine Aged Out No longe r eligible based on patient's age to complete this topic Insurance MEDICARE [facility] MEDICARE [facility] Care Teams Personal Driver Relationship Specialty Start Date End Date Forrest Garcia MD [facility] [id number] [place], [place] PCP - General 03/23/20
--- OUTSIDE RECORDS SUMMARY | 2024-06-18 12:53 | XMS_ITS | Data Portability ---
Author Organization [facility], [address] Address [address] [place] [address] Care Team Providers Care Gymnastic Teacher Name Role Phone [facility] Primary Care Provider [phone] Assessment No assessment recorded. Plan of Treatment Reminders Order Date Submit Date Provider Last Modified By Organization Details Last Modified Time Details Appointments None recorded. Lab rapid SARS CoV 2 Ag, QL IA, respirator y specimen 2022 023 [email or web address] [facility], [address] [place] [address], [phone], 3 15:23:03 rapid flu (A+B) 2022 023 [facility], [address] [place] [address], [phone], 3 15:19:52 Referral None recorded. Procedures None recorded. Surgeries None recorded. Imaging XR, chest, 2 view 2022 023 [email or web address] [facility], [address] [place] [address], [address], 3 15:24:05 Medication Orders albuterol sulfate 2.5 mg/3 mL (0.083 %) solution for nebulizati on 2022 023 [email or web address] [id number], [address] [facility], [place], [address], 3 15:19:22 ipratropiu m bromide 0.02 % solution for inhalation [id number], [address] [facility], [place], [address], 3 15:19:22 prednisone 20 mg tablet [address]/[facility]39, [address] [facility], [place], [address], 3 15:23:00 albuterol sulfate HFA 90 mcg/actuat ion aerosol inhaler 2022 023 [facility], [address] [facility], [place], [address], 3 15:19:56 Allergy Relief (fluticaso ne) 50 mcg/actuat ion nasal spray,susp ension 2022 023 [id number], [address] [facility], [place], [address], 3 15:19:56 neomycin-p olymyxin-h ydrocort 3.5 mg-10,000 unit/mL-1 % ear drops,susp 2022 023 [email or web address] [facility] #2339, [address] [facility], [place], [address], 3 14:11:32 Allergy Relief (fluticaso ne) 50 mcg/actuat ion nasal spray,susp ension 2022 023 [facility], [address] [place] [address], [place], [address], 3 12:28:20 Patient TargetsNo targets recorded. Patient Instructions Encounter Date Encounter Id Patient Instructions Last Modified By Organization Details Last Modified Time 06/02/2022 [id number] hearing loss: ca re instructions community health Not available 06/02/2022 12:27:30 Sinusitis is an [...] care for yourself at home? Take an rwox-mqo-bgzdjke pain medicine. Avoid Ibuprofen, Aleve and Aspirin if . If the doctor prescribed antibiotics, take them as directed. Do not stop taking them just because you feel better. You need to take the full course of antibiotics. Be careful when taking zcge-uqn-qaegjdi cold or influenza (flu) medicines and Tylenol [...] deeper into the ear canal. Remain still, ksql-onq-mmaa-down for about 15 minutes. 3. Keep the [...] about six inches from the ear. 4. Ihzj-mpu-pnmpdlp pain medications can relieve discomfort associated with external otitis. Acetaminophen (Tylenol), ibuprofen, or naproxen can be taken, depending on individual preference. 5. Return to the [facility] in about one week. The provider can [...] be present Not available 06/02/2022 12:27:24 06/19/2022 [id number] peak flow* [email or web address] Not available 11/2022 15:19:22 [...] wear a mask. For travel guidance, see [facility]? s Travel webpage. Do not travel. Stay [...] masking (see below). For travel guidance, see [facility]? s Travel webpage. Not available 06/19/2022 15:18:58 [...] Unknown Analyte Normal =Negat alex Not Available [address], [address], 06/19/2022 15:08:16 06/20/19 23 06/19/2022 rapid SARS CoV 2 Ag, QL IA, respi rator y speci men Unknown Analyte negati ve Not Available [address] [place] [address], [phone], 06/19/2022 15:08:16 06/20/19 23 06/19/2022 rapid flu (A+B) Unknown Analyte Normal = Negati ve Not Available [address] [place] [address], [address], 06/19/2022 15:08:22 06/20/19 23 06/19/2022 rapid flu (A+B) Unknown Analyte negati ve Not Available [address] [place] [address], [address], 06/19/2022 15:08:22 06/20/19 23 06/19/2022 rapid flu (A+B) Unknown Analyte Normal = Negati ve Not Available 2099pancho mustafa [address] [place], [address], 06/19/2022 15:08:22 06/20/19 23 06/19/2022 rapid flu (A+B) Unknown Analyte negati ve Not Available 2099pancho [address] [place], [address], 06/19/2022 15:08:22 06/20/19 23 06/19/2022 peak flow* Pre (L/min) 80 Not Available [facility] narendra [address] [place], [address], 06/19/2022 14:26:50 06/20/19 23 06/19/2022 peak flow* Post (L/min) 150 Not Available [address], [address], 06/19/2022 14:26:50 06/20/19 23 06/19/2022 peak flow* Pulse 60 Not Available [address], [address], 06/19/2022 14:26:50 06/20/19 23 06/19/2022 peak flow* Oxygen Saturation 96 Not Available [address] [place] [address], [phone], 06/19/2022 14:26:50 06/20/19 23 06/19/2022 XR, chest , 2 view No observ ation record ed. [facility] [address] [facility] [place], [address], 06/19/2022 16:02:44 06/21/19 23 XR, chest , 2 view No observ ation record ed. [email or web address] Not Available 2022 09:50:44 Result Notes None recorded. Problems Name Problem SNOMED Code Status Onset Date Resolution Date Notes Provider Name and Address Organization Details Recorded Time Irregular heart beat 225772778 Active 2022 has pacemaker QUANG DEPINTO null, PA - [facility] 3 11:45:16 Hypertensi ve disorder 40917843 Active 2022 QUANG DEPINTO null, PA - [facility] 3 11:45:25 Hyperchole sterolemia 09968342 Active 2022 QUANG DEPINTO null, PA - [facility] 3 11:45:31 Gastroesop hageal reflux disease 473395442 Active 2022 QUANG DEPINTO null, PA - [facility] 3 11:45:36 Ruiz's esophagus 555890177 Active 2022 QUANG DEPINTO null, PA - [facility] 3 11:45:40 Anxiety 29722356 Active 2022 QUANG DEPINTO null, PA - [facility] 3 11:45:46 Depressive disorder 52104302 Active 2022 QUANG DEPINTO null, PA - [facility] 3 11:45:51 Problem Notes None recorded. Procedures Surgical History Date Name Laterality Status Provider Name and Address Organization Details Recorded Time Cerumen Removal by Irrigation completed Catarino Alanis NP [address] [place], [address], PA - [facility] 06/02/2022 12:26:36 cardiac pacemaker procedure completed QUANG DEPINTO PA - [facility] 06/02/2022 11:46:25 procedure on back completed QUANG DEPINTO PA - [facility] 06/02/2022 11:46:31 replacement of bilateral knee joints completed QUANG DEPINTO PA - [facility] 06/02/2022 11:46:37 Imaging Results Imaging Date Name Status LastModified by Organiz ation Details LastModified Time 06/19/2022 XR, [facility], [facility] [address] [facility] [place], [address], 06/19/2022 16:02:44 06/20/2022 XR, chest, 2 view completed [email or web address] Information not available 06/20/2022 09:50:44 Procedure Notes [...] t Available Vitals Date Recorded Body height Body mass index (BMI) Body weight Pain severity - 0-10 verbal numeric rating [Score] - Reported Respiratory rate Body temperature Oxygen saturation Oxygen saturation in Arterial blood by Pulse oximetry Heart rate Systolic blood pressure Diastolic blood pressure Provider Name and Address Organization Details Last Updated DateTime 3 160.02 cm 29.2 kg/m2 65735.7 4 g 0 18 /min 97.3 [degF] 97 % 97 % 60 /min 146 mm[Hg] 74 mm[Hg] QUANG BENOIT PA - [facility] 3 11:48:17 Date Recorded Body height Body mass index (BMI) Body weight Pain severity - 0-10 verbal numeric rating [Score] - Reported Respiratory rate Oxygen saturation Oxygen saturation in Arterial blood by Pulse oximetry Heart rate Body temperature Systolic blood pressure Diastolic blood pressure Provider Name and Address Organization Details Last Updated DateTime 3 160.02 cm 29.2 kg/m2 83928.7 4 g 0 18 /min 96 % 96 % 60 /min 99.1 [degF] 134 mm[Hg] 70 mm[Hg] Philly Garcia PA - [facility] 3 14:14:29 Social History Question Answer Notes LastModified by Organizat ion Details LastModified Time Tobacco Smoking Status Never Smoker QUANG DEPINTO null, PA - [facility] 06/02/2022 11:46:12 What [...] Influenza, split virus, trivalent, preservative 1 completed QUANG DEPINTO null, PA - [...] SNOMED-CT Code Diagnosis ICD10 Code Diagnosis Note [id number] [facility] [address] [place] [address] 05/20/2015 10:31:08 05/20/2015 10:55:00 [id number] [facility] [address] [place] [address] 03/10/2018 14:05:27 03/10/2018 16:18:15 [id number] [address] [address] [place] [address] 10/26/2016 10:50:18 10/26/2016 11:24:40 [id number] [address] [facility] [facility] [place] [address] 01/25/2015 14:33:52 01/25/2015 15:33:11 [id number] [address] [place] [address] 04/29/2020 13:56:25 04/29/2020 15:29:26 [id number] Catarino Alanis NP [address] [place] [address] 06/02/2022 10:47:32 06/02/2022 12:35:23 Acute otitis externa of right ear 2423604920 700770 H60.501 Acute sinusitis 01316420 J01.90 [id number] Catarino Alanis, ANGEL [address] [address] 06/19/2022 13:48:54 06/19/2022 15:24:05 Acute bronchitis 92419946 J20.9 Exposure t o SARS-CoV-2 295532200 Z20.822 Health Concerns Section Related Observation LastModified by Organization Detai ls LastModified Time None Recorded Concern Status LastModified by Organization Details LastModified Time None Recorded Advance Directives Directive None Recorded Payers Encounter Date Sequence Insurance Name Policy Number Policy Pop Covered Member ID Pop Member ID Guarantor Name 04/29/2020 2 [place] [id number] Wlaydyslawa T Szmyd [id number] Wladyslawa Szmyd 06/02/2022 1 [place] [employer] [place] Wladyslawa T Szmyd [id number] Wladyslawa Szmyd 06/02/2022 2 [place] [id number] Wlaydyslawa T Szmyd [id number] Wladyslawa Szmyd 06/19/2022 1 [place] Wladyslawa T Szmyd [id number] Wladyslawa Szmyd 06/19/2022 2 [place] [id number] Wlaydyslawa T Szmyd [id number] Wladyslawa Szmyd Notes Date Note Type [...] to chew Associated Symptoms:discharge from the ears Catarino Alanis NP [address] [place], [address], [facility] 06/02/2022 12:28:46 3 text/html Sinus Complaints [...] worse with excess fatigue Prior Treatmentoral decongestant Catarino Alanis NP [address] [place], [address], PA - [facility] 06/19/2022 15:24:23 OBGyn Episode No OBEpisode recorded.
== END 2024-06-18 11:35 | disposition home or self-care (01) ==
LOC: HO.HKAS 10:43
PROVIDERS: PCP Internal Medicine; Visit Provider Internal Medicine Nephrology
DX: E03.8 Other specified hypothyroidism (principal); E87.1 Hypo-osmolality and hyponatremia; R09.89 Other specified symptoms and signs involving the circulatory and respiratory systems
CPT/HCPCS: 99214

== ENCOUNTER → 2024-06-18 10:43 | Outpatient (BNVA) | payer MEDICARE, SELFPAY | PROVIDERS: PCP Internal Medicine; Visit Provider Internal Medicine Nephrology | DX: E87.1 Hypo-osmolality and hyponatremia (principal); R09.89 Other specified symptoms and signs involving the circulatory and respiratory systems; E03.8 Other specified hypothyroidism; Z79.01 Long term (current) use of anticoagulants | CPT/HCPCS: 99212 ==

== ENCOUNTER 2024-06-21 12:47 | Outpatient (AMB) | payer MEDICARE, SELFPAY ==
[2024-06-21 12:51] VITALS: BP 112/58; PULSE 61; O2SAT 96; BMI 28.5
--- NOTE | 2024-06-21 12:51 | A.OFFPC_ITS ---
Vital Signs 06/21/24 12:51 Height 5 ft 3 in Weight 160 lb 11.472 oz BMI 28.5 BP 112/58 L Blood Pressure Location Lt brachial Position Sitting Pulse 61 Pulse Source Pulse Oximeter Pulse Oximetry (%) 96 Oxygen Delivery Method Room Air Intake Visit Reasons: hyponatremia Allergies No Known Allergies Allergy (Verified 06/21/24 12:52) Medication List - Last Reconciled 06/21/24 by Forrest Garcia MD amlodipine 10 mg PO DAILY atorvastatin 10 mg PO BEDTIME calcium carbonate-vitamin D3 500 mg-10 mcg (400 unit) (Oystercal-D) 1 tab PO DAILY coenzyme Q10 (Co Q-10) 50 mg PO DAILY divalproex (Depakote Sprinkles) 250 mg (2 x 125 mg) PO TID 90 days hydralazine 50 mg PO BID levothyroxine 50 mcg PO DAILY@0600 lisinopril 40 mg PO DAILY 90 days magnesium oxide 250 mg PO DAILY metoprolol tartrate 25 mg (1/2 x 50 mg) PO DAILY omeprazole 20 mg PO DAILY@0630 sodium chloride 1,000 mg PO TID spironolactone 25 mg PO DAILY Tobacco use date assessed: 06/21/24 Fall risk assessment: 1 Fall in past year Last assessed Fall Risk: 06/21/24 Dental Screening Dental Screen Date: 06/21/24 Did you have a dental visit in the last 12 months?: No Did you have a dental problem in the last 6 months where you did not have access to dental care?: No Was dental information given to patient?: No [facility] Medical History (Updated 06/21/24 @ 13:05 by Forrest Garcia MD) Atrial flutter (~11/2019) Dysphagia Vitamin D deficiency Thyroid cancer Medicare annual wellness visit, initial Paroxysmal atrial flutter Type 2 diabetes mellitus with hyperglycemia GERD (gastroesophageal reflux disease) MGUS (monoclonal gammopathy of unknown significance) Osteoarthritis Vitamin D deficiency Post-surgical hypothyroidism Non-toxic multinodular goiter Follicular carcinoma of thyroid gland SSS (sick sinus syndrome) Carpal tunnel syndrome DDD (degenerative disc disease) Peptic ulcer disease Obesity Impaired glucose tolerance Hyperlipidemia Hypertension Bradycardia Thyroid nodule Pacemaker (~11/2019) Surgical History Hx of endoscopy History of bilateral knee replacement Hx of arthroscopy of right knee Pulmonary nodule Hx of partial thyroidectomy Hx of appendectomy Hx of carpal tunnel repair Hx of colonoscopy History of back surgery Hx of knee surgery (~09/2012) Family History Father No problems noted. Mother CVD (cardiovascular disease) Heart disease Brother CVD (cardiovascular disease) Sudden cardiac Social History Household Members: Other Household Members Other:: niece Housing: House Are you a primary career portals teacher to a significant other at home: No ( with dementia last year) Do you presently have visiting nurse or other home services: Yes Alcohol intake: never Patient Tobacco Use Status: Never used Tobacco Tobacco use type: Cigarette e-Cigarette/Vaping Use: Never Used Second Hand Smoke Exposure: No Advance Directives Date on File: 12/06/21 service: No Current occupational status: retired Cognitive needs: Yes Hearing needs: No Vision needs: Yes Questionnaire Thrive Questionnaire Date Thrive assessed: 10/30/23 ALF-7 AMB Questionnaire ALF-7 Date ALF - 7 assessed: 10/30/23 Source: Developed by Drs. Gallo Padron, Vannesa Srinivasan, Demian Grady and colleagues, with an educational yun from [employer]. Physical exam (Primary Care) Vital Signs: Last Vital Signs Pulse 61 06/21/24 12:51 BP 112/58 L 06/21/24 12:51 Pulse Ox 96 06/21/24 12:51 Oxygen Delivery Method Room Air 06/21/24 12:51 BMI result Body Mass Index 28.5 Tobacco/Smoking Status: Tobacco use Status Tobacco use date assessed 06/21/24 06/21/24 12:57 Patient Tobacco Use Status Never used Tobacco 06/21/24 12:57 Tobacco use type Cigarette 06/21/24 12:57 e-Cigarette/Vaping Use Never Used 06/21/24 12:57 Thrive Assessment: Date of Thrive Assessment Date Thrive assessed 10/30/23 06/21/24 12:57 Const General: alert; No acute distress Eyes Conjunctivae: conjunctivae normal Resp Auscultation: clear to auscultation bilaterally Cardio Rate: regular rate Rhythm: regular rhythm GI Inspection: Yes normal to inspection Extrem General: Yes normal to inspection and No edema Coding Level of Care Code Est Pt Level 4 (91777) Complex EM visit Add On G2211 Diagnoses 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 Type 2 diabetes mellitus with hyperglycemia, without long-term current use of insulin E11.65 Diabetes mellitus prison insulin use: without equipment operator intermodal yard use Primary hypertension I10 Hypertension type: primary hypertension Pure hypercholesterolemia E78.00 Hyperlipidemia type: pure hypercholesterolemia Post-surgical hypothyroidism E89.0 Paroxysmal atrial flutter I48.92 Assessment & Plan Assessment & Plan (1) Ruiz's esophagus: Code(s): K22.70 - Ruiz's esophagus without dysplasia Category: Medical Plan: Avoid the foods that causes that usually spicy foods, tomato products, juices, coffee, soda and foods that your sensitive to. After eating do not lie down, allow 3-4 hours before in lie down. And keep the head of bed above 30 degrees to avoid the acid from going up. Has omeprazole (2) Type 2 diabetes mellitus with hyperglycemia: Comment: Fernie Lima Code(s): E11.65 - Type 2 diabetes mellitus with hyperglycemia Category: Medical Qualifiers: Diabetes mellitus equipment operator intermodal yard insulin use: without prison use Qualified Code(s): E11.65 - Type 2 diabetes mellitus with hyperglycemia Plan: Decrease the amount of carbohydrate intake, pasta, bread, rice and potatoes are all sugar and that is aside from all the sweet stuff, remember that fruits are good but they are Sweet also. Diet controlled (3) Hypertension: Code(s): I10 - Essential (primary) hypertension Category: Medical Qualifiers: Hypertension type: primary hypertension Qualified Code(s): I10 - Essential (primary) hypertension Plan: Continue with blood pressure medication. Decrease salt intake and exercise on amlodipine 10 mg once a day hydralazine 50 mg twice a day lisinopril 40 mg once a day metoprolol 25 mg once a day (4) Hyperlipidemia: Code(s): E78.5 - Hyperlipidemia, unspecified Category: Medical Qualifiers: Hyperlipidemia type: pure hypercholesterolemia Qualified Code(s): E78.00 - Pure hypercholesterolemia, unspecified Plan: Avoid fried foods, chicken skin, eggs, butter margarine, pastries and meat. Be it pork or beef they have a lot of cholesterol on atorvastatin 10 mg at bedtime will need blood work (5) Post-surgical hypothyroidism: Code(s): E89.0 - Postprocedural hypothyroidism Category: Medical Plan: Continue with thyroid medication will need blood work (6) Paroxysmal atrial flutter: Code(s): I48.92 - Unspecified atrial flutter Category: Medical Plan: Patient is not on anticoagulation. And declined Watchman's device. Plan History of Present Illness The patient is an 84-year-old female presenting for follow-up of chronic conditions and medication management. Her medical history is significant for hypertension, hypercholesterolemia, sick sinus syndrome with a pacemaker, atrial flutter, and diabetes mellitus, which is diet-controlled. She also has generalized anxiety disorder, depression, post-surgical hypothyroidism, Ruiz's esophagus, and GERD. Monitoring of her sodium levels is crucial due to hyponatremia. She has a stable weight with regular exercise using a walker for mobility. Previous thyroid and kidney function tests were normal. The patient's memory shows no significant decline since a past brain bleed, and she manages her GERD with omeprazole. Health Maintenance - Bone density test last conducted in March 2020 - Last colonoscopy in October 2017 - No recent tetanus, pneumonia, or flu vaccinations - Follows a diet for diabetes management - Exercises with a walker and pedals a bike at home Social History - Lives at home with supervision - Exercises regularly using a walker, performing activities such as cycling laps around the house - Discusses weight management, indicating stable weight - Activities of daily living are supported, and the use of a walker is emphasized for safety Review of Systems - Cardiovascular: Denies chest pain, reports stable weight and good blood pressure management - Respiratory: Reports good breathing, denies cough - Gastrointestinal: Reports regular bowel movements, managed GERD - Neurological: Reports significant memory loss, no recent worsening - Musculoskeletal: Reports exercise with a walker; weight stable - Mental Health: Reports symptoms of anxiety and depression Physical Exam - Neurological- Memory loss noted but consistent with prior observation - Ear, Nose, Throat- Impacted earwax observed, no tubes present - Musculoskeletal- Stable with walker use for mobility - Cardiovascular- Regular readings in heart check Results - Labs: Sodium level at 128 mmol/L (October 2023), normal platelets, white blood cells, and kidney function - Bone density: Last tested in March 2020 - Colonoscopy: Last performed in October 2017 Plan Continuing medication management with amlodipine, hydralazine, lisinopril, metoprolol, and atorvastatin is essential. Monitoring hyponatremia is critical, with possible urea treatment if sodium levels further decline. Levothyroxine will be maintained for hypothyroidism, with upcoming thyroid function tests. Omeprazole remains the treatment for GERD, adhering to a diabetic diet. Blood work is planned to ensure adequate management of current medication regimens and conditions. Earwax issues may necessitate future flushing. Regular exercise with a walker should be upheld, and consultations with cardiology and nephrology will remain. Patient was informed and verbally consented to the use of an ambient scribe for clinic note documentation during this visit. Discussion Notes I discussed with the patient and her caregiver the importance of regular follow- ups for her multiple chronic conditions including hypertension, hypercholesterolemia, and hypothyroidism. We reviewed her current medications and discussed potential side effects and the importance of adherence to prescribed dosages. I emphasized the need for regular sodium monitoring due to hyponatremia, and potential use of urea should it worsen. We addressed her memory loss, consistent with what has been observed since her previous brain injury, and noted no drastic changes. Her ear wax buildup was explained to benefit from flushing scheduled for a later time. I encouraged the patient to maintain her exercise routine using the walker for safety. Finally, arrangements for blood work and follow-up care were outlined for continued assessment and management, with a tentative follow-up in six months unless her condition necessitates earlier evaluation. Patient Instructions - Continue taking your prescribed medications as directed. - Monitor sodium levels and maintain fluid restrictions; report any significant issues. - Continue lifestyle management for diabetes with diet and regular use of your walker for exercise. - Schedule and attend blood work appointments as discussed to monitor your health. - Follow up with your writing manager and press brake operator as needed. - Contact the clinic if you experience any new or worsening symptoms, particularly regarding your memory or balance. - Seek assistance for ear flushing when scheduled for earwax buildup. Orders: Orders Comprehensive Met. Panel Today E03.8 - Other specified hypothyroidism Thyroid Stimulating Hormone Today E03.8 - Other specified hypothyroidism Vitamin B12 and Folate Today E03.8 - Other specified hypothyroidism Complete Blood Count Auto Diff Today E03.8 - Other specified hypothyroidism Lipid Panel Today E03.8 - Other specified hypothyroidism, E78.00 - Pure hypercholesterolemia, unspecified Free T4 (Free Thyroxine) Today E03.8 - Other specified hypothyroidism Vitamin D 25-OH Total Today E03.8 - Other specified hypothyroidism Magnesium Today E03.8 - Other specified hypothyroidism B Type Natriuretic Peptide Today E03.8 - Other specified hypothyroidism UA CC w/rflx Micro + Cult Today E03.8 - Other specified hypothyroidism, R30.0 - Dysuria Medications: Refilled spironolactone 25 mg PO DAILY 90 tabs 3RF E03.8 - Other specified hypothyroidism hydralazine 50 mg PO BID 180 tabs 3RF I10 - Essential (primary) hypertension divalproex (Depakote Sprinkles) 250 mg (2 x 125 mg) PO TID 540 caps 3RF 90 days E03.8 - Other specified hypothyroidism amlodipine 10 mg PO DAILY 90 tabs 3RF E03.8 - Other specified hypothyroidism
--- OUTSIDE RECORDS SUMMARY | 2024-06-21 13:19 | XMS_ITS | Data Portability ---
Author Organization [facility] [employer], [address] Address [address] [place] [address] Care Team Providers Care Insurance Business Analyst Name Role Phone [facility] Primary Care Provider Assessment No assessment recorded. Plan of Treatment Reminders Order Date Submit Date Provider Last Modified By Organization Details Last Modified Time Details Appointments None recorded. Lab rapid SARS CoV 2 Ag, QL IA, respirator y specimen 2022 023 [email or web address] _[facility], [address] [place] [address], [phone], 3 15:23:03 rapid flu (A+B) 2022 023 [facility], [address] [place] [address], [id number], 3 15:19:52 Referral None recorded. Procedures None recorded. Surgeries None recorded. Imaging XR, chest, 2 view 20[email or web address] [facility] [facility], [address] [place] [address], [address], 3 15:24:05 Medication Orders albuterol sulfate 2.5 mg/3 mL (0.083 %) solution for nebulizati on 2022 023 [email or web address] [id number], [address] [facility], [place], [address], 3 15:19:22 ipratropiu m bromide 0.02 % solution for inhalation [address], [address] [facility], [place], [address], 3 15:19:22 prednisone 20 mg tablet [address]/[facility], [address] [facility], [place], [address], 3 15:23:00 albuterol sulfate HFA 90 mcg/actuat ion aerosol inhaler 2022 023 [facility], [address] [facility], [place], [address], 3 15:19:56 Allergy Relief (fluticaso ne) 50 mcg/actuat ion nasal spray,susp ension 2022 023 [facility], [address] [facility], [place], [address], 3 15:19:56 neomycin-p olymyxin-h ydrocort 3.5 mg-10,000 unit/mL-1 % ear drops,susp 2022 023 [email or web address] [facility], [address] [facility], [place], [address], 3 14:11:32 Allergy Relief (fluticaso ne) 50 mcg/actuat ion nasal spray,susp ension 2022 023 [facility], [address] [place] [address], [place], [address], 3 12:28:20 Patient TargetsNo targets recorded. Patient Instructions Encounter Date Encounter Id Patient Instructions Last Modified By Organization Details Last Modified Time 06/02/2022 [id number] hearing loss: ca re instructions [facility] Not available 06/02/2022 12:27:30 Sinusitis is an [...] care for yourself at home? Take an mmcq-cur-serdqpm pain medicine. Avoid Ibuprofen, Aleve and Aspirin if . If the doctor prescribed antibiotics, take them as directed. Do not stop taking them just because you feel better. You need to take the full course of antibiotics. Be careful when taking xijo-clz-npskjve cold or influenza (flu) medicines and Tylenol [...] deeper into the ear canal. Remain still, wzkq-uqi-yxuc-down for about 15 minutes. 3. Keep the [...] about six inches from the ear. 4. Mayh-xdy-kitlhvi pain medications can relieve discomfort associated with external otitis. Acetaminophen (Tylenol), ibuprofen, or naproxen can be taken, depending on individual preference. 5. Return to the [facility] in about one week. The provider can [...] be present Not available 06/02/2022 12:27:24 06/19/2022 [id number] peak flow* [email or web address] Not available 11/2022 15:19:22 [...] wear a mask. For travel guidance, see [facility]? s Travel webpage. Do not travel. Stay [...] masking (see below). For travel guidance, see [facility]? s Travel webpage. Not available 06/19/2022 15:18:58 [...] Unknown Analyte Normal =Negat alex Not Available [address], [address], 06/19/2022 15:08:16 06/20/19 23 06/19/2022 rapid SARS CoV 2 Ag, QL IA, respi rator y speci men Unknown Analyte negati ve Not Available [address] [place] [address], [address], 06/19/2022 15:08:16 06/20/19 23 06/19/2022 rapid flu (A+B) Unknown Analyte Normal = Negati ve Not Available [address] [place] [address], [address], 06/19/2022 15:08:22 06/20/19 23 06/19/2022 rapid flu (A+B) Unknown Analyte negati ve Not Available [address] [place] [address], [address], 06/19/2022 15:08:22 06/20/19 23 06/19/2022 rapid flu (A+B) Unknown Analyte Normal = Negati ve Not Available 2099pancho mustafa [address] [place], [address], 06/19/2022 15:08:22 06/20/19 23 06/19/2022 rapid flu (A+B) Unknown Analyte negati ve Not Available 2099pancho [address] [place], [address], 06/19/2022 15:08:22 06/20/19 23 06/19/2022 peak flow* Pre (L/min) 80 Not Available [facility] narendra [address] [place], [address], 06/19/2022 14:26:50 06/20/19 23 06/19/2022 peak flow* Post (L/min) 150 Not Available [address], [address], 06/19/2022 14:26:50 06/20/19 23 06/19/2022 peak flow* Pulse 60 Not Available 20[address]pam [address], [address], 06/19/2022 14:26:50 06/20/19 23 06/19/2022 peak flow* Oxygen Saturation 96 Not Available [address] [place] [address], [address], 06/19/2022 14:26:50 06/20/19 23 06/19/2022 XR, chest , 2 view No observ ation record ed. [facility] [address] [facility] [place], [address], 06/19/2022 16:02:44 06/21/19 23 XR, chest , 2 view No observ ation record ed. [email or web address] Not Available 2022 09:50:44 Result Notes None recorded. Problems Name Problem SNOMED Code Status Onset Date Resolution Date Notes Provider Name and Address Organization Details Recorded Time Irregular heart beat 139725289 Active 2022 has pacemaker QUANG DEPINTO null, PA - [facility] 3 11:45:16 Hypertensi ve disorder 85542844 Active 2022 QUANG DEPINTO null, PA - [facility] 3 11:45:25 Hyperchole sterolemia 51453588 Active 2022 QUANG DEPINTO null, PA - [facility] 3 11:45:31 Gastroesop hageal reflux disease 354596682 Active 2022 QUANG DEPINTO null, PA - [facility] 3 11:45:36 Ruiz's esophagus 398596108 Active 2022 QUANG DEPINTO null, PA - [facility] 3 11:45:40 Anxiety 45595445 Active 2022 QUANG DEPINTO null, PA - [facility] 3 11:45:46 Depressive disorder 18520987 Active 2022 QUANG DEPINTO null, PA - [facility] 3 11:45:51 Problem Notes None recorded. Procedures Surgical History Date Name Laterality Status Provider Name and Address Organization Details Recorded Time Cerumen Removal by Irrigation completed Catarino Alanis NP [address] [place], [address], [place] - [facility] 06/02/2022 12:26:36 cardiac pacemaker procedure completed QUANG DEPINTO PA - [facility] 06/02/2022 11:46:25 procedure on back completed QUANG DEPINTO PA - [facility] 06/02/2022 11:46:31 replacement of bilateral knee joints completed QUANG DEPINTO PA - [facility] 06/02/2022 11:46:37 Imaging Results Imaging Date Name Status LastModified by Organiz ation Details LastModified Time 06/19/2022 XR, chest, 2 view completed [facility] [address] [facility] [place], [address], 06/19/2022 16:02:44 06/20/2022 XR, chest, 2 view completed [email or web address] Information not available 06/20/2022 09:50:44 Procedure Notes [...] Updated DateTime 3 160.02 cm 29.2 kg/m2 85218.7 4 g 0 18 /min 97.3 [degF] [...] Updated DateTime 3 160.02 cm 29.2 kg/m2 13991.7 4 g 0 18 /min 96 % [...] SNOMED-CT Code Diagnosis ICD10 Code Diagnosis Note [id number] [facility] [address] [place] [address] 05/20/2015 10:31:08 05/20/2015 10:55:00 [id number] [facility] [address] [place] [address] 03/10/2018 14:05:27 03/10/2018 16:18:15 [id number] [facility] [address] [place] [address] 10/26/2016 10:50:18 10/26/2016 11:24:40 [id number] [facility] [address] [place] [address] 01/25/2015 14:33:52 01/25/2015 15:33:11 [id number] [facility] [address] [place] [address] 04/29/2020 13:56:25 04/29/2020 15:29:26 [id number] Catarino Alanis NP [address] [address] [place] [address] 06/02/2022 10:47:32 06/02/2022 12:35:23 Acute otitis externa of right ear 2798257260 596450 H60.501 Acute sinusitis 87004653 J01.90 [id number] Catarino Alanis, ANGEL [address] [address] 06/19/2022 13:48:54 06/19/2022 15:24:05 Acute bronchitis 75633140 J20.9 Exposure t o SARS-CoV-2 223490065 Z20.822 Health Concerns Section Related Observation LastModified by Organization Detai ls LastModified Time None Recorded Concern Status LastModified by Organization Details LastModified Time None Recorded Advance Directives Directive None Recorded Payers Encounter Date Sequence Insurance Name Policy Number Policy Pop Covered Member ID Pop Member ID Guarantor Name 04/29/2020 2 [place] [id number] Wlaydyslawa T Szmyd [id number] Wladyslawa Szmyd 06/02/2022 1 [place] Wladyslawa T Szmyd [id number] Wladyslawa Szmyd 06/02/2022 2 [place] [id number] Wlaydyslawa T Szmyd [id number] Wladyslawa Szmyd 06/19/2022 1 [place] Wladyslawa T Szmyd [id number] Wladyslawa Szmyd 06/19/2022 2 [place] [id number] Wlaydyslawa T Szmyd [id number] Wladyslawa Szmyd Notes Date Note Type [...] Catarino Alanis NP [address] [place], [address], [facility] 06/02/2022 12:28:46 3 text/html Sinus Complaints [...] Catarino Alanis NP [address] [place], [address], [place] - [facility] 06/19/2022 15:24:23 OBGyn Episode No OBEpisode recorded.
--- OUTSIDE RECORDS SUMMARY | 2024-06-21 13:19 | XMS_ITS | Clinical Summary ---
Author Organization [facility] Address [address] [place] [address] Phone Care Team Providers Care In House Cra Name Role Phone Forrest Garcia MD Primary Care Provider [phone] Allergies Active Allergy Reactions Criticality Noted Date [...] 07/08/2021 07/08/2021 Thyroid nodule 07/08/2021 07/08/2021 Immunizations Immunization Administration Dates Next Due Pneumococcal Conjugate 13-Valent [...] 01/09/2019, 01/01/2018, Additional history exists Pneumococcal Vaccine: 50+ Years Completed 01/31/2018, 03/18/2017, 04/13/2010 Hepatitis B Vaccine Aged Out No longe r eligible based on patient's age to complete this topic Insurance Medicare [facility] Medicare [facility] Care Teams In House Cra Relationship Specialty Start Date End Date Forrest Garcia MD [facility] [address] [place], [place] PCP - General 03/23/20
--- OUTSIDE RECORDS SUMMARY | 2024-06-21 13:19 | XMS_ITS | Patient Health Record ---
Author Organization [facility] Address [address] [place] [address] Care Team Providers Care Business Banking Relationship Manager Name Role Phone Forrest Garcia MD Primary Care Provider Melo Hare Jr [phone] Allergies No Known Allergies Reason For Referral [...] TAKE 1 CAPSULE BY [facility] EVERY DAY for 90 Active Alendronate-Cholecalciferol [...] day for 30 day(s) Active Calcium 1200 4367-6547 MG-UNIT 1 tablet Orally Once a day [...] Problem Status W/U Status Risk Notes Problem 656760305 Ruiz's esopha janee without dysplasia (K22.70) Active confirmed Problem 595197032 Gastroesophageal reflux disease without esophagitis (K21.9) Active confirmed Problem 42753846 Esophageal stric ture (K22.2) Active confirmed Problem 22820738 Oropharyngeal dysphagia (R13.12) Active confirmed Problem 36871218 Constipation, unspecified constipation type (K59.00) Active confirmed [...] Date MEDICARE OF [place] [address] [place] [address] [id number] MITCHELL MUSA (FRANCINE) Self - patient is the insured MED[employer] ATTN CLAIMS [address] [place] [address] [phone] [id number] MITCHELL MUSA (FRANCINE) Self - patient [...]
== END 2024-06-21 13:28 | disposition home or self-care (01) ==
LOC: HO.HMCH 12:48
PROVIDERS: PCP Internal Medicine; Visit Provider Internal Medicine
DX: K22.70 Barrett's esophagus without dysplasia (principal); E11.65 Type 2 diabetes mellitus with hyperglycemia; I48.92 Unspecified atrial flutter; I10 Essential (primary) hypertension; E78.00 Pure hypercholesterolemia, unspecified; E89.0 Postprocedural hypothyroidism

== ENCOUNTER → 2024-06-21 12:47 | Outpatient (BNVA) | payer MEDICARE, SELFPAY | PROVIDERS: PCP Internal Medicine; Visit Provider Internal Medicine | DX: K22.70 Barrett's esophagus without dysplasia (principal); E11.65 Type 2 diabetes mellitus with hyperglycemia; E78.00 Pure hypercholesterolemia, unspecified; E89.0 Postprocedural hypothyroidism; I48.92 Unspecified atrial flutter; R30.0 Dysuria; I10 Essential (primary) hypertension | CPT/HCPCS: 99212 ==

== ENCOUNTER 2024-07-03 12:55 | Outpatient (REF) | payer MEDICARE, SELFPAY ==
--- OUTSIDE RECORDS SUMMARY | 2024-07-03 15:14 | XMS_ITS | Patient Health Record ---
Author Organization [facility] Address [address] [place] [address] Care Team Providers Care Records And Information Manager Name Role Phone Forrest Garcia MD Primary Care Provider Melo Hare Jr [phone] Allergies No Known Allergies Reason For Referral [...] Omeprazole 20 MG TAKE 1 CAPSULE BY [facility] EVERY DAY for 90 Active Alendronate-Cholecalciferol [...] hydrALAZINE HCl 100 MG 1 tablet with jsesy d Orally Twice a day for 30 day(s) Active Calcium 1200 4244-7384 MG-UNIT 1 tablet Orally Once a day [...] Problem Status W/U Status Risk Notes Problem 721903604 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
--- OUTSIDE RECORDS SUMMARY | 2024-07-03 15:14 | XMS_ITS | Clinical Summary ---
Author Organization [facility] Address [address] [place] [address] Phone Care Team Providers Care Digital Marketing Analyst Name Role Phone Forrest Garcia MD Primary Care Provider [phone] Allergies Active Allergy Reactions Criticality Noted Date [...] Vaccine: 50+ Years Completed 01/31/2018, 03/18/2017, 04/13/2010 Pneumococcal Vaccine: Peds (0 to 5 Years) and At-Risk Patients (6 to 49 Years) Discontinued 01/31/2018, 03/18/2017, 04/13/2010 Hepatitis B Vaccine Aged Out No longe r eligible based on patient's age to complete this topic Insurance Medicare [facility] Medicare [facility] Care Teams Digital Marketing Analyst Relationship Specialty Start Date End Date Forrest Garcia MD [facility] [address] [facility] [place] PCP - General 03/23/20
--- OUTSIDE RECORDS SUMMARY | 2024-07-03 15:15 | XMS_ITS | Data Portability ---
Author Organization [employer], [address] Address [address] [place] [address] Care Team Providers Care Tv Technician Name Role Phone [facility] Primary Care Provider Assessment No assessment recorded. Plan of Treatment Reminders Order Date Submit Date Provider Last Modified By Organization Details Last Modified Time Details Appointments None recorded. Lab rapid SARS CoV 2 Ag, QL IA, respirator y specimen 2022 023 [email or web address] [facility], [address] [place] [address], [phone], 3 15:23:03 rapid flu (A+B) 2022 023 [facility], [address] [place] [address], [phone], 3 15:19:52 Referral None recorded. Procedures None recorded. Surgeries None recorded. Imaging XR, chest, 2 view 2022 023 [facility], [address] [place] [address], [address], 3 15:24:05 Medication Orders albuterol sulfate 2.5 mg/3 mL (0.083 %) solution for nebulizati on 2022 023 [email or web address] [id number], [address], [place], [address], 3 15:19:22 ipratropiu m bromide 0.02 % solution for inhalation [id number], [address], [place], [address], 3 15:19:22 prednisone 20 mg tablet [address]/[facility], [address], [place], [address], 3 15:23:00 albuterol sulfate HFA 90 mcg/actuat ion aerosol inhaler 2022 023 [facility], [address], [place], [address], 3 15:19:56 Allergy Relief (fluticaso ne) 50 mcg/actuat ion nasal spray,susp ension 2022 023 [facility], [address], [place], [address], 3 15:19:56 neomycin-p olymyxin-h ydrocort 3.5 mg-10,000 unit/mL-1 % ear drops,susp 2022 023 [email or web address] [facility], [address], [place], [address], 3 14:11:32 Allergy Relief (fluticaso ne) 50 mcg/actuat ion nasal spray,susp ension 2022 023 [facility], [address] [place] [address], [place], [address], 3 12:28:20 Patient TargetsNo targets recorded. Patient Instructions Encounter Date Encounter Id Patient Instructions Last Modified By Organization Details Last Modified Time 06/02/2022 [id number] hearing loss: ca re instructions [facility] Not available 06/02/2022 12:27:30 Sinusitis is an [...] care for yourself at home? Take an ufcu-snf-igfzjxp pain medicine. Avoid Ibuprofen, Aleve and Aspirin if . If the doctor prescribed antibiotics, take them as directed. Do not stop taking them just because you feel better. You need to take the full course of antibiotics. Be careful when taking yfvb-avn-qrwfjmz cold or influenza (flu) medicines and Tylenol [...] deeper into the ear canal. Remain still, itaz-glf-upkg-down for about 15 minutes. 3. Keep the [...] about six inches from the ear. 4. Xhru-lwc-hkagfkh pain medications can relieve discomfort associated with external otitis. Acetaminophen (Tylenol), ibuprofen, or naproxen can be taken, depending on individual preference. 5. Return to the [facility] in about one week. The [...] be present Not available 06/02/2022 12:27:24 06/19/2022 [id number] peak flow* [email or web address] Not available 11/2022 15:19:22 [...] wear a mask. For travel guidance, see [facility]? s Travel webpage. Do not travel. [...] masking (see below). For travel guidance, see [facility]? s Travel webpage. Not available 06/19/2022 [...] Unknown Analyte Normal =Negat alex Not Available [address], [address], 06/19/2022 15:08:16 06/20/19 23 06/19/2022 rapid SARS CoV 2 Ag, QL IA, respi rator y speci men Unknown Analyte negati ve Not Available [address] [place] [address], [address], 06/19/2022 15:08:16 06/20/19 23 06/19/2022 rapid flu (A+B) Unknown Analyte Normal = Negati ve Not Available [address] [place] [address], [address], 06/19/2022 15:08:22 06/20/19 23 06/19/2022 rapid flu (A+B) Unknown Analyte negati ve Not Available [address] [place] [address], [address], 06/19/2022 15:08:22 06/20/19 23 06/19/2022 rapid flu (A+B) Unknown Analyte Normal = Negati ve Not Available 2099pancho mustafa [address] [place], [address], 06/19/2022 15:08:22 06/20/19 23 06/19/2022 rapid flu (A+B) Unknown Analyte negati ve Not Available 2099pancho [address] [place], [address], 06/19/2022 15:08:22 06/20/19 23 06/19/2022 peak flow* Pre (L/min) 80 Not Available [facility] narendra [address] [place], [address], 06/19/2022 14:26:50 06/20/19 23 06/19/2022 peak flow* Post (L/min) 150 Not Available [address], [address], 06/19/2022 14:26:50 06/20/19 23 06/19/2022 peak flow* Pulse 60 Not Available [address], [address], 06/19/2022 14:26:50 06/20/19 23 06/19/2022 peak flow* Oxygen Saturation 96 Not Available [address] [place] [address], [address], 06/19/2022 14:26:50 06/20/19 23 06/19/2022 XR, chest , 2 view No observ ation record ed. [facility] [address] [facility] [place], [address], 06/19/2022 16:02:44 06/21/19 23 XR, chest , 2 view No observ ation record ed. [email or web address] Not Available 2022 09:50:44 Result Notes None recorded. Problems Name Problem SNOMED Code Status Onset Date Resolution Date Notes Provider Name and Address Organization Details Recorded Time Irregular heart beat 879392300 Active 2022 has pacemaker QUANG DEPINTO null, PA - [facility] 3 11:45:16 Hypertensi ve disorder 65880810 Active 2022 QUANG DEPINTO null, PA - [facility] 3 11:45:25 Hyperchole sterolemia 12048498 Active 2022 QUANG DEPINTO null, PA - [facility] 3 11:45:31 Gastroesop hageal reflux disease 233126941 Active 2022 QUANG DEPINTO null, PA - [facility] 3 11:45:36 Ruiz's esophagus 122140437 Active 2022 QUANG DEPINTO null, PA - [facility] 3 11:45:40 Anxiety 27634718 Active 2022 QUANG DEPINTO null, PA - [facility] 3 11:45:46 Depressive disorder 89924793 Active 2022 QUANG DEPINTO null, PA - [facility] 3 11:45:51 Problem Notes None recorded. Procedures Surgical History Date Name Laterality Status Provider Name and Address Organization Details Recorded Time Cerumen Removal by Irrigation completed Catarino Alanis NP [address] [place], [address], PA - [facility] 06/02/2022 12:26:36 cardiac pacemaker procedure completed QUANG DEPINTO PA - [facility] 06/02/2022 11:46:25 procedure on back completed QUANG DEPINTO PA - [facility] 06/02/2022 11:46:31 replacement of bilateral knee joints completed QUANG DEPINTO PA - [facility] 06/02/2022 11:46:37 Imaging Results Imaging Date Name Status LastModified by Organiz ation Details LastModified Time 06/19/2022 XR, chest, 2 view [facility] [address] [facility] [place], [address], 06/19/2022 16:02:44 06/20/2022 XR, chest, 2 view completed Information not available 06/20/2022 09:50:44 Procedure Notes [...] Updated DateTime 3 160.02 cm 29.2 kg/m2 71322.7 4 g 0 18 /min 97.3 [degF] [...] Updated DateTime 3 160.02 cm 29.2 kg/m2 34318.7 4 g 0 18 /min 96 % [...] SNOMED-CT Code Diagnosis ICD10 Code Diagnosis Note [id number] [facility] [address] [place] [address] 05/20/2015 10:31:08 05/20/2015 10:55:00 [id number] [facility] [address] [place] [address] 03/10/2018 14:05:27 03/10/2018 16:18:15 [id number] [address] [address] [place] [address] 10/26/2016 10:50:18 10/26/2016 11:24:40 [id number] [address] [facility] [address] [place] [address] 01/25/2015 14:33:52 01/25/2015 15:33:11 [id number] [address] [facility] [address] [place] [address] 04/29/2020 13:56:25 04/29/2020 15:29:26 [id number] Catarino Alanis NP [address] [facility] [place] [address] 06/02/2022 10:47:32 06/02/2022 12:35:23 Acute otitis externa of right ear 8197858355 050037 H60.501 Acute sinusitis 75646515 J01.90 [id number] Catarino Alanis, ANGEL [address] [address] 06/19/2022 13:48:54 06/19/2022 15:24:05 Acute bronchitis 26370350 J20.9 Exposure t o SARS-CoV-2 210949893 Z20.822 Health Concerns Section Related Observation LastModified by Organization Detai ls LastModified Time None Recorded Concern Status LastModified by Organization Details LastModified Time None Recorded Advance Directives Directive None Recorded Payers Encounter Date Sequence Insurance Name Policy Number Policy Pop Covered Member ID Pop Member ID Guarantor Name 04/29/2020 2 [place] [id number] Wlaydyslawa T Szmyd [id number] Wladyslawa Szmyd 06/02/2022 1 [place] Wladyslawa T Szmyd [id number] Wladyslawa Szmyd 06/02/2022 2 [place] [id number] Wlaydyslawa T Szmyd [id number] Wladyslawa Szmyd 06/19/2022 1 [place] Wladyslawa T Szmyd [id number] Wladyslawa Szmyd 06/19/2022 2 [place] [id number] Wlaydyslawa T Szmyd [id number] Wladyslawa Szmyd Notes Date Note Type [...] Catarino Alanis NP [address] [place], [address], [employer] [facility] 06/02/2022 12:28:46 3 text/html Sinus Complaints [...] Catarino Alanis NP [address] [place], [address], [place] - [facility] 06/19/2022 15:24:23 OBGyn Episode No OBEpisode recorded.
[2024-07-03 15:59] LABS: MANUAL DIFF FLAG NO
[2024-07-03 16:02] LABS: Basophils Absolute Auto 0.1 X10*3/uL (0.0-0.2); Basophils Percent Auto 0.8 % (0-2); Eosinophils Absolute Auto 0.2 X10*3/uL (0.0-0.4); Eosinophils Percent Auto 2.5 % (0-4); Hematocrit 34.9 % (37.0-47.0); Hemoglobin 12.2 g/dl (12.0-16.0); Imm Gran Abs Auto 0.06 X10*3/uL (0.00-0.03); Imm Gran Pct Auto 0.8 % (0.0-0.4); Lymphocytes Absolute Auto 2.5 X10*3/uL (1.2-4.9); Lymphocytes Percent Auto 34.6 % (20-40); Mean Corpuscular Hemoglobin 31.2 pg (27.0-33.0); Mean Corpuscular Volume 89.3 fL (80.0-98.0); Mean Platelet Volume 9.6 fL (9.4-12.3); Monocytes Absolute Auto 0.7 X10*3/uL (0.1-1.2); Monocytes Percent Auto 10.4 % (2-11); Neutrophils Absolute Auto 3.6 x10*3/uL (2.0-8.3); Neutrophils Percent Auto 50.9 % (45-73); Platelet Count 384 X10*3/uL (160-400); Red Blood Count 3.91 X10*6/uL (4.20-5.50); Red Cell Distribution Width 13.2 % (11.0-16.0); White Blood Count 7.1 X10*3/uL (4.8-10.8)
[2024-07-03 16:23] LABS: Alanine Aminotransferase < 6 U/L (0-31); Albumin Level 3.8 g/dL (3.5-5.0); Anion Gap 13 (12-20); Aspartate Amino Transferase 17 U/L (5-31); Bilirubin Total 0.3 mg/dL (0.0-1.0); Blood Urea Nitrogen 19 mg/dL (9-16); Calcium 9.1 mg/dL (8.4-10.2); Carbon Dioxide 24 mmol/L (22-29); Chloride 98 mmol/L (96-108); Estimated Glomerular Filt Rate > 60; Glucose Random 116 mg/dL (60-115); Magnesium 1.8 mg/dL (1.6-2.6); Potassium 4.6 mmol/L (3.3-5.1); Sodium 130 mmol/L (135-145); Total Protein 6.6 g/dL (6.5-8.0)
[2024-07-03 16:35] LABS: B Type Natriuretic Peptide 128 pg/mL (<100)
[2024-07-03 16:37] LABS: Free T4 (Free Thyroxine) 1.32 ng/dL (0.71-1.85); Vitamin D 25-OH Total 51.1 ng/mL (>30)
[2024-07-03 16:41] LABS: Alkaline Phosphatase 65 U/L (39-117)
[2024-07-03 16:48] LABS: Folate 7.5 ng/mL (> or = 4.0); Vitamin B12 795 pg/mL (200-900)
== END 2024-07-03 12:56 | disposition home or self-care (01) ==
LOC: HO.HMGCLDS 12:55
PROVIDERS: PCP Internal Medicine; Referring Provider Internal Medicine Nephrology; Visit Provider Internal Medicine
DX: E03.8 Other specified hypothyroidism (principal)
CPT/HCPCS: 36415; 80053; 82306; 82607; 82746; 83735; 83880; 84439; 84443; 85025

== ENCOUNTER 2024-07-04 09:00 | Outpatient (REF) | payer MEDICARE, SELFPAY ==
--- OUTSIDE RECORDS SUMMARY | 2024-07-04 13:03 | XMS_ITS | Patient Health Record ---
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
--- OUTSIDE RECORDS SUMMARY | 2024-07-04 13:03 | XMS_ITS | Clinical Summary ---
Author Organization [facility] Address [address] [place] [address] Phone Care Team Providers Care Nailhead Puncher Name Role Phone Forrest Garcia MD Primary Care Provider [phone] Allergies Active Allergy Reactions Criticality Noted Date [...] age to complete this topic Insurance Medicare [facility] Medicare [facility] Care Teams Nailhead Puncher Relationship Specialty Start Date End Date Forrest Garcia MD [facility] [address] [facility] [place] [facility] - General 03/23/20
[2024-07-04 13:14] LABS: Appearance Urine Clear; Color Urine Yellow; Glucose Urine UA Negative (Negative); Leukocyte Esterase Urine Large (3+) (Negative); Nitrite Urine Negative (Negative); PH 6.5 (5.0-9.0); UMIC TRIGGER UACC YES; Urine Blood Negative (Negative); Urine Ketones Negative (Negative); Urine Protein Negative (Neg-Trace)
[2024-07-04 13:18] LABS: Bacteria Urine 1+ (None Seen); Hyaline Casts Urine 0-2 /LPF (0-2); RBC Urine 0-2 /HPF (0-2); UACC Culture Trigger YES
== END 2024-07-04 09:01 | disposition home or self-care (01) ==
LOC: HO.HMGCLNP 09:00
PROVIDERS: PCP Internal Medicine; Visit Provider Internal Medicine
DX: R30.0 Dysuria (principal); E03.8 Other specified hypothyroidism
CPT/HCPCS: 81001; 87086

== ENCOUNTER → 2024-08-29 23:59 | Outpatient (BNV) | payer MEDICARE, SELFPAY ==
--- NOTE | 2024-09-09 12:08 | MHC.OFFVIS ---
Intake Visit Reasons: Remote device check- [facility] Allergies No Known Allergies Allergy (Verified 06/21/24 12:52) [facility] Medical History (Updated 06/21/24 @ 13:05 by Forrest Garcia MD) Atrial flutter (~11/2019) Dysphagia Vitamin D deficiency Thyroid cancer Medicare annual wellness visit, initial Paroxysmal atrial flutter Type 2 diabetes mellitus with hyperglycemia GERD (gastroesophageal reflux disease) MGUS (monoclonal gammopathy of unknown significance) Osteoarthritis Vitamin D deficiency Post-surgical hypothyroidism Non-toxic multinodular goiter Follicular carcinoma of thyroid gland SSS (sick sinus syndrome) Carpal tunnel syndrome DDD (degenerative disc disease) Peptic ulcer disease Obesity Impaired glucose tolerance Hyperlipidemia Hypertension Bradycardia Thyroid nodule Pacemaker (~11/2019) Surgical History Hx of endoscopy History of bilateral knee replacement Hx of arthroscopy of right knee Pulmonary nodule Hx of partial thyroidectomy Hx of appendectomy Hx of carpal tunnel repair Hx of colonoscopy History of back surgery Hx of knee surgery (~09/2012) Family History Father No problems noted. Mother CVD (cardiovascular disease) Heart disease Brother CVD (cardiovascular disease) Sudden cardiac Social History Household Members: Other Household Members Other:: niece Housing: House Are you a primary healthcare economics consultant to a significant other at home: No ( with dementia last year) Do you presently have visiting nurse or other home services: Yes Alcohol intake: never Patient Tobacco Use Status: Never used Tobacco Tobacco use type: Cigarette e-Cigarette/Vaping Use: Never Used Second Hand Smoke Exposure: No Advance Directives Date on File: 12/06/21 service: No Current occupational status: retired Cognitive needs: Yes Hearing needs: No Vision needs: Yes Office Procedures Cardiac Device Check Cardiac Device Check Details: Remote pacemaker report generated 08/29/2024. Minimal burden of atrial fibrillation noted. Pacemaker function is adequate [id number] Cardiac Device Interrogation, pacemaker Procedure code (CPT) selection complete Assessment & Plan Assessment & Plan (1) Pacemaker: Onset Date: ~11/2019 Code(s): Z95.0 - Presence of cardiac pacemaker Category: Medical Plan: See above Coding Level of Care Code Procedure Only Diagnoses Pacemaker Z95.0 CPT Codes Cardiac Device Check - Cardiac Device 12: [id number]-Pkxlil Cardiac Device Interrogation, pacemaker ([id number])
== END ==
PROVIDERS: PCP Internal Medicine; Visit Provider Internal Medicine Cardiovascular Disease
DX: I48.0 Paroxysmal atrial fibrillation (principal); Z95.0 Presence of cardiac pacemaker
CPT/HCPCS: 93294

== ENCOUNTER → 2024-11-28 23:59 | Outpatient (BNV) | payer MEDICARE, SELFPAY ==
--- NOTE | 2024-12-04 16:43 | A.OFFVIS_ITS ---
Intake Visit Reasons: Remote device check- [facility] Allergies No Known Allergies Allergy (Verified 06/21/24 12:52) [facility] Medical History (Updated 06/21/24 @ 13:05 by Forrest Garcia MD) Atrial flutter (~11/2019) Dysphagia Vitamin D deficiency Thyroid cancer Medicare annual wellness visit, initial Paroxysmal atrial flutter Type 2 diabetes mellitus with hyperglycemia GERD (gastroesophageal reflux disease) MGUS (monoclonal gammopathy of unknown significance) Osteoarthritis Vitamin D deficiency Post-surgical hypothyroidism Non-toxic multinodular goiter Follicular carcinoma of thyroid gland SSS (sick sinus syndrome) Carpal tunnel syndrome DDD (degenerative disc disease) Peptic ulcer disease Obesity Impaired glucose tolerance Hyperlipidemia Hypertension Bradycardia Thyroid nodule Pacemaker (~11/2019) Surgical History Hx of endoscopy History of bilateral knee replacement Hx of arthroscopy of right knee Pulmonary nodule Hx of partial thyroidectomy Hx of appendectomy Hx of carpal tunnel repair Hx of colonoscopy History of back surgery Hx of knee surgery (~09/2012) Family History Father No problems noted. Mother CVD (cardiovascular disease) Heart disease Brother CVD (cardiovascular disease) Sudden cardiac Social History Household Members: Other Household Members Other:: niece Housing: House Are you a primary vision care associate to a significant other at home: No ( with dementia last year) Do you presently have visiting nurse or other home services: Yes Alcohol intake: never Patient Tobacco Use Status: Never used Tobacco Tobacco use type: Cigarette e-Cigarette/Vaping Use: Never Used Second Hand Smoke Exposure: No Advance Directives Date on File: 12/06/21 service: No Current occupational status: retired Cognitive needs: Yes Hearing needs: No Vision needs: Yes Office Procedures Cardiac Device Check Cardiac Device Check Details: Remote pacemaker report generated 11/28/2024. Pacemaker function is adequate [id number] Cardiac Device Interrogation, pacemaker Procedure code (CPT) selection complete Assessment & Plan Assessment & Plan (1) Pacemaker: Onset Date: ~11/2019 Code(s): Z95.0 - Presence of cardiac pacemaker Category: Medical Plan: See above Coding Level of Care Code Procedure Only Diagnoses Pacemaker Z95.0 CPT Codes Cardiac Device Check - Cardiac Device 12: 33448-Mhvlve Cardiac Device Interrogation, pacemaker ([id number])
== END ==
PROVIDERS: PCP Internal Medicine; Visit Provider Internal Medicine Cardiovascular Disease
DX: Z45.018 Encounter for adjustment and management of other part of cardiac pacemaker (principal)
CPT/HCPCS: 93294

== ENCOUNTER 2024-12-25 10:20 | Outpatient (REF) | payer MEDICARE, SELFPAY ==
[2024-12-25 11:34] LABS: Hematocrit 38.7 % (37.0-47.0); Hemoglobin 13.1 g/dl (12.0-16.0); Mean Corpuscular HGB Conc 33.9 g/dl (31.0-35.0); Mean Corpuscular Hemoglobin 30.7 pg (27.0-33.0); Mean Corpuscular Volume 90.6 fL (80.0-98.0); NRBC Abs Auto 0.000 X10*3/uL (0.0-0.012); NRBC Pct Auto 0.0 /100WBC (0.0-0.2); Platelet Count 320 X10*3/uL (160-400); Red Blood Count 4.27 X10*6/uL (4.20-5.50); White Blood Count 7.7 X10*3/uL (4.8-10.8)
[2024-12-25 11:59] LABS: Anion Gap 14 (12-20); Blood Urea Nitrogen 16 mg/dL (9-16); Calcium 9.3 mg/dL (8.4-10.2); Carbon Dioxide 24 mmol/L (22-29); Chloride 99 mmol/L (96-108); Estimated Glomerular Filt Rate 50; Magnesium 2.0 mg/dL (1.6-2.6); Potassium 4.7 mmol/L (3.3-5.1); Sodium 132 mmol/L (135-145)
--- OUTSIDE RECORDS SUMMARY | 2024-12-25 13:26 | XMS_ITS | Data Portability ---
Author Organization [facility], [facility] Address [address] [place] [address] Care Team Providers Care Area Intelligence Technician Name Role Phone [facility] Primary Care Provider Assessment No assessment recorded. Plan of Treatment Reminders Order Date Submit Date Provider Last Modified By Organization Details Last Modified Time Details Appointments None recorded. Lab rapid SARS CoV 2 Ag, QL IA, respirator y specimen 2022 023 r[facility]ellOrestes [facility], [address] [place] [address], [phone], 3 15:23:03 rapid flu (A+B) 2022 023 [facility], [address] [place] [address], [phone], 3 15:19:52 Referral None recorded. Procedures None recorded. Surgeries None recorded. Imaging XR, chest, 2 view 2022 023 [email or web address] [facility], [address] [place] [address], [address], 3 15:24:05 Medication Orders albuterol sulfate 2.5 mg/3 mL (0.083 %) solution for nebulizati on 2022 023 [email or web address] [facility], [address] [facility], [place], [address], 3 15:19:22 ipratropiu m bromide 0.02 % solution for inhalation [address], [address] [facility], [place], [address], 3 15:19:22 prednisone 20 mg tablet [address], [address] [place] [address], [place], [address], 3 15:23:00 albuterol sulfate HFA 90 mcg/actuat ion aerosol inhaler 2022 023 [facility] [address] [facility], [place], [address], 3 15:19:56 Allergy Relief (fluticaso ne) 50 mcg/actuat ion nasal spray,susp ension 2022 023 [facility] [address] [facility], [place], [address], 3 15:19:56 neomycin-p olymyxin-h ydrocort 3.5 mg-10,000 unit/mL-1 % ear drops,susp 2022 [facility] [address] [facility], [place], [address], 3 14:11:32 Allergy Relief (fluticaso ne) 50 mcg/actuat ion nasal spray,susp ension 2022 023 [facility], [address] [place] [address], [place], [address], 3 12:28:20 Patient TargetsNo targets recorded. Patient Instructions Encounter Date Encounter Id Patient Instructions Last Modified By Organization Details Last Modified Time 06/02/2022 [id number] hearing loss: ca re instructions [facility] Not available 06/02/2022 12:27:30 Sinusitis is [...] care for yourself at home? Take an qvqp-zth-hzgaeuh pain medicine. Avoid Ibuprofen, Aleve and Aspirin if . If the doctor prescribed antibiotics, take them as directed. Do not stop taking them just because you feel better. You need to take the full course of antibiotics. Be careful when taking qhsx-rka-sbplcom cold or influenza (flu) medicines and Tylenol [...] deeper into the ear canal. Remain still, wmlm-usc-gmvr-down for about 15 minutes. 3. Keep the [...] about six inches from the ear. 4. Zdet-cac-rbhqnbh pain medications can relieve discomfort associated with external otitis. Acetaminophen (Tylenol), ibuprofen, or naproxen can be taken, depending on individual preference. 5. Return to the [facility] in about one week. The provider can [...] be present Not available 06/02/2022 12:27:24 06/19/2022 [id number] peak flow* Not available 11/2022 15:19:22 If you test [...] wear a mask. For travel guidance, see [facility] s Travel webpage. Do not travel. Stay home and separate from others as much as possible. Use a separate bathroom, if possible. Take steps to improve ventilation at home, if possible. Don t share personal household items, like cups, [...] masking (see below). For travel guidance, see [facility] s Travel webpage. Not available 06/19/2022 15:18:58 [...] Unknown Analyte Normal =Negat alex Not Available [address], [address], 06/19/2022 15:08:16 06/20/19 23 06/19/2022 rapid SARS CoV 2 Ag, QL IA, respi rator y speci men Unknown Analyte negati ve Not Available [address] [place] [address], [address], 06/19/2022 15:08:16 06/20/19 23 06/19/2022 rapid flu (A+B) Unknown Analyte Normal = Negati ve Not Available [address] [place] [address], [phone], 06/19/2022 15:08:22 06/20/19 23 06/19/2022 rapid flu (A+B) Unknown Analyte negati ve Not Available [address] [place] [address], [address], 06/19/2022 15:08:22 06/20/19 23 06/19/2022 rapid flu (A+B) Unknown Analyte Normal = Negati ve Not Available 2099pancho mustafa [address] [place], [address], 06/19/2022 15:08:22 06/20/19 23 06/19/2022 rapid flu (A+B) Unknown Analyte negati ve Not Available 2099pancho [address] [place], [address], 06/19/2022 15:08:22 06/20/19 23 06/19/2022 peak flow* Pre (L/min) 80 Not Available [address] [place] [address] [place], [address], 06/19/2022 14:26:50 06/20/19 23 06/19/2022 peak flow* Post (L/min) 150 Not Available [address] [place] [address], [address], 06/19/2022 14:26:50 06/20/19 23 06/19/2022 peak flow* Pulse 60 Not Available 2099pam tre [address], [address], 06/19/2022 14:26:50 06/20/19 23 06/19/2022 peak flow* Oxygen Saturation 96 Not Available [address] [place] [address], [address], 06/19/2022 14:26:50 06/20/19 23 06/19/2022 XR, chest , 2 view No observ ation record ed. [facility] [address] [facility] [place], [address], 06/19/2022 16:02:44 06/21/19 23 XR, chest , 2 view No observ ation record ed. [email or web address] Not Available 2022 09:50:44 Result Notes None recorded. Problems Name Problem SNOMED Code Status Onset Date Resolution Date Notes Provider Name and Address Organization Details Recorded Time Irregular heart beat 086111941 Active 2022 has pacemaker QUANG DEPINTO null, PA - [facility] 3 11:45:16 Hypertensi ve disorder 52703956 Active 2022 QUANG DEPINTO null, PA - [facility] 3 11:45:25 Hyperchole sterolemia 20315659 Active 2022 QUANG DEPINTO null, PA - [facility] 3 11:45:31 Gastroesop hageal reflux disease 902585383 Active 2022 QUANG DEPINTO null, PA - [facility] 3 11:45:36 Ruiz's esophagus 781057018 Active 2022 QUANG DEPINTO null, PA - [facility] 3 11:45:40 Anxiety 69875116 Active 2022 QUANG DEPINTO null, PA - [facility] 3 11:45:46 Depressive disorder 24546047 Active 2022 QUANG DEPINTO null, PA - [facility] 3 11:45:51 Problem Notes None recorded. Procedures Surgical History Date Name Laterality Status Provider Name and Address Organization Details Recorded Time Cerumen Removal by Irrigation completed Catarino Alanis NP [address] [place], [address], [place] - [facility] 06/02/2022 12:26:36 cardiac pacemaker procedure completed QUANG DEPINTO PA - [facility] 06/02/2022 11:46:25 procedure on back completed QUANG DEPINTO PA - [facility] 06/02/2022 11:46:31 replacement of bilateral knee joints completed QUANG DEPINTO PA - [facility] 06/02/2022 11:46:37 Imaging Results None recorded. Procedure Notes None recorded. Medical Equipment None [...] blood by Pulse oximetry Heart rate Systolic And Diastolic Provider Name and Address Organization Details Last Updated DateTime 3 160.02 cm 29.2 kg/m2 96776.7 4 g 0 18 /min 97.3 [degF] 97 % 97 % 60 /min 146/74 mm[Hg] QUANG BENOIT PA - [facility] 3 11:48:17 Date Recorded Body height Body mass index (BMI) Body weight Pain severity - 0-10 verbal numeric rating [Score] - Reported Respiratory rate Oxygen saturation Oxygen saturation in Arterial blood by Pulse oximetry Heart rate Body temperature Systolic And Diastolic Provider Name and Address Organization Details Last Updated DateTime 3 160.02 cm 29.2 kg/m2 81820.7 4 g 0 18 /min 96 % 96 % 60 /min 99.1 [degF] 134/70 mm[Hg] Philly Garcia PA - [facility] 3 14:14:29 Social History Question Answer Notes LastModified by Organizat ion Details LastModified Time Tobacco Smoking Status Never Smoker QUANG baer PA - [facility] 06/02/2022 11:46:12 Have You Had Direct Contact, Or Contact During Intimacy, With Monkeypox Rash, Scabs, Or Body Fluids From A Person With Monkeypox? No Information not available 06/02/2022 Have You Recently Traveled Abroad? No Information not available 06/02/2022 Sex: Unknown Functional Status Question Answer Note LastModified by Organizat ion Details LastModified Time Do you use any illicit or recreational drugs? No Information not available 06/02/2022 Do you or have you ever used any other forms of tobacco or nicotine? No Information not available 06/02/2022 What is your level of alcohol consumption? None Information not available 06/02/2022 Mental Status None recorded. Family History Relationship [...] 11:43:10 Influenza, high-dose, trivalent, PF 8 completed UQANG DEPINTO null, PA - [facility] 06/02/2022 [...] Diagnosis SNOMED-CT Code Diagnosis ICD10 Code Diagnosis IMO Codes Diagnosis Note [id number] [address] [place] [address] 05/20/2015 10:31:08 05/20/2015 10:55:00 [id number] [address] [place] [address] 03/10/2018 14:05:27 03/10/2018 16:18:15 [id number] [address] [place] [address] 10/26/2016 10:50:18 10/26/2016 11:24:40 [id number] [address] [place] [address] 01/25/2015 14:33:52 01/25/2015 15:33:11 [id number] [address] [place] [address] 04/29/2020 13:56:25 04/29/2020 15:29:26 [id number] Catarino Alanis NP [address] [place] [address] 06/02/2022 10:47:32 06/02/2022 12:35:23 Acute otitis externa of right ear 7518283222 191806 H60.501 Acute sinusitis 87380914 J01.90 [id number] Catarino Alanis NP [address] [place] [address] 06/19/2022 13:48:54 06/19/2022 15:24:05 Acute bronchitis 45019615 J20.9 Exposure t o SARS-CoV-2 574543891 Z20.822 Health Concerns Section Related Observation LastModified by Organization Detai ls LastModified Time None Recorded Concern Status LastModified by Organization Details LastModified Time None Recorded Advance Directives Directive None Recorded Payers Insurance Date Sequence Insurance Name Policy Number Policy Pop Covered Member ID Pop Member ID Guarantor Name 06/19/2022 1 [place] [employer] Wladysradha T Szmyd [id number] Wladysradha Szmyd 06/19/2022 2 [place] [id number] Wlaydyreanna T Szmyd [id number] Wladysmelmargot Szmyd Notes Date Note Type Note Provider Name and Address Organization Details Recorded Time 3 text/html Ear problem UCReported by PatientHPIFor quality, patient reportsdecreased hearingandringing in the ears (tinnitus). For severity, patient reportsmild. For associated symptoms, patient reportsdischarge from the ears. For source of patient information, patient reportsinformation obtained from patient,patient arrived at urgent care ambulatory, andlearning styles: auditory. For location, patient reportsbilateral. For duration, patient reports7 days. For context, patient reportsno sick contacts,no recent swimming/water in ear, andno recent air travel. For modifying factors, patient reportsdoes not hurt to lie on, or pull on earanddoes not hurt to chew. Catarino Alanis NP [address] [place], [address], [place] - [facility] 06/02/2022 12:28:46 3 text/html Sinus Complaints UCReported by PatientHPIFor location, patient reportssinus pain,facial pain, andsinus pressure. For associated symptoms, patient reportsdifficulty breathing,post nasal drip,nasal passage blockage __, andcoughbut reportsno fever,no nausea or vomiting,no sore throat,no ear fullness,no nasal itching,no eye itching, andno dizziness. For quality, patient reportsworseningbut reportsminimal discomfortandclear. For context, patient reportsworse with environmental exposurebut reportsno recent upper respiratory infection,no recent sick contacts, andnot worse with seasonal allergen exposure. For onset/timing, patient reportsworse in amandworse in pm. For duration, patient reportsfrequent. For severity, patient reportsmoderate. For risk factors, patient reportsno current smoking or tobacco useandno history of nasal trauma. For alleviating factors, patient reportsoral steroids. For aggravating factors, patient reportsworse during an upper respiratory infection (a cold)andworse with excess fatigue. For prior treatment, patient reportsoral decongestant. Shortness of BreathReported by Patient CongestionReported by Patient Catarino Alanis NP [address] [facility] [place], [address], [place] - [facility] 06/19/2022 15:24:23 OBGyn Episode No OBEpisode recorded.
== END 2024-12-25 10:21 | disposition home or self-care (01) ==
LOC: HO.LAB 10:20
PROVIDERS: Absent Provider Internal Medicine; PCP Internal Medicine; Visit Provider Internal Medicine Cardiovascular Disease
DX: I48.92 Unspecified atrial flutter (principal); I49.5 Sick sinus syndrome; R09.89 Other specified symptoms and signs involving the circulatory and respiratory systems; Z79.899 Other long term (current) drug therapy
CPT/HCPCS: 36415; 80048; 83735; 85027; 93005; 93280; 99212

== ENCOUNTER 2024-12-25 10:20 | Outpatient (AMB) | payer MEDICARE, SELFPAY ==
--- NOTE | 2024-12-25 10:22 | MHC.OFFVIS ---
Vital Signs 12/25/24 10:23 Height 5 ft 3 in Weight 156 lb 8.451 oz BMI 27.7 BP 120/78 Blood Pressure Location Lt brachial Position Sitting Pulse 64 Intake Visit Reasons: 6m w pacer ck r/s 10-16-24 Front Sight Attacher: Front Sight Attacher Present Accompanied by: Nephew or Niece Allergies No Known Allergies Allergy (Verified 06/21/24 12:52) Medication List - Last Reconciled 12/25/24 by Nikita Choi MD amlodipine 10 mg PO DAILY atorvastatin 10 mg PO BEDTIME calcium carbonate-vitamin D3 500 mg-10 mcg (400 unit) (Oystercal-D) 1 tab PO DAILY coenzyme Q10 (Co Q-10) 50 mg PO DAILY divalproex (Depakote Sprinkles) 250 mg (2 x 125 mg) PO TID 90 days hydralazine 50 mg PO BID levothyroxine 50 mcg PO DAILY@0600 lisinopril 40 mg PO DAILY 90 days magnesium oxide 250 mg PO DAILY metoprolol tartrate 25 mg (1/2 x 50 mg) PO DAILY omeprazole 20 mg PO DAILY@0630 sodium chloride 1,000 mg PO TID spironolactone 25 mg PO DAILY HPI Comments Details: Sophie comes for follow-up, accompanied by her grand niece. She has been overall doing well. She has improved in his functionality. Mammary still is an issue. She has no symptoms of palpitations. Blood pressures remained stable. No heart failure symptoms. Denies any chest pain. No orthopnea, PND, leg edema. [facility]LY [facility] Medical History Atrial flutter (~11/2019) Dysphagia Vitamin D deficiency Thyroid cancer Medicare annual wellness visit, initial Paroxysmal atrial flutter Type 2 diabetes mellitus with hyperglycemia GERD (gastroesophageal reflux disease) MGUS (monoclonal gammopathy of unknown significance) Osteoarthritis Vitamin D deficiency Post-surgical hypothyroidism Non-toxic multinodular goiter Follicular carcinoma of thyroid gland SSS (sick sinus syndrome) Carpal tunnel syndrome DDD (degenerative disc disease) Peptic ulcer disease Obesity Impaired glucose tolerance Hyperlipidemia Hypertension Bradycardia Thyroid nodule Pacemaker (~11/2019) Surgical History Hx of endoscopy History of bilateral knee replacement Hx of arthroscopy of right knee Pulmonary nodule Hx of partial thyroidectomy Hx of appendectomy Hx of carpal tunnel repair Hx of colonoscopy History of back surgery Hx of knee surgery (~09/2012) Family History Father No problems noted. Mother CVD (cardiovascular disease) Heart disease Brother CVD (cardiovascular disease) Sudden cardiac Social History Household Members: Other Household Members Other:: niece Housing: House Are you a primary resident care technician to a significant other at home: No ( with dementia last year) Do you presently have visiting nurse or other home services: Yes Alcohol intake: never Patient Tobacco Use Status: Never used Tobacco Tobacco use type: Cigarette e-Cigarette/Vaping Use: Never Used Second Hand Smoke Exposure: No Advance Directives Date on File: 12/06/21 service: No Current occupational status: retired Cognitive needs: Yes Hearing needs: No Vision needs: Yes Review of Systems Const Denies chills, Denies fatigue, Denies fever(s), Denies frequent falls, Denies weakness, Denies weight gain and Denies weight loss ENT Denies dizziness Card Denies chest pain, Denies leg edema, Denies lightheadedness, Denies palpitations, Denies dyspnea, Denies dyspnea on exertion, Denies orthopnea and Denies other (loss of consciousness) Resp Denies cough, Denies dyspnea and Denies dyspnea on exertion GI Denies hematochezia and Denies change in stool character Musc Denies abnormal gait, Denies muscle weakness, Denies numbness, Denies radiating pain into limb and Denies tingling Neuro Denies abnormal gait, Denies dizziness, Denies frequent falls, Denies numbness, Denies tingling and Denies weakness Endo Denies fatigue and Denies palpitations Physical Exam Vital Signs: Last Vital Signs Pulse 64 12/25/24 10:23 BP 120/78 12/25/24 10:23 BMI result Body Mass Index 27.7 Const General: cooperative, comfortable, no acute distress, alert, awake and anxious Nutritional Appearance: other (Frail elderly woman) Orientation/consciousness: patient oriented x3 Limitations: wheelchair Neck Neck: Yes trachea midline, Yes supple and Yes no JVD Resp Effort & Inspection: normal respiratory effort Auscultation: clear to auscultation bilaterally Cardio Jugular venous distension: no JVD Palpation: normal PMI Rate: regular rate Rhythm: regular rhythm Heart sounds: S1 normal heart sound present and S2 normal heart sound present GI Auscultation: normal bowel sounds Skin General skin exam: no rashes or lesions noted Neuro General: patient oriented x3 and no focal motor deficits Extrem General: Yes no clubbing, cyanosis or edema Psych Appearance: grossly normal Office Procedures Cardiac Device Check Cardiac Device Check Details: Dual-chamber [facility] pacemaker in place. Reprogrammed from DDI to DDDR given patient in his in atrially paced rhythm. In the last 6 months has no episodes of atrial fibrillation. Atrial pacing thresholds excellent and reprogrammed to enhance battery life. Ventricular pacing thresholds are stable. Atrial ventricular sensing is adequate. Pacing lead impedance is stable. Battery life is at 5 and half years [id number]-MQ Cardiac Device Check, pacemaker dual lead Procedure code (CPT) selection complete EKG Details: EKG shows atrially paced rhythm with ventricularly sensed rhythm with nonspecific ST-T changes [id number]-Pmkqgqgxjkdcwxjxs, Complete Assessment & Plan Assessment & Plan (1) Paroxysmal atrial flutter: Code(s): I48.92 - Unspecified atrial flutter Category: Medical Plan: Paroxysmal atrial flutter/fibrillation, has converted to sinus rhythm by herself and maintaining rhythm. She has not in his lifestyle or symptoms. Continue monitor by pacer telemetry. Continue metoprolol therapy. Patient has declined through her family not to be on oral anticoagulant therapy due to prior bleeding risk. They declined any other alternative procedures as well. Avoidance of stimulants was discussed. Stress mitigation strategies were discussed. (2) SSS (sick sinus syndrome): Code(s): I49.5 - Sick sinus syndrome Category: Medical Plan: Sick sinus syndrome status post dual-chamber pacemaker placement. Pacemaker is working well. Patient pacing in the atrium 98% of the time. Will continue monitor remotely every 3 months. (3) Labile blood pressure: Code(s): R09.89 - Other specified symptoms and signs involving the circulatory and respiratory systems Category: Medical Plan: Significantly labile blood pressure which overall remains controlled at this point time on current therapy. Continue the same. Importance of good blood pressure control was discussed. Low-salt diet was discussed. Stress mitigation strategies were discussed. Continue current regimen. Will follow up in the clinic in 1 year's time, sooner PRN. Thank you for allowing me to partake in her care Orders: Orders Complete Blood Count no Diff Today I48.92 - Unspecified atrial flutter Magnesium Today I48.92 - Unspecified atrial flutter Coding Level of Care Code Est Pt Level 4 (93798) Complex EM visit Add On G2211 Diagnoses Paroxysmal atrial flutter I48.92 SSS (sick sinus syndrome) I49.5 Labile blood pressure R09.89 CPT Codes Cardiac Device Check - Cardiac Device 2: 96504-KV Cardiac Device Check, pacemaker dual lead ([id number]) EKG - CPT: 41666-Eabncjrraithfcftr, Complete ([id number])
[2024-12-25 10:23] VITALS: BP 120/78; PULSE 64; BMI 27.7
--- OUTSIDE RECORDS SUMMARY | 2024-12-25 12:13 | XMS_ITS | Clinical Summary ---
Author Organization [facility] Address [address] [place] [address] Phone Care Team Providers Care Supervisor Personnel Clerks Name Role Phone Forrest Garcia MD Primary Care Provider [phone] Allergies Active Allergy Reactions Criticality Noted Date [...] Date Last Done Comments Influenza Vaccine (#1) 2024 , 01/09/2019, 01/01/2018, Additional history exists Pneumococcal Vaccine: 50+ Years Completed 01/31/2018, 03/18/2017, 04/13/2010 Pneumococcal Vaccine: Peds (0 to 5 Years) and At-Risk Patients (6 to 49 Years) Discontinued 01/31/2018, 03/18/2017, 04/13/2010 Hepatitis B Vaccine Aged Out No longe r eligible based on patient's age to complete this topic Insurance Medicare [facility] Medicare [facility] Care Teams Supervisor Personnel Clerks Relationship Specialty Start Date End Date Forrest Garcia MD [facility] [address] [facility] - General 03/23/20
--- OUTSIDE RECORDS SUMMARY | 2024-12-25 12:13 | XMS_ITS | Patient Health Record ---
Author Organization [facility] Address [address] [place] [address] Care Team Providers Care Paint Preparer Name Role Phone Forrest Garcia MD Primary Care Provider Melo Hare Jr Allergies No Known Allergies Reason For Referral No Information Medications Medication SIG (Take, Route, Frequency, Duration) Notes Start Date End Date Status Citalopram Hydrobromide 10 MG/5ML 5 ml Orally Once a day; Duration: 30 day(s) Active Spironolactone 25 MG 1 tablet Orally; Duration: 30 day(s) Active CoQ-10 400 MG as directed Orally Active Metoprolol Succinate 25 MG 1 capsule Ora lly Once a day; Duration: 30 day(s) Active Fish Oil 1000 MG 1 capsule Orally Onc e a day; Duration: 30 day(s) Active Lisinopril 40 MG 1 tablet Orally Once a day; Duration: 30 day(s) Active Atorvastatin Calcium 20 MG 1 tablet Oral ly Once a day; Duration: 30 day(s) Active Magnesium Oxide 400 MG 1 tablet as neede d Orally Once a day; Duration: 30 day(s) Active Eliquis 5 MG as directed Orally Active Omeprazole 20 MG TAKE 1 CAPSULE BY [facility] EVERY DAY; Duration: 90 Active Alendronate-Cholecalciferol 70-2800 MG-UNIT 1 tablet 30 minutes before the first food, beverage or medicine of the day with plain water Orally; Duration: 30 day(s) Active Levothyroxine Sodium 50 MCG 1 tablet in the morning on an empty stomach Orally Once a day; Duration: 30 day(s) Active Magnesium Carbonate 250 MG/GM as directed Orally Active LORazepam 1 MG 1 tablet at bedtime as needed Orally Once a day Active Vitamin D-3 25 MCG (1000 UT) 1 capsule O rally Once a day; Duration: 30 day(s) Active hydrALAZINE HCl 100 MG 1 tablet with jessy d Orally Twice a day; Duration: 30 day(s) Active Calcium 1200 4807-8398 MG-UNIT 1 tablet Orally Once a day; Duration: 30 day(s) Active Immunizations Vaccine Route Administration [...] Problem Status W/U Status Risk Notes Problem Ruiz's esophagus (688134597) 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) Active confirmed Problem Gastroesophageal reflux disease without esophagitis (260261578) Gastroesophageal reflux disease without esophagitis (K21.9) Active confirmed Problem Esophageal stricture (67235206) Esophageal stricture (K22.2) Active confirmed Problem Oropharyngeal dysphagia (20072128) Oropharyngeal dysphagia (R13.12) Active confirmed Problem Constipation (39081911) Constipation, unspecified constipation type (K59.00) Active confirmed [...] Date MEDICARE OF [place] [address] [facility] [id number] MITCHELL MUSA (FRANCINE) Self - patient is the insured [employer] ATTN CLAIMS [address] [place] [address] [phone] [id number] MITCHELL MUSA (FRANCINE) Self - patient [...]
== END 2024-12-25 10:51 | disposition home or self-care (01) ==
LOC: HO.HCS 10:21
PROVIDERS: PCP Internal Medicine; Visit Provider Internal Medicine Cardiovascular Disease
DX: I48.92 Unspecified atrial flutter (principal); I49.5 Sick sinus syndrome; R09.89 Other specified symptoms and signs involving the circulatory and respiratory systems
CPT/HCPCS: 93010; 93280; 99214; G2211

== ENCOUNTER 2024-12-26 11:26 | Outpatient (AMB) | payer MEDICARE, SELFPAY ==
--- NOTE | 2024-12-26 11:40 | MHC.PC.OV ---
Vital Signs 12/26/24 11:41 Height 5 ft 3 in Weight 158 lb BMI 28.0 BP 136/62 Blood Pressure Location Lt brachial Position Sitting Pulse 71 Pulse Source Pulse Oximeter Temp 97.1 F Temp Source Temporal Artery Scan Pulse Oximetry (%) 96 Oxygen Delivery Method Room Air Intake Visit Reasons: 6 month f/u Accompanied by: Nephew or Niece Allergies No Known Allergies Allergy (Verified 12/26/24 11:45) Medication List - Last Reconciled 12/26/24 by Forrest Garcia MD amlodipine 10 mg PO DAILY atorvastatin 10 mg PO BEDTIME calcium carbonate-vitamin D3 500 mg-10 mcg (400 unit) (Oystercal-D) 1 tab PO DAILY coenzyme Q10 (Co Q-10) 50 mg PO DAILY divalproex (Depakote Sprinkles) 250 mg (2 x 125 mg) PO TID 90 days hydralazine 50 mg PO BID levothyroxine 50 mcg PO DAILY@0600 lisinopril 40 mg PO DAILY 90 days magnesium oxide 250 mg PO DAILY metoprolol tartrate 25 mg (1/2 x 50 mg) PO DAILY omeprazole 20 mg PO DAILY@0630 sodium chloride 1,000 mg PO TID spironolactone 25 mg PO DAILY Tobacco use date assessed: 12/26/24 Fall risk assessment: 2 + Falls in past year Last assessed Fall Risk: 12/26/24 Dental Screening Dental Screen Date: 12/26/24 Did you have a dental visit in the last 12 months?: Yes Did you have a dental problem in the last 6 months where you did not have access to dental care?: No Was dental information given to patient?: Patient has dentist [facility] Medical History Atrial flutter (~11/2019) Dysphagia Vitamin D deficiency Thyroid cancer Medicare annual wellness visit, initial Paroxysmal atrial flutter Type 2 diabetes mellitus with hyperglycemia GERD (gastroesophageal reflux disease) MGUS (monoclonal gammopathy of unknown significance) Osteoarthritis Vitamin D deficiency Post-surgical hypothyroidism Non-toxic multinodular goiter Follicular carcinoma of thyroid gland SSS (sick sinus syndrome) Carpal tunnel syndrome DDD (degenerative disc disease) Peptic ulcer disease Obesity Impaired glucose tolerance Hyperlipidemia Hypertension Bradycardia Thyroid nodule Pacemaker (~11/2019) Surgical History Hx of endoscopy History of bilateral knee replacement Hx of arthroscopy of right knee Pulmonary nodule Hx of partial thyroidectomy Hx of appendectomy Hx of carpal tunnel repair Hx of colonoscopy History of back surgery Hx of knee surgery (~09/2012) Family History Father No problems noted. Mother CVD (cardiovascular disease) Heart disease Brother CVD (cardiovascular disease) Sudden cardiac Social History Household Members: Other Household Members Other:: niece Housing: House Are you a primary vp care management to a significant other at home: No ( with dementia last year) Do you presently have visiting nurse or other home services: Yes Alcohol intake: never Patient Tobacco Use Status: Never used Tobacco Tobacco use type: Cigarette e-Cigarette/Vaping Use: Never Used Second Hand Smoke Exposure: No Advance Directives Date on File: 12/06/21 service: No Current occupational status: retired Cognitive needs: Yes Hearing needs: No Vision needs: Yes Questionnaire PHQ-9 Over the last 2 weeks, how often have you been bothered by any of the following problems? 1. Little interest or pleasure in doing things: not at all 2. Feeling down, depressed, or hopeless: not at all 3. Trouble falling or staying asleep, or sleeping too much: not at all 4. Feeling tired or having little energy: not at all 5. Poor appetite or overeating: not at all 6. Feeling bad about yourself - or that you are a failure or have let yourself or your family down: not at all 7. Trouble concentrating on things, such as reading the newspaper or watching television: not at all 8. Moving or speaking so slowly that other people could have noticed. Or the opposite - being so fidgety or restless that you have been moving around a lot more than usual: not at all 9. Thoughts that you would be better off or of hurting yourself in some way: not at all Total score: 0 Depression Screening Interpretation: Negative Depression Screening Done: Yes 08708 - PHQ-9 Billing: Yes Source: Developed by Drs. Gallo Padron, Vannesa Srinivasan, Demian Grady and colleagues, with an educational yun from [employer]. Thrive Questionnaire Date Thrive assessed: 12/26/24 I am a: Parent/Caregiver What is your living situation today?: I have a steady place to live Within the past 12 months, did the food you bought not last and you didn't have the money to get more?: Never true Within the past 12 months, did you worry whether your food would run out before you got money to buy more?: Never true Do you have trouble paying for medicines?: No Do you have trouble getting transportation to medical appointments?: No Do you have trouble paying your heating and electricity bill?: No Do you have trouble taking care of your child, family member or friend?: No Do you have trouble with day-to-day activities such as bathing, preparing meals, shopping, managing finances, etc.?: No Are you currently unemployed and looking for a job?: No Are you interested in more education?: No Please select the resources that you would like help with: None Currently or been in a relationship where the following occur: No concerns reported THRIVE Score: 0 AUDIT C Alcohol Use Questionnaire (AUDIT-C) 1. How often do you have a drink containing alcohol?: Never 3. How often do you have six or more drinks on one occasion?: Never Total Score: 0 ALF-7 AMB Questionnaire ALF-7 Date ALF - 7 assessed: 12/26/24 Feeling nervous, anxious, or on edge: 0 = Not at all Not being able to stop or control worryin = Not at all Worrying too much about different things: 0 = Not at all Trouble relaxin = Not at all Being so restless that it is hard to sit still: 0 = Not at all Becoming easily annoyed or irritable: 0 = Not at all Feeling afraid as if something awful might happen: 0 = Not at all Total ALF-7 score (0-4 normal; 5-9 mild; 10-14 moderate; 15-21 severe): 0 Source: Developed by Drs. Gallo Padron, Demian Guallpa and colleagues, with an educational yun from [employer]. ALF-7 Assessment Billing ALF-7 Assessment Tool: ALF-7 Assessment 96695 Physical exam (Primary Care) Vital Signs: Last Vital Signs Temp 97.1 F 12/26/24 11:41 Pulse 71 12/26/24 11:41 BP 136/62 12/26/24 11:41 Pulse Ox 96 12/26/24 11:41 Oxygen Delivery Method Room Air 12/26/24 11:41 BMI result Body Mass Index 28.0 Tobacco/Smoking Status: Tobacco use Status Tobacco use date assessed 12/26/24 12/26/24 11:46 Patient Tobacco Use Status Never used Tobacco 12/26/24 11:46 Tobacco use type Cigarette 12/26/24 11:46 e-Cigarette/Vaping Use Never Used 12/26/24 11:46 PHQ-9: PHQ-9 Score PHQ-9: Total score 0 12/26/24 12:11 Depression Screening Interpretation: Negative Thrive Assessment: Date of Thrive Assessment Date Thrive assessed 12/26/24 12/26/24 11:46 Currently or been in a relationship where the following occur: No concerns reported Const General: alert; No acute distress Eyes Conjunctivae: conjunctivae normal Resp Auscultation: clear to auscultation bilaterally Cardio Rate: regular rate Rhythm: regular rhythm GI Inspection: Yes normal to inspection Extrem General: Yes normal to inspection and No edema Results AMB Hemoglobin A1c AMB Hemoglobin A1c 5.1 % Last Edit by Brittney Warren CMA on 12/26/24 12:10 Results Reviewed Results Reviewed: Laboratory Last Values Hgb A1c (Clinic) 5.1 % (4.0-6.0) 12/26/24 12:09 Coding Level of Care Code Est Pt Level 4 (06995) Complex EM visit Add On G2211 Diagnoses Primary hypertension I10 Hypertension type: primary hypertension SSS (sick sinus syndrome) I49.5 Paroxysmal atrial flutter I48.92 Pure hypercholesterolemia E78.00 Hyperlipidemia type: pure hypercholesterolemia Type 2 diabetes mellitus with hyperglycemia, without long-term current use of insulin E11.65 Diabetes mellitus middle or intermediate school principal insulin use: without middle or intermediate school principal use 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 Decrease salt intake and exercise presently on metoprolol 25 mg once a day lisinopril 40 mg once a day hydralazine 50 mg twice a day and spironolactone 25 mg once a day and amlodipine 10 mg once a day (2) SSS (sick sinus syndrome): Code(s): I49.5 - Sick sinus syndrome Category: Medical Plan: Continue to follow up with Cardiology with device check (3) Paroxysmal atrial flutter: Code(s): I48.92 - Unspecified atrial flutter Category: Medical Plan: Patient has converted on her own and from the notes of Cardiology family has decided to discontinue anticoagulation (4) Hyperlipidemia: Code(s): E78.5 - Hyperlipidemia, unspecified Category: Medical Qualifiers: Hyperlipidemia type: pure hypercholesterolemia Qualified Code(s): E78.00 - Pure hypercholesterolemia, unspecified Plan: Avoid fried foods, chicken skin, eggs, butter margarine, pastries and meat. Be it pork or beef they have a lot of cholesterol discussed about repeating blood work on atorvastatin 10 mg at bedtime (5) Type 2 diabetes mellitus with hyperglycemia: Comment: Fernie Lima Code(s): E11.65 - Type 2 diabetes mellitus with hyperglycemia Category: Medical Qualifiers: Diabetes mellitus group home insulin use: without middle or intermediate school principal use Qualified Code(s): E11.65 - Type 2 diabetes mellitus with hyperglycemia Plan: Decrease the amount of carbohydrate intake, pasta, bread, rice and potatoes are all sugar and that is aside from all the sweet stuff, remember that fruits are good but they are Sweet also. (6) Ruiz's esophagus: Code(s): K22.70 - Ruiz's esophagus without dysplasia Category: Medical Plan: Avoid the foods that causes that usually spicy foods, tomato products, juices, coffee, soda and foods that your sensitive to. After eating do not lie down, allow 3-4 hours before in lie down. And keep the head of bed above 30 degrees to avoid the acid from going up. Plan History of Present Illness The patient is an 84-year-old female presenting for a follow-up visit. She has a history of diabetes mellitus, hypertension, and hypercholesterolemia, managed with medications. A pacemaker was placed due to sick sinus syndrome. The patient was treated for follicular carcinoma of the thyroid gland, leading to postsurgical hypothyroidism, managed with hormone replacement therapy. She has MGUS and GERD, managed with lifestyle modifications and medications. Atrial flutter is managed with metoprolol, and the patient has declined anticoagulation therapy. Generalized anxiety disorder and depression are managed with medication and counseling. Ruiz's esophagus is monitored for progression. Recent labs show improving hyponatremia and stable renal function. Health Maintenance - Blood pressure management with metoprolol, lisinopril, hydralazine, and spironolactone - Cholesterol management with atorvastatin - Monitoring of sodium levels due to hyponatremia - Regular follow-up with cardiology for pacemaker checks Social History - The patient engages in limited physical activity due to cold weather and balance issues. - The patient enjoys visiting [facility] for exercise and social interaction, preferring to go when it is less crowded. Review of Systems - Cardiovascular: Reports labile blood pressure, denies chest pain. - Neurological: Reports hearing difficulties and balance issues post brain bleed. - Endocrine: Reports stable blood sugar levels. - Gastrointestinal: Reports GERD symptoms, denies abdominal pain. Physical Exam - Ears: Presence of ear wax, ear canal open. Results - Labs: Normal blood count, no anemia; sodium level at 132, improving; creatinine at 1.04 mg/dL; normal blood sugar; BMP of 128. - Cholesterol: Last tested in 2022 at 69 mg/dL. Plan Patient was informed and verbally consented to the use of an ambient scribe for clinic note documentation during this visit. 1. Diabetes Mellitus The patient's diabetes mellitus is currently well-managed with stable blood sugar levels, as indicated by recent lab results. 2. Hypertension Hypertension is being managed with a combination of metoprolol, lisinopril, hydralazine, and spironolactone, with blood pressure remaining controlled despite some variability. 3. Hypercholesterolemia Hypercholesterolemia is managed with atorvastatin, and a repeat cholesterol test is planned to monitor levels. 4. Sick Sinus Syndrome With Pacemaker The patient continues to follow up with cardiology for pacemaker checks, and her heart rhythm has converted to normal without the need for anticoagulation. 5. Atrial Flutter Atrial flutter is managed with metoprolol for rate control, and the patient has declined anticoagulation therapy due to bleeding risk concerns. 6. Hyponatremia Hyponatremia is being monitored, with sodium levels showing improvement, likely influenced by diuretic use. Discussion Notes During the visit, we discussed the management of the patient's multiple chronic conditions, including diabetes, hypertension, and hypercholesterolemia. We reviewed the importance of medication adherence and regular follow-ups with cardiology for pacemaker checks. The patient expressed concerns about anticoagulation therapy, and we discussed the associated risks and benefits. We also addressed the need for monitoring sodium levels due to hyponatremia and the importance of maintaining hydration. The patient was advised to continue current medications and lifestyle modifications. Patient Instructions - Continue taking all prescribed medications as directed. - Follow up with cardiology for pacemaker checks as scheduled. - Monitor blood pressure regularly and report any significant changes. - Maintain hydration and monitor sodium intake. - Schedule a repeat cholesterol test as discussed. Orders: Orders AMB Hemoglobin A1c Today Z13.9 - Encounter for screening, unspecified
[2024-12-26 11:41] VITALS: BP 136/62; PULSE 71; TEMP 36.2; O2SAT 96; BMI 28.0
--- OUTSIDE RECORDS SUMMARY | 2024-12-26 14:43 | XMS_ITS | Patient Health Record ---
Author Organization [facility] Address [address] [place] [id number] Care Team Providers Care Head Holder Name Role Phone Forrest Garcia MD Primary Care Provider Melo Hare Jr [phone] Allergies No Known Allergies Reason For Referral [...] Omeprazole 20 MG TAKE 1 CAPSULE BY [facility] EVERY DAY; Duration: 90 Active Alendronate-Cholecalciferol 70-2800 [...] day; Duration: 30 day(s) Active Calcium 1200 3938-4063 MG-UNIT 1 tablet Orally Once a day; [...] W/U Status Risk Notes Problem Ruiz's esophagus (841655555) 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) Active confirmed Problem Gastroesophageal reflux disease without esophagitis (102069421) Gastroesophageal reflux disease without esophagitis (K21.9) Active confirmed Problem Esophageal stricture (19576137) Esophageal stricture (K22.2) Active confirmed Problem Oropharyngeal dysphagia (77385464) Oropharyngeal dysphagia (R13.12) Active confirmed Problem Constipation (90837392) Constipation, unspecified constipation type (K59.00) Active confirmed [...] Date MEDICARE OF [place] [address] [facility] [place] [phone] [id number] MITCHELL MUSA (FRANCINE) Self - patient is the insured [employer] ATT[employer] CLAIMS [address] [place] [phone] [id number] MITCHELL MUSA (FRANCINE) Self - patient [...]
--- OUTSIDE RECORDS SUMMARY | 2024-12-26 14:43 | XMS_ITS | Clinical Summary ---
Author Organization [facility] Address [address] [place] [address] Phone Care Team Providers Care Metal Cleaner Name Role Phone Forrest Garcia MD Primary Care Provider [phone] Allergies Active Allergy Reactions Criticality Noted Date [...] CENTER Medicare [facility] Care Teams Metal Cleaner Relationship Specialty Start Date End Date Forrest Garcia MD [facility] [address] [facility] - [facility] 03/23/20
== END 2024-12-26 12:32 | disposition home or self-care (01) ==
LOC: HO.HMCH 11:27
PROVIDERS: PCP Internal Medicine; Visit Provider Internal Medicine
DX: I10 Essential (primary) hypertension (principal); I49.5 Sick sinus syndrome; I48.92 Unspecified atrial flutter; E78.00 Pure hypercholesterolemia, unspecified; E11.65 Type 2 diabetes mellitus with hyperglycemia; K22.70 Barrett's esophagus without dysplasia; Z13.9 Encounter for screening, unspecified

== ENCOUNTER → 2024-12-26 11:26 | Outpatient (BNVA) | payer MEDICARE, SELFPAY | PROVIDERS: PCP Internal Medicine; Visit Provider Internal Medicine | DX: I10 Essential (primary) hypertension (principal); I49.5 Sick sinus syndrome; I48.92 Unspecified atrial flutter; E78.00 Pure hypercholesterolemia, unspecified; E11.65 Type 2 diabetes mellitus with hyperglycemia; K22.70 Barrett's esophagus without dysplasia; K21.9 Gastro-esophageal reflux disease without esophagitis; F41.1 Generalized anxiety disorder; E87.1 Hypo-osmolality and hyponatremia; Z95.0 Presence of cardiac pacemaker; Z79.899 Other long term (current) drug therapy | CPT/HCPCS: 83036; 96127; 99212 ==

== ENCOUNTER → 2025-03-11 13:55 | Outpatient (BNV) | payer MEDICARE, SELFPAY | PROVIDERS: PCP Internal Medicine; Visit Provider Internal Medicine Cardiovascular Disease | DX: I48.0 Paroxysmal atrial fibrillation (principal); Z45.018 Encounter for adjustment and management of other part of cardiac pacemaker | CPT/HCPCS: 93294 ==